=== PATIENT | female | born 1990 | race Caucasian/White ===

== ENCOUNTER 2024-10-28 19:59 | Emergency (ER) | payer MEDICARE, MEDICAID, SELFPAY ==
[2024-10-28 20:02] VITALS: BP 125/80; BP 143/82; PULSE 86; PULSE 89; RESP 18; TEMP 36.5; O2SAT 98; O2SAT 99; BMI 68.2
--- NOTE | 2024-10-28 20:02 | ED.GENADULT ---
HPI - General Adult General Chief complaint: Dizziness Stated complaint: cc of dizziness hx of dvt on both legs pe, dm Time Seen by Provider: 10/29/24 00:27 Source: patient Mode of arrival: ambulatory Limitations: no limitations History of Present Illness ED Provider: Dr. Prince Quinn HPI narrative: 34-year-old female with a history of DVT and pulmonary embolism who he was on warfarin who presents emergency department for 1 episode of dizziness. Patient states that around 19:00 hours she was lying down. When she got up she felt as if she was going to pass out. She states that her vision was blurry and she had nausea but no vomiting. The symptoms resolved but she was concerned about these symptoms so she came to the emergency department for evaluation. She states that she was had similar symptoms with her last episode being 2 months prior. She states she did go to an emergency department at that time and they evaluated her for possible blood clot in the lung and told her that the blood clots in her lungs had gotten smaller. She states that she did feel like she had a fever but did not take her temperature. She denied chills, rhinorrhea, sore throat, cough chest pain, shortness of breath, dyspnea on exertion. Related Data Allergies Allergy/AdvReac Type Severity Reaction Status Date / Time aspirin Allergy Unknown Verified 10/28/24 20:03 Review of Systems Review of Systems: Yes all other systems are reviewed and are negative [facility] Past Medical History [facility] Narrative: Social history: She denies tobacco and alcohol use. Physical Exam ED Vital Signs: Vital Signs - 24 hr 10/28/24 20:02 10/29/24 00:23 Temperature 97.7 F 97.9 F Pulse Rate 89 80 Respiratory Rate 18 16 Blood Pressure 125/80 145/86 H Pulse Oximetry 99 97 Oxygen Delivery Method Room Air Room Air BMI result Body Mass Index 68.2 Vital signs were normal. Exam: General: Awake, alert in no distress, weight was 209.5 kg, elevated BMI of 68.2 kg per m2 Head: Normocephalic, atraumatic EENT: PERRL, Lids normal, sclera normal, extraocular muscles intact, no nystagmus, conjunctiva normal, nose normal , ears normal, throat without erythema or exudates Neck: Supple, no adenopathy Lung: breath sounds symmetric, no wheezing, rales or rhonchi Chest: symmetric movement, nontender Heart: regular rate and rhythm, normal S1, S2 no murmurs or rubs Abdomen: soft, non-tender, nondistended, normal bowel sounds Back: no vertebral tenderness, no CVAT Extremities: no deformities, moves all extremities symmetrically Neuro: General: Awake, alert, oriented, normal speech Cranial nerves: cranial nerves intact Strength: moves all extremities symmetrically Cerebellar: Good isneww-pz-hare-to-finger, normal rapid finger, normal gait Psych: Pleasant, cooperative Course Course Course Narrative: RME performed by Marcela Lauren PA-C. Patient is a 34 year old assigned female at presenting to the emergency department with dizziness. Patient states that when she gets up she is dizzy. Patient has a history of DVT and is on warfarin Detailed physical exam and review of systems are deferred to the manager clinical. EKG, labs, and swabs ordered. Patient placed back in the waiting room pending room availability and results. Medical Decision Making Medical Decision Making [facility] Narrative: 34-year-old female with a history of DVT and pulmonary embolism who he was on warfarin who presents emergency department for 1 episode of dizziness which occurred at 19:00 hours when she went from my lying to standing position, the episode was brief and she had no loss of consciousness. Patient did have associated blurred vision and nausea. Patient states she had similar episode 2 months prior and had a negative workup in an emergency department. Vital signs were normal. Physical examination revealed no nystagmus, normal neurologic and cerebellar exam. Differential diagnosis: ?Includes but is not limited to stroke, myocardial infarction, myocardial ischemia, arrhythmia, positional vertigo, vasovagal syncope, electrolyte abnormalities, anemia Course: 00:50 Patient was laboratory evaluation was unremarkable. Twelve EKG was unremarkable. Patient's physical examination was normal. At this time I believe the patient had a near syncopal episode possibly related to vasovagal event or dehydration. I did discuss this with the patient. Patient was advised to increase your fluid intake with the next 24-48 hours. Symptoms got worse in any way she should return to the emergency department for re-evaluation. Patient was given printed and verbal instructions and discharged home. Admission/Observation Consideration of admission/observation: Escalation of care including admission/observation considered (Yes) Lab Data MDM Lab Attestation statement: I reviewed the patient's lab results. My independent interpretation patient's laboratory evaluation is as follows: Elevated WBC 95817. Therapeutic INR 2.5. Elevated glucose 135. High sensitive troponin I was below detectable limits. COVID-19, influenza and RSV were negative. Urinalysis and microscopic evaluation is consistent with a non clean catch specimen-the patient has no symptoms for urinary tract infection. 10/28/24 20:31 10/28/24 20:31 Labs: Lab Results 10/28/24 10/28/24 Range/Units 20: 20:31 WBC 12.8 H (4.8-10.8) X10*3/uL RBC 4.32 (4.20-5.50) X10*6/uL Hgb 12.2 (12.0-16.0) g/dl Hct 36.3 L (37.0-47.0) % MCV 84.0 (80.0-98.0) fL MCH 28.2 (27.0-33.0) pg MCHC 33.6 (31.0-35.0) g/dl RDW 13.5 (11.0-16.0) % Plt Count 323 (160-400) X10*3/uL MPV 9.5 (9.4-12.3) fL Immature Gran % (Auto) 0.6 H (0.0-0.4) % Neut % (Auto) 75.2 H (45-73) % Lymph % (Auto) 18.5 L (20-40) % [place] % (Auto) 5.1 (2-11) % Eos % (Auto) 0.3 (0-4) % Baso % (Auto) 0.3 (0-2) % Lymph # (Auto) 2.4 (1.2-4.9) X10*3/uL [place] # (Auto) 0.7 (0.1-1.2) X10*3/uL Eos # (Auto) 0.0 (0.0-0.4) X10*3/uL Baso # (Auto) 0.0 (0.0-0.2) X10*3/uL Abs Immat Gran (auto) 0.08 H (0.00-0.03) X10*3/uL Absolute Neuts (auto) 9.6 H (2.0-8.3) x10*3/uL Absolute Nucleated RBC 0.000 (0.0-0.012) X10*3/uL Nucleated RBC % (auto) 0.0 (0.0-0.2) /100WBC PT 29.3 H (10.9-12.4) SEC INR 2.5 H (0.9-1.1) APTT 37.3 H (26.0-36.8) SEC Sodium 140 (135-145) mmol/L Potassium 3.6 (3.3-5.1) mmol/L Chloride 107 (96-108) mmol/L Carbon Dioxide 26 (22-29) mmol/L Anion Gap 11 L (12-20) BUN 12 (9-16) mg/dL Creatinine 0.77 (0.5-1.4) mg/dL Estim Creat Clear Calc 204.5 Estimated GFR > 60 Random Glucose 138 H (60-115) mg/dL Calcium 9.0 (8.4-10.2) mg/dL Magnesium 1.8 (1.6-2.6) mg/dL Total Bilirubin 0.4 (0.0-1.0) mg/dL AST 19 (5-31) U/L ALT 17 (0-31) U/L Alkaline Phosphatase 47 (39-117) U/L Troponin I High Sens < 2.7 (<3.5-17.0) ng/L Total Protein 7.7 (6.5-8.0) g/dL Albumin 3.5 (3.5-5.0) g/dL Urine Color Yellow Urine Appearance Cloudy Urine pH 5.5 (5.0-9.0) Ur Specific Lena 1.025 (1.005-1.025) Urine Protein Negative (Neg-Trace) mg/dL Urine Glucose (UA) Negative (Negative) mg/dL Urine Ketones Negative (Negative) mg/dL Urine Blood Negative (Negative) Urine Nitrite Negative (Negative) Ur Leukocyte Esterase Small (1+) H (Negative) Urine RBC 0-2 (0-2) /HPF Urine WBC 0-5 (0-5) /HPF Ur Squamous Epith Cells 6-10 (0-2) /HPF Urine Bacteria 2+ (None Seen) Hyaline Casts 0-2 (0-2) /LPF Influenza Type A (PCR) NEGATIVE (Negative) Influenza Type B (PCR) NEGATIVE (Negative) RSV RNA Qual (PCR) NEGATIVE (Negative) SARS-CoV-2 RNA (RT-PCR) NEGATIVE (Negative) Independent Interpretation I performed an independent interpretation of an: EKG Interpretation: My independent interpretation patient's laboratory evaluation done at 20:16 hours is as follows: Normal sinus rhythm with a rate of 81 normal DC, QRS duration and QTC interval, no ST segment elevation, no ST segment depression, no significant T-wave abnormalities, no PACs, no PVCs Discharge Plan Discharge Clinical Impression: Near syncope Patient Disposition: Home, Self-Care Instructions: Near Syncope (ED) Additional Instructions: Your blood work was normal which is reassuring. Your marker of heart attack/heart damage was below detectable limits, I do not think that your symptoms are related to your heart. Your INR was therapeutic at 2.5, keep taking your warfarin as prescribed by your provider. Given the fact that your INR is in the therapeutic range, I do not think that you have recurrence of the blood clot in your lungs as the cause of your dizziness. Your EKG was normal. At this time I believe that your dizziness was caused by you being either slightly dehydrated or sick with a viral infection. I want you to increase your fluid intake over the next 24 hours. Symptoms get worse in any way want you to return to the emergency department so that we can re-evaluate you. Follow-up with your doctor in 2 days. Please return to the emergency department if your symptoms get worse or if you develop any symptoms that are concerning to you. Print Language: Liberian
--- NOTE | 2024-10-28 20:04 | ECG_ITS ---
Test Reason : DIZZINESS Blood Pressure : */* mmHG Vent. Rate : 81 BPM Atrial Rate : 81 BPM P-R Int : 144 ms QRS Dur : 84 ms QT Int : 386 ms P-R-T Axes : 31 12 22 degrees QTcB Int : 448 ms Normal sinus rhythm Cannot rule out Anterior infarct , age undetermined Abnormal ECG No previous ECGs available Referred By: Marcela Lauren Electronically Signed By: JAIME CADENA
--- OUTSIDE RECORDS SUMMARY | 2024-10-28 20:35 | XMS_ITS | Encounter Summary ---
Author Organization [facility] Address [address] [place] [address] Care Team Providers Care Chemical Plant Technical Director Name Role Phone Miguel A Mcclendon MD Primary Care Provider [phone] Dharmesh Armas MD Unavailable [phone] Gifty Huizar PhD Unavailable [phone] Pcp, No Primary Care Provider Unavailabl Tiki Velasco Primary Care Provider + [phone] Dharmesh Broderick MD Unavailable [phone] Jenae Thomas MD Primary Care Provider + [phone] Diego Schulz MD Unavailable [phone] Ravi Mills MD Unavailable [phone] Reason for Visit * Reason Onset Date Comments Medication Refill 11/22/2019 Encounter Details Date Type Department Care Team (Late st Contact Info) Description 11/22/2019 Refill [facility] [address] [place] [address] Denise Leal MD [address] [place] [address] Body mass index (bmi) 70 or greater, adult (HCC) Social History Tobacco Use Types Packs/Day Years Used Date Smoking Tobacco: Never Smokeless Tobacco: Never Alcohol Use Standard Drinks/Week Comments No 0 (1 standard drink = 0.6 oz pur e alcohol) AUDIT-C Answer Date Recorded Frequency of Alcohol Consumption Never 07/17/2018 Average Number of Drinks Not on file 018 Frequency of Binge Drinking Not on file 07/03 Sex and Gender Information Value Date Recorded Sex Assigned at Female 02/25/2023 1:53 AM EDT Gender Identity Female 02/25/2023 1:53 AM EDT Sexual Orientation Heterosexual (straight) 02/25 1:53 AM EDT documented as of this encounter Miscellaneous Notes * Telephone Encounter - Dee Fraga RN - 11/22/2019 9:10 AM EST pt last seen 02/12/19. Refill at next office visit 01/04/20 per provider. documented in this encounter Plan of Treatment Upcoming Encounters Date Type Department Care Team (Late st Contact Info) Description 12/11/2024 3:30 PM EDT Office Visit [facility] [address] [place] [phone] Jenae Thomas MD [address] [place] [address] documented as of this encounter Visit Diagnoses Diagnosis Body mass index (bmi) 70 or greater, adult documented in this encounter Care Teams Chemical Plant Technical Director Relationship Specialty Start Date End Date Miguel A Mcclendon MD PCP - General Internal Medicine 09/11/18 09/03/21 Dharmesh Armas MD [address] [place], [place] [phone] PCP - [place] Medicare Attributed 02/01/20 09/01/21 Pcp, No PCP - General General Medicine 09/04/21 10/06/21 Tiki Barry MBBS [address] [place] [address] PCP - General Internal Medicine 10/07/21 03/29/24 Jenae Thomas MD [address] [place] [address] PCP - General Internal Medicine 03/30/24 Diego Schulz MD [address] [place] [address] PCP - [employer] Medicare Attributed 10/03/23 Ravi Mills MD [address] [address] PCP - Resident - Supervising Attending Internal Medicine 06/05/24 Gifty Huizar, PhD [address] [facility], [address] [place], [place] [phone] Clinical Psychologist Psychology 10/13/20 Dharmesh Broderick MD [address] [place] [address] Ophthalmology 07/15/23 documented as of this encounter
--- OUTSIDE RECORDS SUMMARY | 2024-10-28 20:35 | XMS_ITS | Encounter Summary ---
Author Organization [facility] Address [address] [place] [address] Care Team Providers Care Bessemer Converter Blower Name Role Phone Miguel A Mcclendon MD Primary Care Provider [phone] Dharmesh Armas MD Unavailable [phone] Gifty Huizar PhD Unavailable [phone] Pcp, No Primary Care Provider Unavailabl Tiki Velasco Primary Care Provider + [phone] Dharmesh Broderick MD Unavailable Jenae Thomas MD Primary Care Provider + [phone] Diego Schulz MD Unavailable [phone] Ravi Mills MD Unavailable [phone] Reason for Visit * Reason Onset Date Comments Medication Refill 12/11/2019 Encounter Details Date Type Department Care Team (Late st Contact Info) Description 12/11/2019 Refill [facility] [address] [place] [phone] Stanley Stern, KAYLENE [address] [facility] [address] [place] [phone] Diabetes mellitus type 2 in obese (HCC) Social History Tobacco Use Types Packs/Day [...] Telephone Encounter - Dee Fraga RN - 12/12/2019 4:17 PM EDT Refill at next office visit per provider. Pt last seen 02/02/19 documented in this encounter Plan of Treatment Upcoming Encounters Date Type Department Care Team (Late st Contact Info) Description 12/11/2024 3:30 PM EDT Office Visit [facility] [address] [place] [phone] Jenae Thomas MD [address] [place] [address] documented as of this encounter Visit Diagnoses Diagnosis Diabetes mellitus type 2 in obese Type II or unspecified type diabetes mellitus without mention of complication, not stated as uncontrolled documented in this encounter Care Teams Bessemer Converter Blower Relationship Specialty Start Date End Date Migue lA Mcclendon MD PCP - General Internal Medicine 09/11/18 09/03/21 Dharmesh Armas MD [address] [place] [address] PCP - [place] Medicare Attributed 02/01/20 09/01/21 Pcp, No PCP - General General Medicine 09/04/21 10/06/21 Tiki Barry MBBS [address] [place] [address] PCP - General Internal Medicine 10/07/21 03/29/24 Jenae Thomas MD [address] [place] [address] PCP - General Internal Medicine 03/30/24 Diego Schulz MD [address] [place] [address] PCP - [employer] Medicare Attributed 10/03/23 Ravi Mills MD [address] [address] PCP - Resident - Supervising Attending Internal Medicine 06/05/24 Gifty Huizar, PhD [address] [facility], [address] [place] [phone] Clinical Psychologist Psychology 10/13/20 Dharmesh Broderick MD [address] [place] [address] Ophthalmology 07/15/23 documented as of this encounter
--- OUTSIDE RECORDS SUMMARY | 2024-10-28 20:35 | XMS_ITS | Encounter Summary ---
Author Organization [facility] Address [address] [place] [address] Care Team Providers Care Lode Miner Blasting Name Role Phone Miguel A Mcclendon MD Primary Care Provider [phone] Dharmesh Armas MD Unavailable [phone] Gifty Huizar PhD Unavailable [phone] Pcp, No Primary Care Provider Unavailabl Tiki Velasco Primary Care Provider + [phone] Dharmesh Broderick MD Unavailable [phone] Jenae Thomas MD Primary Care Provider + [phone] Diego Schulz MD Unavailable [phone] Ravi Mills MD Unavailable [phone] Reason for Visit * Reason Onset Date Comments Medication Refill 11/25/2019 Encounter Details Date Type Department Care Team (Late st Contact Info) Description 11/25/2019 Refill [facility] [address] [place] [address] Denise Leal MD [address] [place] [address] Body mass index (bmi) 70 or greater, [...] Telephone Encounter - Dee Fraga RN - 11/26/2019 8:26 AM EST Patient last seen 02/12/19. Refill at next office visit per provider. documented in this encounter Plan of Treatment Upcoming Encounters Date Type Department Care Team (Late st Contact Info) Description 12/11/2024 3:30 PM EDT Office Visit [facility] [address] [place], [place] [phone] Jenae Thomas MD [address] [place] [address] documented as of this encounter Visit Diagnoses Diagnosis Body mass index (bmi) 70 or greater, adult documented in this encounter Care Teams Lode Miner Blasting Relationship Specialty Start Date End Date Miguel A Mcclendon MD PCP - General Internal Medicine 09/11/18 09/03/21 Dharmesh Armas MD [address] [place], [place] [phone] PCP - [place] Medicare Attributed 02/01/20 09/01/21 Pcp, No PCP - General General Medicine 09/04/21 10/06/21 Tiki Barry MBBS [address] [place] [address] PCP - General Internal Medicine 10/07/21 03/29/24 Jenae Thomas MD [address] [place] [address] PCP - General Internal Medicine 03/30/24 Diego Schulz MD [address] [place] [address] PCP - [employer] Medicare Attributed 10/03/23 Ravi Mills MD [address] [address] PCP - Resident - Supervising Attending Internal Medicine 06/05/24 Gifty Huizar, PhD [address] [place] [address] [phone] Clinical Psychologist Psychology 10/13/20 Dharmesh Broderick MD [address] [place] [address] Ophthalmology 07/15/23 documented as of this encounter
[2024-10-28 20:36] LABS: MANUAL DIFF FLAG NO
--- OUTSIDE RECORDS SUMMARY | 2024-10-28 20:36 | XMS_ITS | Encounter Summary ---
Author Organization [facility] Address [address] [place] [address] Care Team Providers Care Canal Boat Captain Name Role Phone Miguel A Mcclendon MD Primary Care Provider [phone] Dharmesh Armas MD Unavailable [phone] Gifty Huizar PhD Unavailable [phone] Pcp, No Primary Care Provider Unavailabl Tiki Velasco Primary Care Provider + [phone] Dharmesh Broderick MD Unavailable [phone] Jenae Thomas MD Primary Care Provider + [phone] Diego Schulz MD Unavailable [phone] Ravi Mills MD Unavailable [phone] Reason for Visit * Reason Onset Date Comments Medication Refill 01/19/2020 Encounter Details Date Type Department Care Team (Late st Contact Info) Description 01/19/2020 Refill [facility] [address] [place] [phone] Stanley Stern, KAYLENE [address] [facility] [address] [place] [phone] Diabetes mellitus type 2 in obese (HCC) [...] Telephone Encounter - Dee Fraga RN - 01/21/2020 8:40 AM EDT Pt last seen 01/2019. Refill at next visit documented in this encounter Plan of Treatment Upcoming Encounters Date Type Department Care Team (Late st Contact Info) Description 12/11/2024 3:30 PM EDT Office Visit [facility] [address] [place], [place] [phone] Jenae Thomas MD [address] [place] [address] documented as of this encounter Visit Diagnoses Diagnosis Diabetes mellitus type 2 in obese Type II or unspecified type diabetes mellitus without mention of complication, not stated as uncontrolled documented in this encounter Care Teams Canal Boat Captain Relationship Specialty Start Date End Date Miguel A Mcclendon MD PCP - General Internal Medicine 09/11/18 09/03/21 Dharmesh Armas MD [address] [place] [address] PCP - [place] Medicare Attributed 02/01/20 09/01/21 Pcp, No PCP - General General Medicine 09/04/21 10/06/21 Tiki Barry MBBS [address] [place] [address] PCP - General Internal Medicine 10/07/21 03/29/24 Jenae Thomas MD 132 [place] [address] PCP - General Internal Medicine 03/30/24 Diego Schulz MD [address] [place] [address] PCP - [employer] Medicare Attributed 10/03/23 Ravi Mills MD [address] [address] PCP - Resident - Supervising Attending Internal Medicine 06/05/24 Gifty Huizar, PhD [address] [facility], [address] [place] [phone] Clinical Psychologist Psychology 10/13/20 Dharmesh Broderick MD [address] [place] [address] Ophthalmology 07/15/23 documented as of this encounter
--- OUTSIDE RECORDS SUMMARY | 2024-10-28 20:36 | XMS_ITS | Encounter Summary ---
Author Organization [facility] Address [address] [place] [address] Care Team Providers Care Duster Tender Name Role Phone Miguel A Mcclendon MD Primary Care Provider [phone] Dharmesh Armas MD Unavailable [phone] Gifty Huizar PhD Unavailable [phone] Pcp, No Primary Care Provider Unavailabl Tiki Velasco Primary Care Provider + [phone] Dharmesh Broderick MD Unavailable [phone] Jenae Thomas MD Primary Care Provider + [phone] Diego Schulz MD Unavailable [phone] Ravi Mills MD Unavailable Reason for Visit * Reason Onset Date Comments Medication Refill 08/21/2019 Encounter Details Date Type Department Care Team (Late st Contact Info) Description 08/21/2019 Refill [facility] [address] [place] [address] Denise Leal MD [address] [place] [address] Body mass index (bmi) 70 or greater, [...] Telephone Encounter - Dee Fraga RN - 08/21/2019 3:17 PM EST refill at next office visit per provider. last seen 01/2019 documented in this encounter Plan of Treatment Upcoming Encounters Date Type Department Care Team (Late st Contact Info) Description 12/11/2024 3:30 PM EDT Office Visit [facility] [address] [place] [phone] Jenae Thomas MD [address] [place] [address] documented as of this encounter Visit Diagnoses Diagnosis Body mass index (bmi) 70 or greater, adult documented in this encounter Care Teams Duster Tender Relationship Specialty Start Date End Date Miguel A Mcclendon MD PCP - General Internal Medicine 09/11/18 09/03/21 Dharmesh Armas MD [address] [place], [place] [phone] PCP - [place] Medicare Attributed 02/01/20 09/01/21 Pcp, No PCP - General General Medicine 09/04/21 10/06/21 Tiki Barry MBBS [address] [place] [address] PCP - General Internal Medicine 10/07/21 03/29/24 Jenae Thomas MD 132 [place] [address] PCP - General Internal Medicine 03/30/24 Diego Schulz MD 132 [place] [address] PCP - [employer] Medicare Attributed 10/03/23 Ravi Mills MD [address] [address] PCP - Resident - Supervising Attending Internal Medicine 06/05/24 Gifty Huizar, PhD [address] [place] [address] [phone] Clinical Psychologist Psychology 10/13/20 Dharmesh Broderick MD [address] [place] [address] Ophthalmology 07/15/23 documented as of this encounter
--- OUTSIDE RECORDS SUMMARY | 2024-10-28 20:36 | XMS_ITS | Encounter Summary ---
Author Organization [facility] Address [address] [place] [address] Care Team Providers Care Bass Guitar Teacher Name Role Phone Miguel A Mcclendon MD Primary Care Provider [phone] Dharmesh Armas MD Unavailable [phone] Gifty Huizar PhD Unavailable [phone] Pcp, No Primary Care Provider Unavailabl Tiki Velasco Primary Care Provider + [phone] Dharmesh Broderick MD Unavailable [phone] Jenae Thomas MD Primary Care Provider + [phone] Diego Schulz MD Unavailable [phone] Ravi Mills MD Unavailable Reason for Visit * Reason Onset Date Comments Medication Refill 12/11/2019 Encounter Details Date Type Department Care Team (Late st Contact Info) Description 12/11/2019 Refill [facility] [address] [place] [address] Denise Leal MD [address] [place] [address] Diabetes mellitus type 2 in obese (HCC); Body mass index (bmi) 70 or greater, [...] Encounter - Dee Fraga RN - 12/12/2019 4:16 PM EDT Refill at next office visit per provider. Pt last seen 02/02/19 documented in this encounter Plan of Treatment Upcoming Encounters Date Type Department Care Team (Late st Contact Info) Description 12/11/2024 3:30 PM EDT Office Visit [facility] [address] [place], [place] [phone] Jenae Thomas MD [address] [place] [address] documented as of this encounter Visit Diagnoses Diagnosis Diabetes mellitus type 2 in obese Type II or unspecified type diabetes mellitus without mention of complication, not stated as uncontrolled Body mass index (bmi) 70 or greater, adult documented in this encounter Care Teams Bass Guitar Teacher Relationship Specialty Start Date End Date Miguel A Mcclendon MD PCP - General Internal Medicine 09/11/18 09/03/21 Dharmesh Armas MD [address] [place], [place] [phone] PCP - [place] Medicare Attributed 02/01/20 09/01/21 Pcp, No PCP - General General Medicine 09/04/21 10/06/21 Tiki Barry MBBS [address] [place] [address] PCP - General Internal Medicine 10/07/21 03/29/24 Jenae Thomas MD 132 [place] [address] PCP - General Internal Medicine 03/30/24 Diego Schulz MD [address] [place] [address] PCP - [employer] Medicare Attributed 10/03/23 Ravi Mills MD [address] [place] [address] PCP - Resident - Supervising Attending Internal Medicine 06/05/24 Gifty Huizar, PhD [address] [address] Clinical Psychologist Psychology 10/13/20 Dhamresh Broderick MD [address] [place] [address] Ophthalmology 07/15/23 documented as of this encounter
--- OUTSIDE RECORDS SUMMARY | 2024-10-28 20:36 | XMS_ITS | Encounter Summary ---
Author Organization [facility] Address [address] [place] [address] Care Team Providers Care Fruit Grader Operator Name Role Phone Gifty Huizar PhD Unavailable [phone] Tiki Barry Primary Care Provider + [phone] Dharmesh Broderick MD Unavailable [phone] Jenae Thomas MD Primary Care Provider + [phone] Diego Schulz MD Unavailable [phone] Ravi Mills MD Unavailable [phone] Reason for Visit * Reason Onset Date Comments Medication Refill 11/29/2022 Encounter Details Date Type Department Care Team (Late st Contact Info) Description 11/29/2022 Refill [facility] [address] [place] [phone] Andrew Martínez MD 455 [facility] 203 [place] [address] Class 3 severe obesity due to excess calories with serious comorbidity and body mass index (BMI) greater than or equal to 70 in adult (HCC); Diabetes mellitus type 2 in obese (HCC) Social History Tobacco Use Types Packs/Day Years Used Date Smoking Tobacco: Former Cigarettes Q uit: 10/2021 Smokeless Tobacco: Never Alcohol Use Standard Drinks/Week Comments Not Currently 0 (1 standard drink = 0.6 oz [...] AM EDT documented as of this encounter Plan of Treatment Upcoming Encounters Date Type Department Care Team (Late st Contact Info) Description 12/11/2024 3:30 PM EDT Office Visit [facility] [address] [place], [place] [phone] Jenae Thomas MD [address] [place] [address] documented as of this encounter Visit Diagnoses Diagnosis Class 3 severe obesity due to excess calories with serious comorbidity and body mass index (BMI) greater than or equal to 70 in adult (HCC) Diabetes mellitus type 2 in obese Type II or unspecified type diabetes mellitus without mention of complication, not stated as uncontrolled documented in this encounter Care Teams Fruit Grader Operator Relationship Specialty Start Date End Date Tiki Barry MBBS [address] [place] [address] PCP - General Internal Medicine 10/07/21 03/29/24 Jenae Thomas MD [address] [place] [address] PCP - General Internal Medicine 03/30/24 Diego Schulz MD [address] [place] [address] PCP - [employer] Medicare Attributed 10/03/23 Ravi Mills MD [address] [place] [address] PCP - Resident - Supervising Attending Internal Medicine 06/05/24 Gifty Huizar, PhD 200 [place] [facility], 2nd [facility] [place], [place] [phone] Clinical Psychologist Psychology 10/13/20 Dharmesh Broderick MD [address] [place] [address] Ophthalmology 07/15/23 documented as of this encounter
--- OUTSIDE RECORDS SUMMARY | 2024-10-28 20:36 | XMS_ITS | Encounter Summary ---
Author Organization [facility] Address [address] [place] [address] Care Team Providers Care Music Researcher Name Role Phone Miguel A Mcclendon MD Primary Care Provider [phone] Dharmesh Armas MD Unavailable [phone] Gifty Huizar PhD Unavailable [phone] Pcp, No Primary Care Provider Unavailabl Tiki Velasco Primary Care Provider + [phone] Dharmesh Broderick MD Unavailable [phone] Jenae Thomas MD Primary Care Provider + [phone] Diego Schulz MD Unavailable [phone] Ravi Mills MD Unavailable [phone] Reason for Visit * Reason Onset Date Comments Medication Refill 01/01/2020 Encounter Details Date Type Department Care Team (Late st Contact Info) Description 01/01/2020 Refill [facility] [address] [place] [phone] Stanley Stern, KAYLENE 399 [facility] [address] [place] [phone] Diabetes mellitus type 2 in obese (HCC) [...] Telephone Encounter - Dee Fraga RN - 01/02/2020 9:51 AM EDT refill at next office visit per provider documented in this encounter Plan of Treatment Upcoming Encounters Date Type Department Care Team (Late st Contact Info) Description 12/11/2024 3:30 PM EDT [facility] [address] [place] [phone] Jenae Thomas MD [address] [place] [address] documented as of this encounter Visit Diagnoses Diagnosis Diabetes mellitus type 2 in obese Type II or unspecified type diabetes mellitus without mention of complication, not stated as uncontrolled documented in this encounter Care Teams Music Researcher Relationship Specialty Start Date End Date Miguel A Mcclendon MD PCP - General Internal Medicine 09/11/18 09/03/21 Dharmesh Armas MD [address] [place] [address] PCP - [place] Medicare Attributed 02/01/20 09/01/21 Pcp, No PCP - General General Medicine 09/04/21 10/06/21 Tiki Barry MBBS [address] [place] [address] PCP - General Internal Medicine 10/07/21 03/29/24 Jenae Thomas MD 132 [place] [address] PCP - General Internal Medicine 03/30/24 Diego Schulz MD 132 [place] [address] PCP - [employer] Medicare Attributed 10/03/23 Ravi Mills MD [address] [address] PCP - Resident - Supervising Attending Internal Medicine 06/05/24 Gifty Huizar, PhD [address] [place] [address] [phone] Clinical Psychologist Psychology 10/13/20 Dharmesh Broderick MD [address] [place] [address] Ophthalmology 07/15/23 documented as of this encounter
--- OUTSIDE RECORDS SUMMARY | 2024-10-28 20:36 | XMS_ITS | Encounter Summary ---
Author Organization [facility] Address [address] [place] [address] Care Team Providers Care Answerer Name Role Phone Miguel A Mcclendon MD Primary Care Provider [phone] Dharmesh Armas MD Unavailable [phone] Gifty Huizar PhD Unavailable [phone] Pcp, No Primary Care Provider Unavailabl Tiki Velasco Primary Care Provider + [phone] Dharmesh Broderick MD Unavailable [phone] Jenae Thomas MD Primary Care Provider + [phone] Diego Schulz MD Unavailable [phone] Ravi Mills MD Unavailable [phone] Reason for Visit * Reason Onset Date Comments Medication Refill 08/14/2019 Encounter Details Date Type Department Care Team (Late st Contact Info) Description 08/14/2019 Refill [facility] [address] [place] [phone] [place] Stern, KAYLENE 399 [facility] [address] [place] [phone] Diabetes mellitus type 2 in obese (HCC) [...] Telephone Encounter - Dee Fraga RN - 08/15/2019 11:24 AM EST Pt last seen 01/2019. Refill at next office visit. documented in this encounter Plan of Treatment Upcoming Encounters Date Type Department Care Team (Late st Contact Info) Description 12/11/2024 3:30 PM EDT Office Visit [facility] [address] [place], [place] [phone] Jenae Thomas MD [address] [place] [address] documented as of this encounter Visit Diagnoses Diagnosis Diabetes mellitus type 2 in obese Type II or unspecified type diabetes mellitus without mention of complication, not stated as uncontrolled documented in this encounter Care Teams Answerer Relationship Specialty Start Date End Date Miguel A Mcclendon MD PCP - General Internal Medicine 09/11/18 09/03/21 Dharmesh Armas MD [address] [place] [address] [address]CP - [place] Medicare Attributed 02/01/20 09/01/21 Pcp, No PCP - General General Medicine 09/04/21 10/06/21 Tiki Barry MBBS [address] [place] [address] PCP - General Internal Medicine 10/07/21 03/29/24 Jenae Thomas MD 132 [place] [address] PCP - General Internal Medicine 03/30/24 Diego Schulz MD 132 [place] [address] PCP - [employer] Medicare Attributed 10/03/23 Ravi Mills MD [address] [address] PCP - Resident - Supervising Attending Internal Medicine 06/05/24 Gifty Huizar, PhD 200 [place] [facility], [address] [place] [phone] Clinical Psychologist Psychology 10/13/20 Dharmesh Broderick MD [address] [place] [address] Ophthalmology 07/15/23 documented as of this encounter
--- OUTSIDE RECORDS SUMMARY | 2024-10-28 20:36 | XMS_ITS | Encounter Summary ---
Author Organization [facility] Address [address] [place] [address] Care Team Providers Care Health Inspector Name Role Phone Miguel A Mcclendon MD Primary Care Provider [phone] Dharmesh Armas MD Unavailable [phone] Gifty Huizar PhD Unavailable [phone] Pcp, No Primary Care Provider Unavailabl Tiki Velasco Primary Care Provider + [phone] Dharmesh Broderick MD Unavailable [phone] Jenae Thomas MD Primary Care Provider + [phone] Diego Schulz MD Unavailable [phone] Ravi Mills MD Unavailable [phone] Reason for Visit * Reason Onset Date Comments Medication Refill 09/06/2019 Encounter Details Date Type Department Care Team (Late st Contact Info) Description 09/06/2019 Refill [facility] [address] [place] [address] Denise Leal MD [address] [place] [address] Body mass index (bmi) 70 or greater, [...] Telephone Encounter - Dee Fraga RN - 09/07/2019 11:30 AM EST patient was last seen 02/12/19. refill at next office visit documented in this encounter Plan of Treatment Upcoming Encounters Date Type Department Care Team (Late st Contact Info) Description 12/11/2024 3:30 PM EDT Office Visit [facility] [address] [place] [phone] Jenae Thomas MD [address] [place] [address] documented as of this encounter Visit Diagnoses Diagnosis Body mass index (bmi) 70 or greater, adult documented in this encounter Care Teams Health Inspector Relationship Specialty Start Date End Date Miguel A Mcclendon MD PCP - General Internal Medicine 09/11/18 09/03/21 Dharmesh Armas MD [address] [place] [address] PCP - [place] Medicare Attributed 02/01/20 09/01/21 Pcp, No PCP - General General Medicine 09/04/21 10/06/21 Tiki Barry MBBS [address] [place] [address] PCP - General Internal Medicine 10/07/21 03/29/24 Jenae Thomas MD 132 [place] [address] PCP - General Internal Medicine 03/30/24 Diego Schulz MD [address] [place] [address] PCP - [employer] Medicare Attributed 10/03/23 Ravi Mills MD [address] [address] PCP - Resident - Supervising Attending Internal Medicine 06/05/24 Gifty Huizar, PhD [address] [place] [address] [phone] Clinical Psychologist Psychology 10/13/20 Dharmesh Broderick MD [address] [place] [address] Ophthalmology 07/15/23 documented as of this encounter
--- OUTSIDE RECORDS SUMMARY | 2024-10-28 20:36 | XMS_ITS | Encounter Summary ---
Author Organization [facility] Address [address] [place] [address] Care Team Providers Care Sales Relationship Manager Name Role Phone Miguel A Mcclendon MD Primary Care Provider [phone] Dharmesh Armas MD Unavailable [phone] Gifty Huizar PhD Unavailable [phone] Pcp, No Primary Care Provider Unavailabl Tiki Velasco Primary Care Provider + [phone] Dharmesh Broderick MD Unavailable [phone] Jenae Thomas MD Primary Care Provider + [phone] Diego Schulz MD Unavailable [phone] Ravi Mills MD Unavailable [phone] Reason for Visit * Reason Onset Date Comments Medication Refill 01/17/2020 Encounter Details Date Type Department Care Team (Late st Contact Info) Description 01/17/2020 Refill [facility] [address] [place] [address] Denise Leal MD [address] [place] [address] Body mass index (bmi) 70 or greater, [...] Telephone Encounter - Dee Fraga RN - 01/18/2020 8:11 AM EDT Last seen 02/02/2019. Refill at next visit per provider documented in this encounter Plan of Treatment Upcoming Encounters Date Type Department Care Team (Late st Contact Info) Description 12/11/2024 3:30 PM EDT Office Visit [facility] [address] [place] [phone] Jenae hTomas MD [address] [place] [address] documented as of this encounter Visit Diagnoses Diagnosis Body mass index (bmi) 70 or greater, adult documented in this encounter Care Teams Sales Relationship Manager Relationship Specialty Start Date End Date Miguel A Mcclendon MD PCP - General Internal Medicine 09/11/18 09/03/21 Dharmesh Armas MD [address] [place], [place] [phone] PCP - [place] Medicare Attributed 02/01/20 09/01/21 Pcp, No PCP - General General Medicine 09/04/21 10/06/21 Tiki Barry MBBS [address] [place] [address] PCP - General Internal Medicine 10/07/21 03/29/24 Jenae Thomas MD 132 [place] [address] PCP - General Internal Medicine 03/30/24 Diego Schulz MD 132 [place] [address] PCP - [employer] Medicare Attributed 10/03/23 Ravi Mills MD [address] [address] PCP - Resident - Supervising Attending Internal Medicine 06/05/24 Gifty Huizar, PhD 200 [place] [address] [phone] Clinical Psychologist Psychology 10/13/20 Dharmesh Broderick MD 79 [place] [address] Ophthalmology 07/15/23 documented as of this encounter
--- OUTSIDE RECORDS SUMMARY | 2024-10-28 20:36 | XMS_ITS | Encounter Summary ---
Author Organization [facility] Address [address] [place] [address] Care Team Providers Care Concrete Pile Driver Operator Name Role Phone Miguel A Mcclendon MD Primary Care Provider [phone] Dharmesh Armas MD Unavailable [phone] Gifty Huizar PhD Unavailable [phone] Pcp, No Primary Care Provider Unavailabl Tiki Velasco Primary Care Provider + [phone] Dharmesh Broderick MD Unavailable [phone] Jenae Thomas MD Primary Care Provider + [phone] Diego Schulz MD Unavailable [phone] Ravi Mills MD Unavailable [phone] Reason for Visit * Reason Onset Date Comments Medication Refill 12/23/2019 Encounter Details Date Type Department Care Team (Late st Contact Info) Description 12/23/2019 Refill [facility] [address] [place] [phone] [place] Stern, KAYLENE 399 [facility] [address] [place] [phone] Diabetes mellitus type 2 in obese (HCC) [...] Telephone Encounter - Dee Fraga RN - 12/24/2019 8:51 AM EDT Refill at next office visit per provider. Patient last seen 02/12/19 documented in this encounter Plan of Treatment Upcoming Encounters Date Type Department Care Team (Late st Contact Info) Description 12/11/2024 3:30 PM EDT Office Visit [facility] [address] [place] [phone] Jenae Thomas MD [address] [place] [address] documented as of this encounter Visit Diagnoses Diagnosis Diabetes mellitus type 2 in obese Type II or unspecified type diabetes mellitus without mention of complication, not stated as uncontrolled documented in this encounter Care Teams Concrete Pile Driver Operator Relationship Specialty Start Date End Date Miguel A Mcclendon MD PCP - General Internal Medicine 09/11/18 09/03/21 Dharmesh Armas MD [address] [place] [address] PCP - [place] Medicare Attributed 02/01/20 09/01/21 Pcp, No PCP - General General Medicine 09/04/21 10/06/21 Tiki Barry MBBS [address] [place] [address] PCP - General Internal Medicine 10/07/21 03/29/24 Jenae Thomas MD 132 [place] [address] PCP - General Internal Medicine 03/30/24 Diego Schulz MD 132 [place] [address] PCP - [employer] Medicare Attributed 10/03/23 Ravi Mills MD [address] [address] PCP - Resident - Supervising Attending Internal Medicine 06/05/24 Gifty Huizar, PhD 200 [place] [facility], [address] [place] [phone] Clinical Psychologist Psychology 10/13/20 Dharmesh Broderick MD [address] [place] [address] Ophthalmology 07/15/23 documented as of this encounter
--- OUTSIDE RECORDS SUMMARY | 2024-10-28 20:36 | XMS_ITS | Encounter Summary ---
Author Organization [facility] Address [address] [place] [address] Care Team Providers Care Chief Guard Name Role Phone Miguel A Mcclendon MD Primary Care Provider [phone] Dharmesh Armas MD Unavailable [phone] Gifty Huizar PhD Unavailable [phone] Pcp, No Primary Care Provider Unavailabl Tiki Velasco Primary Care Provider + [phone] Dharmesh Broderick MD Unavailable [phone] Jenae Thomas MD Primary Care Provider + [phone] Diego Schulz MD Unavailable [phone] Ravi Mills MD Unavailable [phone] Reason for Visit * Reason Onset Date Comments Medication Refill 08/14/2019 Encounter Details Date Type Department Care Team (Late st Contact Info) Description 08/14/2019 Refill [facility] [address] [place] [address] Denise Leal MD [address] [place] [address] Diabetes mellitus type 2 in obese (HCC); [...] Encounter - Dee Fraga RN - 08/15/2019 11:18 AM EST Refill at next office visit documented in this encounter Plan of Treatment Upcoming Encounters Date Type Department Care Team (Late st Contact Info) Description 12/11/2024 3:30 PM EDT Office Visit [facility] [address] [place] [phone] Jenae Thomas MD [address] [place] [address] documented as of this encounter Visit Diagnoses Diagnosis Diabetes mellitus type 2 in obese Type II or unspecified type diabetes mellitus without mention of complication, not stated as uncontrolled Body mass index (bmi) 70 or greater, adult documented in this encounter Care Teams Chief Guard Relationship Specialty Start Date End Date Miguel A Mcclendon MD PCP - General Internal Medicine 09/11/18 09/03/21 Dharmesh Armas MD [address] [place] [address] PCP - [place] Medicare Attributed 02/01/20 09/01/21 Pcp, No PCP - General General Medicine 09/04/21 10/06/21 Tiki Barry MBBS 132 [place] [address] PCP - General Internal Medicine 10/07/21 03/29/24 Jenae Thomas MD 132 [place] [address] PCP - General Internal Medicine 03/30/24 Diego Schulz MD [address] [place] [address] PCP - [employer] Medicare Attributed 10/03/23 Ravi Mills MD [address] [place] [address] PCP - Resident - Supervising Attending Internal Medicine 06/05/24 Gifty Huizar, PhD [address] [place] [address] Clinical Psychologist Psychology 10/13/20 Dharmesh Broderick MD 79 [place] [address] Ophthalmology 07/15/23 documented as of this encounter
--- OUTSIDE RECORDS SUMMARY | 2024-10-28 20:36 | XMS_ITS | Encounter Summary ---
Author Organization [facility] Address [address] [place] [address] Care Team Providers Care Certified Nurse Practitioner Name Role Phone Miguel A Mcclendon MD Primary Care Provider [phone] Dharmesh Armas MD Unavailable [phone] Gifty Huizar PhD Unavailable [phone] Pcp, No Primary Care Provider Unavailabl Tiki Velasco Primary Care Provider + [phone] Dharmesh Broderick MD Unavailable [phone] Jenae Thomas MD Primary Care Provider + [phone] Diego Schulz MD Unavailable [phone] Ravi Mills MD Unavailable [phone] Reason for Visit * Reason Onset Date Comments Medication Refill 01/17/2020 Encounter Details Date Type Department Care Team (Late st Contact Info) Description 01/17/2020 Refill [facility] [address] [place] [phone] [place] Stern, KAYLENE 399 [facility] [address] [place] [phone] Diabetes mellitus type 2 in obese (HCC) [...] Encounter - Dee Fraga RN - 01/18/2020 8:09 AM EDT Last seen 02/02/2019. Refill at next visit per provider documented in this encounter Plan of Treatment Upcoming Encounters Date Type Department Care Team (Late st Contact Info) Description 12/11/2024 3:30 PM EDT Office Visit [facility] [address] [place] [phone] Jenae Thomas MD [address] [place] [address] documented as of this encounter Visit Diagnoses Diagnosis Diabetes mellitus type 2 in obese Type II or unspecified type diabetes mellitus without mention of complication, not stated as uncontrolled documented in this encounter Care Teams Certified Nurse Practitioner Relationship Specialty Start Date End Date Miguel A Mcclendon MD PCP - General Internal Medicine 09/11/18 09/03/21 Dharmesh Armas MD [address] [place] [address] PCP - [place] Medicare Attributed 02/01/20 09/01/21 Pcp, No PCP - General General Medicine 09/04/21 10/06/21 Tiki Barry MBBS [address] [place] [address] PCP - General Internal Medicine 10/07/21 03/29/24 Jenae Thomas MD 132 [place] [address] PCP - General Internal Medicine 03/30/24 Diego Schulz MD 132 [place] [address] PCP - [employer] Medicare Attributed 10/03/23 Ravi Mills MD [address] [address] PCP - Resident - Supervising Attending Internal Medicine 06/05/24 Gifty Huizar, PhD 200 [place] [facility], [address] [place], [place] [phone] Clinical Psychologist Psychology 10/13/20 Dharmesh Broderick MD [address] [place] [address] Ophthalmology 07/15/23 documented as of this encounter
--- OUTSIDE RECORDS SUMMARY | 2024-10-28 20:36 | XMS_ITS | Encounter Summary ---
Author Organization [facility] Address [address] [place] [address] Care Team Providers Care Billet Driller Name Role Phone Miguel A Mcclendon MD Primary Care Provider [phone] Dharmesh Armas MD Unavailable [phone] Gifty Huizar PhD Unavailable [phone] Pcp, No Primary Care Provider Unavailabl Tiki Velasco Primary Care Provider + [phone] Dharmesh Broderick MD Unavailable [phone] Jenae Thomas MD Primary Care Provider + [phone] Diego Schulz MD Unavailable [phone] Ravi Mills MD Unavailable [phone] Reason for Visit * Reason Onset Date Comments Medication Refill 09/05/2019 Encounter Details Date Type Department Care Team (Late st Contact Info) Description 09/05/2019 Refill [facility] [address] [place] [address] Denise Leal MD [address] [place] [address] Body mass index (bmi) 70 or greater, [...] Telephone Encounter - Dee Fraga RN - 09/06/2019 8:25 AM EST patient last seen 01/2019. refill atnext office visit documented in this encounter Plan of Treatment Upcoming Encounters Date Type Department Care Team (Late st Contact Info) Description 12/11/2024 3:30 PM EDT Office Visit [facility] [address] [place] [phone] Jenae Thomas MD [address] [place] [address] documented as of this encounter Visit Diagnoses Diagnosis Body mass index (bmi) 70 or greater, adult documented in this encounter Care Teams Billet Driller Relationship Specialty Start Date End Date Miguel A Mcclendon MD PCP - General Internal Medicine 09/11/18 09/03/21 Dharmesh Armas MD [address] [place], [place] [address] PCP - [place] Medicare Attributed 02/01/20 09/01/21 Pcp, No PCP - General General Medicine 09/04/21 10/06/21 Tiki Barry MBBS [address] [place] [address] PCP - General Internal Medicine 10/07/21 03/29/24 Jenae Thomas MD [address] [place] [address] PCP - General Internal Medicine 03/30/24 Diego Schulz MD [address] [place] [address] PCP - [employer] Medicare Attributed 10/03/23 Ravi Mills MD [address] [address] PCP - Resident - Supervising Attending Internal Medicine 06/05/24 Gifty Huizar, PhD [address] [place] [address] [phone] Clinical Psychologist Psychology 10/13/20 Dharmesh Broderick MD [address] [place] [address] Ophthalmology 07/15/23 documented as of this encounter
--- OUTSIDE RECORDS SUMMARY | 2024-10-28 20:36 | XMS_ITS | Encounter Summary ---
Author Organization [facility] Address [address] [place] [address] Care Team Providers Care Flour Broker Name Role Phone Miguel A Mcclendon MD Primary Care Provider [phone] Dharmesh Armas MD Unavailable [phone] Gifty Huizar PhD Unavailable [phone] Pcp, No Primary Care Provider Unavailabl Tiki Velasco Primary Care Provider + [phone] Dharmesh Broderick MD Unavailable [phone] Jenae Thomas MD Primary Care Provider + [phone] Diego Schulz MD Unavailable [phone] Ravi Mills MD Unavailable [phone] Reason for Visit * Reason Onset Date Comments Medication Refill 01/01/2021 Encounter Details Date Type Department Care Team (Late st Contact Info) Description 01/01/2021 Refill [facility] [place] [address] [place] [address] Stanley Stern APRN 399 [facility] [address] [place] [address] Morbid obesity with BMI of 70 and over, adult (HCC); Diabetes mellitus type 2 in [...] Orientation Heterosexual (straight) 02/25 1:53 AM EDT COVID-19 Exposure Response Date Recorded In the last month, have you been in contact with someone who was confirmed or suspected to have Coronavirus / COVID-19? Unable to assess 12/22/2020 11:12 AM EDT documented as of this encounter Miscellaneous Notes * Telephone Encounter - Desiree Pak RN - 01/06/2021 12:10 PM EDT LV 05/2020 Needs to be seen prior to refill documented in this encounter Plan of Treatment Upcoming Encounters Date Type Department Care Team (Late st Contact Info) Description 12/11/2024 3:30 PM EDT Office Visit [facility] [address] [place] [phone] Jenae Thomas MD [address] [place] [address] documented as of this encounter Visit Diagnoses Diagnosis Morbid obesity with BMI of 70 and over, adult (HCC) Diabetes mellitus type 2 in obese Type II or unspecified type diabetes mellitus without mention of complication, not stated as uncontrolled documented in this encounter Care Teams Flour Broker Relationship Specialty Start Date End Date Miguel A Mcclendon MD PCP - General Internal Medicine 09/11/18 09/03/21 Dharmesh Armas MD [address] [place] [address] PCP - [place] Medicare Attributed 02/01/20 09/01/21 Pcp, No PCP - General General Medicine 09/04/21 10/06/21 iTki Barry MBBS 132 [place] [address] PCP - General Internal Medicine 10/07/21 03/29/24 Jenae Thomas MD [address] [place] [address] PCP - General Internal Medicine 03/30/24 Diego Schulz MD [address] [place] [address] PCP - [employer] Medicare Attributed 10/03/23 Ravi Mills MD [address] [place] [address] PCP - Resident - Supervising Attending Internal Medicine 06/05/24 Gifty Huizar, PhD [address] [address] Clinical Psychologist Psychology 10/13/20 Dharmesh Broderick MD [address] [place] [address] Ophthalmology 07/15/23 documented as of this encounter
--- OUTSIDE RECORDS SUMMARY | 2024-10-28 20:36 | XMS_ITS | Encounter Summary ---
Author Organization [facility] Address [address] [place] [address] Care Team Providers Care It Intern Name Role Phone Miguel A Mcclendon MD Primary Care Provider [phone] Denise Leal MD Unavailable [phone] Dharmesh Armas MD Unavailable [phone] Gifty Huizar PhD Unavailable [phone] Pcp, No Primary Care Provider UnavailTiki Bonds Primary Care Provider + [phone] Dharmesh Broderick MD Unavailable [phone] Jenae Thomas MD Primary Care Provider + [phone] Diego Schulz MD Unavailable [phone] Ravi Mills MD Unavailable [phone] Reason for Visit * Reason Onset Date Comments Medication Refill 01/29/2019 Encounter Details Date Type Department Care Team (Late st Contact Info) Description 01/29/2019 Refill [facility] [address] [place] [address] Stanley Stern, KAYLENE 399 [facility] 200 [place] [address] Diabetes mellitus type 2 in obese (HCC) [...] 3:30 PM EDT Office Visit [facility] [address] [place] [phone] Jenae Thomas MD [address] [place] [address] documented as of this encounter Visit Diagnoses Diagnosis Diabetes mellitus type 2 in obese Type II or unspecified type diabetes mellitus without mention of complication, not stated as uncontrolled documented in this encounter Care Teams It Intern Relationship Specialty Start Date End Date Miguel A Mcclendon MD PCP - General Internal Medicine 09/11/18 09/03/21 Denise Leal MD [address] [place] [address] PCP - [place] Attributed 04/02/19 07/02/19 Dharmesh Armas MD [address] [place] [address] PCP - [place] Medicare Attributed 02/01/20 09/01/21 Pcp, No PCP - General General Medicine 09/04/21 10/06/21 Tiki Barry MBBS [address] [place] [address] PCP - General Internal Medicine 10/07/21 03/29/24 Jenae Thomas MD 132 [place] [address] PCP - General Internal Medicine 03/30/24 Diego Schulz MD 132 [place] [address] PCP - [employer] Medicare Attributed 10/03/23 Ravi Mills MD [address] [address] PCP - Resident - Supervising Attending Internal Medicine 06/05/24 Gifty Huizar, PhD 200 [facility], [address] [place] [phone] Clinical Psychologist Psychology 10/13/20 Dharmesh Broderick MD [address] [place] [address] Ophthalmology 07/15/23 documented as of this encounter
--- OUTSIDE RECORDS SUMMARY | 2024-10-28 20:36 | XMS_ITS | Encounter Summary ---
Author Organization [facility] Address [address] [place] [address] Care Team Providers Care Detail Manager Name Role Phone Gifty Huizar PhD Unavailable [phone] Tiki Barry Primary Care Provider + [phone] Dharmesh Broderick MD Unavailable [phone] Jenae Thomas MD Primary Care Provider + [phone] Diego Schulz MD Unavailable [phone] Ravi Mills MD Unavailable Reason for Visit * Reason Onset Date Comments Medication Refill 06/16/2022 Encounter Details Date Type Department Care Team (Late st Contact Info) Description 06/16/2022 Refill [facility] [address] [phone] Paulette Webb ProviderMD [address] [place] [address] Uncontrolled type 2 diabetes mellitus with hyperglycemia (HCC) Social History Tobacco Use Types Packs/Day [...] Exposure Response Date Recorded In the last 10 days, have yo u been in contact with someone who was confirmed or suspected to have Coronavirus/COVID-19? No / Unsure 05/20/2022 2:06 PM EDT documented as of this encounter Plan of Treatment Upcoming Encounters Date Type Department Care Team (Late st Contact Info) Description 12/11/2024 3:30 PM EDT Office Visit [facility] [address] [place] [phone] Jenae Thomas MD [address] [place] [address] documented as of this encounter Visit Diagnoses Diagnosis Uncontrolled type 2 diabetes mellitus with hyperglycemia (HCC) documented in this encounter Care Teams Detail Manager Relationship Specialty Start Date End Date Tiki Barry MBBS [address] [place] [address] PCP - General Internal Medicine 10/07/21 03/29/24 Jenae Thomas MD [address] [place] [address] PCP - General Internal Medicine 03/30/24 Diego Schulz MD [address] [place] [address] PCP - [employer] Medicare Attributed 10/03/23 Ravi Mills MD [address] [place] [address] PCP - Resident - Supervising Attending Internal Medicine 06/05/24 Gifty Huizar, PhD [address] [place] [address] Clinical Psychologist Psychology 10/13/20 Dharmesh Broderick MD 79 [facility] [place] [address] Ophthalmology 07/15/23 documented as of this encounter
--- OUTSIDE RECORDS SUMMARY | 2024-10-28 20:36 | XMS_ITS | Encounter Summary ---
Author Organization [facility] Address [address] [place] [address] Care Team Providers Care Climatology Teacher Name Role Phone Miguel A Mcclendon MD Primary Care Provider [phone] Dharmesh Armas MD Unavailable [phone] Gifty Huizar PhD Unavailable [phone] Pcp, No Primary Care Provider Unavailabl Tiki Velasco Primary Care Provider + [phone] Dharmesh Broderick MD Unavailable [phone] Jenae Thomas MD Primary Care Provider + [phone] Diego Schulz MD Unavailable [phone] Ravi Mills MD Unavailable [phone] Reason for Visit * Reason Onset Date Comments Medication Refill 08/21/2019 Encounter Details Date Type Department Care Team (Late st Contact Info) Description 08/21/2019 Refill [facility] [address] [place] [address] Denise Leal MD [address] [place] [address] Body mass index (bmi) 70 or greater, [...] Encounter - Dee Fraga RN - 08/21/2019 9:11 AM EST refill at next office visit. last seen 02/12/19 documented in this encounter Plan of Treatment Upcoming Encounters Date Type Department Care Team (Late st Contact Info) Description 12/11/2024 3:30 PM EDT Office Visit [facility] [address] [place] [phone] Jenae Thomas MD [address] [place] [address] documented as of this encounter Visit Diagnoses Diagnosis Body mass index (bmi) 70 or greater, adult documented in this encounter Care Teams Climatology Teacher Relationship Specialty Start Date End Date Miguel A Mcclendon MD PCP - General Internal Medicine 09/11/18 09/03/21 Dharmesh Armas MD [address] [place], [place] [address] PCP - [place] Medicare Attributed 02/01/20 09/01/21 Pcp, No PCP - General General Medicine 09/04/21 10/06/21 Tiki Barry MBBS [address] [place] [address] PCP - General Internal Medicine 10/07/21 03/29/24 Jenae Thomas MD 132 [place] [address] PCP - General Internal Medicine 03/30/24 Diego Schulz MD 132 [place] [address] PCP - [employer] Medicare Attributed 10/03/23 Ravi Mills MD [address] [address] PCP - Resident - Supervising Attending Internal Medicine 06/05/24 Gifty Huizar, PhD [address] [place] [address] [phone] Clinical Psychologist Psychology 10/13/20 Dharmesh Broderick MD [address] [place] [address] Ophthalmology 07/15/23 documented as of this encounter
--- OUTSIDE RECORDS SUMMARY | 2024-10-28 20:36 | XMS_ITS | Encounter Summary ---
Author Organization [facility] Address [address] [place] [address] Care Team Providers Care Documentation Clerk Name Role Phone Miguel A Mcclendon MD Primary Care Provider [phone] Dharmesh Armas MD Unavailable [phone] Gifty Huizar PhD Unavailable [phone] Pcp, No Primary Care Provider Unavailabl Tiki Velasco Primary Care Provider + [phone] Dharmesh Broderick MD Unavailable [phone] Jenae Thomas MD Primary Care Provider + [phone] Diego Schulz MD Unavailable [phone] Ravi Mills MD Unavailable [phone] Reason for Visit * Reason Onset Date Comments Medication Refill 10/02/2019 Encounter Details Date Type Department Care Team (Late st Contact Info) Description 10/02/2019 Refill [facility] [address] [place] [address] Denise Leal MD [address] [place] [address] Body mass index (bmi) 70 or greater, [...] Telephone Encounter - Dee Fraga RN - 10/04/2019 8:48 AM EST patient last seen 02/12/19 w/dr Leal. refill at next office visit documented in this encounter Plan of Treatment Upcoming Encounters Date Type Department Care Team (Late st Contact Info) Description 12/11/2024 3:30 PM EDT Office Visit [facility] [address] [place] [phone] Jenae Thomas MD [address] [place] [address] documented as of this encounter Visit Diagnoses Diagnosis Body mass index (bmi) 70 or greater, adult documented in this encounter Care Teams Documentation Clerk Relationship Specialty Start Date End Date Miguel A Mcclendon MD PCP - General Internal Medicine 09/11/18 09/03/21 Dharmesh Armas MD [address] [place], [place] [phone] PCP - [place] Medicare Attributed 02/01/20 09/01/21 Pcp, No PCP - General General Medicine 09/04/21 10/06/21 Tiki Barry MBBS [address] [place] [address] PCP - General Internal Medicine 10/07/21 03/29/24 Jenae Thomas MD 132 [place] [address] PCP - General Internal Medicine 03/30/24 Diego Schulz MD 132 [place] [address] PCP - [employer] Medicare Attributed 10/03/23 Ravi Mills MD [address] [address] PCP - Resident - Supervising Attending Internal Medicine 06/05/24 Gifty Huizar, PhD 200 [facility], [address] [place], [place] [phone] Clinical Psychologist Psychology 10/13/20 Dharmesh Broderick MD [address] [place] [address] Ophthalmology 07/15/23 documented as of this encounter
--- OUTSIDE RECORDS SUMMARY | 2024-10-28 20:36 | XMS_ITS | Encounter Summary ---
Author Organization [facility] Address [address] [place] [address] Care Team Providers Care Business Developer Name Role Phone Miguel A Mcclendon MD Primary Care Provider [phone] Denise Leal MD Unavailable [phone] Dharmesh Armas MD Unavailable [phone] Gifty Huizar PhD Unavailable [phone] Pcp, No Primary Care Provider Unavailabl Tiki Velasco Primary Care Provider + [phone] Dharmesh Broderick MD Unavailable [phone] Jenae Thomas MD Primary Care Provider + [phone] Diego Schulz MD Unavailable [phone] Ravi Mills MD Unavailable [phone] Reason for Visit * Reason Onset Date Comments Medication Refill 06/20/2019 Encounter Details Date Type Department Care Team (Late st Contact Info) Description 06/20/2019 Refill [facility] [address] [place] [address] Denise Leal MD [address] [place] [address] Diabetes mellitus type 2 in obese (HCC) [...] Telephone Encounter - Dee Fraga RN - 06/20/2019 11:09 AM EDT Patient needs appointment documented in this encounter Plan of Treatment Upcoming Encounters Date Type Department Care Team (Late st Contact Info) Description 12/11/2024 3:30 PM EDT Office Visit [facility] [address] [place] [phone] Jenae Thomas MD [address] [place] [address] documented as of this encounter Visit Diagnoses Diagnosis Diabetes mellitus type 2 in obese Type II or unspecified type diabetes mellitus without mention of complication, not stated as uncontrolled documented in this encounter Care Teams Business Developer Relationship Specialty Start Date End Date Miguel A Mcclendon MD PCP - General Internal Medicine 09/11/18 09/03/21 Denise Leal MD [address] [place] [address] PCP - MSSP Attributed 04/02/19 07/02/19 Dharmesh Armas MD [address] [place] [address] PCP - [place] Medicare Attributed 02/01/20 09/01/21 Pcp, No PCP - General General Medicine 09/04/21 10/06/21 Tiki Barry MBBS 132 [place] [address] PCP - General Internal Medicine 10/07/21 03/29/24 Jenae Thomas MD [address] [place] [address] PCP - General Internal Medicine 03/30/24 Diego Schulz MD [address] [place] [address] PCP - [employer] Medicare Attributed 10/03/23 Ravi Mills MD [address] [place] [address] PCP - Resident - Supervising Attending Internal Medicine 06/05/24 Gifty Huizar, PhD [address] [place] [address] [address] Clinical Psychologist Psychology 10/13/20 Dharmesh Broderick MD 79 [place] [address] Ophthalmology 07/15/23 documented as of this encounter
--- OUTSIDE RECORDS SUMMARY | 2024-10-28 20:36 | XMS_ITS | Encounter Summary ---
Author Organization [facility] Address [address] [place] [address] Care Team Providers Care Flyer Builder Name Role Phone Miguel A Mcclendon MD Primary Care Provider [phone] Dharmesh Armas MD Unavailable [phone] Gifty Huizar PhD Unavailable [phone] Pcp, No Primary Care Provider Unavailabl Tiki Velasco Primary Care Provider + [phone] Dharmesh Broderick MD Unavailable [phone] Jenae Thomas MD Primary Care Provider + [phone] Diego Schulz MD Unavailable [phone] Ravi Mills MD Unavailable [phone] Reason for Visit * Reason Onset Date Comments Medication Refill 08/24/2019 Encounter Details Date Type Department Care Team (Late st Contact Info) Description 08/24/2019 Refill [facility] [address] [place] [address] Denise Leal MD [address] [place] [address] Body mass index (bmi) 70 or greater, [...] Telephone Encounter - Dee Fraga RN - 08/24/2019 1:57 PM EST refill at next office visit. patient last seen 02/12/19 documented in this encounter Plan of Treatment Upcoming Encounters Date Type Department Care Team (Late st Contact Info) Description 12/11/2024 3:30 PM EDT Office Visit [facility] [address] [place] [phone] Jenae Thomas MD [address] [place] [address] documented as of this encounter Visit Diagnoses Diagnosis Body mass index (bmi) 70 or greater, adult documented in this encounter Care Teams Flyer Builder Relationship Specialty Start Date End Date Miguel A Mcclendon MD PCP - General Internal Medicine 09/11/18 09/03/21 Dharmesh Armas MD [address] [place] [address] PCP - [place] Medicare Attributed 02/01/20 09/01/21 Pcp, No PCP - General General Medicine 09/04/21 10/06/21 Tiki Barry MBBS [address] [place] [address] PCP - General Internal Medicine 10/07/21 03/29/24 Jenae Thomas MD 132 [place] [address] PCP - General Internal Medicine 03/30/24 Diego Schulz MD 132 [place] [address] PCP - [employer] Medicare Attributed 10/03/23 Ravi Mills MD [address] [address] PCP - Resident - Supervising Attending Internal Medicine 06/05/24 Gifty Huizar, PhD [address] [place] [address] [phone] Clinical Psychologist Psychology 10/13/20 Dharmesh Broderick MD [address] [place] [address] Ophthalmology 07/15/23 documented as of this encounter
--- OUTSIDE RECORDS SUMMARY | 2024-10-28 20:36 | XMS_ITS | Encounter Summary ---
Author Organization [facility] Address [address] [place] [address] Care Team Providers Care Mechanical Manager Name Role Phone Miguel A Mcclendon MD Primary Care Provider [phone] Dharmesh Armas MD Unavailable [phone] Gifty Huizar PhD Unavailable [phone] Pcp, No Primary Care Provider Unavailabl Tiki Velasco Primary Care Provider + [phone] Dharmesh Broderick MD Unavailable [phone] Jenae Thomas MD Primary Care Provider + [phone] Diego Schulz MD Unavailable [phone] Ravi Mills MD Unavailable [phone] Reason for Visit * Reason Onset Date Comments Medication Refill 08/18/2019 Encounter Details Date Type Department Care Team (Late st Contact Info) Description 08/18/2019 Refill [facility] [address] [place] [address] Denise Leal MD [address] [place] [address] Body mass index (bmi) 70 or greater, [...] Telephone Encounter - Dee Fraga RN - 08/20/2019 10:34 AM EST PATIENT NEEDS APPT documented in this encounter Plan of Treatment Upcoming Encounters Date Type Department Care Team (Late st Contact Info) Description 12/11/2024 3:30 PM EDT Office Visit [facility] [address] [place] [phone] Jenae Thomas MD [address] [place] [address] documented as of this encounter Visit Diagnoses Diagnosis Body mass index (bmi) 70 or greater, adult documented in this encounter Care Teams Mechanical Manager Relationship Specialty Start Date End Date Miguel A Mcclendon MD PCP - General Internal Medicine 09/11/18 09/03/21 Dharmesh Armas MD [address] [place] [address] PCP - [place] Medicare Attributed 02/01/20 09/01/21 Pcp, No PCP - General General Medicine 09/04/21 10/06/21 Tiki Barry MBBS [address] [place] [address] PCP - General Internal Medicine 10/07/21 03/29/24 Jenae Thomas MD 132 [place] [address] PCP - General Internal Medicine 03/30/24 Diego Schulz MD 132 [place] [address] PCP - [employer] Medicare Attributed 10/03/23 Ravi Mills MD [address] [address] PCP - Resident - Supervising Attending Internal Medicine 06/05/24 Gifty Huizar, PhD 200 [place] [address] [address] Clinical Psychologist Psychology 10/13/20 Dharmesh Broderick MD [address] [place] [address] Ophthalmology 07/15/23 documented as of this encounter
--- OUTSIDE RECORDS SUMMARY | 2024-10-28 20:36 | XMS_ITS | Encounter Summary ---
Author Organization [facility] Address [address] [place] [address] Care Team Providers Care Plastic Installer Name Role Phone Miguel A Mcclendon MD Primary Care Provider [phone] Dharmesh Armas MD Unavailable [phone] Gifty Huizar PhD Unavailable [phone] Pcp, No Primary Care Provider Unavailabl Tiki Velasco Primary Care Provider + [phone] Dharmesh Broderick MD Unavailable [phone] Jenae Thomas MD Primary Care Provider + [phone] Diego Schulz MD Unavailable [phone] Ravi Mills MD Unavailable [phone] Reason for Visit * Reason Onset Date Comments Medication Refill 10/05/2019 Encounter Details Date Type Department Care Team (Late st Contact Info) Description 10/05/2019 Refill [facility] [address] [place] [phone] Stanley Stern, KAYLENE 399 [facility] [address] [place] [phone] Diabetes mellitus type 2 in obese (HCC) [...] Telephone Encounter - Dee Fraga RN - 10/05/2019 8:27 AM EST pt last seen 02/12/19, refill at next office visit. documented in this encounter Plan of Treatment Upcoming Encounters Date Type Department Care Team (Late st Contact Info) Description 12/11/2024 3:30 PM EDT Office Visit [facility] [address] [place], [place] [phone] Jenae Thomas MD [address] [place] [address] documented as of this encounter Visit Diagnoses Diagnosis Diabetes mellitus type 2 in obese Type II or unspecified type diabetes mellitus without mention of complication, not stated as uncontrolled documented in this encounter Care Teams Plastic Installer Relationship Specialty Start Date End Date Miguel A Mcclendon MD PCP - General Internal Medicine 09/11/18 09/03/21 Dharmesh Armas MD [address] [place] [address] PCP - [employer] Medicare Attributed 02/01/20 09/01/21 Pcp, No PCP - General General Medicine 09/04/21 10/06/21 Tiki Barry MBBS [address] [place] [address] PCP - General Internal Medicine 10/07/21 03/29/24 Jenae Thomas MD 132 [place] [address] PCP - General Internal Medicine 03/30/24 Diego Schulz MD 132 [place] [address] PCP - [employer] Medicare Attributed 10/03/23 Ravi Mills MD [address] [address] PCP - Resident - Supervising Attending Internal Medicine 06/05/24 Gifty Huizar, PhD 200 [facility], 2nd [place], [place] [phone] Clinical Psychologist Psychology 10/13/20 Dharmesh Broderick MD 79 [place] [address] Ophthalmology 07/15/23 documented as of this encounter
--- OUTSIDE RECORDS SUMMARY | 2024-10-28 20:36 | XMS_ITS | Encounter Summary ---
Author Organization [facility] Address [address] [place] [address] Care Team Providers Care Wagon Winder Name Role Phone Miguel A Mcclendon MD Primary Care Provider [phone] Denise Leal MD Unavailable [phone] Dharmesh Armas MD Unavailable [phone] Gifty Huizar PhD Unavailable [phone] Pcp, No Primary Care Provider UnavailTiki Bonds Primary Care Provider + [phone] Dharmesh Broderick MD Unavailable [phone] Jenae Thomas MD Primary Care Provider + [phone] Diego Schulz MD Unavailable [phone] Ravi Mills MD Unavailable [phone] Reason for Visit * Reason Onset Date Comments Medication Refill 01/27/2019 Encounter Details Date Type Department Care Team (Late st Contact Info) Description 01/27/2019 Refill [facility] [address] [place] [address] Stanley Stern, KAYLENE 399 [facility] 200 [place] [address] Diabetes mellitus type 2 in obese (HCC) [...] Description 12/11/2024 3:30 PM EDT Office Visit [facility] [address] [place] [phone] Jenae Thomas MD [address] [place] [address] documented as of this encounter Visit Diagnoses Diagnosis Diabetes mellitus type 2 in obese Type II or unspecified type diabetes mellitus without mention of complication, not stated as uncontrolled documented in this encounter Care Teams Wagon Winder Relationship Specialty Start Date End Date Miguel A Mcclendon MD PCP - General Internal Medicine 09/11/18 09/03/21 Denise Leal MD [address] [place] [address] PCP - [employer]P Attributed 04/02/19 07/02/19 Dharmesh Armas MD [address] [place] [address] PCP - [place] Medicare Attributed 02/01/20 09/01/21 Pcp, No PCP - General General Medicine 09/04/21 10/06/21 Tiki Barry MBBS [address] [place] [address] PCP - General Internal Medicine 10/07/21 03/29/24 Jneae Thomas MD 132 [place] [address] PCP - General Internal Medicine 03/30/24 Diego Schulz MD [address] [place] [address] PCP - [employer] Medicare Attributed 10/03/23 Ravi Mills MD [address] [address] PCP - Resident - Supervising Attending Internal Medicine 06/05/24 Gifty Huizar, PhD 200 [employer] [facility], [address] [place] [phone] Clinical Psychologist Psychology 10/13/20 Dharmesh Broderick MD 79 [place] [address] Ophthalmology 07/15/23 documented as of this encounter
--- OUTSIDE RECORDS SUMMARY | 2024-10-28 20:36 | XMS_ITS | Encounter Summary ---
Author Organization [facility] Address [address] [place] [address] Care Team Providers Care Immigration Attorney Name Role Phone Miguel A Mcclendon MD Primary Care Provider [phone] Dharmesh Armas MD Unavailable [phone] Gifty Huizar PhD Unavailable [phone] Pcp, No Primary Care Provider Unavailabl Tiki Velasco Primary Care Provider + [phone] Dharmesh Broderick MD Unavailable [phone] Jenae Thomas MD Primary Care Provider + [phone] Diego Schulz MD Unavailable [phone] Ravi Mills MD Unavailable [phone] Reason for Visit * Reason Onset Date Comments Medication Refill 09/23/2019 Encounter Details Date Type Department Care Team (Late st Contact Info) Description 09/23/2019 Refill [facility] [address] [place] [phone] Stanley Stern, KAYLENE [address] [facility] [address] [place] [phone] Diabetes mellitus type 2 in obese (HCC) [...] Telephone Encounter - Dee Fraga RN - 09/24/2019 8:36 AM EST refill at next office visit, patient last seen 02/12/19 documented in this encounter Plan of Treatment Upcoming Encounters Date Type Department Care Team (Late st Contact Info) Description 12/11/2024 3:30 PM EDT Office Visit [facility] [address] [place], [place] [phone] Jenae Thomas MD [address] [place] [address] documented as of this encounter Visit Diagnoses Diagnosis Diabetes mellitus type 2 in obese Type II or unspecified type diabetes mellitus without mention of complication, not stated as uncontrolled documented in this encounter Care Teams Immigration Attorney Relationship Specialty Start Date End Date Miguel A Mcclendon MD PCP - General Internal Medicine 09/11/18 09/03/21 Dharmesh Armas MD [address] [place] [address] PCP - [place] Medicare Attributed 02/01/20 09/01/21 Pcp, No PCP - General General Medicine 09/04/21 10/06/21 Tiki Barry MBBS [address] [place] [address] PCP - General Internal Medicine 10/07/21 03/29/24 Jenae Thomas MD 132 [place] [address] PCP - General Internal Medicine 03/30/24 Diego Schulz MD [address] [place] [address] PCP - [employer] Medicare Attributed 10/03/23 Ravi Mills MD [address] [address] PCP - Resident - Supervising Attending Internal Medicine 06/05/24 Gifty Huizar, PhD 200 [place] [facility], 2nd [place], [place] [phone] Clinical Psychologist Psychology 10/13/20 Dharmesh Broderick MD [address] [place] [address] Ophthalmology 07/15/23 documented as of this encounter
--- OUTSIDE RECORDS SUMMARY | 2024-10-28 20:36 | XMS_ITS | Encounter Summary ---
Author Organization [facility] Address [address] [place] [address] Care Team Providers Care Yacht Builder Name Role Phone Miguel A Mcclendon MD Primary Care Provider [phone] Denise Leal MD Unavailable [phone] Dharmesh Armas MD Unavailable [phone] Gifty Huizar PhD Unavailable [phone] Pcp, No Primary Care Provider Unavailabl Tiki Velasco Primary Care Provider + [phone] Dharmesh Broderick MD Unavailable [phone] Jenae Thomas MD Primary Care Provider + [phone] Diego Schulz MD Unavailable [phone] Ravi Mills MD Unavailable [phone] Encounter Details Date Type Department Care Team (Late st Contact Info) Description 09/14/2018 Scanned Document [facility] Bariatric Surgery [address] [place] [address] Pcp, No [address] [place] [address] Social History Tobacco Use Types Packs/Day Years [...] [facility] [address] [place] [phone] Jenae Thomas MD [address] [place] [address] documented as of this encounter Visit Diagnoses Not on filedocumented in this encounter Care Teams Yacht Builder Relationship Specialty Start Date End Date Miguel A Mcclendon MD PCP - General Internal Medicine 09/11/18 09/03/21 Denise Leal MD [address] [place] [address] PCP - MSSP Attributed 04/02/19 07/02/19 Dharmesh Armas MD [address] [place] [address] PCP - [place] Medicare Attributed 02/01/20 09/01/21 Pcp, No PCP - General General Medicine 09/04/21 10/06/21 Tiki Barry MBBS [address] [place] [address] PCP - General Internal Medicine 10/07/21 03/29/24 Jenae Thomas MD [address] [place] [address] PCP - General Internal Medicine 03/30/24 Diego Schulz MD 132 [place] [address] PCP - [employer] Medicare Attributed 10/03/23 Ravi Mills MD [address] [address] PCP - Resident - Supervising Attending Internal Medicine 06/05/24 Gifty Huizar, PhD 200 [place] [facility], [address] [place] [address] Clinical Psychologist Psychology 10/13/20 Dharmesh Broderick MD [address] [place] [address] Ophthalmology 07/15/23 documented as of this encounter
--- OUTSIDE RECORDS SUMMARY | 2024-10-28 20:36 | XMS_ITS | Encounter Summary ---
Author Organization [facility] Address [address] [place] [address] Care Team Providers Care Android Framework Developer Name Role Phone Miguel A Mcclendon MD Primary Care Provider [phone] Dharmesh Armas MD Unavailable [phone] Gifty Huizar PhD Unavailable [phone] Pcp, No Primary Care Provider Unavailabl Tiki Velasco Primary Care Provider + [phone] Dharmesh Broderick MD Unavailable [phone] Jenae Thomas MD Primary Care Provider + [phone] Diego Schulz MD Unavailable [phone] Ravi Mills MD Unavailable [phone] Reason for Visit * Reason Onset Date Comments Medication Refill 10/08/2019 Encounter Details Date Type Department Care Team (Late st Contact Info) Description 10/08/2019 Refill [facility] [address] [place] [address] Denise Leal MD [address] [place] [address] Body mass index (bmi) 70 or greater, [...] Telephone Encounter - Dee Fraga RN - 10/08/2019 3:35 PM EST last seen 02/12/19, refill at next office visit. documented in this encounter Plan of Treatment Upcoming Encounters Date Type Department Care Team (Late st Contact Info) Description 12/11/2024 3:30 PM EDT Office Visit [facility] [address] [place] [phone] Jenae Thomas MD [address] [place] [address] documented as of this encounter Visit Diagnoses Diagnosis Body mass index (bmi) 70 or greater, adult documented in this encounter Care Teams Android Framework Developer Relationship Specialty Start Date End Date Miguel A Mcclendon MD PCP - General Internal Medicine 09/11/18 09/03/21 Dharmesh Armas MD [address] [place] [address] PCP - [place] Medicare Attributed 02/01/20 09/01/21 Pcp, No PCP - General General Medicine 09/04/21 10/06/21 Tiki Barry MBBS [address] [place] [address] PCP - General Internal Medicine 10/07/21 03/29/24 Jenae Thomas MD 132 [place] [address] PCP - General Internal Medicine 03/30/24 Diego Schulz MD 132 [place] [address] PCP - [employer] Medicare Attributed 10/03/23 Ravi Mills MD [address] [address] PCP - Resident - Supervising Attending Internal Medicine 06/05/24 Gifty Huizar, PhD [address] [phone] Clinical Psychologist Psychology 10/13/20 Dharmesh Broderick MD [address] [place] [address] Ophthalmology 07/15/23 documented as of this encounter
--- OUTSIDE RECORDS SUMMARY | 2024-10-28 20:36 | XMS_ITS | Encounter Summary ---
Author Organization [facility] Address [address] [place] [address] Care Team Providers Care Oven Stripper Name Role Phone Miguel A Mcclendon MD Primary Care Provider [phone] Dharmesh Armas MD Unavailable [phone] Gifty Huizar PhD Unavailable [phone] Pcp, No Primary Care Provider Unavailabl Tiki Velasco Primary Care Provider + [phone] Dharmesh Broderick MD Unavailable [phone] Jenae Thomas MD Primary Care Provider + [phone] Diego Schulz MD Unavailable [phone] Ravi Mills MD Unavailable [phone] Reason for Visit * Reason Onset Date Comments Medication Refill 10/08/2019 Encounter Details Date Type Department Care Team (Late st Contact Info) Description 10/08/2019 Refill [facility] & NUTRITION [address] [place] [phone] Stanley Stern, KAYLENE 399 [facility] [address] [place] [phone] Diabetes mellitus type 2 in obese (HCC) [...] Description 12/11/2024 3:30 PM EDT Office Visit [facility] [address] [place], [place] [phone] Jenae Thomas MD [address] [place] [address] documented as of this encounter Visit Diagnoses Diagnosis Diabetes mellitus type 2 in obese Type II or unspecified type diabetes mellitus without mention of complication, not stated as uncontrolled documented in this encounter Care Teams Oven Stripper Relationship Specialty Start Date End Date Miguel A Mcclendon MD PCP - General Internal Medicine 09/11/18 09/03/21 Dharmesh Armas MD [address] [place] [address] PCP - [place] Medicare Attributed 02/01/20 09/01/21 Pcp, No PCP - General General Medicine 09/04/21 10/06/21 Tiki Barry MBBS [address] [place] [address] PCP - General Internal Medicine 10/07/21 03/29/24 Jenae Thomas MD 132 [place] [address] PCP - General Internal Medicine 03/30/24 Diego Schulz MD 132 [place] [address] PCP - [employer] Medicare Attributed 10/03/23 Ravi Mills MD [address] [address] PCP - Resident - Supervising Attending Internal Medicine 06/05/24 Gifty Huizar, PhD 200 [place] [facility], 2nd [place], [place] [phone] Clinical Psychologist Psychology 10/13/20 Dharmesh Broderick MD [address] [place] [address] Ophthalmology 07/15/23 documented as of this encounter
--- OUTSIDE RECORDS SUMMARY | 2024-10-28 20:36 | XMS_ITS | Encounter Summary ---
Author Organization [facility] Address [address] [place] [address] Care Team Providers Care Hospital Chief Financial Officer Name Role Phone Miguel A Mcclendon MD Primary Care Provider [phone] Dharmesh Armas MD Unavailable [phone] Gifty Huizar PhD Unavailable [phone] Pcp, No Primary Care Provider Unavailabl Tiki Velasco Primary Care Provider + [phone] Dharmesh Broderick MD Unavailable [phone] Jenae Thomas MD Primary Care Provider + [phone] Diego Schulz MD Unavailable [phone] Ravi Mills MD Unavailable [phone] Reason for Visit * Reason Onset Date Comments Medication Refill 12/22/2019 Encounter Details Date Type Department Care Team (Late st Contact Info) Description 12/22/2019 Refill [facility] [address] [place] [phone] Stanley Stern, KAYLENE 399 [facility] [address] [place] [phone] Diabetes mellitus type 2 in obese (HCC) [...] Encounter - Dee Fraga RN - 12/24/2019 9:01 AM EDT Refill at next office visit per provider. Patient last seen 02/13/20 documented in this encounter Plan of Treatment Upcoming Encounters Date Type Department Care Team (Late st Contact Info) Description 12/11/2024 3:30 PM EDT Office Visit [facility] [address] [place] [phone] Jenae Thomas MD [address] [place] [address] documented as of this encounter Visit Diagnoses Diagnosis Diabetes mellitus type 2 in obese Type II or unspecified type diabetes mellitus without mention of complication, not stated as uncontrolled documented in this encounter Care Teams Hospital Chief Financial Officer Relationship Specialty Start Date End Date Miguel A Mcclendon MD PCP - General Internal Medicine 09/11/18 09/03/21 Dharmesh Armas MD [address] [place] [address] PCP - [place] Medicare Attributed 02/01/20 09/01/21 Pcp, No PCP - General General Medicine 09/04/21 10/06/21 Tiki Barry MBBS [address] [place] [address] PCP - General Internal Medicine 10/07/21 03/29/24 Jenae Thomas MD 132 [place] [address] PCP - General Internal Medicine 03/30/24 Diego Schulz MD 132 [place] [address] PCP - [employer] Medicare Attributed 10/03/23 Ravi Mills MD [address] [address] PCP - Resident - Supervising Attending Internal Medicine 06/05/24 Gifty Huizar, PhD 200 [place] [facility], [address] [place] [phone] Clinical Psychologist Psychology 10/13/20 Dharmesh Broderick MD [address] [place] [address] Ophthalmology 07/15/23 documented as of this encounter
--- OUTSIDE RECORDS SUMMARY | 2024-10-28 20:36 | XMS_ITS | Encounter Summary ---
Author Organization [facility] Address [address] [place] [address] Care Team Providers Care Ivf Embryologist Name Role Phone Miguel A Mcclendon MD Primary Care Provider [phone] Denise Leal MD Unavailable [phone] Dharmesh Armas MD Unavailable [phone] Gifty Huizar PhD Unavailable [phone] Pcp, No Primary Care Provider UnavailTiki Bonds Primary Care Provider + [phone] Dharmesh Broderick MD Unavailable [phone] Jenae Thomas MD Primary Care Provider + [phone] Diego Schulz MD Unavailable [phone] Ravi Mills MD Unavailable [phone] Reason for Visit * Reason Onset Date Comments Medication Refill 06/20/2019 Encounter Details Date Type Department Care Team (Late st Contact Info) Description 06/20/2019 Refill [facility] DIAB[facility] & NUTRITION [address] [place] [phone] Stanley Stern, KAYLENE 399 [facility] 200 [place] [address] Diabetes mellitus type 2 in obese (HCC) [...] Encounter - Dee Fraga RN - 06/20/2019 11:03 AM EDT Refill at next office visit. Patient last seen 02/12/19 documented in this encounter Plan of Treatment Upcoming Encounters Date Type Department Care Team (Late st Contact Info) Description 12/11/2024 3:30 PM EDT Office Visit [facility] [address] [place] [phone] Jenae Thomas MD [address] [place] [address] documented as of this encounter Visit Diagnoses Diagnosis Diabetes mellitus type 2 in obese Type II or unspecified type diabetes mellitus without mention of complication, not stated as uncontrolled documented in this encounter Care Teams Ivf Embryologist Relationship Specialty Start Date End Date Miguel A Mcclendon MD PCP - General Internal Medicine 09/11/18 09/03/21 Denise Leal MD [address] [place] [address] PCP - MSSP Attributed 04/02/19 07/02/19 Dharmesh Armas MD [address] [place] [address] PCP - [place] Medicare Attributed 02/01/20 09/01/21 Pcp, No PCP - General General Medicine 09/04/21 10/06/21 Tiki Barry MBBS 132 [place] [address] PCP - General Internal Medicine 10/07/21 03/29/24 Jenae Thomas MD [address] [place] [address] PCP - General Internal Medicine 03/30/24 Diego Schulz MD [address] [place] [address] PCP - [employer] Medicare Attributed 10/03/23 Ravi Mills MD [address] [place] [address] PCP - Resident - Supervising Attending Internal Medicine 06/05/24 Gifty Huizar, PhD [address] [address] Clinical Psychologist Psychology 10/13/20 Dharmesh Broderick MD 79 [place] [address] Ophthalmology 07/15/23 documented as of this encounter
--- OUTSIDE RECORDS SUMMARY | 2024-10-28 20:36 | XMS_ITS | Encounter Summary ---
Author Organization [facility] Address [address] [place] [address] Care Team Providers Care Seafood Processor Name Role Phone Miguel A Mcclendon MD Primary Care Provider [phone] Denise Leal MD Unavailable [phone] Dharmesh Armas MD Unavailable [phone] Gifty Huizar PhD Unavailable [phone] Pcp, No Primary Care Provider Unavailabl Tiki Velasco Primary Care Provider + [phone] Dharmesh Broderick MD Unavailable [phone] Jenae Thomas MD Primary Care Provider + [phone] Diego Schulz MD Unavailable + [phone] Ravi Mills MD Unavailable [phone] Reason for Visit * Reason Onset Date Comments Medication Refill 06/17/2019 Encounter Details Date Type Department Care Team (Late st Contact Info) Description 06/17/2019 Refill [facility] [address] [place] [address] Denise Leal MD [address] [place] [address] Diabetes mellitus type 2 in obese (HCC) [...] encounter Miscellaneous Notes * Telephone Encounter - eDe Fraga RN - 06/20/2019 11:10 AM EDT Patient needs appointment * Telephone Encounter - Dee Fraga RN - 06/18/2019 2:51 PM EDT topamax refill request. Pt last seen w/Dr Leal 02/12/19. F/u 06/19/19 documented in this encounter Plan of Treatment Upcoming Encounters Date Type Department Care Team (Late st Contact Info) Description 12/11/2024 3:30 PM EDT Office Visit [facility] [address] [place] [address] Jenae Thomas MD [address] [place] [address] documented as of this encounter Visit Diagnoses Diagnosis Diabetes mellitus type 2 in obese Type II or unspecified type diabetes mellitus without mention of complication, not stated as uncontrolled documented in this encounter Care Teams Seafood Processor Relationship Specialty Start Date End Date Miguel A Mcclendon MD PCP - General Internal Medicine 09/11/18 09/03/21 Denise Leal MD [address] [place] [address] PCP - MSSP Attributed 04/02/19 07/02/19 Dharmesh Armas MD [address] [place] [address] PCP - [place] Medicare Attributed 02/01/20 09/01/21 Pcp, No PCP - General General Medicine 09/04/21 10/06/21 Tiki Barry MBBS 132 [place] [address] PCP - General Internal Medicine 10/07/21 03/29/24 Jenae Thomas MD 132 [place] [address] PCP - General Internal Medicine 03/30/24 Diego Schulz MD 132 [place] [address] PCP - [employer] Medicare Attributed 10/03/23 Ravi Mills MD [address] [address] PCP - Resident - Supervising Attending Internal Medicine 06/05/24 Gifty Huizar, PhD 200 [place] [facility], [address] [place] [address] Clinical Psychologist Psychology 10/13/20 Dharmesh Broderick MD [address] [place] [address] Ophthalmology 07/15/23 documented as of this encounter
--- OUTSIDE RECORDS SUMMARY | 2024-10-28 20:36 | XMS_ITS | Encounter Summary ---
Author Organization [facility] Address [address] [place] [address] Care Team Providers Care Title Search Manager Name Role Phone Miguel A Mcclendon MD Primary Care Provider [phone] Dharmesh Armas MD Unavailable [phone] Gifty Huizar PhD Unavailable [phone] Pcp, No Primary Care Provider Unavailabl Tiki Velasco Primary Care Provider + [phone] Dharmesh Broderick MD Unavailable [phone] Jenae Thomas MD Primary Care Provider + [phone] Diego Schulz MD Unavailable [phone] Ravi Mills MD Unavailable [phone] Reason for Visit * Reason Onset Date Comments Medication Refill 12/22/2019 Encounter Details Date Type Department Care Team (Late st Contact Info) Description 12/22/2019 Refill [facility] [address] [place] [phone] Stanley Stern, KAYLENE 399 [facility] [address] [place] [phone] Diabetes mellitus type 2 in obese (HCC) [...] Encounter - Dee Fraga RN - 12/24/2019 9:02 AM EDT Refill at next office visit per provider. Patient last seen 02/13/20 documented in this encounter Plan of Treatment Upcoming Encounters Date Type Department Care Team (Late st Contact Info) Description 12/11/2024 3:30 PM EDT Office Visit [facility] [address] [place] [phone] Jenae Thomas MD [address] [place] [address] documented as of this encounter Visit Diagnoses Diagnosis Diabetes mellitus type 2 in obese Type II or unspecified type diabetes mellitus without mention of complication, not stated as uncontrolled documented in this encounter Care Teams Title Search Manager Relationship Specialty Start Date End Date Miguel A Mcclendon MD PCP - General Internal Medicine 09/11/18 09/03/21 Dharmesh Armas MD [address] [place] [address] PCP - [place] Medicare Attributed 02/01/20 09/01/21 Pcp, No PCP - General General Medicine 09/04/21 10/06/21 Tiki Barry MBBS [address] [place] [address] PCP - General Internal Medicine 10/07/21 03/29/24 Jenae Thomas MD 132 [place] [address] PCP - General Internal Medicine 03/30/24 Diego Schulz MD 132 [place] [address] PCP - [employer] Medicare Attributed 10/03/23 Ravi Mills MD [address] [address] PCP - Resident - Supervising Attending Internal Medicine 06/05/24 Gifty Huizar, PhD 200 [facility], [address] [place] [phone] Clinical Psychologist Psychology 10/13/20 Dharmesh Broderick MD [address] [place] [address] Ophthalmology 07/15/23 documented as of this encounter
--- OUTSIDE RECORDS SUMMARY | 2024-10-28 20:36 | XMS_ITS | Encounter Summary ---
Author Organization [facility] Address [address] [place] [address] Care Team Providers Care Storekeeper Engineering Name Role Phone Miguel A Mcclendon MD Primary Care Provider [phone] Denise Leal MD Unavailable [phone] Dharmesh Armas MD Unavailable [phone] Gifty Huizar PhD Unavailable [phone] Pcp, No Primary Care Provider UnavailTiki Bonds Primary Care Provider + [phone] Dharmesh Broderick MD Unavailable [phone] Jenae Thomas MD Primary Care Provider + [phone] Diego Schulz MD Unavailable [phone] Ravi Mills MD Unavailable [phone] Reason for Visit * Reason Onset Date Comments Medication Refill 11/23/2018 Encounter Details Date Type Department Care Team (Late st Contact Info) Description 11/23/2018 Refill [facility] [address] [place] [address] Stanley Stern, KAYLENE 399 [facility] 200 [place] [address] Diabetes mellitus type 2 in obese (HCC) [...] Telephone Encounter - Dee Fraga RN - 11/24/2018 4:10 PM EST phentermine already ordered 11/23/18 documented in this encounter Plan of Treatment Upcoming Encounters Date Type Department Care Team (Late st Contact Info) Description 12/11/2024 3:30 PM EDT Office Visit [facility] [address] [place] [phone] Jenae Thomas MD [address] [place] [address] documented as of this encounter Visit Diagnoses Diagnosis Diabetes mellitus type 2 in obese Type II or unspecified type diabetes mellitus without mention of complication, not stated as uncontrolled documented in this encounter Care Teams Storekeeper Engineering Relationship Specialty Start Date End Date Miguel A Mcclendon MD PCP - General Internal Medicine 09/11/18 09/03/21 Denise Leal MD [address] [place] [address] PCP - [place] Attributed 04/02/19 07/02/19 Dharmesh Armas MD [address] [place] [address] PCP - [place] Medicare Attributed 02/01/20 09/01/21 Pcp, No PCP - General General Medicine 09/04/21 10/06/21 Tiki Barry MBBS 132 [place] [address] PCP - General Internal Medicine 10/07/21 03/29/24 Jenae Thomas MD 132 [place] [address] PCP - General Internal Medicine 03/30/24 Diego Schulz MD [address] [place] [address] PCP - [employer] Medicare Attributed 10/03/23 Ravi Mills MD [address] [address] PCP - Resident - Supervising Attending Internal Medicine 06/05/24 Gifty Huizar, PhD [address] [phone] Clinical Psychologist Psychology 10/13/20 Dharmesh Broderick MD 79 [place] [address] Ophthalmology 07/15/23 documented as of this encounter
--- OUTSIDE RECORDS SUMMARY | 2024-10-28 20:36 | XMS_ITS | Encounter Summary ---
Author Organization [facility] Address [address] [place] [address] Care Team Providers Care Beauty Consultant Name Role Phone Miguel A Mcclendon MD Primary Care Provider [phone] Dharmesh Armas MD Unavailable [phone] Gifty Huizar PhD Unavailable [phone] Pcp, No Primary Care Provider Unavailabl Tiki Velasco Primary Care Provider + [phone] Dharmesh Broderick MD Unavailable [phone] Jenae Thomas MD Primary Care Provider + [phone] Diego Schulz MD Unavailable [phone] Ravi Mills MD Unavailable [phone] Reason for Visit * Reason Onset Date Comments Medication Refill 10/02/2019 Encounter Details Date Type Department Care Team (Late st Contact Info) Description 10/02/2019 Refill [facility] [address] [place] [phone] Stanley Stern, KAYLENE 399 [facility] [address] [place] [phone] Diabetes mellitus type 2 in obese (HCC) [...] Encounter - Dee Fraga RN - 10/04/2019 8:49 AM EST patient last seen 02/12/19 w/dr Leal. refill at next office visit documented in this encounter Plan of Treatment Upcoming Encounters Date Type Department Care Team (Late st Contact Info) Description 12/11/2024 3:30 PM EDT Office Visit [facility] [address] [place], [place] [phone] Jenae Thomas MD [address] [place] [address] documented as of this encounter Visit Diagnoses Diagnosis Diabetes mellitus type 2 in obese Type II or unspecified type diabetes mellitus without mention of complication, not stated as uncontrolled documented in this encounter Care Teams Beauty Consultant Relationship Specialty Start Date End Date Miguel A Mcclendon MD PCP - General Internal Medicine 09/11/18 09/03/21 Dharmesh Armas MD [address] [place] [address] PCP - [place] Medicare Attributed 02/01/20 09/01/21 Pcp, No PCP - General General Medicine 09/04/21 10/06/21 Tiki Barry MBBS [address] [place] [address] PCP - General Internal Medicine 10/07/21 03/29/24 Jenae Thomas MD 132 [place] [address] PCP - General Internal Medicine 03/30/24 Diego Schulz MD 132 [place] [address] PCP - [employer] Medicare Attributed 10/03/23 Ravi Mills MD [address] [address] PCP - Resident - Supervising Attending Internal Medicine 06/05/24 Gifty Huizar, PhD 200 [place] [address] [phone] Clinical Psychologist Psychology 10/13/20 Dharmesh Broderick MD [address] [place] [address] Ophthalmology 07/15/23 documented as of this encounter
--- OUTSIDE RECORDS SUMMARY | 2024-10-28 20:36 | XMS_ITS | Encounter Summary ---
Author Organization [facility] Address [address] [place] [address] Care Team Providers Care Insurance Adviser Name Role Phone Miguel A Mcclendon MD Primary Care Provider [phone] Dharmesh Armas MD Unavailable [phone] Gifty Huizar PhD Unavailable [phone] Pcp, No Primary Care Provider Unavailabl Tiki Velasco Primary Care Provider + [phone] Dharmesh Broderick MD Unavailable [phone] Jenae Thomas MD Primary Care Provider + [phone] Diego Schulz MD Unavailable [phone] Ravi Mills MD Unavailable [phone] Reason for Visit * Reason Onset Date Comments Medication Refill 09/05/2019 Encounter Details Date Type Department Care Team (Late st Contact Info) Description 09/05/2019 Refill [facility] [address] [place] [phone] Stanley Stern, KAYLENE 399 [facility] [address] [place] [phone] Diabetes mellitus type 2 in obese (HCC) [...] Description 12/11/2024 3:30 PM EDT Office Visit [facility] [address] [place], [place] [phone] Jenae Thomas MD [address] [place] [address] documented as of this encounter Visit Diagnoses Diagnosis Diabetes mellitus type 2 in obese Type II or unspecified type diabetes mellitus without mention of complication, not stated as uncontrolled documented in this encounter Care Teams Insurance Adviser Relationship Specialty Start Date End Date Miguel A Mcclendon MD PCP - General Internal Medicine 09/11/18 09/03/21 Dharmesh Armas MD [address] [place] [address] PCP - [place] Medicare Attributed 02/01/20 09/01/21 Pcp, No PCP - General General Medicine 09/04/21 10/06/21 Tiki Barry MBBS [address] [place] [address] PCP - General Internal Medicine 10/07/21 03/29/24 Jenae Thomas MD 132 [place] [address] PCP - General Internal Medicine 03/30/24 Diego Schulz MD 132 [place] [address] PCP - [employer] Medicare Attributed 10/03/23 Ravi Mills MD [address] [address] PCP - Resident - Supervising Attending Internal Medicine 06/05/24 Gifty Huizar, PhD 200 [facility], [address] [place] [phone] Clinical Psychologist Psychology 10/13/20 Dharmesh Broderick MD 79 [place] [address] Ophthalmology 07/15/23 documented as of this encounter
--- OUTSIDE RECORDS SUMMARY | 2024-10-28 20:36 | XMS_ITS | Encounter Summary ---
Author Organization [facility] Address [address] [place] [address] Care Team Providers Care Mammography Technician Name Role Phone Miguel A Mcclendon MD Primary Care Provider [phone] Dharmesh Armas MD Unavailable [phone] Gifty Huizar PhD Unavailable [phone] Pcp, No Primary Care Provider Unavailabl Tiki Velasco Primary Care Provider + [phone] Dharmesh Broderick MD Unavailable [phone] Jenae Thomas MD Primary Care Provider + [phone] Diego Schulz MD Unavailable [phone] Ravi Mills MD Unavailable [phone] Reason for Visit * Reason Onset Date Comments Medication Refill 10/05/2019 Encounter Details Date Type Department Care Team (Late st Contact Info) Description 10/05/2019 Refill [facility] [address] [place] [address] Denise Leal MD [address] [place] [address] Body mass index (bmi) 70 or greater, [...] Encounter - Dee Fraga RN - 10/05/2019 8:28 AM EST pt last seen 02/12/19, refill at next office visit. documented in this encounter Plan of Treatment Upcoming Encounters Date Type Department Care Team (Late st Contact Info) Description 12/11/2024 3:30 PM EDT Office Visit [facility] [address] [place] [phone] Jenae Thomas MD [address] [place] [address] documented as of this encounter Visit Diagnoses Diagnosis Body mass index (bmi) 70 or greater, adult documented in this encounter Care Teams Mammography Technician Relationship Specialty Start Date End Date Miguel A Mcclendon MD PCP - General Internal Medicine 09/11/18 09/03/21 Dharmesh Armas MD [address] [place] [address] PCP - [place] Medicare Attributed 02/01/20 09/01/21 Pcp, No PCP - General General Medicine 09/04/21 10/06/21 Tiki Barry MBBS [address] [place] [address] PCP - General Internal Medicine 10/07/21 03/29/24 Jenae Thomas MD 132 [place] [address] PCP - General Internal Medicine 03/30/24 Diego Schulz MD 132 [place] [address] PCP - [employer] Medicare Attributed 10/03/23 Ravi Mills MD [address] [address] PCP - Resident - Supervising Attending Internal Medicine 06/05/24 Gifty Huizar, PhD 200 [place] [address] [phone] Clinical Psychologist Psychology 10/13/20 Dharmesh Broderick MD [address] [place] [address] Ophthalmology 07/15/23 documented as of this encounter
--- OUTSIDE RECORDS SUMMARY | 2024-10-28 20:36 | XMS_ITS | Encounter Summary ---
Author Organization [facility] Address [address] [place] [address] Care Team Providers Care Block Hacker Name Role Phone Miguel A Mcclendon MD Primary Care Provider [phone] Dharmesh Armas MD Unavailable [phone] Gifty Huizar PhD Unavailable [phone] Pcp, No Primary Care Provider Unavailabl Tiki Velasco Primary Care Provider + [phone] Dharmesh Broderick MD Unavailable Jenae Thomas MD Primary Care Provider + [phone] Diego Schulz MD Unavailable [phone] Ravi Mills MD Unavailable [phone] Reason for Visit * Reason Onset Date Comments Medication Refill 12/28/2019 Encounter Details Date Type Department Care Team (Late st Contact Info) Description 12/28/2019 Refill [facility]UTRITION [address] [place] [phone] Stanley Stern, KAYLENE 399 [facility] [address] [place] [phone] Diabetes mellitus type 2 in obese (HCC) [...] Telephone Encounter - Dee Fraga RN - 12/28/2019 8:56 AM EDT Last seen 02/12/19, refill at next visit per provider. documented in this encounter Plan of Treatment Upcoming Encounters Date Type Department Care Team (Late st Contact Info) Description 12/11/2024 3:30 PM EDT Office Visit [facility] [address] [place] [phone] Jenae Thomas MD [address] [place] [address] documented as of this encounter Visit Diagnoses Diagnosis Diabetes mellitus type 2 in obese Type II or unspecified type diabetes mellitus without mention of complication, not stated as uncontrolled documented in this encounter Care Teams Block Hacker Relationship Specialty Start Date End Date Miguel A Mcclendon MD PCP - General Internal Medicine 09/11/18 09/03/21 Dharmesh Armas MD [address] [place] [address] PCP - [place] Medicare Attributed 02/01/20 09/01/21 Pcp, No PCP - General General Medicine 09/04/21 10/06/21 Tiki Barry MBBS [address] [place] [address] PCP - General Internal Medicine 10/07/21 03/29/24 Jenae Thomas MD 132 [place] [address] PCP - General Internal Medicine 03/30/24 Diego Schulz MD 132 [place] [address] PCP - [employer] Medicare Attributed 10/03/23 Ravi Mills MD [address] [address] PCP - Resident - Supervising Attending Internal Medicine 06/05/24 Gifty Huizar, PhD 200 [facility], [address] [place], [place] [phone] Clinical Psychologist Psychology 10/13/20 Dharmesh Broderick MD [address] [place] [address] Ophthalmology 07/15/23 documented as of this encounter
--- OUTSIDE RECORDS SUMMARY | 2024-10-28 20:36 | XMS_ITS | Encounter Summary ---
Author Organization [facility] Address [address] [place] [address] Care Team Providers Care Economics Consultant Name Role Phone Miguel A Mcclendon MD Primary Care Provider [phone] Dharmesh Armas MD Unavailable [phone] Gifty Huizar PhD Unavailable [phone] Pcp, No Primary Care Provider Unavailabl Tiki Velasco Primary Care Provider + [phone] Dharmesh Broderick MD Unavailable [phone] Jenae Thomas MD Primary Care Provider + [phone] Diego Schulz MD Unavailable [phone] Ravi Mills MD Unavailable [phone] Reason for Visit * Reason Onset Date Comments Medication Refill 12/28/2019 Encounter Details Date Type Department Care Team (Late st Contact Info) Description 12/28/2019 Refill [facility] [address] [place] [address] Denise Leal MD [address] [place] [address] Diabetes mellitus type 2 in obese (HCC); [...] 3:30 PM EDT Office Visit [facility] [address] [place], [place] [phone] Jenae Thomas MD [address] [place] [address] documented as of this encounter Visit Diagnoses Diagnosis Diabetes mellitus type 2 in obese Type II or unspecified type diabetes mellitus without mention of complication, not stated as uncontrolled Body mass index (bmi) 70 or greater, adult documented in this encounter Care Teams Economics Consultant Relationship Specialty Start Date End Date Miguel A Mcclendon MD PCP - General Internal Medicine 09/11/18 09/03/21 Dharmesh Armas MD [address] [place], [place] [phone] PCP - [place] Medicare Attributed 02/01/20 09/01/21 Pcp, No PCP - General General Medicine 09/04/21 10/06/21 Tiki Barry MBBS 132 [place] [address] PCP - General Internal Medicine 10/07/21 03/29/24 Jenae Thomas MD 132 [place] [address] PCP - General Internal Medicine 03/30/24 Diego Schulz MD [address] [place] [address] PCP - [employer] Medicare Attributed 10/03/23 Ravi Mills MD [address] [place] [address] PCP - Resident - Supervising Attending Internal Medicine 06/05/24 Gifty Huizar, PhD [address] [address] Clinical Psychologist Psychology 10/13/20 Dharmesh Broderick MD 79 [place] [address] Ophthalmology 07/15/23 documented as of this encounter
--- OUTSIDE RECORDS SUMMARY | 2024-10-28 20:36 | XMS_ITS | Encounter Summary ---
Author Organization [facility] Address [address] [place] [address] Care Team Providers Care Machine Shop Repair Technician Name Role Phone Miguel A Mcclendon MD Primary Care Provider [phone] Dharmesh Armas MD Unavailable [phone] Gifty Huizar PhD Unavailable [phone] Pcp, No Primary Care Provider Unavailabl Tiki Velasco Primary Care Provider + [phone] Dharmesh Broderick MD Unavailable Jenae Thomas MD Primary Care Provider + [phone] Diego Schulz MD Unavailable [phone] Ravi Mills MD Unavailable [phone] Reason for Visit * Reason Onset Date Comments Medication Refill 01/17/2020 Encounter Details Date Type Department Care Team (Late st Contact Info) Description 01/17/2020 Refill [facility] [address] [place] [address] Denise Leal MD [address] [place] [address] Diabetes mellitus type 2 in obese (HCC); [...] [facility] [address] [place], [place] [phone] Jenae Thomas MD [address] [place] [address] documented as of this encounter Visit Diagnoses Diagnosis Diabetes mellitus type 2 in obese Type II or unspecified type diabetes mellitus without mention of complication, not stated as uncontrolled Body mass index (bmi) 70 or greater, adult documented in this encounter Care Teams Machine Shop Repair Technician Relationship Specialty Start Date End Date Miguel A Mcclendon MD PCP - General Internal Medicine 09/11/18 09/03/21 Dharmesh Armas MD [address] [place], [place] [phone] PCP - [place] Medicare Attributed 02/01/20 09/01/21 Pcp, No PCP - General General Medicine 09/04/21 10/06/21 Tiki Barry MBBS 132 [place] [address] PCP - General Internal Medicine 10/07/21 03/29/24 Jenae Thomas MD 132 [place] [address] PCP - General Internal Medicine 03/30/24 Diego Schulz MD [address] [place] [address] PCP - [employer] Medicare Attributed 10/03/23 Ravi Mills MD [address] [place] [address] PCP - Resident - Supervising Attending Internal Medicine 06/05/24 Gifty Huizar, PhD [address] [address] Clinical Psychologist Psychology 10/13/20 Dharmesh Broderick MD 79 [place] [address] Ophthalmology 07/15/23 documented as of this encounter
--- OUTSIDE RECORDS SUMMARY | 2024-10-28 20:36 | XMS_ITS | Encounter Summary ---
Author Organization [facility] Address [address] [place] [address] Care Team Providers Care Restorative Aide Name Role Phone Miguel A Mcclendon MD Primary Care Provider [phone] Dharmesh Armas MD Unavailable [phone] Gifty Huizar PhD Unavailable [phone] Pcp, No Primary Care Provider Unavailabl Tiki Velasco Primary Care Provider + [phone] Dharmesh Broderick MD Unavailable [phone] Jenae Thomas MD Primary Care Provider + [phone] Diego Schulz MD Unavailable [phone] Ravi Mills MD Unavailable [phone] Reason for Visit * Reason Comments Medication Refill Encounter Details Date Type Department Care Team (Late st Contact Info) Description 08/14/2019 Refill [facility] [address] [place] [address] Denise Leal MD [address] [place] [address] Body mass index (bmi) 70 or greater, [...] Encounter - Dee Fraga RN - 08/15/2019 11:19 AM EST last seen 02/12/19. Refill at next visit. documented in this encounter Plan of Treatment Upcoming Encounters Date Type Department Care Team (Late st Contact Info) Description 12/11/2024 3:30 PM EDT Office Visit [facility] [address] [place] [phone] Jenae Thomas MD [address] [place] [address] documented as of this encounter Visit Diagnoses Diagnosis Body mass index (bmi) 70 or greater, adult documented in this encounter Care Teams Restorative Aide Relationship Specialty Start Date End Date Miguel A Mcclendon MD PCP - General Internal Medicine 09/11/18 09/03/21 Dharmesh Armas MD [address] [place] [address] PCP - [place] Medicare Attributed 02/01/20 09/01/21 Pcp, No PCP - General General Medicine 09/04/21 10/06/21 Tiki Barry MBBS [address] [place] [address] PCP - General Internal Medicine 10/07/21 03/29/24 Jenae Thomas MD 132 [place] [address] PCP - General Internal Medicine 03/30/24 Diego Schulz MD 132 [place] [address] PCP - [employer] Medicare Attributed 10/03/23 Ravi Mills MD [address] [address] PCP - Resident - Supervising Attending Internal Medicine 06/05/24 Gifty Huizar, PhD [address] [place] [address] [phone] Clinical Psychologist Psychology 10/13/20 Dharmesh Broderick MD [address] [place] [address] Ophthalmology 07/15/23 documented as of this encounter
--- OUTSIDE RECORDS SUMMARY | 2024-10-28 20:36 | XMS_ITS | Encounter Summary ---
Author Organization [facility] Address [address] [place] [address] Care Team Providers Care Captain'S Assistant Name Role Phone Miguel A Mcclendon MD Primary Care Provider [phone] Dharmesh Armas MD Unavailable [phone] Gifty Huizar PhD Unavailable [phone] Pcp, No Primary Care Provider Unavailabl Tiki Velasco Primary Care Provider + [phone] Dharmesh Broderick MD Unavailable [phone] Jenae Thomas MD Primary Care Provider + [phone] Diego Schulz MD Unavailable [phone] Ravi Mills MD Unavailable [phone] Reason for Visit * Reason Onset Date Comments Medication Refill 09/23/2019 Encounter Details Date Type Department Care Team (Late st Contact Info) Description 09/23/2019 Refill [facility] [address] [place] [address] Denise Leal MD [address] [place] [address] Body mass index (bmi) 70 or greater, [...] 3:30 PM EDT Office Visit [facility] [address] [place] [phone] Jenae Thomas MD [address] [place] [address] documented as of this encounter Visit Diagnoses Diagnosis Body mass index (bmi) 70 or greater, adult documented in this encounter Care Teams Captain'S Assistant Relationship Specialty Start Date End Date Miguel A Mcclendon MD PCP - General Internal Medicine 09/11/18 09/03/21 Dharmesh Armas MD [address] [place] [address] PCP - [place] Medicare Attributed 02/01/20 09/01/21 Pcp, No PCP - General General Medicine 09/04/21 10/06/21 Tiki Barry MBBS [address] [place] [address] PCP - General Internal Medicine 10/07/21 03/29/24 Jenae Thomas MD [address] [place] [address] PCP - General Internal Medicine 03/30/24 Diego Schulz MD [address] [place] [address] PCP - [employer] Medicare Attributed 10/03/23 Ravi Mills MD [address] [address] PCP - Resident - Supervising Attending Internal Medicine 06/05/24 Gifty Huizar, PhD [address] [phone] Clinical Psychologist Psychology 10/13/20 Dharmesh Broderick MD [address] [place] [address] Ophthalmology 07/15/23 documented as of this encounter
--- OUTSIDE RECORDS SUMMARY | 2024-10-28 20:36 | XMS_ITS | Encounter Summary ---
Author Organization [facility] Address [address] [place] [address] Care Team Providers Care Field Nurse Name Role Phone Miguel A Mcclendon MD Primary Care Provider [phone] Dharmesh Armas MD Unavailable [phone] Gifty Huizar PhD Unavailable [phone] Pcp, No Primary Care Provider Unavailabl Tiki Velasco Primary Care Provider + [phone] Dharmesh Broderick MD Unavailable Jenae Thomas MD Primary Care Provider + [phone] Diego Schulz MD Unavailable [phone] Ravi Mills MD Unavailable [phone] Reason for Visit * Reason Onset Date Comments Medication Refill 01/01/2020 Encounter Details Date Type Department Care Team (Late st Contact Info) Description 01/01/2020 Refill [facility] [address] [place] [address] Denise Leal MD [address] [place] [address] Diabetes mellitus type 2 in obese (HCC); [...] Encounter - Dee Fraga RN - 01/02/2020 9:52 AM EDT refill at next office visit per provider documented in this encounter Plan of Treatment Upcoming Encounters Date Type Department Care Team (Late st Contact Info) Description 12/11/2024 3:30 PM EDT Office Visit [facility] [address] [place], [place] [phone] Jenae Thomas MD [address] [place] [address] documented as of this encounter Visit Diagnoses Diagnosis Diabetes mellitus type 2 in obese Type II or unspecified type diabetes mellitus without mention of complication, not stated as uncontrolled Body mass index (bmi) 70 or greater, adult documented in this encounter Care Teams Field Nurse Relationship Specialty Start Date End Date Miguel A Mcclendon MD PCP - General Internal Medicine 09/11/18 09/03/21 Dharmesh Armas MD [address] [place] [address] PCP - [place] Medicare Attributed 02/01/20 09/01/21 Pcp, No PCP - General General Medicine 09/04/21 10/06/21 Tiki Barry MBBS [address] [place] [address] PCP - General Internal Medicine 10/07/21 03/29/24 Jenae Thomas MD [address] [place] [address] PCP - General Internal Medicine 03/30/24 Diego Schulz MD [address] [place] [address] PCP - [employer] Medicare Attributed 10/03/23 Ravi Mills MD [address] [place] [address] PCP - Resident - Supervising Attending Internal Medicine 06/05/24 Gifty Huizar, PhD [address] [address] Clinical Psychologist Psychology 10/13/20 Dharmesh Broderick MD [address] [place] [address] Ophthalmology 07/15/23 documented as of this encounter
--- OUTSIDE RECORDS SUMMARY | 2024-10-28 20:36 | XMS_ITS | Encounter Summary ---
Author Organization [facility] Address [address] [place] [address] Care Team Providers Care Acid Patroller Name Role Phone Miguel A Mcclendon MD Primary Care Provider [phone] Denise Leal MD Unavailable [phone] Dharmesh Armas MD Unavailable [phone] Gifty Huizar PhD Unavailable [phone] Pcp, No Primary Care Provider Unavailabl Tiki Velasco Primary Care Provider + [phone] Dharmesh Broderick MD Unavailable [phone] Jenae Thomas MD Primary Care Provider + [phone] Diego Schulz MD Unavailable [phone] Raiv Mills MD Unavailable [phone] Encounter Details Date Type Department Care Team (Late st Contact Info) Description 10/05/2018 Scanned Document [facility] Bariatric Surgery [address] [place] [address] Michele Carr MD [address] [place] [address] Social History Tobacco Use Types Packs/Day Years [...] 3:30 PM EDT Office Visit [facility] [address] [place] [phone] Jenae Thomas MD [address] [place] [address] documented as of this encounter Visit Diagnoses Not on filedocumented in this encounter Care Teams Acid Patroller Relationship Specialty Start Date End Date Miguel A Mcclendon MD PCP - General Internal Medicine 09/11/18 09/03/21 Denise Leal MD [address] [place] [address] PCP - [place] Attributed 04/02/19 07/02/19 Dharmesh Armas MD [address] [place] [address] PCP - [place] Medicare Attributed 02/01/20 09/01/21 Pcp, No PCP - General General Medicine 09/04/21 10/06/21 Tiki Barry MBBS [address] [place] [address] PCP - General Internal Medicine 10/07/21 03/29/24 Jenae Thomas MD 132 [place] [address] PCP - General Internal Medicine 03/30/24 Diego Schulz MD [address] [place] [address] PCP - [employer] Medicare Attributed 10/03/23 Ravi Mills MD [address] [address] PCP - Resident - Supervising Attending Internal Medicine 06/05/24 Gifty Huizar, PhD [address] [place] [address] [address] Clinical Psychologist Psychology 10/13/20 Dharmesh Broderick MD [address] [place] [address] Ophthalmology 07/15/23 documented as of this encounter
--- OUTSIDE RECORDS SUMMARY | 2024-10-28 20:36 | XMS_ITS | Encounter Summary ---
Author Organization [facility] Address [address] [place] [address] Care Team Providers Care Proposal Director Name Role Phone Miguel A Mcclendon MD Primary Care Provider [phone] Dharmesh Armas MD Unavailable [phone] Gifty Huizar PhD Unavailable [phone] Pcp, No Primary Care Provider Unavailabl Tiki Velasco Primary Care Provider + [phone] Dharmesh Broderick MD Unavailable [phone] Jenae Thomas MD Primary Care Provider + [phone] Diego Schulz MD Unavailable [phone] Ravi Mills MD Unavailable Reason for Visit * Reason Onset Date Comments Medication Refill 01/19/2020 Encounter Details Date Type Department Care Team (Late st Contact Info) Description 01/19/2020 Refill [facility] [address] [place] [address] Denise Leal MD [address] [place] [address] Diabetes mellitus type 2 in obese (HCC); [...] Encounter - Dee Fraga RN - 01/21/2020 8:37 AM EDT Refill at next office visit. Pt last seen 02/12/19 documented in this encounter Plan of Treatment Upcoming Encounters Date Type Department Care Team (Late st Contact Info) Description 12/11/2024 3:30 PM EDT Office Visit [facility] [address] [place], [place] [phone] Jenae Thomas MD [address] [place] [address] documented as of this encounter Visit Diagnoses Diagnosis Diabetes mellitus type 2 in obese Type II or unspecified type diabetes mellitus without mention of complication, not stated as uncontrolled Body mass index (bmi) 70 or greater, adult documented in this encounter Care Teams Proposal Director Relationship Specialty Start Date End Date Miguel A Mcclendon MD PCP - General Internal Medicine 09/11/18 09/03/21 Dharmesh Armas MD [address] [place] [address] PCP - [place] Medicare Attributed 02/01/20 09/01/21 Pcp, No PCP - General General Medicine 09/04/21 10/06/21 Tiki Barry MBBS [address] [place] [address] PCP - General Internal Medicine 10/07/21 03/29/24 Jenae Thomas MD 132 [place] [address] PCP - General Internal Medicine 03/30/24 Diego Schulz MD [address] [place] [address] PCP - [employer] Medicare Attributed 10/03/23 Ravi Mills MD [address] [place] [address] PCP - Resident - Supervising Attending Internal Medicine 06/05/24 Gifty Huizar, PhD [address] [place] [address] Clinical Psychologist Psychology 10/13/20 Dharmesh Broderick MD [address] [place] [address] Ophthalmology 07/15/23 documented as of this encounter
--- OUTSIDE RECORDS SUMMARY | 2024-10-28 20:36 | XMS_ITS | Encounter Summary ---
Author Organization [facility] Address [address] [place] [address] Care Team Providers Care Health And Safety Instructor Name Role Phone Miguel A Mcclendon MD Primary Care Provider [phone] Dharmesh Armas MD Unavailable [phone] Gifty Huizar PhD Unavailable [phone] Pcp, No Primary Care Provider Unavailabl Tiki Velasco Primary Care Provider + [phone] Dharmesh Broderick MD Unavailable Jenae Thomas MD Primary Care Provider + [phone] Diego Schulz MD Unavailable [phone] Ravi Mills MD Unavailable [phone] Reason for Visit * Reason Onset Date Comments Medication Refill 12/22/2019 Encounter Details Date Type Department Care Team (Late st Contact Info) Description 12/22/2019 Refill [facility] [address] [place] [address] Denise Leal MD [address] [place] [address] Diabetes mellitus type 2 in obese (HCC); [...] Encounter - Dee Fraga RN - 12/24/2019 8:52 AM EDT Refill at next office visit per provider. Patient last seen 02/12/19 documented in this encounter Plan of Treatment Upcoming Encounters Date Type Department Care Team (Late st Contact Info) Description 12/11/2024 3:30 PM EDT Office Visit [facility] [address] [place], [place] [phone] Jenae Thomas MD [address] [place] [address] documented as of this encounter Visit Diagnoses Diagnosis Diabetes mellitus type 2 in obese Type II or unspecified type diabetes mellitus without mention of complication, not stated as uncontrolled Body mass index (bmi) 70 or greater, adult documented in this encounter Care Teams Health And Safety Instructor Relationship Specialty Start Date End Date Miguel A Mcclendon MD PCP - General Internal Medicine 09/11/18 09/03/21 Dharmesh Armas MD [address] [place], [place] [phone] PCP - [place] Medicare Attributed 02/01/20 09/01/21 Pcp, No PCP - General General Medicine 09/04/21 10/06/21 Tiki Barry MBBS [address] [place] [address] PCP - General Internal Medicine 10/07/21 03/29/24 Jenae Thomas MD 132 [place] [address] PCP - General Internal Medicine 03/30/24 Diego Schulz MD [address] [place] [address] PCP - [employer] Medicare Attributed 10/03/23 Ravi Mills MD [address] [place] [address] PCP - Resident - Supervising Attending Internal Medicine 06/05/24 Gifty Huizar, PhD [address] [address] Clinical Psychologist Psychology 10/13/20 Dharmesh Broderick MD 79 [place] [address] Ophthalmology 07/15/23 documented as of this encounter
--- OUTSIDE RECORDS SUMMARY | 2024-10-28 20:36 | XMS_ITS | Encounter Summary ---
Author Organization [facility] Address [address] [place] [address] Care Team Providers Care Porcelain Enamel Installer Name Role Phone Miguel A Mcclendon MD Primary Care Provider [phone] Dharmesh Armas MD Unavailable [phone] Gifty Huizar PhD Unavailable [phone] Pcp, No Primary Care Provider Unavailabl Tiki Velasco Primary Care Provider + [phone] Dharmesh Broderick MD Unavailable [phone] Jenae Thomas MD Primary Care Provider + [phone] Diego Schulz MD Unavailable [phone] Ravi Mills MD Unavailable [phone] Reason for Visit * Reason Onset Date Comments Medication Refill 12/23/2019 Encounter Details Date Type Department Care Team (Late st Contact Info) Description 12/23/2019 Refill [facility] [address] [place] [address] Denise Leal MD [address] [place] [address] Diabetes mellitus type 2 in obese (HCC); [...] Encounter - Dee Fraga RN - 12/24/2019 8:54 AM EDT Refill at next office visit per provider. Patient last seen 02/12/19 documented in this encounter Plan of Treatment Upcoming Encounters Date Type Department Care Team (Late st Contact Info) Description 12/11/2024 3:30 PM EDT Office Visit [facility] [address] [place], [place] [phone] Jenae Thomas MD [address] [place] [address] documented as of this encounter Visit Diagnoses Diagnosis Diabetes mellitus type 2 in obese Type II or unspecified type diabetes mellitus without mention of complication, not stated as uncontrolled Body mass index (bmi) 70 or greater, adult documented in this encounter Care Teams Porcelain Enamel Installer Relationship Specialty Start Date End Date Miguel A Mcclendon MD PCP - General Internal Medicine 09/11/18 09/03/21 Dharmesh Armas MD [address] [place], [place] [phone] PCP - [place] Medicare Attributed 02/01/20 09/01/21 Pcp, No PCP - General General Medicine 09/04/21 10/06/21 Tiki Barry MBBS [address] [place] [address] PCP - General Internal Medicine 10/07/21 03/29/24 Jenae Thomas MD 132 [place] [address] PCP - General Internal Medicine 03/30/24 Diego Schulz MD [address] [place] [address] PCP - [employer] Medicare Attributed 10/03/23 Ravi Mills MD [address] [place] [address] PCP - Resident - Supervising Attending Internal Medicine 06/05/24 Gifty Huizar, PhD [address] [address] Clinical Psychologist Psychology 10/13/20 Dharmesh Broderick MD [address] [place] [address] Ophthalmology 07/15/23 documented as of this encounter
--- OUTSIDE RECORDS SUMMARY | 2024-10-28 20:36 | XMS_ITS | Encounter Summary ---
Author Organization [facility] Address [address] [place] [address] Care Team Providers Care Home Health Care Coordinator Name Role Phone Gifty Huizar PhD Unavailable [phone] Tiki Barry Primary Care Provider + [phone] Dharmesh Broderick MD Unavailable [phone] Jenae Thomas MD Primary Care Provider + [phone] Diego Schulz MD Unavailable [phone] Ravi Mills MD Unavailable [phone] Reason for Visit * Reason Onset Date Comments Medication Refill 04/23/2022 Encounter Details Date Type Department Care Team (Late st Contact Info) Description 04/23/2022 Refill [facility] 132 [facility] [address] [place] [address] Paulette Webb ProviderMD [address] [place] [address] Uncontrolled type 2 diabetes mellitus [...] suspected to have Coronavirus/COVID-19? No / Unsure 04/23/2022 10:59 AM EDT documented as of this encounter Plan of Treatment Upcoming Encounters Date Type Department Care Team (Late st Contact Info) Description 12/11/2024 3:30 PM EDT Office Visit [facility] [address] [place], [place] [phone] Jenae Thomas MD [address] [place] [address] documented as of this encounter Visit Diagnoses Diagnosis Uncontrolled type 2 diabetes mellitus with hyperglycemia (HCC) documented in this encounter Care Teams Home Health Care Coordinator Relationship Specialty Start Date End Date Tiki Barry MBBS [address] [place] [address] PCP - General Internal Medicine 10/07/21 03/29/24 Jenae Thomas MD [address] [place] [address] PCP - General Internal Medicine 03/30/24 Diego Schulz MD [address] [place] [address] PCP - [employer] Medicare Attributed 10/03/23 Ravi Mills MD [address] [place] [address] PCP - Resident - Supervising Attending Internal Medicine 06/05/24 Gifty Huizar, PhD [address] [place] [address] Clinical Psychologist Psychology 10/13/20 Dharmesh Broderick MD [address] [place] [address] Ophthalmology 07/15/23 documented as of this encounter
--- OUTSIDE RECORDS SUMMARY | 2024-10-28 20:36 | XMS_ITS | Encounter Summary ---
Author Organization [facility] Address [address] [place] [address] Care Team Providers Care Assembly Lead Person Name Role Phone Miguel A Mcclendon MD Primary Care Provider [phone] Dharmesh Armas MD Unavailable [phone] Gifty Huizar PhD Unavailable [phone] Pcp, No Primary Care Provider Unavailabl Tiki Velasco Primary Care Provider + [phone] Dharmesh Broderick MD Unavailable [phone] Jenae Thomas MD Primary Care Provider + [phone] Diego Schulz MD Unavailable [phone] Ravi Mills MD Unavailable [phone] Reason for Visit * Reason Onset Date Comments Medication Refill 12/22/2019 Encounter Details Date Type Department Care Team (Late st Contact Info) Description 12/22/2019 Refill [facility] [address] [place] [address] Denise Leal MD [address] [place] [address] Diabetes mellitus type 2 in obese (HCC); [...] Encounter - Dee Fraga RN - 12/24/2019 8:53 AM EDT Refill at next office visit per provider. Patient last seen 02/12/19 documented in this encounter Plan of Treatment Upcoming Encounters Date Type Department Care Team (Late st Contact Info) Description 12/11/2024 3:30 PM EDT Office Visit [facility] [address] [place], [place] [phone] Jenae Thomas MD [address] [place] [address] documented as of this encounter Visit Diagnoses Diagnosis Diabetes mellitus type 2 in obese Type II or unspecified type diabetes mellitus without mention of complication, not stated as uncontrolled Body mass index (bmi) 70 or greater, adult documented in this encounter Care Teams Assembly Lead Person Relationship Specialty Start Date End Date Miguel A Mcclendon MD PCP - General Internal Medicine 09/11/18 09/03/21 Dharmesh Armas MD [address] [place], [place] [phone] PCP - [place] Medicare Attributed 02/01/20 09/01/21 Pcp, No PCP - General General Medicine 09/04/21 10/06/21 Tiki Barry MBBS [address] [place] [address] PCP - General Internal Medicine 10/07/21 03/29/24 Jenae Thomas MD 132 [place] [address] PCP - General Internal Medicine 03/30/24 Diego Schulz MD [address] [place] [address] PCP - [employer] Medicare Attributed 10/03/23 Ravi Mills MD [address] [place] [address] PCP - Resident - Supervising Attending Internal Medicine 06/05/24 Gifty Huizar, PhD [address] [address] Clinical Psychologist Psychology 10/13/20 Dharmesh Broderick MD [address] [place] [address] Ophthalmology 07/15/23 documented as of this encounter
--- OUTSIDE RECORDS SUMMARY | 2024-10-28 20:36 | XMS_ITS | Encounter Summary ---
Author Organization [facility] Address [address] [place] [address] Care Team Providers Care Hospice Superintendent Name Role Phone Miguel A Mcclendon MD Primary Care Provider [phone] Dharmesh Armas MD Unavailable [phone] Gifty Huizar PhD Unavailable [phone] Pcp, No Primary Care Provider Unavailabl Tiki Velasco Primary Care Provider + [phone] Dharmesh Broderick MD Unavailable [phone] Jenae Thomas MD Primary Care Provider + [phone] Diego Schulz MD Unavailable [phone] Ravi Mills MD Unavailable [phone] Reason for Visit * Reason Onset Date Comments Medication Refill 01/17/2020 Encounter Details Date Type Department Care Team (Late st Contact Info) Description 01/17/2020 Refill [facility] [address] [place] [address] Denise Leal MD [address] [place] [address] Body mass index (bmi) 70 or greater, [...] Encounter - Dee Fraga RN - 01/18/2020 8:10 AM EDT Last seen 02/02/2019. Refill at next visit per provider documented in this encounter Plan of Treatment Upcoming Encounters Date Type Department Care Team (Late st Contact Info) Description 12/11/2024 3:30 PM EDT Office Visit [facility] [address] [place] [phone] Jenae Thomas MD [address] [place] [address] documented as of this encounter Visit Diagnoses Diagnosis Body mass index (bmi) 70 or greater, adult documented in this encounter Care Teams Hospice Superintendent Relationship Specialty Start Date End Date Miguel A Mcclendon MD PCP - General Internal Medicine 09/11/18 09/03/21 Dharmesh Armas MD [address] [place], [place] [phone] PCP - [place] Medicare Attributed 02/01/20 09/01/21 Pcp, No PCP - General General Medicine 09/04/21 10/06/21 Tiki Barry MBBS [address] [place] [address] PCP - General Internal Medicine 10/07/21 03/29/24 Jenae Thomas MD 132 [place] [address] PCP - General Internal Medicine 03/30/24 Diego Schulz MD [address] [place] [address] PCP - [employer] Medicare Attributed 10/03/23 Ravi Mills MD [address] [address] PCP - Resident - Supervising Attending Internal Medicine 06/05/24 Gifty Huizar, PhD [address] [place] [address] [phone] Clinical Psychologist Psychology 10/13/20 Dharmesh Broderick MD [address] [place] [address] Ophthalmology 07/15/23 documented as of this encounter
--- OUTSIDE RECORDS SUMMARY | 2024-10-28 20:36 | XMS_ITS | Encounter Summary ---
Author Organization [facility] Address [address] [place] [address] Care Team Providers Care Auto Collision Repair Instructor Name Role Phone Miguel A Mcclendon MD Primary Care Provider [phone] Dharmesh Armas MD Unavailable [phone] Gifty Huizar PhD Unavailable [phone] Pcp, No Primary Care Provider Unavailabl Tiki Velasco Primary Care Provider + [phone] Dharmesh Broderick MD Unavailable [phone] Jenae Thomas MD Primary Care Provider + [phone] Diego Schulz MD Unavailable [phone] Ravi Mills MD Unavailable [phone] Reason for Visit * Reason Onset Date Comments Medication Refill 10/25/2019 Encounter Details Date Type Department Care Team (Late st Contact Info) Description 10/25/2019 Refill [facility] [address] [place] [address] Denise Leal MD [address] [place] [address] Body mass index (bmi) 70 or greater, [...] Telephone Encounter - Dee Fraga RN - 10/26/2019 12:53 PM EST patient needs f/u appointment. Refill at visit. documented in this encounter Plan of Treatment Upcoming Encounters Date Type Department Care Team (Late st Contact Info) Description 12/11/2024 3:30 PM EDT Office Visit [facility] [address] [place] [phone] Jenae Thomas MD [address] [place] [address] documented as of this encounter Visit Diagnoses Diagnosis Body mass index (bmi) 70 or greater, adult documented in this encounter Care Teams Auto Collision Repair Instructor Relationship Specialty Start Date End Date Miguel A Mcclendon MD PCP - General Internal Medicine 09/11/18 09/03/21 Dharmesh Armas MD [address] [place], [place] [address] PCP - [place] Medicare Attributed 02/01/20 09/01/21 Pcp, No PCP - General General Medicine 09/04/21 10/06/21 Tiki Barry MBBS [address] [place] [address] PCP - General Internal Medicine 10/07/21 03/29/24 Jenae Thomas MD [address] [place] [address] PCP - General Internal Medicine 03/30/24 Diego Schulz MD [address] [place] [address] PCP - [employer] Medicare Attributed 10/03/23 Ravi Mills MD [address] [address] PCP - Resident - Supervising Attending Internal Medicine 06/05/24 Gifty Huizar, PhD [address] [phone] Clinical Psychologist Psychology 10/13/20 Dharmesh Broderick MD [address] [place] [address] Ophthalmology 07/15/23 documented as of this encounter
--- OUTSIDE RECORDS SUMMARY | 2024-10-28 20:36 | XMS_ITS | Encounter Summary ---
Author Organization [facility] Address [address] [place] [address] Care Team Providers Care Mold Maker Plaster Name Role Phone Miguel A Mcclendon MD Primary Care Provider [phone] Denise Leal MD Unavailable [phone] Dharmesh Armas MD Unavailable [phone] Gifty Huizar PhD Unavailable [phone] Pcp, No Primary Care Provider Unavailabl Tiki Velasco Primary Care Provider + [phone] Dharmesh Broderick MD Unavailable [phone] Jenae Thomas MD Primary Care Provider + [phone] Diego Schulz MD Unavailable [phone] Ravi Mills MD Unavailable [phone] Encounter Details Date Type Department Care Team (Late st Contact Info) Description 09/14/2018 Scanned Document [facility] [address] [place] [address] Pcp, No [address] [place] [address] Social History Tobacco Use Types Packs/Day Years [...] [facility] [address] [place] [phone] Jenae Thomas MD [address] [place] [address] documented as of this encounter Visit Diagnoses Not on filedocumented in this encounter Care Teams Mold Maker Plaster Relationship Specialty Start Date End Date Miguel A Mcclendon MD PCP - General Internal Medicine 09/11/18 09/03/21 Denise Leal MD [address] [place] [address] PCP - MSSP Attributed 04/02/19 07/02/19 Dharmesh Armas MD [address] [place] [address] PCP - [place] Medicare Attributed 02/01/20 09/01/21 Pcp, No PCP - General General Medicine 09/04/21 10/06/21 Tiki Barry MBBS [address] [place] [address] PCP - General Internal Medicine 10/07/21 03/29/24 Jenae Thomas MD [address] [place] [address] PCP - General Internal Medicine 03/30/24 Diego Schulz MD 132 [place] [address] PCP - [employer] Medicare Attributed 10/03/23 Ravi Mills MD [address] [address] PCP - Resident - Supervising Attending Internal Medicine 06/05/24 Gifty Huizar, PhD 200 [facility], [address] [place] [address] Clinical Psychologist Psychology 10/13/20 Dharmesh Broderick MD [address] [place] [address] Ophthalmology 07/15/23 documented as of this encounter
--- OUTSIDE RECORDS SUMMARY | 2024-10-28 20:37 | XMS_ITS | Encounter Summary ---
Author Organization [facility] Address [address] [place] [address] Care Team Providers Care Paginator Name Role Phone Gifty Huizar PhD Unavailable [phone] Tiki Barry Primary Care Provider + [phone] Dharmesh Broderick MD Unavailable [phone] Jenae Thomas MD Primary Care Provider + [phone] Diego Schulz MD Unavailable [phone] Ravi Mills MD Unavailable [phone] Reason for Visit * Reason Onset Date Comments Medication Refill 02/02/2023 Encounter Details Date Type Department Care Team (Late st Contact Info) Description 02/02/2023 Refill [facility] [address] [place] [address] Andrew Martínez MD [address] [place] [address] [address] [place] [address] Class 3 severe obesity due to excess [...] Office Visit [facility] [address] [place], [place] [phone] Jenae Thomas MD [address] [place] [address] documented as of this encounter Visit Diagnoses Diagnosis Class 3 severe obesity due to excess calories with serious comorbidity and body mass index (BMI) greater than or equal to 70 in adult (HCC) Diabetes mellitus type 2 in obese Type II or unspecified type diabetes mellitus without mention of complication, not stated as uncontrolled documented in this encounter Care Teams Paginator Relationship Specialty Start Date End Date Tiki Barry MBBS [address] [place] [address] PCP - General Internal Medicine 10/07/21 03/29/24 Jenae Thomas MD [address] [place] [address] PCP - General Internal Medicine 03/30/24 Diego Schulz MD [address] [place] [address] PCP - [employer] Medicare Attributed 10/03/23 Ravi Mills MD [address] [place] [address] PCP - Resident - Supervising Attending Internal Medicine 06/05/24 Gifty Huizar, PhD 200 [facility], [address] [place] [address] Clinical Psychologist Psychology 10/13/20 Dharmesh Broderick MD [address] [place] [address] Ophthalmology 07/15/23 documented as of this encounter
--- OUTSIDE RECORDS SUMMARY | 2024-10-28 20:37 | XMS_ITS | Encounter Summary ---
Author Organization [facility] Address [address] [place] [address] Care Team Providers Care Delicatessen Slicer Name Role Phone Gifty Huizar PhD Unavailable [phone] Tiki Barry Primary Care Provider [phone] Dharmesh Broderick MD Unavailable [phone] Jenae Thomas MD Primary Care Provider + [phone] Diego Schulz MD Unavailable [phone] Ravi Mills MD Unavailable [phone] Encounter Details Date Type Department Care Team (Late st Contact Info) Description 02/22/2024 Telephone [facility] 132 [facility] [address]nd [place] [address] Provider, MD G[address] [place] [address] Social History Tobacco Use Types Packs/Day Years Used Date Smoking Tobacco: Former Cigarettes Q uit: 10/2021 Smokeless Tobacco: Never Alcohol Use Standard Drinks/Week Comments Not Currently 0 (1 standard drink = 0.6 oz pur e alcohol) [facility] Utilities Answer Date Recorded In the past 12 months has e electric, gas, oil, or water company threatened to shut off services in your home? No 07/13/2024 AUDIT-C Answer Date Recorded Frequency of Alcohol Consumption Never 07/17/2018 Average Number of Drinks Not on file 018 Frequency of Binge Drinking Not on file 07/03 Overall Financial Resource Strain (CARDIA) Answe r Date Recorded How hard is it for you to pa y for the very basics like food, housing, medical care, and heating? Patient declined 07/13/2024 Hunger Vital Sign Answer Date Recorded Within the past 12 months, y ou worried that your food would run out before you got the money to buy more. Never true 07/13/20 24 Within the past 12 months, t he food you bought just didn't last and you didn't have money to get more. Never true 07/13/2024 PRAPARE - Transportation Answer Date Re corded In the past 12 months, has l ack of transportation kept you from medical appointments or from getting medications? No 07/03 In the past 12 months, has l ack of transportation kept you from meetings, work, or from getting things needed for daily living? No 07/13/2024 Housing Stability Vital Sign Answer Butch e Recorded In the last 12 months, was t here a time when you were not able to pay the mortgage or rent on time? No 07/13/2024 Number of Places Lived in the Last Year Not on f ile 07/13/2024 In the last 12 months, was t here a time when you did not have a steady place to sleep or slept in a intermediate (including now)? No 07/13/2024 Sex and Gender Information Value Date Recorded Sex Assigned at Female 02/25/2023 1:53 AM EDT Gender Identity Female 02/25/2023 1:53 AM EDT Sexual Orientation Heterosexual (straight) 02/25 1:53 AM EDT documented as of this encounter Miscellaneous Notes * Telephone Encounter - Lupis Jacome - 02/22/2024 2:16 PM EDT I am requesting refills for the following medication for Norma, Albuterol HFA 90mcg Inhale 2 puffs every 6 hours prn for wheezing or shortness of breath Quantity: 8.5 Thank you! documented in this encounter Plan of Treatment Upcoming Encounters Date Type Department Care Team (Late st Contact Info) Description 12/11/2024 3:30 PM EDT Office Visit [facility] [address] [place] [phone] Jenae Thomas MD [address] [place] [address] documented as of this encounter Visit Diagnoses Not on filedocumented in this encounter Care Teams Delicatessen Slicer Relationship Specialty Start Date End Date Tiki Barry MBBS [address] [place] [address] PCP - General Internal Medicine 10/07/21 03/29/24 Jenae Thomas MD [address] [place] [address] PCP - General Internal Medicine 03/30/24 Diego Schulz MD [address] [place] [address] PCP - [employer] Medicare Attributed 10/03/23 Ravi Mills MD [address] [place] [address] PCP - Resident - Supervising Attending Internal Medicine 06/05/24 Gifty Huizar, PhD [address] [address] Clinical Psychologist Psychology 10/13/20 Dharmesh Broderick MD 79 [place] [address] Ophthalmology 07/15/23 documented as of this encounter
--- OUTSIDE RECORDS SUMMARY | 2024-10-28 20:37 | XMS_ITS | Encounter Summary ---
Author Organization [facility] Address [address] [place] [address] Care Team Providers Care Dye Room Helper Name Role Phone Gifty Huizar PhD Unavailable [phone] Tiki Barry Primary Care Provider [phone] Dharmesh Broderick MD Unavailable [phone] Jenae Thomas MD Primary Care Provider [phone] Diego Schulz MD Unavailable [phone] Ravi Mills MD Unavailable [phone] Encounter Details Date Type Department Care Team (Late st Contact Info) Description 03/23/2024 Telephone [facility] 132 [facility] [address] [place] [address] Provider, MD Gumaro [address] [place] [address] Social History Tobacco Use Types Packs/Day Years [...] like food, housing, medical care, and heating? Not hard at all 02/28/2023 Hunger Vital Sign Answer Date Recorded Within the past 12 months, y ou worried that your food would run out before you got the money to buy more. Never true 02/29/20 23 Within the past 12 months, t he food you bought just didn't last and you didn't have money to get more. Never true 02/28/2023 PRAPARE - Transportation Answer Date Re corded In the past 12 months, has l ack of transportation kept you from medical appointments or from getting medications? No 02/01 In the past 12 months, has l ack of transportation kept you from meetings, work, or from getting things needed for daily living? No 02/28/2023 Housing Stability Vital Sign Answer Butch e Recorded In the last 12 months, was t here a time when you were not able to pay the mortgage or rent on time? No 02/28/2023 In the last 12 months, how many places have you lived? 1 02/28/2023 In the last 12 months, was t here a time when you did not have a steady place to sleep or slept in a retirement (including now)? No 02/28/2023 Sex and Gender Information Value Date Recorded Sex Assigned at Female 02/25/2023 1:53 AM EDT Gender Identity Female 02/25/2023 1:53 AM EDT Sexual Orientation Heterosexual (straight) 02/25 1:53 AM EDT documented as of this encounter Miscellaneous Notes * Telephone Encounter - Magda Angel - 03/23/2024 3:11 PM EDT Good Afternoon, Refills needed for Warfarin 2 & 5 mg Magda Gross documented in this encounter Plan of Treatment Upcoming Encounters Date Type Department Care Team (Late st Contact Info) Description 12/11/2024 3:30 PM EDT Office Visit [facility] [address] [place] [phone] Jenae Thomas MD [address] [place] [address] documented as of this encounter Visit Diagnoses Not on filedocumented in this encounter Care Teams Dye Room Helper Relationship Specialty Start Date End Date Tiki Barry MBBS [address] [place] [address] PCP - General Internal Medicine 10/07/21 03/29/24 Jenae Thomas MD [address] [place] [address] PCP - General Internal Medicine 03/30/24 Diego Schulz MD [address] [place] [address] PCP - [employer] Medicare Attributed 10/03/23 Ravi Mills MD [address] [place] [address] PCP - Resident - Supervising Attending Internal Medicine 06/05/24 Gifty Huizar, PhD [address] [address] Clinical Psychologist Psychology 10/13/20 Dharmesh Broderick MD 79 [place] [address] Ophthalmology 07/15/23 documented as of this encounter
--- OUTSIDE RECORDS SUMMARY | 2024-10-28 20:37 | XMS_ITS | Encounter Summary ---
Author Organization [facility] Address [address] [place] [address] Care Team Providers Care Senior Informatica Developer Name Role Phone Gifty Huizar PhD Unavailable [phone] Dharmesh Broderick MD Unavailable [phone] Jenae Thomas MD Primary Care Provider [phone] Diego Schulz MD Unavailable [phone] Ravi Mills MD Unavailable [phone] Reason for Visit * Reason Comments MTM TRANSPORATION FORM Encounter Details Date Type Department Care Team ([facility] st Contact Info) Description 09/28/2024 Telephone [facility] [address] [place] [phone] Jenae Thomas MD [address] [place] [address] MTM TRANSPORATION FORM Social History Tobacco Use Types Packs/Day Years Used Date Smoking Tobacco: Former Cigarettes Q uit: 10/2021 Passive Smoke Exposure: Past Smokeless Tobacco: Never Alcohol Use Standard Drinks/Week Comments Not Currently 0 (1 standard drink = 0.6 oz pur e alcohol) [facility] Utilities Answer Date Recorded In the past 12 months has e electric, gas, oil, or water company threatened to shut off services in your home? No 07/13/2024 AUDIT-C Answer Date Recorded Frequency of Alcohol Consumption Never 07/17/2018 Average Number of Drinks Not on file 10/15/2 018 Frequency of Binge Drinking Not on [...] place to sleep or slept in a assisted (including now)? No 07/13/2024 Sex and Gender Information Value Date Recorded Sex Assigned at Female 02/25/2023 1:53 AM EDT Gender Identity Female 02/25/2023 1:53 AM EDT Sexual Orientation Heterosexual (straight) 02/25 1:53 AM EDT documented as of this encounter Miscellaneous Notes * Telephone Encounter - Basilia Frank MA - 09/28/2024 10:06 AM EST [place] Transporation form completed and signed by Dr. Mills and faxed and scanned. documented in this encounter Plan of Treatment Upcoming Encounters Date Type Department Care Team (Late st Contact Info) Description 12/11/2024 3:30 PM EDT Office Visit [facility] [address] [place] [phone] Jenae Thomas MD 132 [place], [place] [phone] documented as of this encounter Visit Diagnoses Not on filedocumented in this encounter Care Teams Senior Informatica Developer Relationship Specialty Start Date End Date Jenae Thomas MD [address] [place] [address] PCP - General Internal Medicine 03/30/24 Diego Schulz MD [address] [place] [address] PCP - [employer] Medicare Attributed 10/03/23 Ravi Mills MD [address] [place] [address] PCP - Resident - Supervising Attending Internal Medicine 06/05/24 Gifty Huizar, PhD [address] [place] [address] [phone] Clinical Psychologist Psychology 10/13/20 Dharmesh Broderick MD [address] [place] [address] Ophthalmology 07/15/23 documented as of this encounter
--- OUTSIDE RECORDS SUMMARY | 2024-10-28 20:37 | XMS_ITS | Encounter Summary ---
Author Organization [facility] Address [address] [place] [address] Care Team Providers Care Circle Edger Name Role Phone Gifty Huizar PhD Unavailable [phone] Tiki Barry Primary Care Provider [phone] Dharmesh Broderick MD Unavailable [phone] Jenae Thomas MD Primary Care Provider [phone] Diego Schulz MD Unavailable [phone] Ravi Mills MD Unavailable [phone] Reason for Visit * Reason Onset Date Comments Medication Refill 12/13/2021 Encounter Details Date Type Department Care Team (Late st Contact Info) Description 12/13/2021 Refill [facility] [address] [place] [phone] Ravi Mills MD [address] [place] [address] Acute saddle pulmonary embolism without acute cor pulmonale (HCC) Social History Tobacco Use Types Packs/Day [...] or suspected to have Coronavirus / COVID-19? No / Unsure 12/08/2021 2:26 PM EST documented as of this encounter Plan of Treatment Upcoming Encounters Date Type Department Care Team (Late st Contact Info) Description 12/11/2024 3:30 PM EDT Office Visit [facility] [address] [place] [phone] Jenae Thomas MD [address] [place] [address] documented as of this encounter Visit Diagnoses Diagnosis Acute saddle pulmonary embolism without acute cor pulmonale (HCC) documented in this encounter Care Teams Circle Edger Relationship Specialty Start Date End Date Tiki Barry MBBS [address] [place] [address] PCP - General Internal Medicine 10/07/21 03/29/24 Jenae Thomas MD [address] [place] [address] PCP - General Internal Medicine 03/30/24 Diego Schulz MD [address] [place] [address] PCP - [employer] Medicare Attributed 10/03/23 Ravi Mills MD [address] [place] [address] PCP - Resident - Supervising Attending Internal Medicine 06/05/24 Gifty Huizar, PhD [address] [place] [address] [place] [address] Clinical Psychologist Psychology 10/13/20 Dharmesh Broderick MD [address] [place] [address] Ophthalmology 07/15/23 documented as of this encounter
--- OUTSIDE RECORDS SUMMARY | 2024-10-28 20:37 | XMS_ITS | Encounter Summary ---
Author Organization [facility] Address [address] [place] [address] Care Team Providers Care Second Chef Name Role Phone Gifty Huizar PhD Unavailable [phone] Tiki Barry Primary Care Provider + [phone] Dharmesh Broderick MD Unavailable [phone] Jenae Thomas MD Primary Care Provider + [phone] Diego Schulz MD Unavailable [phone] Ravi Mills MD Unavailable [phone] Reason for Visit * Reason Comments Medication Refill Encounter Details Date Type Department Care Team (Late st Contact Info) Description 03/11/2023 Refill [facility] [address] [place] [address] [place] [phone] Mathew Parekh MD [address] [place] [address] [place] [address] Upper abdominal pain; Bilious vomiting with nausea; Dysphagia, unspecified type Social History Tobacco Use Types Packs/Day Years [...] place to sleep or slept in a jail (including now)? No 02/28/2023 Sex and Gender Information Value Date Recorded Sex Assigned at Female 02/25/2023 1:53 AM EDT Gender Identity Female 02/25/2023 1:53 AM EDT Sexual Orientation Heterosexual (straight) 02/25 1:53 AM EDT COVID-19 Exposure Response Date Recorded In the last 10 days, have yo u been in contact with someone who was confirmed or suspected to have Coronavirus/COVID-19? Unable to assess 03/01/2023 9:59 AM EDT documented as of this encounter Plan of Treatment Upcoming Encounters Date Type Department Care Team (Late st Contact Info) Description 12/11/2024 3:30 PM EDT Office Visit [facility] [address] [place] [phone] Jenae Thomas MD [address] [place] [address] documented as of this encounter Visit Diagnoses Diagnosis Upper abdominal pain Bilious vomiting with nausea Dysphagia, unspecified type documented in this encounter Care Teams Second Chef Relationship Specialty Start Date End Date Tiki Barry MBBS [address] [place] [address] PCP - General Internal Medicine 10/07/21 03/29/24 Jenae Thomas MD [address] [place] [address] PCP - General Internal Medicine 03/30/24 Diego Schulz MD [address] [place] [address] PCP - [employer] Medicare Attributed 10/03/23 Ravi Mills MD [address] [place] [address] PCP - Resident - Supervising Attending Internal Medicine 06/05/24 Gifty Huizar, PhD [address] [address] Clinical Psychologist Psychology 10/13/20 Dharmesh Broderick MD 79 [place] [address] Ophthalmology 07/15/23 documented as of this encounter
--- OUTSIDE RECORDS SUMMARY | 2024-10-28 20:37 | XMS_ITS | Encounter Summary ---
Author Organization [facility] Address [address] [place] [address] Care Team Providers Care Coating Machine Helper Name Role Phone Gifty Huizar PhD Unavailable [phone] Tiki Barry Primary Care Provider + [phone] Dharmesh Broderick MD Unavailable [phone] Jenae Thomas MD Primary Care Provider + [phone] Diego Schulz MD Unavailable [phone] Ravi Mills MD Unavailable [phone] Reason for Visit * Reason Onset Date Comments Medication Refill 01/19/2023 Encounter Details Date Type Department Care Team (Late st Contact Info) Description 01/19/2023 Refill [facility] Medical Weight Loss [address] [place] [address] Andrew Martínez MD [address] [place] [address] [address] [place] [address] Class 3 severe obesity due to excess [...] [facility] [address] [place], [place] [phone] Jenae Thomas MD [address] [place] [address] documented as of this encounter Visit Diagnoses Diagnosis Class 3 severe obesity due to excess calories with serious comorbidity and body mass index (BMI) greater than or equal to 70 in adult (HCC) Diabetes mellitus type 2 in obese Type II or unspecified type diabetes mellitus without mention of complication, not stated as uncontrolled documented in this encounter Care Teams Coating Machine Helper Relationship Specialty Start Date End Date Tiki Barry MBBS [address] [place] [address] PCP - General Internal Medicine 10/07/21 03/29/24 Jenae Thomas MD [address] [place] [address] PCP - General Internal Medicine 03/30/24 Diego Schulz MD [address] [place] [address] PCP - [employer] Medicare Attributed 10/03/23 Ravi Mills MD [address] [place] [address] PCP - Resident - Supervising Attending Internal Medicine 06/05/24 Gifty Huizar, PhD [address] [facility], 2nd [place] [address] Clinical Psychologist Psychology 10/13/20 Dharmesh Broderick MD [address] [place] [address] Ophthalmology 07/15/23 documented as of this encounter
--- OUTSIDE RECORDS SUMMARY | 2024-10-28 20:37 | XMS_ITS | Encounter Summary ---
Author Organization [facility] Address [address] [place] [address] Care Team Providers Care Unix Analyst Name Role Phone Miguel A Mcclendon MD Primary Care Provider [phone] Dharmesh Armas MD Unavailable [phone] Gifty Huizar PhD Unavailable [phone] Pcp, No Primary Care Provider Unavailabl Tiki Velasco Primary Care Provider + [phone] Dharmesh Broderick MD Unavailable [phone] Jenae Thomas MD Primary Care Provider + [phone] Diego Schulz MD Unavailable [phone] Ravi Mills MD Unavailable [phone] Reason for Visit * Reason Onset Date Comments Medication Refill 01/19/2020 Encounter Details Date Type Department Care Team (Late st Contact Info) Description 01/19/2020 Refill [facility] [address] [place] [address] Denise Leal MD [address] [place] [address] Body mass index (bmi) 70 or greater, [...] Encounter - Dee Fraga RN - 01/21/2020 8:38 AM EDT Refill at next office visit per provider documented in this encounter Plan of Treatment Upcoming Encounters Date Type Department Care Team (Late st Contact Info) Description 12/11/2024 3:30 PM EDT Office Visit [facility] [address] [place] [phone] Jenae Thomas MD [address] [place] [address] documented as of this encounter Visit Diagnoses Diagnosis Body mass index (bmi) 70 or greater, adult documented in this encounter Care Teams Unix Analyst Relationship Specialty Start Date End Date Miguel A Mcclendon MD PCP - General Internal Medicine 09/11/18 09/03/21 Dharmesh Armas MD [address] [place] [address] PCP - [place] Medicare Attributed 02/01/20 09/01/21 Pcp, No PCP - General General Medicine 09/04/21 10/06/21 Tiki Barry MBBS [address] [place] [address] PCP - General Internal Medicine 10/07/21 03/29/24 Jenae Thomas MD [address] [place] [address] PCP - General Internal Medicine 03/30/24 Diego Schulz MD [address] [place] [address] PCP - [employer] Medicare Attributed 10/03/23 Ravi Mills MD [address] [address] PCP - Resident - Supervising Attending Internal Medicine 06/05/24 Gifty Huizar, PhD [address] [place] [address] [phone] Clinical Psychologist Psychology 10/13/20 Dharmesh Broderick MD [address] [place] [address] Ophthalmology 07/15/23 documented as of this encounter
--- OUTSIDE RECORDS SUMMARY | 2024-10-28 20:37 | XMS_ITS | Encounter Summary ---
Author Organization [facility] Address [address] [place] [address] Care Team Providers Care Ip Architect Name Role Phone Gifty Huizar PhD Unavailable [phone] Dharmesh Broderick MD Unavailable [phone] Jenae Thomas MD Primary Care Provider [phone] Diego Schulz MD Unavailable [phone] Ravi Mills MD Unavailable [phone] Encounter Details Date Type Department Care Team (Late st Contact Info) Description 10/25/2024 [facility] [address] [place] [phone] Jenae Thomas MD [address] [place] [address] Acute saddle pulmonary embolism without acute cor pulmonale (HCC) Social History Tobacco Use Types Packs/Day Years Used Date Smoking Tobacco: Former Cigarettes Q uit: 10/2021 Passive Smoke Exposure: Past Smokeless Tobacco: Never Alcohol Use Standard Drinks/Week Comments Not Currently 0 (1 standard drink = 0.6 oz pur e alcohol) [facility] Utilities Answer Date Recorded In the [...] place to sleep or slept in a usp (including now)? No 07/13/2024 Sex and Gender Information Value Date Recorded Sex Assigned at Female 02/25/2023 1:53 AM EDT Gender Identity Female 02/25/2023 1:53 AM EDT Sexual Orientation Heterosexual (straight) 02/25 1:53 AM EDT documented as of this encounter Miscellaneous Notes * Telephone Encounter - An Bazan - 10/25/2024 5:27 PM EST Can provider please resend Warfarin 2mg for 30ds instead of 15ds? Thanks. documented in this encounter Plan of Treatment Upcoming Encounters Date Type Department Care Team (Late st Contact Info) Description 12/11/2024 3:30 PM EDT Office Visit [facility] [address] [place] [phone] Jenae Thomas MD [address] [place] [address] documented as of this encounter Visit Diagnoses Diagnosis Acute saddle pulmonary embolism without acute cor pulmonale (HCC) documented in this encounter Care Teams Ip Architect Relationship Specialty Start Date End Date Jenae Thomas MD [address] [place] [address] PCP - General Internal Medicine 03/30/24 Diego Schulz MD [address] [place] [address] PCP - [employer] Medicare Attributed 10/03/23 Ravi Mills MD [address] [place] [address] PCP - Resident - Supervising Attending Internal Medicine 06/05/24 Gifty Huizar, PhD [address] [place] [address] [phone] Clinical Psychologist Psychology 10/13/20 Dharmesh Broderick MD [address] [place] [address] Ophthalmology 07/15/23 documented as of this encounter
--- OUTSIDE RECORDS SUMMARY | 2024-10-28 20:37 | XMS_ITS | Encounter Summary ---
Author Organization [facility] Address [address] [place] [address] Care Team Providers Care Auto Repair Technician Name Role Phone Miguel A Mcclendon MD Primary Care Provider [phone] Dharmesh Armas MD Unavailable [phone] Gifty Huizar PhD Unavailable [phone] Pcp, No Primary Care Provider Unavailabl Tiki Velasco Primary Care Provider + [phone] Dharmesh Broderick MD Unavailable [phone] Jenae Thomas MD Primary Care Provider + [phone] Diego Schulz MD Unavailable [phone] Ravi Mills MD Unavailable [phone] Reason for Visit * Reason Comments Medication Refill Encounter Details Date Type Department Care Team (Late st Contact Info) Description 02/08/2020 Refill [facility] [address] [place] [phone] Stanley Stern, KAYLENE [address] [facility] [address] [place] [phone] Diabetes mellitus type 2 in obese (HCC) [...] Telephone Encounter - Dee Fraga RN - 02/11/2020 10:07 AM EDT reordered 02/11/20 documented in this encounter Plan of Treatment Upcoming Encounters Date Type Department Care Team (Late st Contact Info) Description 12/11/2024 3:30 PM EDT Office Visit [facility] [address] [place] [phone] Jenae Thomas MD [address] [place] [address] documented as of this encounter Visit Diagnoses Diagnosis Diabetes mellitus type 2 in obese Type II or unspecified type diabetes mellitus without mention of complication, not stated as uncontrolled documented in this encounter Care Teams Auto Repair Technician Relationship Specialty Start Date End Date Miguel A Mcclendon MD PCP - General Internal Medicine 09/11/18 09/03/21 Dharmesh Armas MD [address] [place] [address] PCP - [place] Medicare Attributed 02/01/20 09/01/21 Pcp, No PCP - General General Medicine 09/04/21 10/06/21 Tiki Barry MBBS [address] [place] [address] PCP - General Internal Medicine 10/07/21 03/29/24 Jenae Thomas MD 132 [place] [address] PCP - General Internal Medicine 03/30/24 Deigo Schulz MD 132 [place] [address] PCP - [employer] Medicare Attributed 10/03/23 Ravi Mills MD [address] [address] PCP - Resident - Supervising Attending Internal Medicine 06/05/24 Gifty Huizar, PhD [address] [place] [address] [phone] Clinical Psychologist Psychology 10/13/20 Dharmesh Broderick MD [address] [place] [address] Ophthalmology 07/15/23 documented as of this encounter
--- OUTSIDE RECORDS SUMMARY | 2024-10-28 20:37 | XMS_ITS | Encounter Summary ---
Author Organization [facility] Address [address] [place] [address] Care Team Providers Care Usps Letter Carrier Name Role Phone Gifty Huizar PhD Unavailable [phone] Tiki Barry Primary Care Provider [phone] Dharmesh Broderick MD Unavailable [phone] Jenae Thomas MD Primary Care Provider [phone] Diego Schulz MD Unavailable [phone] Ravi Mills MD Unavailable [phone] Reason for Visit * Reason Onset Date Comments Medication Refill 02/06/2022 Encounter Details Date Type Department Care Team (Late st Contact Info) Description 02/06/2022 Refill [facility] [address] [phone] Deshawn Kinsey, DO 132 [place] [address] Acute saddle pulmonary embolism without acute cor [...] suspected to have Coronavirus/COVID-19? No / Unsure 01/19/2022 9:20 AM EDT documented as of this encounter Plan of Treatment Upcoming Encounters Date Type Department Care Team (Late st Contact Info) Description 12/11/2024 3:30 PM EDT Office Visit [facility] [address] [place] [phone] Jenae Thomas MD [address] [place] [address] documented as of this encounter Visit Diagnoses Diagnosis Acute saddle pulmonary embolism without acute cor pulmonale (HCC) documented in this encounter Care Teams Usps Letter Carrier Relationship Specialty Start Date End Date Tiki Barry MBBS [address] [place] [address] PCP - General Internal Medicine 10/07/21 03/29/24 Jenae Thomas MD [address] [place] [address] PCP - General Internal Medicine 03/30/24 Diego Schulz MD [address] [place] [address] PCP - [employer] Medicare Attributed 10/03/23 Ravi Mills MD [address] [place] [address] PCP - Resident - Supervising Attending Internal Medicine 06/05/24 Gifty Huizar, PhD [address] [place] [address] 2nd [place] [address] Clinical Psychologist Psychology 10/13/20 Dharmesh Broderick MD [address] [place] [address] Ophthalmology 07/15/23 documented as of this encounter
--- OUTSIDE RECORDS SUMMARY | 2024-10-28 20:37 | XMS_ITS | Encounter Summary ---
Author Organization [facility] Address [address] [place] [address] Care Team Providers Care Navigation Teacher Name Role Phone Gifty Huizar PhD Unavailable [phone] Tiki Barry Primary Care Provider + [phone] Dharmesh Broderick MD Unavailable [phone] Jenae Thomas MD Primary Care Provider + [phone] Diego Schulz MD Unavailable [phone] Ravi Mills MD Unavailable [phone] Reason for Visit * Reason Onset Date Comments Medication Refill 05/06/2023 Encounter Details Date Type Department Care Team (Late st Contact Info) Description 05/06/2023 Refill [facility] [address] [place] [address] Andrew Martínez MD [address] [facility] [address] [place] [address] Diabetes mellitus type 2 in obese (HCC) [...] place to sleep or slept in a [place] (including now)? No 02/28/2023 Sex and Gender Information Value Date Recorded Sex Assigned at Female 02/25/2023 1:53 AM EDT Gender Identity Female 02/25/2023 1:53 AM EDT Sexual Orientation Heterosexual (straight) 02/25 1:53 AM EDT COVID-19 Exposure Response Date Recorded In the last 10 days, have yo u been in contact with someone who was confirmed or suspected to have Coronavirus/COVID-19? No / Unsure 04/07/2023 9:01 AM EDT documented as of this encounter Plan of Treatment Upcoming Encounters Date Type Department Care Team (Late st Contact Info) Description 12/11/2024 3:30 PM EDT Office Visit [facility] [address] [place] [phone] Jenae Thomas MD 132 [place] [address] documented as of this encounter Visit Diagnoses Diagnosis Diabetes mellitus type 2 in obese Type II or unspecified type diabetes mellitus without mention of complication, not stated as uncontrolled documented in this encounter Care Teams Navigation Teacher Relationship Specialty Start Date End Date Tiki Barry MBBS [address] [place] [address] PCP - General Internal Medicine 10/07/21 03/29/24 Jenae Thomas MD [address] [place] [address] PCP - General Internal Medicine 03/30/24 Diego Schulz MD [address] [place] [address] PCP - [employer] Medicare Attributed 10/03/23 Ravi Mills MD [address] [place] [address] PCP - Resident - Supervising Attending Internal Medicine 06/05/24 Gifty Huizar, PhD [address] [place] [address] Clinical Psychologist Psychology 10/13/20 Dharmesh Broderick MD 79 [place] [address] Ophthalmology 07/15/23 documented as of this encounter
--- OUTSIDE RECORDS SUMMARY | 2024-10-28 20:37 | XMS_ITS | Encounter Summary ---
Author Organization [facility] Address [address] [place] [address] Care Team Providers Care Wet Cotton Feeder Name Role Phone Gifty Huizar PhD Unavailable [phone] Dharmesh Broderick MD Unavailable [phone] Jenae Thomas MD Primary Care Provider [phone] Diego Schulz MD Unavailable [phone] Ravi Mills MD Unavailable [phone] Encounter Details Date Type Department Care Team ([facility] st Contact Info) Description 10/26/2024 Orders Only [facility] [address] [phone] Pat Benites MD [address] [place] [address] 2 [place] [address] Acute saddle pulmonary embolism without acute cor pulmonale (HCC) Social History Tobacco Use Types Packs/Day Years Used Date Smoking Tobacco: Former Cigarettes Q uit: 10/2021 Passive Smoke Exposure: Past Smokeless Tobacco: Never Alcohol Use Standard Drinks/Week Comments Not Currently 0 (1 standard drink = 0.6 oz pur e alcohol) [facility] Utilities Answer Date Recorded In the past 12 months has [employer] electric, gas, oil, or water company threatened [...] [place] [facility] [place] (including now)? No 07/13/2024 Sex and Gender Information Value Date Recorded Sex Assigned at Female 02/25/2023 1:53 AM EDT Gender Identity Female 02/25/2023 1:53 AM EDT Sexual Orientation Heterosexual (straight) 02/25 1:53 AM EDT documented as of this encounter Plan of Treatment Upcoming Encounters Date Type Department Care Team (Late st Contact Info) Description 12/11/2024 3:30 PM EDT Office Visit [facility] [address] [place] [phone] Jenae Thomas MD 132 [place] [address] documented as of this encounter Visit Diagnoses Diagnosis Acute saddle pulmonary embolism without acute cor pulmonale (HCC) documented in this encounter Care Teams Wet Cotton Feeder Relationship Specialty Start Date End Date Jenae Thomas MD 132 [place] [address] PCP - General Internal Medicine 03/30/24 Diego Schulz MD [address] [place] [address] PCP - [employer] Medicare Attributed 10/03/23 Ravi Mills MD [address] [address] PCP - Resident - Supervising Attending Internal Medicine 06/05/24 Gifty Huizar, PhD 200 [facility], 2nd [place], [place] [phone] Clinical Psychologist Psychology 10/13/20 Dharmesh Broderick MD [address] [place] [address] Ophthalmology 07/15/23 documented as of this encounter
--- OUTSIDE RECORDS SUMMARY | 2024-10-28 20:37 | XMS_ITS | Encounter Summary ---
Author Organization [facility] Address [address] [place] [address] Care Team Providers Care Inspector Shells Name Role Phone Gifty Huizar PhD Unavailable [phone] Tiki Barry Primary Care Provider + [phone] Dharmesh Broderick MD Unavailable [phone] Jenae Thomas MD Primary Care Provider + [phone] Diego Schulz MD Unavailable [phone] Ravi Mills MD Unavailable [phone] Encounter Details Date Type Department Care Team (Late st Contact Info) Description 02/09/2022 Telephone [facility] Medical Oncology in [place] [address] [place] [phone] Warner Chowdhury, [address] [facility] [address] [place] [address] Social History Tobacco Use Types Packs/Day Years [...] suspected to have Coronavirus/COVID-19? No / Unsure 02/11/2022 10:14 AM EDT documented as of this encounter Miscellaneous Notes * Telephone Encounter - Roopa [place] - 02/09/2022 1:22 PM EDT Patient inquiring if she is able to be set up for ride service for her consult appt this month withdr. chowdhury documented in this encounter Plan of Treatment Upcoming Encounters Date Type Department Care Team (Late st Contact Info) Description 12/11/2024 3:30 PM EDT Office Visit [facility] [address] [place], [place] [phone] Jenae Thomas MD [address] [place] [address] documented as of this encounter Visit Diagnoses Not on filedocumented in this encounter Care Teams Inspector Shells Relationship Specialty Start Date End Date Tiki Barry MBBS [address] [place] [address] PCP - General Internal Medicine 10/07/21 03/29/24 Jenae Thomas MD [address] [place] [address] PCP - General Internal Medicine 03/30/24 Diego Schulz MD [address] [place] [address] PCP - [employer] Medicare Attributed 10/03/23 Ravi Mills MD [address] [place] [address] PCP - Resident - Supervising Attending Internal Medicine 06/05/24 Gifty Huizar, PhD 200 [facility], 2nd [place] [address] Clinical Psychologist Psychology 10/13/20 Dharmesh Broderick MD [address] [place] [address] Ophthalmology 07/15/23 documented as of this encounter
--- OUTSIDE RECORDS SUMMARY | 2024-10-28 20:37 | XMS_ITS | Encounter Summary ---
Author Organization [facility] Address [address] [place] [address] Care Team Providers Care Multi Disciplined Language Analyst Name Role Phone Gifty Huizar PhD Unavailable [phone] Tiki Barry Primary Care Provider + [phone] Dharmesh Broderick MD Unavailable [phone] Jenae Thomas MD Primary Care Provider + [phone] Diego Schulz MD Unavailable [phone] Ravi Mills MD Unavailable [phone] Reason for Visit * Reason Comments Appointment Left msg to call at the Clinic to make appt with Ophtomology Encounter Details Date Type Department Care Team (Late st Contact Info) Description 03/24/2022 Telephone [facility] [address] [facility] 5th [place] [address] Alfreda Martinez MA 80 [place] [address] Appointment (Left msg to call at the Clinic to make appt with Ophtomology ) Social History Tobacco Use Types Packs/Day Years [...] [facility] [address] [place], [place] [phone] Jenae Thomas MD [address] [place] [address] documented as of this encounter Visit Diagnoses Not on filedocumented in this encounter Care Teams Multi Disciplined Language Analyst Relationship Specialty Start Date End Date Tiki Barry MBBS [address] [place] [address] PCP - General Internal Medicine 10/07/21 03/29/24 Jenae Thomas MD [address] [place] [address] PCP - General Internal Medicine 03/30/24 Diego Schulz MD [address] [place] [address] PCP - [employer] Medicare Attributed 10/03/23 Ravi Mills MD [address] [place] [address] PCP - Resident - Supervising Attending Internal Medicine 06/05/24 Gifty Huizar, PhD [address] [place] [address] [address] Clinical Psychologist Psychology 10/13/20 Dharmesh Broderick MD [address] [place] [address] Ophthalmology 07/15/23 documented as of this encounter
--- OUTSIDE RECORDS SUMMARY | 2024-10-28 20:37 | XMS_ITS | Clinical Summary ---
Author Organization [facility] Address [address] [place] [address] Care Team Providers Care Medical Affairs Manager Name Role Phone Gifty Huizar PhD Unavailable [phone] Dharmesh Broderick MD Unavailable [phone] Jenae Thomas MD Primary Care Provider [phone] Diego Schulz MD Unavailable [phone] Ravi Mills MD Unavailable [phone] Allergies Active Allergy Reactions Criticality Noted Date Comments Aspirin Swelling Medium 11/19/2016 Medications Medication Sig Dispensed Refills Start Date End Date Status Lancets Misc. (Accu-Chek FastClix Lancet) KitIndications:Type 2 diabetes mellitus with hyperosmolarity without coma, without long-term current use of insulin ([facility]) USE WITH FASTCLIX LANCETS TO TEST BLOOD SUGAR 3 TIMES A DAY 1 kit 05/16/20 23 Active insulin glargine (LANtus/SEMGLEE SOLOSTAR) 100 units/mL prefilled pen injectionIndication s:Type 2 diabetes mellitus with hyperosmolarity without coma, without long-term current use of insulin ([facility]) Inject 5 Units under the skin daily. 15 mL 1 01/03/20 24 Active metFORMIN (GLUCOPHAGE) 500 MG tabletIndications:T ype 2 diabetes mellitus with hyperosmolarity without coma, without long-term current use of insulin ([facility]) Take 1 tablet (500 mg total) by mouth 2 (two) times a day with breakfast and dinner. 180 tablet 3 03/27/20 24 025 Active glucose blood test stripIndications:Ty pe 2 diabetes mellitus with hyperosmolarity without coma, without long-term current use of insulin ([facility]) OneTouch-Check blood sugars twice daily (once before breakfast and once for symptoms of hypo/hyperglycem ia). Lifetime use. E11.9. 100 test strip 11 04/25/20 24 Active Lancets (Contextorstouch ultrasoft) lancetsIndications: Type 2 diabetes mellitus with hyperosmolarity without coma, without long-term current use of insulin ([facility]) OneTouch-Check blood sugars twice daily (once before breakfast and once for symptoms of hypo/hyperglycem ia). Lifetime use. E11.9 100 lancet(s) 11 04/25/20 24 Active Blood Glucose Monitoring Suppl (WakeMateTouch Verio) w/Device KitIndications:Type 2 diabetes mellitus with hyperosmolarity without coma, without long-term current use of insulin ([facility]) Check blood sugars twice daily. Lifetime use. E11.9 1 kit 04/21/20 24 Active Continuous Glucose Separator Tender (Dexcom G7 Separator Tender) DeviceIndications:D iabetes mellitus due to underlying condition with hyperosmolarity without coma, without long-term current use of insulin ([facility]) Utilize to measure and track blood sugars, continuous use. Lifetime need. E11.65, Z79.4 1 each 09/13/20 24 Active Continuous Glucose Sensor (Dexcom G7 Sensor) MiscIndications:Arminda betes mellitus due to underlying condition with hyperosmolarity without coma, without long-term current use of insulin ([facility]) Utilize to measure and track blood sugars, continuous use. Lifetime need. E11.65, Z79.4 3 each 1 09/18/20 24 Active semaglutide (OZEMPIC) (2 mg/dose) 8 mg/3 mL prefilled pen injectionIndication s:Morbid obesity with BMI of 70 and over, adult (HCC),Uncontrolled type 2 diabetes mellitus with hyperglycemia ([facility]) Inject 2 mg under the skin once a week. 3 mL 3 09/27/20 24 Active Insulin Pen Needle 32G X 4 MM MiscIndications:Typ e 2 diabetes mellitus with obesity ([facility]) For Ozempic 2mg once a week, Lantus 16 units subcutaneous daily Lifetime use E 11.9, E 66.01 100 pen needle 11 09/27/20 24 Active albuterol (PROVENTIL HFA; VENTOLIN HFA) 108 (90 Base) MCG/ACT inhalerIndications: COVID-19 Inhale 2 puffs 4 times daily (every 6 hours) as needed for wheezing or shortness of breath. 1 each 3 09/27/20 24 Active warfarin (COUMADIN) 5 MG tabletIndications:A cute saddle pulmonary embolism, unspecified whether acute cor pulmonale present (HCC) Take 1 tablet (5 mg total) by mouth daily at the same time. (total 9 mg) 30 tablet 3 10/25/19 25 Active Alcohol Swabs 70 % PadsIndications:Acu te deep vein thrombosis (DVT) of left lower extremity, unspecified vein (HCC) Use with Lantus 16 units at night, Ozempic one a week, check blood sugars 6 times a day Lifetime use E 11.9 200 Pad(s) 11 10/25/19 25 Active warfarin (COUMADIN) 2 MG tabletIndications:A cute saddle pulmonary embolism without acute cor pulmonale (HCC) TAKE 2 TABLET BY MOUTH DAILY AT THE SAME TIME. TAKE WITH 5MG FOR A TOTAL OF 9 MG TOTAL. 180 tablet 3 10/26/19 25 Active Alcohol Swabs 70 % PadsIndications:Acu te deep vein thrombosis (DVT) of left lower extremity, unspecified vein (HCC) Use with Lantus 16 units at night, Ozempic one a week, check blood sugars 6 times a day Lifetime use E 11.9 200 Pad(s) 11 05/24/20 24 025 Discontinued(Re order) warfarin (COUMADIN) 2 MG tabletIndications:A cute saddle pulmonary embolism without acute cor pulmonale (HCC) TAKE 2 TABLET BY MOUTH DAILY AT THE SAME TIME. TAKE WITH 5MG FOR A TOTAL OF 9 MG TOTAL. 30 tablet 3 09/10/20 24 025 Discontinued(Du plicate Prescription - No E-Cancel/No AVS) warfarin (COUMADIN) 5 MG tabletIndications:A cute saddle pulmonary embolism, unspecified whether acute cor pulmonale present (HCC) Take 1 tablet (5 mg total) by mouth daily at the same time. (total 9 mg) 30 tablet 3 09/10/20 24 025 Discontinued(Du plicate Prescription - No E-Cancel/No AVS) warfarin (COUMADIN) 2 MG tabletIndications:A cute saddle pulmonary embolism without acute cor pulmonale (HCC) TAKE 2 TABLET BY MOUTH DAILY AT THE SAME TIME. TAKE WITH 5MG FOR A TOTAL OF 9 MG TOTAL. 30 tablet 3 10/25/19 25 025 Discontinued(Re order) Active Problems Patient Care Coordination No te Formatting of this note migh t be different from the original. [facility]@Home, / [place] for transportation (01/2022--01/2023) Problem Noted Date Diagnosed Date Vitamin D deficiency 09/14/2023 09/14/2023 Body mass index (BMI) of 70 or greater in adult 09/14/2023 09/14/2023 Counseling for HPV (human papillomavirus) vaccin ation 08/18/2023 Overview (08/18/2023): 08/18/23 - Desires dose 1 at next visit. Will need 3 dose series. [facility] Assessment & Plan (08/18/2023 4:58 PM EST): - Patient desires HPV vaccination at next visit. - Plan for 3 dose series. Recurrent UTI 08/18/2023 Overview (08/18/2023): 08/18/23 - Reports 3 UTIs this year, most recent 2 weeks ago. No current sx. declines Macrobid suppression, as Macrobid has affected her INR in the past. Lifestyle modifications discussed, such as adequate hydration, urinating after sex, wearing cotton undergarments, sleeping without undergarments, removal of sweaty or wet exercise clothing/bathing suits in a prompt manner, and avoiding harsh/scented soaps in/around the genital area. [facility] Assessment & Plan (08/18/2023 5:02 PM EST): - Reports 3 UTIs this year, most recent 2 weeks ago. No current symptoms. - Declines Macrobid suppression, as Macrobid has affected her INR in the past. - Lifestyle modifications discussed, such as adequate hydration, urinating after sex, wearing cotton undergarments, sleeping without undergarments, removal of sweaty or wet exercise clothing/bathing suits in a prompt manner, and avoiding harsh/scented soaps in/around the genital area. Women's annual routine gynecological examination 07/21/2023 Overview (08/18/2023): 08/18/23 - Plan for Pap with HPV screening at next visit. Most recent STI screening negative in June 2023. Patient is not currently sexually active. No current contraception. [facility] Assessment & Plan (08/18/2023 4:58 PM EST): - Plan for Pap with HPV screening at next visit. - Most recent STI screening negative in June 2023. Patient is not currently sexually active. - No current contraception. Acute deep vein thrombosis (DVT) of left lower e xtremity 06/09/2023 Hypothyroidism 05/10/2023 05/10/2023 Hypertension 05/10/2023 05/10/2023 Asthma 05/10/2023 05/10/2023 Uncontrolled type 2 diabetes mellitus with hyper glycemia 05/10/2023 Acute respiratory failure with hypoxia SIRS (systemic inflammatory response syndrome) 0 03/03/2023 Acute saddle pulmonary embolism without acute co r pulmonale 02/25/2023 Bereavement 09/28/2022 Assessment & Plan (09/28/2022 3:26 PM EST): I have prescribed 0.5 mg of Ativan to take every 4-6 hours as needed with instructions to take 2 tablets every 4-6 hours if no effect. High risk heterosexual behavior 09/28/2022 Assessment & Plan (09/28/2022 3:26 PM EST): She had unprotected sex with new partner 2 weeks ago and she wants to be tested for STIs. She has no vaginal or urinary symptoms or other systemic symptoms. I will screen for HIV, hep C, syphilis, and urine GC chlamydia Need for second dose of COVID-19 vaccine 022 Failure to thrive in adult 09/05/2021 Chronic pain of both knees 02/20/2019 Morbid obesity with BMI of 70 and over, adult Assessment & Plan (09/28/2022 3:24 PM EST): She is undergoing both medical and surgical bariatric evaluation. She is being seen by Dr. Lucia Antunez and given semaglutide, metformin, and topiramate Diabetes mellitus Assessment & Plan (09/28/2022 3:19 PM EST): Last hemoglobin A1c was 9.9 in October of this year. We will check hemoglobin A1c today. I have refilled her glucose test strips and lancets. She has all her other medications Resolved Problems Problem Noted Date Diagnosed Date Resolved Date Pulmonary embolism 09/15/2021 Assessment & Plan (09/28/2022 3:23 PM EST): Patient with pulmonary embolism in April of this year which was presumptively due to to COVID infection. She had a saddle embolus for which she was started on warfarin and not a DOAC due to her morbid obesity. She took only 1 month of warfarin without coming back for any INR check. Because of the risk of bleeding due to noncompliance she was stopped on warfarin. She has a family history of blood clots with her father. Since its almost 6 months since she has not had a blood clot since the initial event I will not start warfarin at this point. I will however get serologic blood work to check for secondary hypercoagulable causes. I will defer to PCP in October pending results of the hypercoagulable work-up Obstructive sleep apnea 07/17/201807/03 Anxiety 07/16/2016 09/28/2022 Encounters Date Type Department Care Team Description 10/26/2024 Orders Only [facility] [address] [place] [phone] Pat Benites MD Acute saddle pulmonary embolism without acute cor pulmonale (HCC) 10/25/2024 Refill [facility] [address] [place] [phone] Jenae Thomas MD Acute saddle pulmonary embolism without acute cor pulmonale (HCC) 10/25/2024 Orders Only [facility] [address] [place] [address] Chef Randy Abel MD Acute saddle pulmonary embolism without acute cor pulmonale (HCC); Acute saddle pulmonary embolism, unspecified whether acute cor pulmonale present (HCC); Acute deep vein thrombosis (DVT) of left lower extremity, unspecified vein (HCC) 10/24/2024 [facility] [address] [phone] Jenae Thomas MD Acute saddle pulmonary embolism without acute cor pulmonale (HCC); Acute saddle pulmonary embolism, unspecified whether acute cor pulmonale present (HCC); Acute deep vein thrombosis (DVT) of left lower extremity, unspecified vein (HCC) 10/11/2024 Telephone [facility] [address] [phone] Jenae Thomas MD 09/28/2024 Telephone [facility] [address] [phone] Jenae Thomas MD [facility] TRANSPORATION FORM 09/27/2024 9:00 AM EST Procedure visit [address] [phone] Ravi Mills MD Willson, Jane, ANNIE Uncontrolled type 2 diabetes mellitus with hyperglycemia (HCC) (Primary Dx); Acute saddle pulmonary embolism without acute cor pulmonale (HCC); Acute deep vein thrombosis (DVT) of proximal vein of left lower extremity (HCC) 09/27/2024 [facility] [address] [phone] Jenae Thomas MD Morbid obesity with BMI of 70 and over, adult (HCC); Uncontrolled type 2 diabetes mellitus with hyperglycemia (HCC); Type 2 diabetes mellitus with obesity (HCC); COVID-19 09/27/2024 Travel 09/25/2024 Telephone [facility] [address] [phone] Gifty Kramer MA Appointment 09/18/2024 10:00 AM EST Anticoag visit [facility] [address] [phone] Ivanna Juan MD Willson, Jane, RN Acute saddle pulmonary embolism, unspecified whether acute cor pulmonale present (HCC) (Primary Dx); Acute deep vein thrombosis (DVT) of proximal vein of left lower extremity (HCC); History of pulmonary embolism 09/18/2024 Refill [facility] [address] [phone] Jenae Thomas MD Diabetes mellitus due to underlying condition with hyperosmolarity without coma, without long-term current use of insulin (HCC) 09/18/2024 Travel 09/17/2024 Telephone [facility] [address] [phone] Greta Alarcon RN DME compression stockings 09/13/2024 Orders Only [address] [phone] Jenae Thomas MD Diabetes mellitus due to underlying condition with hyperosmolarity without coma, without long-term current use of insulin (HCC) (Primary Dx) 09/12/2024 Telephone [facility] [address] [phone] Jenae Thomas MD 09/10/2024 8:30 AM EST Office Visit [address] [phone] Desi Hernandez MD Jacob, Jason C, MD Maran, Atherai, MD Acute deep vein thrombosis (DVT) of proximal vein of left lower extremity (HCC) (Primary Dx); Acute saddle pulmonary embolism without acute cor pulmonale (HCC); Acute saddle pulmonary embolism, unspecified whether acute cor pulmonale present (HCC); Diabetes mellitus due to underlying condition with hyperosmolarity without coma, without long-term current use of insulin (HCC) 09/10/2024 Travel 09/05/2024 Telephone [facility] [address] [place] [phone] Corin Mendez LCSW 09/04/2024 9:00 AM EST Anticoag visit [facility] [address] [place] [phone] Deshawn Kinsey, Olga Lidia Motta, cardroom supervisor deep vein thrombosis (DVT) of proximal vein of left lower extremity (HCC) (Primary Dx); Acute saddle pulmonary embolism without acute cor pulmonale (HCC) 09/04/2024 Travel 08/28/2024 7:58 AM EST - 08/28/2024 11:59 PM EST Hospital Encounter [facility] [place] [facility] - Echocardiography Laboratory [address] [place] [phone] Ravi Mills MD Discharge Disposition: Home or Self Care 08/28/2024 Travel 08/24/2024 Telephone [facility] [address] [place] [phone] Jenae Thomas MD CGM REQUEST 08/23/2024 9:00 AM EST Anticoag visit [address] [phone] Ravi Mills MD Willson, Jane, RN Need for influenza vaccination (Primary Dx); History of pulmonary embolism; Acute deep vein thrombosis (DVT) of left lower extremity, unspecified vein (HCC); Chronic saddle pulmonary embolism, unspecified whether acute cor pulmonale present (HCC); exterminator helper termite (current) use of anticoagulants 08/23/2024 Travel 08/14/2024 1:59 PM EST - 08/14/2024 11:09 PM EST Emergency [facility] Emergency Department [address] [place] [address] Corrie Barry MD Chartoff, Stanley E, MD Dizzy spells (Primary Dx); Type 2 diabetes mellitus without complication, unspecified whether continuous churn buttermaker insulin use (HCC); Personal history of DVT (deep vein thrombosis); Former smoker Discharge Disposition: Home or Self Care 08/14/2024 12:46 PM EST - 08/14/2024 1:58 PM EST Hospital Encounter [facility] - Vascular Laboratory [address] [facility] 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) 08/14/2024 Travel 08/08/2024 Health system Primary Care [address] [phone] Corin Mendez, SHEARER SCREEN MEASURER AND TRIMMER 08/06/2024 [facility] Care [address] [phone] Jenae Thomas MD CNG GAS STUDENT SUPPORT ADVISOR 08/01/2024 [facility] Care [address] [phone] Jenae Thomas MD CNG/GAS RENEWAL 07/31/2024 10:30 AM EDT Anticoag visit [facility] [address] [phone] Deshawn Kinsey, Olga Lidia Motta RN History of pulmonary embolism (Primary Dx); Uncontrolled type 2 diabetes mellitus with hyperglycemia (HCC); Acute deep vein thrombosis (DVT) of left lower extremity, unspecified vein (HCC); group home (current) use of anticoagulants 07/31/2024 Travel from Last 3 Months Immunizations Name Administration Dates Next Due Covid-19 MRNA Vaccine - Pfizer 12+ (Purple Cap) 11/17/2021,10/28/2021 Influenza Inactivated/Split Preservative Free IM 12/08/2021,09/05/2021() Influenza Virus Trivalent Split Vaccine (MDV) IM 12/08/2021 Influenza, Quadrivalent (FLU ARIX, AFLURIA, FLULAVAL, FLUZONE) Preservative Free IM 09/13/2023 Influenza, Trivalent (FLUARI X, AFLURIA, FLULAVAL, FLUZONE) Preservative Free IM 08/23/2024 Influenza, Unspecified 11/12/2019 Pneumococcal Conjugate 20-Valent 09/13/2023 Tdap 12/08/2021 Family History Medical History Relation Name Comments Clotting disorder Brother Heart attack Brother Obesity Brother Clotting disorder Father Diabetes Maternal Grandmother Hyperlipidemia Mother Hypertension Mother Obesity Mother Diabetes Paternal Grandfather Obesity Paternal Grandfather Stroke Paternal Grandfather Relation Name Status Comments Brother Father Maternal Grandmother Mother Paternal Grandfather Social History Tobacco Use Types Packs/Day Years Used Date Smoking Tobacco: Former Cigarettes Q uit: 10/2021 Passive Smoke Exposure: Past Smokeless Tobacco: Never Tobacco Cessation:Counseling Given: Not Answered Alcohol Use Standard Drinks/Week Comments Not Currently 0 (1 standard drink = 0.6 oz pur e alcohol) [facility] Utilities Answer Date Recorded In the past 12 months has e electric, gas, oil, or water [employer] threatened to shut off services in your [...] place to sleep or slept in a fdc (including now)? No 07/13/2024 Sex and Gender Information Value Date Recorded Sex Assigned at Female 02/25/2023 1:53 AM EDT Gender Identity Female 02/25/2023 1:53 AM EDT Sexual Orientation Heterosexual (straight) 02/25 1:53 AM EDT Last Filed Vital Signs Vital Sign Reading Time Taken Comments Blood Pressure 114/78 09/27/2024 10:10 AM EST Pulse 77 09/27/2024 10:10 AM EST Temperature 36.5 ??C (97.7 ??F) 09/27/2024 10:[address] Respiratory Rate 20 09/10/2024 8:15 AM EST Oxygen Saturation 99% 09/27/2024 10:10 AM EST Inhaled Oxygen Concentration - - Weight 207 kg (455 lb 4 oz) 09/10/2024 8:[address] Height 175.3 cm (5' 9 ) 09/10/2024 8:15 AM EST Body Mass Index 67.23 09/10/2024 8:15 AM EST Plan of Treatment Upcoming Encounters Date Type Department Care Team (Late st Contact Info) Description 12/11/2024 3:30 PM EDT Office Visit [facility] [address] [phone] Jenae Thomas MD [address] [place] [address] Health Maintenance Due Date Last Done Comments Ophthalmology Exam 2002 Annual Wellness Visit 2010 Physical 2010 Hepatitis B Vaccines (1 of 3 - 19+ 3-dose series) 2011 COVID-19 Vaccine ( - season) 2024 11/17/2021, 10/28/2021 Microalbumin/Creatinine Ratio Urine 01/02/2025 01/03/2024, 04/14/2023 Hemoglobin A1C 01/29/2025 07/31/2024, 04/0 11/2023, 09/13/2023, Additional history exists Foot Exam 07/13/2025 07/13/2024 Lipid Panel 07/13/2025 07/13/2024, 04/02, 09/28/2022, Additional history exists Creatinine with GFR 08/14/2025 08/14/2024, 08/14/2024, 05/27/2024, Additional history exists Pap Smear (Ages 21-65) 08/31/2026 08/31/2023 DTaP/Tdap/Td Vaccines (2 - Td or Tdap) 12/09/2031 12/08/2021 Hepatitis C Virus Screening Completed 04/2023, 09/28/2022, 09/28/2022, Additional history exists Pneumococcal Vaccine: Pediatric (0-5 Years) and At-Risk Patients (6 to 49 Years) Completed 09/13/2023 HIV Screening Completed 11/19/2023, 0 04/2023, 09/28/2022, Additional history exists Influenza Vaccine Completed 08/23/2024, , 12/08/2021, Additional history exists HPV Vaccines Aged Out No longer eligi ble based on patient's age to complete this topic Procedures Procedure Name Priority Date/Time Associated Diagnosis Comments ISTAT INR Routine 09/27/2024 9:37 AM EST Acute saddle pulmonary embolism without acute cor pulmonale (HCC) Acute deep vein thrombosis (DVT) of proximal vein of left lower extremity (HCC) ISTAT INR Routine 09/18/2024 9:42 AM EST ISTAT INR Routine 09/10/2024 8:45 AM EST Acute deep vein thrombosis (DVT) of proximal vein of left lower extremity (HCC) ISTAT INR Routine 09/04/2024 8:45 AM EST ECHOCARDIOGRAM (TTE) COMPREHENSIVE (CONTRAST PRN) Routine 08/28/2024 9:10 AM EST Chronic saddle pulmonary embolism, unspecified whether acute cor pulmonale present (HCC) ISTAT INR Routine 08/23/2024 9:05 AM EST CTA CHEST FOR P.E. STAT 08/14/2024 9: 07 PM EST HIGH SENSITIVITY TROPONIN T Routine 08/14/2024 5:00 PM EST PROBNP, N-TERMINAL STAT 08/14/2024 4: 00 PM EST PROTIME-INR STAT 08/14/2024 4:00 PM EST HIGH SENSITIVITY TROPONIN T CARD 08/14/2024 4:00 PM EST COMPREHENSIVE METABOLIC PANEL STAT 08/14/2024 4:00 PM EST COMPLETE BLOOD COUNT, WITH DIFFERENTIAL STAT 08/14/2024 4:00 PM EST ECG 12-LEAD ED Critical 08/14/2024 2:07 PM EST VAS VENOUS DUPLEX LEG (DVT)-BILATERAL Routine 08/14/2024 1:19 PM EST Lightheaded COMPLETE BLOOD COUNT, WITH DIFFERENTIAL STAT 08/14/2024 12:20 PM EST Lightheaded COMPREHENSIVE METABOLIC PANEL STAT 08/14/2024 12:20 PM EST Lightheaded PROBNP, N-TERMINAL STAT 08/14/2024 12:20 PM EST Lightheaded ECG 12-LEAD Routine 08/14/2024 11:50 AM EST Lightheaded ISTAT INR Routine 08/14/2024 10:16 AM EST Lightheaded HEMOGLOBIN A1C WITH ESTIMATED AVERAGE GLUCOSE Routine 07/31/2024 10:10 AM EDT Uncontrolled type 2 diabetes mellitus with hyperglycemia (HCC) ISTAT INR Routine 07/31/2024 10:00 AM EDT LIPID PANEL WITH NONHDL Routine 07/13/2024 12:54 PM EDT Type 2 diabetes mellitus without complication, with long-term current use of insulin (HCC) MICROALBUMIN, CREATININE, URINE, RANDOM Routine 01/03/2024 2:25 PM EDT Type 2 diabetes mellitus with hyperosmolarity without coma, without long-term current use of insulin (HCC) HIV 1/2 AG/AB CMIA REFLEX TO CONFIRMATION STAT 11/19/2023 12:43 AM EST PAP/POT RUNNER CYTOLOGY Routine 08/31/2023 10:51 AM EST Cervical cancer screening HEPATITIS PANEL, ACUTE Routine 06/09/2023 10:55 AM EDT Need for hepatitis C screening test from Last 3 Months or Most Recently Relevant to Health Maintenance Results * ISTAT INR (09/27/2024 9:37 AM EST) Only the most recent of7 resultswithin the time period is included. INR 2.4 09/27/2024 10:44 AM EST Comment:INR reference interv als: No anticoagulant: 0.8 to 1.2, Standard dose anticoagulant: 2.0 to 3.0, High dose anticoagulant: 2.5 to 3.5. Blood specimen / Unknown 09/27/2024 9:37 AM EST 09/27/2024 10:44 AM EST Generic Provider POINT OF CARE [facility] See Below * ECHOCARDIOGRAM COMPREHENSIVE WITH CONTRAST (08/28/2024 9:10 AM EST) Heart Rate 81 bpm BP Systolic 132 mmHg BP Diastolic 69 mmHg Height 69.00 inches Weight 435.00 lbs BSA 2.87 m2 IVS Mean (F:0.6-0.9, M:0.6-1.0) 0.8 cm IVS (F:0.6-0.9, M:0.6-1.0) 0.8 cm LVIDD Mean (F:3.8-5.2, M:4.2-5.8) 5.1 cm LVIDD (F:3.8-5.2, M:4.2-5.8) 4.9 cm LVIDS (F:2.2-3.5, M:2.5-4.0) 3.3 cm LVIDS (F:2.2-3.5, M:2.5-4.0) 3.4 cm LVOT diameter mean 2.0 cm LVOT diameter 2.0 cm PW Mean (F:0.6-0.9, M:0.6-1.0) 0.9 cm PW (F:0.6-0.9, M:0.6-1.0) 0.9 cm LV Diastolic Volume Mean 112.5 mL LV Diastolic Volume 112 mL LV Systolic Volume Mean 51.0 mL LV Systolic Volume 51 mL LVOT mn grad mean 2.7 mmHg LVOT mn grad 2.7 mmHg LVOT peak marcel mean 1.1 m/s LVOT peak marcel 1.1 m/s LVOT VTI MEAN 21.9 cm LVOT VTI 21.9 cm RVID d Mean 3.6 cm RVID d 3.6 cm RV Mid Diameter Mean 3.0 cm RV Mid Diameter 3.0 cm RV Free wall pk S' Mean 17.4 cm/s RV Free wall pk S' 17.4 cm/s LA volume Mean 39.2 mL LA volume 39.2 mL RA area Mean 12.3 cm2 RA area 12.3 cm2 RA 2D Volume 27.7 mL MV Peak A-Wave Mean 57.1 cm/s MV Peak A-Wave 57.1 cm/s E wave decelartion time mean 242 ms E wave decelartion time 242 ms MV Peak E-Wave Mean 65.9 cm/s MV Peak E-Wave 65.9 cm/s MV E' Lateral Velocity Mean 12.98 cm/s MV E' Lateral Velocity 12.98 cm/s MV E' Septal Velocity Mean 15.03 cm/s MV E' Septal Velocity 15.03 cm/s Tapse Mean 2.8 cm Tapse 2.8 cm TR Peak Marcel Mean 2.2 m/s TR Peak Marcel 2.4 m/s Ascending aorta mean 3.1 cm Ascending aorta 3.1 cm Sinuses of Valsalva Mean 2.7 cm Sinuses of Valsalva 2.7 cm IVC Expiration Diameter Mean 1.5 cm IVC Expiration Diameter 1.5 cm IVC Inspiration Diameter Mean 0.6 cm IVC Inspiration Diameter 0.6 cm Nair BP EF (55-75) 54 % LVOT stroke volume 69 mL SVI 22 mL/m2 Left Ventricular Cardiac Index 1.9 L/min/m2 Left Ventricular Cardiac Output 5.6 L/min LV Diastolic Volume Index (F:29-61, M:35-75) 39.0 mL/m2 LV Systolic Volume Index (F:8-24, M:11-31) 17.7 mL/m2 LA Volume Index (16-34) 13.6 mL/m2 E/A ratio 1.15 E/E' Lateral 5.1 E/E' Septal 4.4 E/E' Average 4.7 AV LVOT peak gradient 4.8 mmHg LVOT area 3.1 cm2 Sinuses of Valsalva Index 0.9 cm/m2 Ascending aorta Index 1.1 cm/m2 IVCPERCENTCOLLAPSE 0.60 % E/E' ratio 5.08 LVOT SI 23.93 mL/m2 LV mass 141.9 g LV Mass Index (F:43-95, M:49-115) 49.4 g/m2 LV RWT 0.37 TR Peak Gradient 23 mmHg LA Volume Index 9.6 mL/m2 Est. RA pres 3 mmHg RVSP 26 mmHg PASP 26.0 mmHg Anatomical Region Laterality Modality Ultrasound Narrative 08/28/2024 9:42 AM EST ?Left ventricular systolic function is low normal. The quantitative EF by 2D Nair biplane is 54%. ?Right ventricular systolic function is normal. ?Valve structure and function are normal. ?Compared to previous study on 02/27/2023, RV size and function have normalized. Technical Details Definity contrast was used during the study. Overall the study quality was adequate. The study was technically difficult due to patient's body habitus. Left Ventricle The left ventricle is normal in size. Wall thickness is normal. Left ventricular systolic function is low normal. The quantitative EF by 2D Nair biplane is 54%. No wall motion abnormalities are present. Diastolic function is normal. Stroke volume is decreased. Right Ventricle The right ventricle is normal in size. Right ventricular systolic function is normal. Left Atrium Left atrial size is normal. Right Atrium Right atrial size is normal. Based on IVC diameter and collapse, right atrial pressure is estimated to be normal (3 mmHg). Mitral Valve The mitral valve is structurally normal. There is no mitral regurgitation. Tricuspid Valve The tricuspid valve is structurally normal. There is trace tricuspid regurgitation. The estimated right ventricular systolic pressure is normal at 26 mmHg. Aortic Valve The aortic valve is tricuspid. There is no aortic regurgitation or stenosis. Pulmonic Valve The pulmonic valve was not well visualized. There is no pulmonic regurgitation. Ascending Aorta The aortic root dimension is normal. Pericardium There is no pericardial effusion. Prior Study Compared to previous study on 02/27/2023, RV size and function have normalized. Ravi Mills MD CV ECHO ORDERABLES * CTA Chest for P.E. (08/14/2024 9:07 PM EST) Anatomical Region Laterality Modality Chest Computed Tomogra phy 08/14/2024 8:59 PM EST Impressions 08/14/2024 10:35 PM EST No evidence for pulmonary embolism. Previously noted pulmonary emboli have cleared. Minimal posterior pleural thickening in the left upper lobe region not seen previously but unlikely be of any clinical significance. Suspect postinflammatory pleural reaction. VTE: negative Narrative 08/14/2024 10:35 PM EST EXAMINATION: CT ANGIOGRAM OF THE CHEST WITH AND WITHOUT CONTRAST (CT PULMONARY ANGIOGRAM FOR PE) CLINICAL INFORMATION: Patient with lightheadedness and evaluate for PE COMPARISON: Chest x-ray 11/18/2023. CTA chest 02/25/2023 TECHNIQUE: Prior to contrast administration, noncontrast localization images were obtained. Subsequently, multidetector volumetric imaging was performed from the thoracic inlet to below the diaphragms following the administration of 80 mL Omnipaque 350 intravenous contrast during the pulmonary arterial phase of enhancement. No contrast reaction reported Sagittal, coronal, and MIP oblique sagittal reformatted images were obtained on the CT workstation, uploaded to PACS, and reviewed. This CT examination was performed using dose optimization techniques as appropriate, variously including the following: *Automated exposure control *Adjustment of mA and/or kV according to patient size (this includes techniques or standardized protocols for targeted exams where dose is matched to indication/reason for exam; i.e. extremities or head) *Use of iterative reconstruction technique Total exam dose-length product 654 mGy-cm FINDINGS: Exam is partially limited because of image degrading motion artifact although similar findings are present on the prior CTA chest QUALITY OF STUDY/CONTRAST BOLUS: Satisfactory. PULMONARY ARTERIES: No pulmonary emboli. ??Previously noted filling defects have cleared THORACIC AORTA: No aneurysm. LUNG: No focal consolidation, nodules or masses. PLEURA: Minimal posterior pleural thickening in the region of the left upper lobe not seen previously. MEDIASTINUM: Normal heart size. No pericardial effusion. No hilar or mediastinal lymphadenopathy. ??No evidence of septal bowing or right heart strain. CORONARY ARTERY CALCIFICATION: None visualized on this study. CHEST WALL/AXILLA: No axillary or internal mammary lymphadenopathy. OSSEOUS STRUCTURES: No acute or suspicious osseous abnormality. ?? UPPER ABDOMEN: Unremarkable. ??No reflux of contrast into the hepatic veins to suggest elevated right heart pressures. Procedure Note Dharmesh Mehta MD - 08/14/2024 EXAMINATION: CT ANGIOGRAM OF THE CHEST WITH AND WITHOUT CONTRAST (CT PULMONARY ANGIOGRAM FOR PE) CLINICAL INFORMATION: Patient with lightheadedness and evaluate for PE COMPARISON: Chest x-ray 11/18/2023. CTA chest 02/25/2023 TECHNIQUE: Prior to contrast administration, noncontrast localization images were obtained. Subsequently, multidetector volumetric imaging was performed from the thoracic inlet to below the diaphragms following the administration of 80 mL Omnipaque 350 intravenous contrast during the pulmonary arterial phase of enhancement. No contrast reaction reported Sagittal, coronal, and MIP oblique sagittal reformatted images were obtained on the CT workstation, uploaded to PACS, and reviewed. This CT examination was performed using dose optimization techniques as appropriate, variously including the following: *Automated exposure control *Adjustment of mA and/or kV according to patient size (this includes techniques or standardized protocols for targeted exams where dose is matched to indication/reason for exam; i.e. extremities or head) *Use of iterative reconstruction technique Total exam dose-length product 654 mGy-cm FINDINGS: Exam is partially limited because of image degrading motion artifact although similar findings are present on the prior CTA chest QUALITY OF STUDY/CONTRAST BOLUS: Satisfactory. PULMONARY ARTERIES: No pulmonary emboli. Previously noted filling defects have cleared THORACIC AORTA: No aneurysm. LUNG: No focal consolidation, nodules or masses. PLEURA: Minimal posterior pleural thickening in the region of the left upper lobe not seen previously. MEDIASTINUM: Normal heart size. No pericardial effusion. No hilar or mediastinal lymphadenopathy. No evidence of septal bowing or right heart strain. CORONARY ARTERY CALCIFICATION: None visualized on this study. CHEST WALL/AXILLA: No axillary or internal mammary lymphadenopathy. OSSEOUS STRUCTURES: No acute or suspicious osseous abnormality. UPPER ABDOMEN: Unremarkable. No reflux of contrast into the hepatic veins to suggest elevated right heart pressures. IMPRESSION: No evidence for pulmonary embolism. Previously noted pulmonary emboli have cleared. Minimal posterior pleural thickening in the left upper lobe region not seen previously but unlikely be of any clinical significance. Suspect postinflammatory pleural reaction. VTE: negative Jp Heath PA-C [facility] CT ORDERAB LES * High Sensitivity Troponin T (08/14/2024 5:00 PM EST) Only the most recent of2 resultswithin the time period is included. High Sensitivity Troponin T <6 <15 ng/L 08/14/2024 6:48 PM EST [facility] Delta (Change) Unable to calculate result <3 08/14/2024 6:48 PM EST [facility] Plasma/Serum 08/14/2024 5:00 PM EST 08/14/2024 6:14 PM EST Jp Heath PA-C LAB BLOOD [facility] [address] [address], [facility] [address] [place] [address] * proBNP, N-terminal (BNP) (08/14/2024 4:00 PM EST) Only the most recent of2 resultswithin the time period is included. Pathologist [facility] proBNP, N-terminal 47 <125 pg/mL 08/14/2024 5:14 PM [facility] Blood Plasma specimen / Unknown 08/14/2024 4:00 PM EST 08/14/2024 4:45 PM EST Jp Heath PA-C [place] [address], [place] [address] * (ABNORMAL) Complete Blood Count, with Differential (08/14/2024 4:00 PM EST) Only the most recent of2 resultswithin the time period is included. [facility] White Blood Cell Count 17.4(H) 4.0 - 11.0 Thou/uL 08/14/2024 4:55 PM [facility] Platelet Count 328 150 - 450 Thou/uL 08/14/2024 4:55 PM [facility] Hemoglobin 13.2 11.7 - 15.7 g/dL 08/14/2024 4:55 PM [facility] Hematocrit 39.4 35.0 - 47.0 % 08/14/2024 4:55 PM [facility] Red Blood Cell Count 4.70 4.00 - 5.40 Mil/uL 08/14/2024 4:55 PM [facility] MCV 84 80 - 100 fL 08/14/2024 4:55 PM [facility] MCH 28.1 26.0 - 34.0 pg 08/14/2024 4:55 PM [facility] MCHC 33.5 30.0 - 36.0 g/dL 08/14/2024 4:55 PM [facility] RDW 13.7 11.5 - 14.5 % 08/14/2024 4:55 PM [facility] MPV 10.6 7.5 - 12.5 fL 08/14/2024 4:55 PM [facility] Neutrophils Auto 65.1 % 08/14/20 24 4:55 PM [facility] Immature Granulocytes 0.4 % 08/14/2024 4:55 PM [facility] Lymphocytes Auto 27.7 % 08/14/20 24 4:55 PM [facility] Monocytes Auto 6.5 % 08/14/2024 4:55 PM [facility] Eosinophils Auto 0.1 % 08/14/20 24 4:55 PM [facility] Basophils Auto 0.2 % 08/14/2024 4:55 PM [facility] Abs Neutrophils Auto 11.32(H) 2.00 - 7.50 Thou/uL 08/14/2024 4:55 PM [facility] Abs Immature Granulocytes 0.07 0.00 - 0.10 Thou/uL 08/14/2024 4:55 PM [facility] Abs Lymphocytes Auto 4.81(H) 1.50 - 4.50 Thou/uL 08/14/2024 4:55 PM [facility] Abs Monocytes Auto 1.13 0.20 - 1.50 Thou/uL 08/14/2024 4:55 PM [facility] Abs Eosinophils Auto 0.02 0.00 - 0.70 Thou/uL 08/14/2024 4:55 PM [facility] Abs Basophils Auto 0.04 0.00 - 0.20 Thou/uL 08/14/2024 4:55 PM [facility] Blood Blood specimen / Unknown 08/14/2024 4:00 PM EST 08/14/2024 4:45 PM EST Jp Heath PA-C LAB [place] [address], [place] [address] * (ABNORMAL) INR (08/14/2024 4:00 PM EST) Anticoagulant WARFARIN (COUMADIN), BEING HELD 08/14/2024 2:00 PM EST Prothrombin Time (PT) 20.8(H) 10.0 - 13.5 seconds 08/14/2024 5:06 PM [facility] INR 1.8 08/14/2024 5:06 PM [facility] Comment:INR Therapeutic Rang es: Standard dose anticoagulant 2.0 to 3.0, High dose anticoagulant 2.5-3.5. Blood Plasma specimen / Unknown 08/14/2024 4:00 PM EST 08/14/2024 4:45 PM EST Jp Heath PA-C LAB [place] [address], [place] [address] * (ABNORMAL) Comprehensive Metabolic Panel (08/14/2024 4:00 PM EST) Only the most recent of2 resultswithin the time period is included. Glucose 99 65 - 99 mg/dL 08/14/2024 5:14 PM [facility] Comment:Fasting: <100 mg/dL, Non-Fasting: <200 mg/dL (ADA 2005) Blood Urea Nitrogen (BUN) 13 8 - 21 mg/dL 08/14/2024 5:14 PM [facility] Creatinine 0.8 0.4 - 1.1 mg/dL 08/14/2024 5:14 PM [facility] eGFR >90 >59 08/14/2024 5:14 PM [facility] Comment:CKD-EPI (2020) in mL /min/1.73 sq meters. Sodium 138 136 - 145 mmol/L 08/14/2024 5:14 PM [facility] Potassium 3.6 3.4 - 5.3 mmol/L 08/14/2024 5:14 PM [facility] Chloride 103 98 - 107 mmol/L 08/14/2024 5:14 PM [facility] CO2 22 22 - 33 mmol/L 08/14/2024 5:14 PM [facility] Calcium 9.6 8.7 - 10.5 mg/dL 08/14/2024 5:14 PM [facility] Alkaline Phosphatase 57 32 - 122 U/L 08/14/2024 5:14 PM [facility] Aspartate Aminotrans (AST) 18 10 - 50 U/L 08/14/2024 5:14 PM [facility] Alanine Aminotrans (ALT) 18 10 - 50 U/L 08/14/2024 5:14 PM [facility] Bilirubin, Total 0.6 0.2 - 1.0 mg/dL 08/14/2024 5:14 PM [facility] Protein, Total 7.8 6.3 - 8.3 g/dL 08/14/2024 5:14 PM [facility] Albumin 3.7 3.5 - 5.0 g/dL 08/14/2024 5:14 PM [facility] BUN/Creatinine Ratio 16 10.0 - 25.0 Ratio 08/14/2024 5:14 PM [facility] Globulin 4.1(H) 1.5 - 3.9 g/dL 08/14/2024 5:14 PM [facility] Albumin/Globulin Ratio 0.9(L) 1.0 - 3.0 Ratio 08/14/2024 5:14 PM [facility] Anion Gap 13 7 - 17 08/14/2024 5:14 PM [facility] Blood (Plasma/Serum) 08/14/2024 4:00 PM EST 08/14/2024 4:45 PM EST Jp Heath PA-C LAB BLOOD [facility] Organization Address City/State/[facility] [place] [address], [place] [address] * 10 Min ECG 12 lead (08/14/2024 2:07 PM EST) Only the most recent of2 resultswithin the time period is included. Ventricular rate 86 BPM EKG [facility] Atrial rate 86 BPM EKG [facility] P-R interval 144 ms EKG [facility] QRS duration 84 ms EKG [facility] Q-T interval 376 ms EKG [facility] QTC calculation (Bazett) 450 ms EKG [facility] P axis 24 degrees EKG [facility] R axis -7 degrees EKG [facility] T axis 26 degrees EKG [facility] 08/14/2024 2:07 PM EST Narrative EKG [facility] - 08/14/2024 3:51 PM EST Normal sinus rhythm When compared with ECG of 14-Aug-2024 11:50, No significant change was found Confirmed by MD Lopez Eric ([id number]) on 08/14/2024 3:51:36 PM Procedure Note Lebron Lopez MD - 08/14/2024 Normal sinus rhythm When compared with ECG of 14-Aug-2024 11:50, No significant change was found Confirmed by MD Lopez Eric ([id number]) on 08/14/2024 3:51:36 PM Corrie Barry MD [facility] * VAS VENOUS DUPLEX LEG (DVT)-BILATERAL (08/14/2024 1:19 PM EST) Anatomical Region Laterality Modality Ultrasound 08/14/2024 2:30 PM EST Narrative 08/14/2024 2:33 PM EST Table formatting from the original result was not included. ?? Department: [facility] Patient: [id number] (NORMA LINDSEY) ?? Patient Location: VASC LAB CPT Code: 27822 ICD-9: ?? Referring Physician: RAVI MILLS Impression Technically difficult and limited exam due to body habitus. Venous duplex ultrasound of the right lower extremity was performed. The peroneal veins could not be imaged due to body habitus. The remainder of the duplex exam was negative for deep vein thrombosis. Left lower extremity venous exam performed. ??Patient did not tolerate compression of the common femoral vein due to groin tenderness (open areas of skin). ??Phasic Doppler flow and color is noted in the common femoral vein suggesting vein patency. ??The proximal femoral vein and popliteal vein are patent and compress. ??The mid to distal femoral vein and calf veins could not be visualized due to body habitus. Indications ? 34 year old female seen at the clinic today. ??Hx of DVT, PE. ??Sub theraputic INR. ??Reports episodes of dizziness and light headedness Findings: ?? Right ??Impression ??Phasic ??Compressible Common Femoral Vein ??Normal ??Yes ??Complete Proximal femoral vein ??Normal ?Complete Mid femoral vein ??Normal ?Complete Distal femoral vein ??Normal ?Complete Popliteal ??Normal ?Complete Posterior Tibial Vein ??Normal ?Complete Peroneal ??Non-visualized ? GSV Saphenofemoral junction ??Normal ?Complete Left ??Impression ??Phasic ??Compressible Common Femoral Vein ??Patent ??Yes ?? Proximal femoral vein ??Normal ?Complete Mid femoral vein ??Non-visualized ? Distal femoral vein ??Non-visualized ? Popliteal ??Normal ?Complete Posterior Tibial Vein ??Non-visualized ? Peroneal ??Non-visualized ? GSV Saphenofemoral junction ??Non-visualized ? Electronically Signed by: Rosana Knowles MD, VI on 2024-08-14 02:33:08 PM End of Report Procedure Note Rosana Knowles MD - 08/14/2024 Department: [facility] Patient: [id number] (NORMA LINDSEY) Patient Location: [facility] CPT Code: 45633 ICD-9: Referring Physician: RAVI MILLS Impression Technically difficult and limited exam due to body habitus. Venous duplex ultrasound of the right lower extremity was performed. Theperoneal veins could not be imaged due to body habitus. The remainder ofthe duplex exam was negative for deep vein thrombosis. Left lower extremity venous exam performed. Patient did not toleratecompression of the common femoral vein due to groin tenderness (open areasof skin). Phasic Doppler flow and color is noted in the common femoralvein suggesting vein patency. The proximal femoral vein and poplitealvein are patent and compress. The mid to distal femoral vein and calfveins could not be visualized due to body habitus. Indications 34 year old female seen at the clinic today. Hx of DVT, PE. Subtheraputic INR. Reports episodes of dizziness and light headedness Findings: Right Impression Phasic Compressible Common Femoral Vein Normal Yes Complete Proximal femoral vein Normal Complete Mid femoral vein Normal Complete Distal femoral vein Normal Complete Popliteal Normal Complete Posterior Tibial Vein Normal Complete Peroneal Non-visualized GSV Saphenofemoral junction Normal Complete Left Impression Phasic Compressible Common Femoral Vein Patent Yes Proximal femoral vein Normal Complete Mid femoral vein Non-visualized Distal femoral vein Non-visualized Popliteal Normal Complete Posterior Tibial Vein Non-visualized Peroneal Non-visualized GSV Saphenofemoral junction Non-visualized Electronically Signed by: Rosana Knowles MD, [facility] on 2024-08-14 02:33:08PM End of Report Ravi Mills MD VASCULAR LAB ORDERAB LES * (ABNORMAL) Hemoglobin A1c with Estimated Average Glucose (07/31/2024 10:10 AM EDT) Hemoglobin A1C 6.0(H) <5.7 % 07/31/2024 2:40 PM EDT [facility] Comment: A1c% ? Interpretation 5.7 - 6.0 ?Increase risk of diabetes 6.1 - 6.4 ?Higher risk of diabetes > or = 6.5 ?? Consistent with diabetes Diabetes Care, 33(Supp 1):S1-S61, 2010 Estimated Average Glucose 126 mg/dL 07/31/2024 2:40 PM EDT [facility] Blood Blood specimen / Unknown 07/31/2024 10:10 AM EDT 07/31/2024 12:38 PM EDT Ravi Mills MD [place] [address], [place] [address] * Lipid panel (07/13/2024 12:54 PM EDT) Cholesterol, Total 171 <200 mg/dL 2023 8:05 PM [facility] Cholesterol, HDL 53 >39 mg/dL 07/13/20 24 8:05 PM [facility] Cholesterol/HDL Ratio 3.2 0.0 - 5.0 Ratio 07/13/2024 8:05 PM [facility] Comment: Relative Risk ? Ratio - Male ? Ratio - Female ?0.5 ?3.4 ?3.3 ?1.0 ?5.0 ?4.4 ?2.0 ?9.6 ?7.1 ?3.0 ? 23.4 ? 11.0 Non HDL Cholesterol 118 <160 mg/dL 07/13/2024 8:05 PM [facility] Triglycerides 118 <150 mg/dL 07/13/2024 8:05 PM [facility] Estimated LDL 94 <130 mg/dL 07/13/2024 8:05 PM [facility] Comment: NCEP Guidelines: ?< 100 mg/dL ??Optimal 100 - 129 mg/dL ??Near Optimal/Above Optimal 130 - 159 mg/dL ??Borderline High 160 - 189 mg/dL ??High ??>/= 190 mg/dL ??Very High Blood (Plasma/Serum) 07/13/2024 12:54 PM EDT 07/13/2024 7:33 PM EDT Desi Rios MD LAB BLOOD ORD ERABLES Performing Organization Address [facility]/State/[place] [address], [address] [address] * (ABNORMAL) Microalbumin, Creatinine, Urine, Random (01/03/2024 2:25 PM EDT) Microalbumin, Urine, Random 48(H) <30 mg/L 01/03/2024 8:45 PM EDT [facility] Creatinine, Urine, Random 410 mg/dL 01/03/2024 8:45 PM EDT [facility] Microalbumin/Cr eatinine Ratio 11.7 mg/g Creat 01/03/2024 8:45 PM EDT [facility] Urine Urine specimen / Unknown 01/03/2024 2:25 PM EDT 01/03/2024 7:59 PM EDT Ravi Mills MD URINE ORDERABLES Performing Organization Address City/[facility]/[place] [address], [place] [address] * HIV 1/2 Ag/Ab CMIA Reflex to Confirmation (11/19/2023 12:43 AM EST) HIV 1/2 Ag/Ab CMIA Nonreactive Nonreactive 11/21/2023 1:08 PM EST [facility] Comment: Results show no evidence of infection by HIV 1/2. If clinically indicated, repeat CMIA or test by nucleic acid amplification. HIV 1/2 Antigen/Antibody CMIA reflex to confirmation AND HIV-1 RNA viral load recommended in patients who are taking or have recently taken PrEP. Blood specimen (specimen) Serum specimen / Unknown 11/19/2023 12:43 AM EST 11/19/2023 12:47 AM EST Kelli BENTLEY LAB BLOOD ORDERABLES [facility] [address] [place] [address], * Hepatitis Panel, Acute (06/09/2023 10:55 AM EDT) Hepatitis A Antibody IgM Nonreactive Nonreactive S/CO 06/10/2023 9:48 AM EDT [facility] Hepatitis B Core Antibody IgM Nonreactive Nonreactive 06/10/2023 9:48 AM EDT [facility] Hepatitis B Surface Ag Screen Nonreactive Nonreactive 06/10/2023 9:48 AM EDT [facility] Hepatitis C Antibody 0.11 0.00 - 0.79 S/CO ratio 06/10/2023 9:48 AM EDT [facility] Hepatitis C Antibody Interpretation Nonreactive Nonreactive 06/10/2023 9:48 AM EDT [facility] Hepatitis Interpretation: Results inconsistent with acute Hepatitis A, B or C Virus infection. 06/10/2023 9:48 AM EDT [facility] Blood specimen (specimen) Serum specimen / Unknown 06/09/2023 10:55 AM EDT 06/09/2023 12:12 PM EDT Ravi Mills MD LAB BLOOD ORDERABLES HOSPITAL LAB See Below [facility] [address] [place] [address] from Last 3 Months or Most Recently Relevant to Health Maintenance Advance Directives * Full Code (Latest Code Status on File) Date Activated Date Inactivated Comments 02/25/2023 12:48 PM 11/18/2023 9:47 PM * Full Code Date Activated Date Inactivated Comments 12/21/2021 4:57 PM 02/19/2022 1:55 PM Decision tho roughly discussed with: Patient * Full Code Date Activated Date Inactivated Comments 09/05/2021 2:28 PM 10/01/2021 2:38 PM Healthcare Agents on File Name Relationship Healthcare Agent Rodrickhi p Communication Dhara Delgado Parent 4. Next of Kin ( Spouse, Adult Child, Parent, Adult Sibling, Grandparent) Vince Bradley Parent 4. Next of Kin ( Spouse, Adult Child, Parent, Adult Sibling, Grandparent) Care Teams Medical Affairs Manager Relationship Specialty Start Date End Date Jenae Thomas MD [address] [place] [address] PCP - General Internal Medicine 03/30/24 Diego Schulz MD [address] [place] [address] PCP - [employer] Medicare Attributed 10/03/23 Ravi Mills MD [address] [address] PCP - Resident - Supervising Attending Internal Medicine 06/05/24 Gifty Huizar, PhD [address] [address] Clinical Psychologist Psychology 10/13/20 Dharmesh Broderick MD [address] [place] [address] Ophthalmology 07/15/23
--- OUTSIDE RECORDS SUMMARY | 2024-10-28 20:37 | XMS_ITS | Encounter Summary ---
Author Organization [facility] Address [address] [place] [address] Care Team Providers Care Conduit Bender Name Role Phone Miguel A Mcclendon MD Primary Care Provider [phone] Dharmesh Armas MD Unavailable [phone] Gifty Huizar PhD Unavailable [phone] Pcp, No Primary Care Provider Unavailabl Tiki Velasco Primary Care Provider + [phone] Dharmesh Broderick MD Unavailable [phone] Jenae Thomas MD Primary Care Provider + [phone] Diego Schulz MD Unavailable [phone] Ravi Mills MD Unavailable [phone] Reason for Visit * Reason Onset Date Comments Medication Refill 02/18/2021 Encounter Details Date Type Department Care Team (Late st Contact Info) Description 02/18/2021 Refill [facility] [address] [place] [address] Stanley Stern APRN 399 [facility] [address] [place] [address] Morbid obesity with BMI of 70 and [...] Telephone Encounter - Desiree Pak RN - 02/18/2021 12:16 PM EDT Note LV 05/2020 Needs to be seen prior to refill documented in this encounter Plan of Treatment Upcoming Encounters Date Type Department Care Team (Late st Contact Info) Description 12/11/2024 3:30 PM EDT Office Visit [facility] [address] [place] [phone] Jenae Thomas MD [address] [place] [address] documented as of this encounter Visit Diagnoses Diagnosis Morbid obesity with BMI of 70 and over, adult (HCC) Diabetes mellitus type 2 in obese Type II or unspecified type diabetes mellitus without mention of complication, not stated as uncontrolled documented in this encounter Care Teams Conduit Bender Relationship Specialty Start Date End Date Miguel A Mcclendon MD PCP - General Internal Medicine 09/11/18 09/03/21 Dharmesh Armas MD [address] [place] [address] PCP - Okay Medicare Attributed 02/01/20 09/01/21 Pcp, No PCP - General General Medicine 09/04/21 10/06/21 Tiki Barry MBBS [address] [place] [address] PCP - General Internal Medicine 10/07/21 03/29/24 Jenae Thomas MD [address] [place] [address] PCP - General Internal Medicine 03/30/24 Diego Schulz MD [address] [place] [address] PCP - [employer] Medicare Attributed 10/03/23 Ravi Mills MD [address] [place] [address] PCP - Resident - Supervising Attending Internal Medicine 06/05/24 Gifty Huizar, PhD [address] [place] [address] Clinical Psychologist Psychology 10/13/20 Dharmesh Broderick MD [address] [place] [address] Ophthalmology 07/15/23 documented as of this encounter
--- OUTSIDE RECORDS SUMMARY | 2024-10-28 20:37 | XMS_ITS | Encounter Summary ---
Author Organization [facility] Address [address] [place] [address] Care Team Providers Care Functional Tester Typewriters Name Role Phone Gifty Huizar PhD Unavailable [phone] Dharmesh Broderick MD Unavailable [phone] Jenae Thomas MD Primary Care Provider [phone] Diego Schulz MD Unavailable [phone] Ravi Mills MD Unavailable [phone] Reason for Visit * Reason Comments Appointment Encounter Details Date Type Department Care Team ([facility] st Contact Info) Description 05/02/2024 Telephone [facility] [address] [place] [phone] Gifty Cabezas MD [address] [place] [phone] Appointment Social History Tobacco Use Types Packs/Day Years [...] place to sleep or slept in a custodial (including now)? No 02/28/2023 Sex and Gender Information Value Date Recorded Sex Assigned at Female 02/25/2023 1:53 AM EDT Gender Identity Female 02/25/2023 1:53 AM EDT Sexual Orientation Heterosexual (straight) 02/25 1:53 AM EDT documented as of this encounter Miscellaneous Notes * Telephone Encounter - [place] Tom - 05/02/2024 9:21 AM EDT error documented in this encounter Plan of Treatment Upcoming Encounters Date Type Department Care Team (Late st Contact Info) Description 12/11/2024 3:30 PM EDT Office Visit [facility] [address] [place] [phone] Jenae Thomas MD [address] [place] [address] documented as of this encounter Visit Diagnoses Not on filedocumented in this encounter Care Teams Functional Tester Typewriters Relationship Specialty Start Date End Date Jenae Thomas MD [address] [place] [address] PCP - General Internal Medicine 03/30/24 Diego Schulz MD [address] [place] [address] PCP - A[employer] Medicare Attributed 10/03/23 Ravi Mills MD [address] [address] PCP - Resident - Supervising Attending Internal Medicine 06/05/24 Gifty Huizar, PhD [address] [place] [address] [phone] Clinical Psychologist Psychology 10/13/20 Dharmesh Broderick MD [address] [place] [address] Ophthalmology 07/15/23 documented as of this encounter
--- OUTSIDE RECORDS SUMMARY | 2024-10-28 20:37 | XMS_ITS | Encounter Summary ---
Author Organization [facility] Address [address] [place] [address] Care Team Providers Care Heavy Rail Train Operator Name Role Phone Gifty Huizar PhD Unavailable [phone] Dharmesh Broderick MD Unavailable [phone] Jenae Thomas MD Primary Care Provider [phone] Diego Schulz MD Unavailable [phone] Ravi Mills MD Unavailable Encounter Details Date Type Department Care Team (Late st Contact Info) Description 10/24/2024 [facility] [address] [place] [phone] Jenae Thomas MD [address] [place] [address] Acute saddle pulmonary embolism without acute cor pulmonale (HCC); Acute saddle pulmonary embolism, unspecified whether acute cor pulmonale present (HCC); Acute deep vein thrombosis (DVT) of left lower extremity, unspecified vein (HCC) Social History Tobacco Use Types Packs/Day Years Used Date Smoking Tobacco: Former Cigarettes Q uit: 10/2021 Passive Smoke Exposure: Past Smokeless Tobacco: Never Alcohol Use Standard Drinks/Week Comments Not Currently 0 (1 standard drink = 0.6 oz pur e alcohol) [facility] Utilities Answer Date Recorded In the past 12 months has [place], gas, oil, or water [employer] threatened to shut off services in your [...] place to sleep or slept in a senior care (including now)? No 07/13/2024 Sex and Gender Information Value Date Recorded Sex Assigned at Female 02/25/2023 1:53 AM EDT Gender Identity Female 02/25/2023 1:53 AM EDT Sexual Orientation Heterosexual (straight) 02/25 1:53 AM EDT documented as of this encounter Miscellaneous Notes * Telephone Encounter - An Bazan - 10/24/2024 4:54 PM EST NPI for Jenae Thomas has been deactived so unable to fill previous scripts. Can someone else please refill Warfarin 5mg, 2mg, and Alcohol pads? documented in this encounter Plan of Treatment Upcoming Encounters Date Type Department Care Team (Late st Contact Info) Description 12/11/2024 3:30 PM EDT Office Visit [facility] [address] [place] [phone] Jenae Thomas MD [address] [place] [address] documented as of this encounter Visit Diagnoses Diagnosis Acute saddle pulmonary embolism, unspecified whether acute cor pulmonale present (HCC) Acute deep vein thrombosis (DVT) of left lower extremity, unspecified vein (HCC) documented in this encounter Care Teams Heavy Rail Train Operator Relationship Specialty Start Date End Date Jenae Thomas MD [address] [place] [address] PCP - General Internal Medicine 03/30/24 Diego Schulz MD [address] [place] [address] PCP - [employer] Medicare Attributed 10/03/23 Ravi Mills MD [address] [place] [address] PCP - Resident - Supervising Attending Internal Medicine 06/05/24 Gifty Huizar, PhD [address] [address] Clinical Psychologist Psychology 10/13/20 Dharmesh Broderick MD [address] [place] [address] Ophthalmology 07/15/23 documented as of this encounter
--- OUTSIDE RECORDS SUMMARY | 2024-10-28 20:37 | XMS_ITS | Encounter Summary ---
Author Organization [facility] Address [address] [place] [address] Care Team Providers Care Electro Mechanical Designer Name Role Phone Gifty Huizar PhD Unavailable [phone] Tiki Barry Primary Care Provider + [phone] Dharmesh Broderick MD Unavailable [phone] Jenae Thomas MD Primary Care Provider [phone] Diego Schulz MD Unavailable [phone] Ravi Mills MD Unavailable [phone] Encounter Details Date Type Department Care Team (Late st Contact Info) Description 02/11/2022 Scanned Document [facility] [address] [place] [address] [place] [phone] Mathew Parekh MD [address] [place] [address] [place] [address] Social History Tobacco Use Types Packs/Day Years [...] [facility] [address] [place], [place] [phone] Jenae Thomas MD [address] [place] [address] documented as of this encounter Visit Diagnoses Not on filedocumented in this encounter Care Teams Electro Mechanical Designer Relationship Specialty Start Date End Date Tiki Barry MBBS [address] [place] [address] PCP - General Internal Medicine 10/07/21 03/29/24 Jenae Thomas MD [address] [place] [address] PCP - General Internal Medicine 03/30/24 Diego Schulz MD [address] [place] [address] PCP - Aetna Medicare Attributed 10/03/23 Ravi Mills MD [address] [place] [address] PCP - Resident - Supervising Attending Internal Medicine 06/05/24 Gifty Huizar, PhD [address] [place] [address] [address] Clinical Psychologist Psychology 10/13/20 Dharmesh Broderick MD [address] [place] [address] Ophthalmology 07/15/23 documented as of this encounter
--- OUTSIDE RECORDS SUMMARY | 2024-10-28 20:37 | XMS_ITS | Encounter Summary ---
Author Organization [facility] Address [address] [place] [address] Care Team Providers Care Group Manager Name Role Phone Gifty Huizar PhD Unavailable [phone] Dharmesh Broderick MD Unavailable [phone] Jenae Thomas MD Primary Care Provider [phone] Diego Schulz MD Unavailable [phone] Ravi Mills MD Unavailable [phone] Reason for Visit * Reason Comments DEXCOM REQUEST Encounter Details Date Type Department Care Team ([facility] st Contact Info) Description 07/26/2024 Telephone [facility] [address] [place] [phone] Jenae Thomas MD [address] [place] [address] DEXCOM REQUEST Social History Tobacco Use Types Packs/Day Years Used Date Smoking Tobacco: Former Cigarettes Q uit: 10/2021 Smokeless Tobacco: Never Alcohol Use Standard Drinks/Week Comments Not Currently 0 (1 standard drink = 0.6 oz pur e alcohol) [facility] Utilities Answer Date Recorded In the past [...] place to sleep or slept in a fpc (including now)? No 07/13/2024 Sex and Gender Information Value Date Recorded Sex Assigned at Female 02/25/2023 1:53 AM EDT Gender Identity Female 02/25/2023 1:53 AM EDT Sexual Orientation Heterosexual (straight) 02/25 1:53 AM EDT documented as of this encounter Miscellaneous Notes * Telephone Encounter - Olga Lidia Nelson RN - 08/01/2024 10:17 AM EDT Discussed possibility of Dexcom with Dr. Delacruz, who stated we can order and see if insurance willcover cost. Informed patient of this. Will request Dr. Delacruz to review on 08/14/24 at INR appt. * Telephone Encounter - Olga Lidia Nelson RN - 07/27/2024 2:02 PM EDT Patient has an upcoming INR appt, on 07/31/24. Will repeat A1C at that time, to see if eligible forDexcom. * Telephone Encounter - Basilia Frank MA - 07/26/2024 1:41 PM EDT [facility] Medical is requesting for Dexcom. Please see form. documented in this encounter Plan of Treatment Upcoming Encounters Date Type Department Care Team (Late st Contact Info) Description 12/11/2024 3:30 PM EDT Office Visit [facility] [address] [place], [place] [phone] Jenae Thomas MD [address] [place] [address] documented as of this encounter Visit Diagnoses Not on filedocumented in this encounter Care Teams Group Manager Relationship Specialty Start Date End Date Jenae Thomas MD [address] [place] [address] PCP - General Internal Medicine 03/30/24 Diego Schulz MD [address] [place] [address] PCP - [employer] Medicare Attributed 10/03/23 Ravi Mills MD [address] [place] [address] PCP - Resident - Supervising Attending Internal Medicine 06/05/24 Gifty Huizar, PhD [address] [place] [address] [address] Clinical Psychologist Psychology 10/13/20 Dharmesh Broderick MD [address] [place] [address] Ophthalmology 07/15/23 documented as of this encounter
--- OUTSIDE RECORDS SUMMARY | 2024-10-28 20:37 | XMS_ITS | Encounter Summary ---
Author Organization [facility] Address [address] [place] [address] Care Team Providers Care Protection Engineer Name Role Phone Gifty Huizar PhD Unavailable [phone] Dharmesh Broderick MD Unavailable [phone] Jenae Thomas MD Primary Care Provider + [phone] Diego Schulz MD Unavailable [phone] Ravi Mills MD Unavailable [phone] Encounter Details Date Type Department Care Team (Late st Contact Info) Description 10/25/2024 Orders Only [facility] [address] [place] [phone] Chef Randy Abel MD [address] [place] [address] Acute saddle pulmonary embolism without acute cor [...] drink = 0.6 oz pur e alcohol) [facility] Utilities Answer Date Recorded In the past 12 months has th e electric, gas, oil, or water company [...] place to sleep or slept in a prison (including now)? No 07/13/2024 Sex and Gender Information Value Date Recorded Sex Assigned at Female 02/25/2023 1:53 AM EDT Gender Identity Female 02/25/2023 1:53 AM EDT Sexual Orientation Heterosexual (straight) 02/25 1:53 AM EDT documented as of this encounter Plan of Treatment Upcoming Encounters Date Type Department Care Team (Late st Contact Info) Description 12/11/2024 3:30 PM EDT Office Visit [facility] [address] [place] [phone] Jenae Thomas MD [address] [place] [address] documented as of this encounter Visit Diagnoses Diagnosis Acute saddle pulmonary embolism, unspecified whether acute cor pulmonale present (HCC) Acute deep vein thrombosis (DVT) of left lower extremity, unspecified vein (HCC) documented in this encounter Care Teams Protection Engineer Relationship Specialty Start Date End Date Jenae Thomas MD [address] [place] [address] PCP - General Internal Medicine 03/30/24 Diego Schulz MD [address] [place] [address] PCP - A[employer] Medicare Attributed 10/03/23 Ravi Mills MD [address] [address] PCP - Resident - Supervising Attending Internal Medicine 06/05/24 Gifty Huizar, PhD [address] [place] [address] [address] Clinical Psychologist Psychology 10/13/20 Dharmehs Broderick MD [address] [place] [address] Ophthalmology 07/15/23 documented as of this encounter
--- OUTSIDE RECORDS SUMMARY | 2024-10-28 20:37 | XMS_ITS | Encounter Summary ---
Author Organization [facility] Address [address] [place] [address] Care Team Providers Care Rug Drying Machine Operator Name Role Phone Gifty Huizar PhD Unavailable [phone] Tiki Barry Primary Care Provider + [phone] Dharmesh Broderick MD Unavailable [phone] Jenae Thomas MD Primary Care Provider + [phone] Diego Schulz MD Unavailable [phone] Ravi Mills MD Unavailable [phone] Reason for Visit * Reason Onset Date Comments Medication Refill 04/13/2023 Encounter Details Date Type Department Care Team (Late st Contact Info) Description 04/13/2023 Refill [facility] [address] [place] [address] Andrew Martínez MD [facility] [address] [place] [address] Diabetes mellitus type 2 in obese (HCC) [...] place to sleep or slept in a care home (including now)? No 02/28/2023 Sex and Gender [...] [facility] [address] [place] [phone] Jenae Thomas MD [address] [place] [address] documented as of this encounter Visit Diagnoses Diagnosis Diabetes mellitus type 2 in obese Type II or unspecified type diabetes mellitus without mention of complication, not stated as uncontrolled documented in this encounter Care Teams Rug Drying Machine Operator Relationship Specialty Start Date End Date Tiki Barry MBBS [address] [place] [address] PCP - General Internal Medicine 10/07/21 03/29/24 Jenae Thomsa MD [address] [place] [address] PCP - General Internal Medicine 03/30/24 Diego Schulz MD [address] [place] [address] PCP - A[employer] Medicare Attributed 10/03/23 Ravi Mills MD [address] [place] [address] PCP - Resident - Supervising Attending Internal Medicine 06/05/24 Gifty Huizar, PhD [address] [place] [address] Clinical Psychologist Psychology 10/13/20 Dharmesh Broderick MD 79 [place] [address] Ophthalmology 07/15/23 documented as of this encounter
--- OUTSIDE RECORDS SUMMARY | 2024-10-28 20:37 | XMS_ITS | Encounter Summary ---
Author Organization [facility] Address [address] [place] [address] Care Team Providers Care Roll Scale Worker Name Role Phone Gifty Huizar PhD Unavailable [phone] Tiki Barry Primary Care Provider [phone] Dharmesh Broderick MD Unavailable [phone] Jenae Thomas MD Primary Care Provider [phone] Diego Schulz MD Unavailable [phone] Ravi Mills MD Unavailable [phone] Reason for Visit * Reason Onset Date Comments Medication Refill 01/14/2023 Encounter Details Date Type Department Care Team (Late st Contact Info) Description 01/14/[address] [facility] [address] [place] [phone] Ivanna Juan MD [address] [place] [address] Uncontrolled type 2 diabetes mellitus with hyperglycemia [...] Description 12/11/2024 3:30 PM EDT Office Visit [facility] [address] [place], [place] [phone] Jenae Thomas MD [address] [place] [address] documented as of this encounter Visit Diagnoses Diagnosis Uncontrolled type 2 diabetes mellitus with hyperglycemia (HCC) documented in this encounter Care Teams Roll Scale Worker Relationship Specialty Start Date End Date Tiki Barry MBBS [address] [place] [address] PCP - General Internal Medicine 10/07/21 03/29/24 Jenae Thomas MD [address] [place] [address] PCP - General Internal Medicine 03/30/24 Diego Schulz MD [address] [place] [address] PCP - A[employer] Medicare Attributed 10/03/23 Ravi Mills MD [address] [place] [address] PCP - Resident - Supervising Attending Internal Medicine 06/05/24 Gifty Huizar, PhD [address] [place] [address] Clinical Psychologist Psychology 10/13/20 Dharmesh Broderick MD [address] [place] [address] Ophthalmology 07/15/23 documented as of this encounter
--- OUTSIDE RECORDS SUMMARY | 2024-10-28 20:37 | XMS_ITS | Encounter Summary ---
Author Organization [facility] Address [address] [place] [address] Care Team Providers Care Beef Skinner Name Role Phone Gifyt Huizar PhD Unavailable [phone] Dharmesh Broderick MD Unavailable [phone] Jenae Thomas MD Primary Care Provider [phone] Diego Schulz MD Unavailable [phone] Ravi Mills MD Unavailable [phone] Encounter Details Date Type Department Care Team (Late st Contact Info) Description 10/11/2024 Telephone [facility] [address] [place] [phone] Jenae Thomas MD [address] [place] [address] Social History Tobacco Use Types Packs/Day Years Used Date Smoking Tobacco: Former Cigarettes Q uit: 10/2021 Passive Smoke Exposure: Past Smokeless Tobacco: Never Alcohol Use Standard Drinks/Week Comments Not Currently 0 (1 standard drink = 0.6 oz pur e alcohol) [facility] Utilities Answer Date Recorded In the past [...] place to sleep or slept in a snf (including now)? No 07/13/2024 Sex and Gender Information Value Date Recorded Sex Assigned at Female 02/25/2023 1:53 AM EDT Gender Identity Female 02/25/2023 1:53 AM EDT Sexual Orientation Heterosexual (straight) 02/25 1:53 AM EDT documented as of this encounter Miscellaneous Notes * Telephone Encounter - Olga Lidia Nelson RN - 10/26/2024 11:49 AM EST Left VM requesting patient call [facility] to reschedule missed CGM appt and INR. Phone numbers provided. * Telephone Encounter - Olga Lidia Nelson RN - 10/25/2024 2:27 PM EST Left VM reminding patient of tomorrow's appt and requesting a return call. Phone number provided. * Telephone Encounter - Olga Lidia Nelson RN - 10/19/2024 1:36 PM EST Left VM requesting patient call [facility] and reschedule missed INR. * Telephone Encounter - Olga Lidia Nelson RN - 10/18/2024 11:00 AM EST Left VM, requesting patient return my call regarding rescheduling missed INR. Await call back. * Telephone Encounter - Olga Lidia Nelson RN - 10/17/2024 11:27 AM EST Left another VM requesting patient return my call and reschedule missed INR. Await callback. * Telephone Encounter - Olga Lidia Nelson RN - 10/16/2024 12:14 PM EST Left VM, requesting patient call this RN and reschedule missed INR appt, for sometime this week. Phone number provided. * Telephone Encounter - Olga Lidia Nelson RN - 10/12/2024 3:06 PM EST Left another VM requesting patient call [facility] Central Scheduling and schedule INR for 10/16/24. * Telephone Encounter - Olga Lidia Nelson RN - 10/12/2024 9:41 AM EST Left VM, requesting patient call [facility] and reschedule INR for 10/16/24. * Telephone Encounter - Olga Lidia Nelson RN - 10/11/2024 11:01 AM EST Left VM requesting patient return my call to reschedule her missed INR from earlier this week. Await call back. documented in this encounter Plan of Treatment Upcoming Encounters Date Type Department Care Team (Late st Contact Info) Description 12/11/2024 3:30 PM EDT Office Visit [facility] [address] [place] [phone] Jenae Thomas MD [address] [place] [address] documented as of this encounter Visit Diagnoses Not on filedocumented in this encounter Care Teams Beef Skinner Relationship Specialty Start Date End Date Jenae Thomas MD [address] [place] [address] PCP - General Internal Medicine 03/30/24 Diego Schulz MD [address] [place] [address] PCP - [employer] Medicare Attributed 10/03/23 Ravi Mills MD [address] [place] [address] PCP - Resident - Supervising Attending Internal Medicine 06/05/24 Gifty Huizar, PhD [address] [address] Clinical Psychologist Psychology 10/13/20 Dharmesh Broderick MD [address] [place] [address] Ophthalmology 07/15/23 documented as of this encounter
--- OUTSIDE RECORDS SUMMARY | 2024-10-28 20:37 | XMS_ITS | Encounter Summary ---
Author Organization [facility] Address [address] [place] [address] Care Team Providers Care Special Inspector Name Role Phone Gifty Huizar PhD Unavailable [phone] Tiki Barry Primary Care Provider [phone] Dharmesh Broderick MD Unavailable [phone] Jenae Thomas MD Primary Care Provider [phone] Diego Schulz MD Unavailable [phone] Ravi Mills MD Unavailable [phone] Reason for Visit * Reason Onset Date Comments Medication Refill 02/02/2023 Encounter Details Date Type Department Care Team (Late st Contact Info) Description 02/02/2023 Refill [facility] [address] [place] [phone] Ivanna Juan MD [address] [place] [address] Uncontrolled type 2 diabetes mellitus with hyperglycemia [...] 12/11/2024 3:30 PM EDT Office Visit [facility] [address] [place], [place] [phone] Jenae Thomas MD [address] [place] [address] documented as of this encounter Visit Diagnoses Diagnosis Uncontrolled type 2 diabetes mellitus with hyperglycemia (HCC) documented in this encounter Care Teams Special Inspector Relationship Specialty Start Date End Date Tiki Barry MBBS [address] [place] [address] PCP - General Internal Medicine 10/07/21 03/29/24 Jenae Thomas MD [address] [place] [address] PCP - General Internal Medicine 03/30/24 Diego Schulz MD [address] [place] [address] PCP - [employer] Medicare Attributed 10/03/23 Ravi Mills MD [address] [place] [address] PCP - Resident - Supervising Attending Internal Medicine 06/05/24 Gifty Huizar, PhD [address] [place] [address] Clinical Psychologist Psychology 10/13/20 Dharmesh Broderick MD [address] [place] [address] Ophthalmology 07/15/23 documented as of this encounter
--- OUTSIDE RECORDS SUMMARY | 2024-10-28 20:37 | XMS_ITS | Encounter Summary ---
Author Organization [facility] Address [address] [place] [address] Care Team Providers Care Epic Analyst Name Role Phone Gifty Huizar PhD Unavailable [phone] Tiki Barry Primary Care Provider + [phone] Dharmesh Broderick MD Unavailable [phone] Jenae Thomas MD Primary Care Provider + [phone] Diego Schulz MD Unavailable [phone] Ravi Mills MD Unavailable [phone] Reason for Visit * Reason Onset Date Comments Medication Refill 02/06/2022 Encounter Details Date Type Department Care Team (Late st Contact Info) Description 02/06/2022 Refill [facility] [address] [phone] Paulette Webb ProviderMD [address] [place] [address] Candidiasis; Morbid obesity with BMI of 70 and over, adult (HCC); Uncontrolled type 2 diabetes mellitus with hyperglycemia (HCC); Acute saddle pulmonary embolism (HCC) Social History Tobacco Use Types Packs/Day [...] Description 12/11/2024 3:30 PM EDT Office Visit [facility] [address] [place] [phone] Jenae Thomas MD [address] [place] [address] documented as of this encounter Visit Diagnoses Diagnosis Candidiasis Morbid obesity with BMI of 70 and over, adult (HCC) Uncontrolled type 2 diabetes mellitus with hyperglycemia (HCC) Acute saddle pulmonary embolism (HCC) documented in this encounter Care Teams Epic Analyst Relationship Specialty Start Date End Date Tiki Barry MBBS [address] [place] [address] PCP - General Internal Medicine 10/07/21 03/29/24 Jenae Thomas MD [address] [place] [address] PCP - General Internal Medicine 03/30/24 Diego Schulz MD [address] [place] [address] PCP - [employer] Medicare Attributed 10/03/23 Ravi Mills MD [address] [place] [address] PCP - Resident - Supervising Attending Internal Medicine 06/05/24 Gifty Huizar, PhD [address] [facility], 2nd [place] [address] Clinical Psychologist Psychology 10/13/20 Dharmesh Broderick MD [address] [place] [address] Ophthalmology 07/15/23 documented as of this encounter
[2024-10-28 20:40] LABS: Basophils Percent Auto 0.3 % (0-2); Eosinophils Percent Auto 0.3 % (0-4); Hematocrit 36.3 % (37.0-47.0); Hemoglobin 12.2 g/dl (12.0-16.0); Imm Gran Abs Auto 0.08 X10*3/uL (0.00-0.03); Imm Gran Pct Auto 0.6 % (0.0-0.4); Lymphocytes Absolute Auto 2.4 X10*3/uL (1.2-4.9); Lymphocytes Percent Auto 18.5 % (20-40); Mean Corpuscular HGB Conc 33.6 g/dl (31.0-35.0); Mean Corpuscular Hemoglobin 28.2 pg (27.0-33.0); Mean Platelet Volume 9.5 fL (9.4-12.3); Monocytes Absolute Auto 0.7 X10*3/uL (0.1-1.2); Monocytes Percent Auto 5.1 % (2-11); Neutrophils Absolute Auto 9.6 x10*3/uL (2.0-8.3); Neutrophils Percent Auto 75.2 % (45-73); Platelet Count 323 X10*3/uL (160-400); Red Blood Count 4.32 X10*6/uL (4.20-5.50); Red Cell Distribution Width 13.5 % (11.0-16.0); White Blood Count 12.8 X10*3/uL (4.8-10.8)
[2024-10-28 20:41] LABS: Appearance Urine Cloudy; Color Urine Yellow; Glucose Urine UA Negative (Negative); Leukocyte Esterase Urine Small (1+) (Negative); Nitrite Urine Negative (Negative); PH 5.5 (5.0-9.0); Specific Gravity - Urine 1.025 (1.005-1.025); UMIC TRIGGER UACC YES; Urine Blood Negative (Negative); Urine Ketones Negative (Negative); Urine Protein Negative (Neg-Trace)
[2024-10-28 20:45] LABS: INTERNATIONAL NORM RATIO 2.5 (0.9-1.1); Prothrombin Time 29.3 SEC (10.9-12.4)
[2024-10-28 20:48] LABS: Partial Thromboplastin Time 37.3 SEC (26.0-36.8)
[2024-10-28 20:48] LABS: Bacteria Urine 2+ (None Seen); Hyaline Casts Urine 0-2 /LPF (0-2); RBC Urine 0-2 /HPF (0-2); UACC Culture Trigger YES; WBC Urine 0-5 /HPF (0-5)
[2024-10-28 20:54] LABS: Alanine Aminotransferase 17 U/L (0-31); Albumin Level 3.5 g/dL (3.5-5.0); Alkaline Phosphatase 47 U/L (39-117); Anion Gap 11 (12-20); Aspartate Amino Transferase 19 U/L (5-31); Bilirubin Total 0.4 mg/dL (0.0-1.0); Blood Urea Nitrogen 12 mg/dL (9-16); Carbon Dioxide 26 mmol/L (22-29); Chloride 107 mmol/L (96-108); Creatinine Clr Calc Pharmacy 204.5; Estimated Glomerular Filt Rate > 60; Glucose Random 138 mg/dL (60-115); Magnesium 1.8 mg/dL (1.6-2.6); Potassium 3.6 mmol/L (3.3-5.1); Sodium 140 mmol/L (135-145); Total Protein 7.7 g/dL (6.5-8.0)
[2024-10-28 21:01] LABS: Troponin-I High Sensitivity < 2.7 ng/L (<3.5-17.0)
[2024-10-28 21:15] LABS: Influenza A PCR NEGATIVE (Negative); Influenza B PCR NEGATIVE (Negative); Resp Syncy Virus RNA Qual PCR NEGATIVE (Negative); SARS COV2 PCR INHOUSE NEGATIVE (Negative)
[2024-10-29 00:23] VITALS: BP 145/86; PULSE 80; RESP 16; TEMP 36.6; O2SAT 97
[2024-10-29 00:57] VITALS: BP 145/84; PULSE 80; RESP 16; TEMP 36.6; O2SAT 97
== END 2024-10-29 00:58 | disposition home or self-care (01) ==
PROVIDERS: Physician Assistant Medical; Emergency Provider Emergency Medicine Emergency Medical Services
DX: R55 Syncope and collapse (principal); R42 Dizziness and giddiness; Z86.718 Personal history of other venous thrombosis and embolism; Z79.01 Long term (current) use of anticoagulants; Z79.899 Other long term (current) drug therapy; Z03.818 Encounter for observation for suspected exposure to other biological agents ruled out
CPT/HCPCS: 0241U; 80053; 81001; 83735; 84484; 85025; 85610; 85730; 87086; 93005; 99284; 99285

== ENCOUNTER → 2024-10-28 20:04 | Outpatient (BNV) | payer MEDICARE, MEDICAID, SELFPAY | PROVIDERS: Emergency Provider Emergency Medicine Emergency Medical Services; Visit Provider Internal Medicine | DX: R94.31 Abnormal electrocardiogram [ECG] [EKG] (principal) | CPT/HCPCS: 93010 ==

== ENCOUNTER 2025-01-03 23:48 | Emergency (ER) | payer MEDICARE, MEDICAID, SELFPAY ==
--- NOTE | 2025-01-03 | ECG_ITS ---
Test Reason : CHEST PAIN Blood Pressure : */* mmHG Vent. Rate : 88 BPM Atrial Rate : 88 BPM P-R Int : 148 ms QRS Dur : 86 ms QT Int : 386 ms P-R-T Axes : 19 9 28 degrees QTcB Int : 467 ms Normal sinus rhythm Cannot rule out Anterior infarct (cited on or before 28-Oct-2024) Abnormal ECG When compared with ECG of 28-Oct-2024 20:16, No significant change was found Referred By: Generic ED Physician Electronically Signed By: JAIME CADENA
--- NOTE | ~2025-01-03 | XR_ITS ---
CLINICAL HISTORY: Chest pain, cough, R O pneumonia 1 view chest x-ray Comparison: None available Findings: Low lung volumes with mild bibasilar atelectasis. No pneumothorax or pleural effusion in this portable image with obscuration of the left lung base. Mild cardiomegaly accentuated by AP magnification. Osseous structures are unremarkable for technique. IMPRESSION: Mild bibasilar atelectasis. This document has been electronically signed by: Lebron Strickland MD on 01/04/2025 01:53:00
[2025-01-04 00:02] VITALS: BP 122/80; BP 132/91; PULSE 80; PULSE 92; RESP 18; TEMP 36.8; O2SAT 100; BMI 70.8
[2025-01-04 00:15] LABS: MANUAL DIFF FLAG NO
[2025-01-04 00:16] LABS: Basophils Absolute Auto 0.1 X10*3/uL (0.0-0.2); Basophils Percent Auto 0.4 % (0-2); Eosinophils Absolute Auto 0.1 X10*3/uL (0.0-0.4); Eosinophils Percent Auto 0.5 % (0-4); Hematocrit 37.9 % (37.0-47.0); Hemoglobin 12.7 g/dl (12.0-16.0); Imm Gran Abs Auto 0.07 X10*3/uL (0.00-0.03); Imm Gran Pct Auto 0.5 % (0.0-0.4); Lymphocytes Absolute Auto 2.9 X10*3/uL (1.2-4.9); Lymphocytes Percent Auto 22.2 % (20-40); Mean Corpuscular HGB Conc 33.5 g/dl (31.0-35.0); Mean Corpuscular Volume 83.5 fL (80.0-98.0); Mean Platelet Volume 9.6 fL (9.4-12.3); Monocytes Absolute Auto 0.7 X10*3/uL (0.1-1.2); Monocytes Percent Auto 5.7 % (2-11); Neutrophils Absolute Auto 9.1 x10*3/uL (2.0-8.3); Neutrophils Percent Auto 70.7 % (45-73); Platelet Count 363 X10*3/uL (160-400); Red Blood Count 4.54 X10*6/uL (4.20-5.50); Red Cell Distribution Width 13.4 % (11.0-16.0); White Blood Count 12.9 X10*3/uL (4.8-10.8)
[2025-01-04 00:33] LABS: Alanine Aminotransferase 12 U/L (0-31); Albumin Level 3.6 g/dL (3.5-5.0); Anion Gap 13 (12-20); Aspartate Amino Transferase 26 U/L (5-31); Bilirubin Total 0.2 mg/dL (0.0-1.0); Blood Urea Nitrogen 11 mg/dL (9-16); Calcium 9.3 mg/dL (8.4-10.2); Carbon Dioxide 26 mmol/L (22-29); Chloride 106 mmol/L (96-108); Creatinine Clr Calc Pharmacy 161.7; Estimated Glomerular Filt Rate > 60; Glucose Random 106 mg/dL (60-115); Lipase 33 U/L (8-78); Magnesium 2.1 mg/dL (1.6-2.6); Potassium 4.3 mmol/L (3.3-5.1); Sodium 141 mmol/L (135-145); Total Protein 7.8 g/dL (6.5-8.0)
[2025-01-04 00:36] LABS: Alkaline Phosphatase 54 U/L (39-117)
--- NOTE | 2025-01-04 00:37 | ED_ITS ---
HPI - Chest Pain General Chief Complaint: Chest Pain Stated Complaint: CP Time Seen by Provider: 01/04/25 00:36 Source: patient Mode of arrival: EMS Limitations: no limitations History of Present Illness ED Provider: Dr. Prince Quinn HPI narrative: 34-year-old female with a history of pulmonary embolism on warfarin who presents emergency department for evaluation of nonproductive cough x1 week, right sided chest pain, vomiting x2 and weakness. The patient points to her right chest when asked to localize the pain. She describes the pain as a burning sensation which will last 1-2 minutes resolve and then started up again. She states the pain is 5/10 at its worst. Patient states she does feel short of breath and has dyspnea on exertion but she states that this is her baseline. Patient states that the pain is different from her pulmonary embolism pain that she had in the past. She states she was compliant with her warfarin. Related Data Previous Rx's ?Medication ?Instructions ?Recorded metformin 500 mg tablet 500 mg PO BID 90 days #180 tabs 01/04/25 ondansetron 4 mg disintegrating 4 mg PO Q6-8H PRN nausea and 01/04/25 tablet vomiting #14 tabs warfarin 2 mg tablet 4 mg (2 x 2 mg) PO DAILY 90 days 01/04/25 #180 tabs warfarin 5 mg tablet 5 mg PO DAILY 90 days #90 tabs 01/04/25 Allergies Allergy/AdvReac Type Severity Reaction Status Date / Time aspirin Allergy Unknown Verified 01/04/25 00:04 Review of Systems 2 Review of Systems: Yes all other systems are reviewed and are negative [facility] Past Medical History [facility] Narrative: Social history: Patient denied tobacco, alcohol and drug use Physical Exam 2 Vital Signs: Vital Signs: Last Vital Signs Temp 98.2 F 01/04/25 00:02 Pulse 92 01/04/25 00:02 Resp 18 01/04/25 00:02 BP 132/91 H 01/04/25 00:02 Pulse Ox 100 01/04/25 00:02 O2 Del Method Room Air 01/04/25 00:02 BMI result Body Mass Index 70.8 Vital signs revealed an elevated blood pressure of 132/91 otherwise unremarkable Exam: General: Awake, alert in no distress, weight 181 point 4 3 kg, elevated BMI 70.9 kg per m2 Head: Normocephalic, atraumatic EENT: PERRL, Lids normal, sclera normal, conjunctiva normal, nose normal , ears normal, throat without erythema or exudates Neck: Supple, no adenopathy Lung: breath sounds symmetric, no wheezing, rales or rhonchi Chest: symmetric movement, tenderness with palpation of the sternum and right costochondral joints Heart: regular rate and rhythm, normal S1, S2 no murmurs or rubs Abdomen: soft, non-tender, nondistended, normal bowel sounds Back: no vertebral tenderness, no CVAT Extremities: no deformities, moves all extremities symmetrically Neuro: Awake, alert, oriented, normal speech, cranial nerves intact, moves all extremities symmetrically Psych: Pleasant, cooperative Medical Decision Making Medical Decision Making MDM Narrative: 34-year-old female with a history of pulmonary embolism on warfarin who presents to the emergency department for evaluation of nonproductive cough x1 week, right sided chest pain, vomiting x2 and weakness. The patient points to her left chest when asked to localize the pain. She describes the pain as a burning sensation which will last 1-2 minutes resolve and then started up again. She states the pain is 5/10 at its worst. Patient states she does feel short of breath and has dyspnea on exertion but she states that this is her baseline. Patient states that the pain is different from her pulmonary embolism pain that she had in the past. She states she was compliant with her warfarin. Differential diagnosis: ?Includes but is not limited to myocardial infarction, myocardial ischemia, pulmonary embolism, costochondritis, musculoskeletal pain, viral syndrome, COVID-19, influenza, RSV, anemia, electrolyte abnormalities Course: My independent interpretation patient's laboratory evaluation is as follows: WBC elevated 12,900. H&H was normal. CMP was normal. Troponin was below detectable limits. INR was subtherapeutic at 1.8. D-dimer was below detectable limits which is reassuring suggesting that she does not have a pulmonary embolism at this time. COVID-19, influenza and RSV tests were negative. The patient's one-view chest x-ray you did not reveal any acute infiltrates. This time I suspect that the patient has a viral illness as the cause her symptoms and I did discuss this with the patient. The patient was treated with morphine 4 mg IV, Zofran 4 mg IV and normal saline x1 L. patient did develop anxiety after this treatment and was given Ativan 1 mg IV. 02:00 The patient states she was get some improvement with the above treatment. She was still complaining of a burning sensation therefore she was given Tums EX 1500 mg orally. The patient just moved from the [place] area and does not have a PCP states she was not able to get into our warfarin clinic. The patient was given prescriptions for her warfarin and for her metformin. She was also given a prescription for Zofran 4 mg ODT every 6 hours as needed for nausea and vomiting. She was given a [facility] PCP line and the number for the on-call medical doctor, Dr. Sparks. Admission/Observation Consideration of admission/observation: Escalation of care including admission/observation considered (Yes) Lab Data MDM Lab Attestation statement: I reviewed the patient's lab results. 01/04/25 00:08 01/04/25 00:08 Labs: Lab Results 01/04/25 Range/Units 00:08 WBC 12.9 H (4.8-10.8) X10*3/uL RBC 4.54 (4.20-5.50) X10*6/uL Hgb 12.7 (12.0-16.0) g/dl Hct 37.9 (37.0-47.0) % MCV 83.5 (80.0-98.0) fL MCH 28.0 (27.0-33.0) pg MCHC 33.5 (31.0-35.0) g/dl RDW 13.4 (11.0-16.0) % Plt Count 363 (160-400) X10*3/uL MPV 9.6 (9.4-12.3) fL Immature Gran % (Auto) 0.5 H (0.0-0.4) % Neut % (Auto) 70.7 (45-73) % Lymph % (Auto) 22.2 (20-40) % Meigs % (Auto) 5.7 (2-11) % Eos % (Auto) 0.5 (0-4) % Baso % (Auto) 0.4 (0-2) % Lymph # (Auto) 2.9 (1.2-4.9) X10*3/uL Meigs # (Auto) 0.7 (0.1-1.2) X10*3/uL Eos # (Auto) 0.1 (0.0-0.4) X10*3/uL Baso # (Auto) 0.1 (0.0-0.2) X10*3/uL Abs Immat Gran (auto) 0.07 H (0.00-0.03) X10*3/uL Absolute Neuts (auto) 9.1 H (2.0-8.3) x10*3/uL Absolute Nucleated RBC 0.000 (0.0-0.012) X10*3/uL Nucleated RBC % (auto) 0.0 (0.0-0.2) /100WBC Sodium 141 (135-145) mmol/L Potassium 4.3 (3.3-5.1) mmol/L Chloride 106 (96-108) mmol/L Carbon Dioxide 26 (22-29) mmol/L Anion Gap 13 (12-20) BUN 11 (9-16) mg/dL Creatinine 0.82 (0.5-1.4) mg/dL Estim Creat Clear Calc 161.7 Estimated GFR > 60 Random Glucose 106 (60-115) mg/dL Calcium 9.3 (8.4-10.2) mg/dL Magnesium 2.1 (1.6-2.6) mg/dL Total Bilirubin 0.2 (0.0-1.0) mg/dL AST 26 (5-31) U/L ALT 12 (0-31) U/L Alkaline Phosphatase 54 (39-117) U/L Total Protein 7.8 (6.5-8.0) g/dL Albumin 3.6 (3.5-5.0) g/dL Lipase 33 (8-78) U/L Independent Interpretation I performed an independent interpretation of an: EKG and Plain X-Ray Interpretation: My independent interpretation of the patient's 12 EKG done on 01/03/2025 at 23:53 hours is as follows: Normal sinus rhythm with a rate of 88, normal OH interval, QRS duration QTC interval, no ST segment elevation, no ST segment depression, no PACs, no PVCs. Compared to EKG dated 10/28/2024 at 20:16 hours, there is no significant change. My interpretation of the patient's one-view chest x-ray is as follows: No acute disease Radiology Impression Discussion of test interpretation with radiology: I have reviewed the radiologist's reading. Radiologist Impression: 1 view chest x-ray Comparison: None available Findings: Low lung volumes with mild bibasilar atelectasis. No pneumothorax or pleural effusion in this portable image with obscuration of the left lung base. Mild cardiomegaly accentuated by AP magnification. Osseous structures are unremarkable for technique. IMPRESSION: Mild bibasilar atelectasis. This document has been electronically signed by: Lebron Strickland MD on 01/04/2025 01:53:00 Discharge Plan Discharge Clinical Impression: Viral illness, Acute costochondritis, Nausea & vomiting Patient Disposition: Home, Self-Care Instructions: Viral Syndrome (ED) Additional Instructions: Your EKG was normal. Your chest x-ray was normal with no evidence for pneumonia. Your blood work was unremarkable. Your INR was slightly subtherapeutic at 1.8. Normally we try to keep your INR between 2 and 3. At this time, I think that your symptoms are caused by a virus and this should get better over the next 1-2 weeks. Take Zofran ODT 4 mg pills, 1 pill dissolved in your mouth every 8 hours as needed for nausea and vomiting. I am giving you a refill on your warfarin and your metformin with a 90 day supply. Try calling the following numbers to see if you can get a primary care provider to help you with your medical problems [facility] PCP referral line ?for adult primary care and family practice medicine.Dr. Sparks is a doctor at [facility] and he was on-call for the emergency department. You can ask the PCP referral line if he is taking new patients [facility] . This is a clinic in [place] and they may have a primary care provider that can help use well. Please return to the emergency department if your symptoms get worse or if you develop any symptoms that are concerning to you. Prescriptions: New ondansetron 4 mg tablet,disintegrating 4 mg PO Q6-8H PRN (Reason: nausea and vomiting) Qty: 14 0RF metformin 500 mg tablet 500 mg PO BID 90 Days Qty: 180 0RF warfarin 2 mg tablet 4 mg PO DAILY 90 Days Qty: 180 0RF warfarin 5 mg tablet 5 mg PO DAILY 90 Days Qty: 90 0RF Print Language: Malagasy
--- OUTSIDE RECORDS SUMMARY | 2025-01-04 00:40 | XMS_ITS | Encounter Summary ---
Author Organization [facility] Address [address] [place] [address] Care Team Providers Care Food And Nutrition Services Assistant Name Role Phone Miguel A Mcclendon MD Primary Care Provider [phone] Dharmesh Armas MD Unavailable [phone] Gifty Huizar PhD Unavailable [phone] Pcp, No Primary Care Provider Unavailabl Tiki Velasco Primary Care Provider + [phone] Dharmesh Broderick MD Unavailable [phone] Jenae Thomas MD Primary Care Provider + [phone] Diego Schulz MD Unavailable [phone] Ravi Mills MD Unavailable [phone] Reason for Visit * Reason Onset Date Comments Medication Refill 12/11/2019 Encounter Details Date Type Department Care Team (Late st Contact Info) Description 12/11/2019 Refill [facility] [address] [place] [phone] Stanley Stern, KAYLENE [address] [facility] [address] [place] [phone] Diabetes mellitus type 2 in obese (HCC) [...] documented in this encounter Plan of Treatment Not on file documented as of this encounter Visit Diagnoses Diagnosis Diabetes mellitus type 2 in obese Type II or unspecified type diabetes mellitus without mention of complication, not stated as uncontrolled documented in this encounter Care Teams Food And Nutrition Services Assistant Relationship Specialty Start Date End Date Miguel A Mcclendon MD PCP - General Internal Medicine 09/11/18 09/03/21 Dharmesh Armas MD [address] [place], [place] [phone] PCP - [place] Medicare Attributed 02/01/20 09/01/21 Pcp, No PCP - General General Medicine 09/04/21 10/06/21 Tiki Barry MBBS [address] [place] [address] PCP - General Internal Medicine 10/07/21 03/29/24 Jenae Thomas MD [address] [place] [address] PCP - General Internal Medicine 03/30/24 Diego Schulz MD [address] [place] [address] PCP - [employer] Medicare Attributed 10/03/23 Ravi Mills MD [address] [address] PCP - Resident - Supervising Attending Internal Medicine 06/05/24 Gifty Huizar, PhD [address] [address] [address] Clinical Psychologist Psychology 10/13/20 Dharmesh Broderick MD [address] [place] [address] Ophthalmology 07/15/23 documented as of this encounter
--- OUTSIDE RECORDS SUMMARY | 2025-01-04 00:40 | XMS_ITS | Encounter Summary ---
Author Organization [facility] Address [address] [place] [address] Care Team Providers Care Pai Gow Dealer Name Role Phone Miguel A Mcclendon MD Primary Care Provider [phone] Dharmesh Armas MD Unavailable [phone] Gifty Huizar PhD Unavailable [phone] Pcp, No Primary Care Provider Unavailabl Tiki Velasco Primary Care Provider + [phone] Dharmesh Broderick MD Unavailable [phone] Jenae Thomas MD Primary Care Provider + [phone] Diego Schulz MD Unavailable [phone] Ravi Mills MD Unavailable [phone] Reason for Visit * Reason Onset Date Comments Medication Refill 11/22/2019 Encounter Details Date Type Department Care Team (Late st Contact Info) Description 11/22/2019 Refill [facility] [address] [place] [address] Denise Leal MD [address] [place] [address] Body mass index (bmi) 70 or greater, [...] adult documented in this encounter Care Teams Pai Gow Dealer Relationship Specialty Start Date End Date Miguel A Mcclendon MD PCP - General Internal Medicine 09/11/18 09/03/21 Dharmesh Armas MD [address] [place] [address] PCP - [place] Medicare Attributed 02/01/20 09/01/21 Pcp, No PCP - General General Medicine 09/04/21 10/06/21 Tiki Barry MBBS [address] [place] [address] PCP - General Internal Medicine 10/07/21 03/29/24 Jenae Thomas MD [address] [place] [address] PCP - General Internal Medicine 03/30/24 Diego Schulz MD 132 [place] [address] PCP - [employer] Medicare Attributed 10/03/23 Ravi Mills MD [address] [address] PCP - Resident - Supervising Attending Internal Medicine 06/05/24 Gifty Huizar, PhD [address] [address] Clinical Psychologist Psychology 10/13/20 Dharmesh Broderick MD [address] [place] [address] Ophthalmology 07/15/23 documented as of this encounter
--- OUTSIDE RECORDS SUMMARY | 2025-01-04 00:40 | XMS_ITS | Encounter Summary ---
Author Organization [facility] Address [address] [place] [address] Care Team Providers Care Rubber Goods Cutter Finisher Name Role Phone Miguel A Mcclendon MD Primary Care Provider [phone] Dharmesh Armas MD Unavailable [phone] Gifty Huizar PhD Unavailable [phone] Pcp, No Primary Care Provider Unavailabl Tiki Velasco Primary Care Provider + [phone] Dharmesh Broderick MD Unavailable [phone] Jenae Thomas MD Primary Care Provider + [phone] Digeo Schulz MD Unavailable [phone] Ravi Mills MD Unavailable [phone] Reason for Visit * Reason Onset Date Comments Medication Refill 12/22/2019 Encounter Details Date Type Department Care Team (Late st Contact Info) Description 12/22/2019 Refill [facility] [address] [place] [phone] Stanley Stern, KAYLENE 399 [facility] [address] [phone] Diabetes mellitus type 2 in obese (HCC) [...] uncontrolled documented in this encounter Care Teams Rubber Goods Cutter Finisher Relationship Specialty Start Date End Date Miguel A Mcclendon MD PCP - General Internal Medicine 09/11/18 09/03/21 Dharmesh Armas MD [address] [place] [address] PCP - [place] Medicare Attributed 02/01/20 09/01/21 Pcp, No PCP - General General Medicine 09/04/21 10/06/21 Tiki Barry MBBS [address] [place] [address] PCP - General Internal Medicine 10/07/21 03/29/24 Jenae Thomas MD [address] [place] [address] PCP - General Internal Medicine 03/30/24 Diego Schulz MD [address] [place] [address] PCP - [employer] Medicare Attributed 10/03/23 Ravi Mills MD [address] [address] PCP - Resident - Supervising Attending Internal Medicine 06/05/24 Gifty Huizar, PhD [address] [address] Clinical Psychologist Psychology 10/13/20 Dharmesh Broderick MD [address] [place] [address] Ophthalmology 07/15/23 documented as of this encounter
--- OUTSIDE RECORDS SUMMARY | 2025-01-04 00:40 | XMS_ITS | Encounter Summary ---
Author Organization [facility] Address [address] [place] [address] Care Team Providers Care Metal Fence Erector Name Role Phone Miguel A Mcclendon MD Primary Care Provider [phone] Dharmesh Armas MD Unavailable [phone] Gifty Huizar PhD Unavailable [phone] Pcp, No Primary Care Provider Unavailabl Tiki Velasco Primary Care Provider + [phone] Dharmesh Broderick MD Unavailable [phone] Jenae Thomas MD Primary Care Provider + [phone] Diego Schulz MD Unavailable [phone] Ravi Mills MD Unavailable [phone] Reason for Visit * Reason Onset Date Comments Medication Refill 11/01/2019 Encounter Details Date Type Department Care Team (Late st Contact Info) Description 11/01/2019 Refill [facility] [address] [place] [address] Denise Leal MD [address] [place] [address] Body mass index (bmi) 70 or greater, [...] Telephone Encounter - Dee Fraga RN - 11/01/2019 9:08 AM EST refill at next office visit documented in this encounter Plan of Treatment Not on file documented as of this encounter Visit Diagnoses Diagnosis Body mass index (bmi) 70 or greater, adult documented in this encounter Care Teams Metal Fence Erector Relationship Specialty Start Date End Date Miguel A Mcclendon MD PCP - General Internal Medicine 09/11/18 09/03/21 Dharmesh Armas MD [address] [place] [address] PCP - [place] Medicare Attributed 02/01/20 09/01/21 Pcp, No PCP - General General Medicine 09/04/21 10/06/21 Tiki Barry MBBS [address] [place] [address] PCP - General Internal Medicine 10/07/21 03/29/24 Jenae Thomas MD [address] [place] [address] PCP - General Internal Medicine 03/30/24 Diego Schulz MD [address] [place] [address] PCP - [employer] Medicare Attributed 10/03/23 Ravi Mills MD [address] [address] PCP - Resident - Supervising Attending Internal Medicine 06/05/24 Gifty Huizar, PhD [address] [address] Clinical Psychologist Psychology 10/13/20 Dharmesh Broderick MD [address] [place] [address] Ophthalmology 07/15/23 documented as of this encounter
--- OUTSIDE RECORDS SUMMARY | 2025-01-04 00:40 | XMS_ITS | Encounter Summary ---
Author Organization Formerly [facility] [place] Address [address] [place] [address] Care Team Providers Care Marbleizer Name Role Phone Miguel A Mcclendon MD Primary Care Provider [phone] Dharmesh Armas MD Unavailable +[phone] Gifty Huizar PhD Unavailable [phone] Pcp, No Primary Care Provider Unavailabl Tiki Velasco Primary Care Provider + [phone] Dharmesh Broderick MD Unavailable [phone] Jenae Thomas MD Primary Care Provider + [phone] Diego Schulz MD Unavailable +[phone] Ravi Mills MD Unavailable [phone] Reason for Visit * Reason Onset Date Comments Medication Refill 11/25/2019 Encounter Details Date Type Department Care Team (Late st Contact Info) Description 11/25/2019 Refill [facility] [address] [place] [address] Denise Leal MD [address] [place] [address] Body mass index (bmi) 70 or greater, [...] adult documented in this encounter Care Teams Marbleizer Relationship Specialty Start Date End Date Miguel A Mcclendon MD PCP - General Internal Medicine 09/11/18 09/03/21 Dharmesh Armas MD [address] [place] [address] PCP - [place] Medicare Attributed 02/01/20 09/01/21 Pcp, No PCP - General General Medicine 09/04/21 10/06/21 Tiki Barry MBBS [address] [place] [address] PCP - General Internal Medicine 10/07/21 03/29/24 Jenae Thomas MD 132 [place] [address] PCP - General Internal Medicine 03/30/24 Diego Schulz MD [address] [place] [address] PCP - [employer] Medicare Attributed 10/03/23 Ravi Mills MD [address] [address] PCP - Resident - Supervising Attending Internal Medicine 06/05/24 Gifty Huizar, PhD [address] [address] Clinical Psychologist Psychology 10/13/20 Dharmesh Broderick MD [address] [place] [address] Ophthalmology 07/15/23 documented as of this encounter
--- OUTSIDE RECORDS SUMMARY | 2025-01-04 00:40 | XMS_ITS | Encounter Summary ---
Author Organization [facility] Address [address] [place] [address] Care Team Providers Care Residential Sales Representative Name Role Phone Miguel A Mcclendon MD Primary Care Provider [phone] Dharmesh Armas MD Unavailable [phone] Gifty Huizar PhD Unavailable [phone] Pcp, No Primary Care Provider Unavailabl Tiki Velasco Primary Care Provider + [phone] Dharmesh Broderick MD Unavailable [phone] Jenae Thomas MD Primary Care Provider + [phone] Diego Schulz MD Unavailable +[phone] Ravi Mills MD Unavailable [phone] Reason for Visit * Reason Onset Date Comments Medication Refill 12/22/2019 Encounter Details Date Type Department Care Team (Late st Contact Info) Description 12/22/2019 Refill [facility] [address] [place] [address] Denise Leal MD [address] [place] [address] Diabetes mellitus type 2 in obese (HCC); [...] adult documented in this encounter Care Teams Residential Sales Representative Relationship Specialty Start Date End Date Miguel A Mcclendon MD PCP - General Internal Medicine 09/11/18 09/03/21 Dharmesh Armas MD [address] [place] [address] PCP - [place] Medicare Attributed 02/01/20 09/01/21 Pcp, No PCP - General General Medicine 09/04/21 10/06/21 Tiki Barry MBBS [address] [place] [address] PCP - General Internal Medicine 10/07/21 03/29/24 Jenae Thomas MD [address] [place] [address] PCP - General Internal Medicine 03/30/24 Diego Schulz MD 132 [place] [address] PCP - [employer] Medicare Attributed 10/03/23 Ravi Mills MD [address] [address] PCP - Resident - Supervising Attending Internal Medicine 06/05/24 Gifty Huizar, PhD [address] [place] [address] [phone] Clinical Psychologist Psychology 10/13/20 Dharmesh Broderick MD [address] [place] [address] Ophthalmology 07/15/23 documented as of this encounter
--- OUTSIDE RECORDS SUMMARY | 2025-01-04 00:40 | XMS_ITS | Encounter Summary ---
Author Organization Formerly [facility] Address [address] [place] [address] Care Team Providers Care Stock Manager Name Role Phone Miguel A Mcclendon MD Primary Care Provider [phone] Dharmesh Armas MD Unavailable +[phone] Gifty Huizar PhD Unavailable [phone] Pcp, No Primary Care Provider Unavailabl Tiki Velasco Primary Care Provider + [phone] Dharmesh Broderick MD Unavailable [phone] Jenae Thomas MD Primary Care Provider + [phone] Diego Schulz MD Unavailable +[phone] Ravi Mills MD Unavailable [phone] Reason for Visit * Reason Onset Date Comments Medication Refill 12/11/2019 Encounter Details Date Type Department Care Team (Late st Contact Info) Description 12/11/2019 Refill [facility] [address] [place] [address] Denise Leal MD [address] [place] [address] Diabetes mellitus type 2 in obese (HCC); [...] adult documented in this encounter Care Teams Stock Manager Relationship Specialty Start Date End Date Miguel A Mcclendon MD PCP - General Internal Medicine 09/11/18 09/03/21 Dharmesh Armas MD [address] [place] [address] PCP - [place] Medicare Attributed 02/01/20 09/01/21 Pcp, No PCP - General General Medicine 09/04/21 10/06/21 Tiki Barry MBBS [address] [place] [address] PCP - General Internal Medicine 10/07/21 03/29/24 Jenae Thomas MD [address] [place] [address] PCP - General Internal Medicine 03/30/24 Diego Schulz MD 132 [place] [address] PCP - [employer] Medicare Attributed 10/03/23 Ravi Mills MD [address] [address] PCP - Resident - Supervising Attending Internal Medicine 06/05/24 Gifty Huizar, PhD [address] [place] [address] [phone] Clinical Psychologist Psychology 10/13/20 Dharmesh Broderick MD [address] [place] [address] Ophthalmology 07/15/23 documented as of this encounter
--- OUTSIDE RECORDS SUMMARY | 2025-01-04 00:41 | XMS_ITS | Encounter Summary ---
Author Organization Formerly [facility] Address [address] [place] [address] Care Team Providers Care Resin Coater Name Role Phone Miguel A Mcclendon MD Primary Care Provider [phone] Dharmesh Armas MD Unavailable [phone] Gifty Huizar PhD Unavailable [phone] Pcp, No Primary Care Provider Unavailabl Tiki Velasco Primary Care Provider + [phone] Dharmesh Broderick MD Unavailable [phone] Jenae Thomas MD Primary Care Provider + [phone] Diego Schulz MD Unavailable +[phone] Ravi Mills MD Unavailable [phone] Reason for Visit * Reason Onset Date Comments Medication Refill 12/23/2019 Encounter Details Date Type Department Care Team (Late st Contact Info) Description 12/23/2019 [facility]ill [facility] [address] [place] [phone] Stanley Stern, KAYLENE 399 [facility] [address] [place] [phone] Diabetes mellitus type 2 in obese (HCC) [...] uncontrolled documented in this encounter Care Teams Resin Coater Relationship Specialty Start Date End Date Miguel A Mcclendon MD PCP - General Internal Medicine 09/11/18 09/03/21 Dharmesh Armas MD [address] [place] [address] PCP - [place] Medicare Attributed 02/01/20 09/01/21 Pcp, No PCP - General General Medicine 09/04/21 10/06/21 Tiki Barry MBBS [address] [place] [address] PCP - General Internal Medicine 10/07/21 03/29/24 Jenae Thomas MD 132 [place] [address] PCP - General Internal Medicine 03/30/24 Diego Schulz MD 132 [place] [address] PCP - [employer] Medicare Attributed 10/03/23 Ravi Mills MD [address] [address] PCP - Resident - Supervising Attending Internal Medicine 06/05/24 Gifty Huizar, PhD [address] [place] [address] [address] Clinical Psychologist Psychology 10/13/20 Dharmesh Broderick MD [address] [place] [address] Ophthalmology 07/15/23 documented as of this encounter
--- OUTSIDE RECORDS SUMMARY | 2025-01-04 00:41 | XMS_ITS | Encounter Summary ---
Author Organization [facility] Address [address] [place] [address] Care Team Providers Care Talk Show Host Name Role Phone Gifty Huizar PhD Unavailable [phone] Tiik Barry Primary Care Provider + [phone] Dharmesh Broderick MD Unavailable [phone] Jenae Thomas MD Primary Care Provider + [phone] Diego Schulz MD Unavailable [phone] Ravi Mills MD Unavailable [phone] Reason for Visit * Reason Onset Date Comments Medication Refill 06/16/2022 Encounter Details Date Type Department Care Team (Late st Contact Info) Description 06/16/2022 Refill [facility] 132 [facility] [address] [place] [address] Paulette Webb ProviderMD [address] [place] [address] Uncontrolled type 2 diabetes mellitus [...] as of this encounter Plan of Treatment Not on file documented as of this encounter Visit Diagnoses Diagnosis Uncontrolled type 2 diabetes mellitus with hyperglycemia (HCC) documented in this encounter Care Teams Talk Show Host Relationship Specialty Start Date End Date Tiki Barry MBBS [address] [place] [address] PCP - General Internal Medicine 10/07/21 03/29/24 Jenae Thomas MD 132 [place] [address] PCP - General Internal Medicine 03/30/24 Diego Schulz MD 132 [place] [address] PCP - [employer] Medicare Attributed 10/03/23 Ravi Mills MD [address] [address] PCP - Resident - Supervising Attending Internal Medicine 06/05/24 Gifty Huizar, PhD 200 [facility], [address] [place] [address] Clinical Psychologist Psychology 10/13/20 Dharmesh Broderick MD 79 [place] [address] Ophthalmology 07/15/23 documented as of this encounter
--- OUTSIDE RECORDS SUMMARY | 2025-01-04 00:41 | XMS_ITS | Encounter Summary ---
Author Organization [facility] Address [address] [place] [address] Care Team Providers Care Crew Caller Name Role Phone Miguel A Mcclendon MD Primary Care Provider [phone] Dharmesh Armas MD Unavailable [phone] Gifty Huizar PhD Unavailable [phone] Pcp, No Primary Care Provider Unavailabl Tiki Velasco Primary Care Provider + [phone] Dharmesh Broderick MD Unavailable Jenae Thomas MD Primary Care Provider + [phone] Diego Schulz MD Unavailable [phone] Ravi Mills MD Unavailable [phone] Reason for Visit * Reason Onset Date Comments Medication Refill 12/22/2019 Encounter Details Date Type Department Care Team (Late st Contact Info) Description 12/22/2019 [facility]ill [facility] [address] [place] [phone] Stanley Stern, KAYLENE 399 [facility] [address] [place] [phone] Diabetes mellitus type 2 in obese (HCC) [...] uncontrolled documented in this encounter Care Teams Crew Caller Relationship Specialty Start Date End Date Miguel A Mcclendon MD PCP - General Internal Medicine 09/11/18 09/03/21 Dharmesh Armas MD [address] [place] [address] PCP - [place] Medicare Attributed 02/01/20 09/01/21 Pcp, No PCP - General General Medicine 09/04/21 10/06/21 Tiki Barry MBBS 132 [place] [address] PCP - General Internal Medicine 10/07/21 03/29/24 Jenae Thomas MD 132 [place] [address] PCP - General Internal Medicine 03/30/24 Diego Schulz MD 132 [place] [address] PCP - [employer] Medicare Attributed 10/03/23 Ravi Mills MD [address] [address] PCP - Resident - Supervising Attending Internal Medicine 06/05/24 Gifty Huizar, PhD [address] [place] [address] [address] Clinical Psychologist Psychology 10/13/20 Dharmesh Broderick MD [address] [place] [address] Ophthalmology 07/15/23 documented as of this encounter
--- OUTSIDE RECORDS SUMMARY | 2025-01-04 00:41 | XMS_ITS | Encounter Summary ---
Author Organization [facility] Address [address] [place] [address] Care Team Providers Care Student Success Coach Name Role Phone Miguel A Mcclendon MD Primary Care Provider [phone] Dharmesh Armas MD Unavailable [phone] Gifty Huizar PhD Unavailable [phone] Pcp, No Primary Care Provider Unavailabl Tiki Velasco Primary Care Provider + [phone] Dharmesh Broderick MD Unavailable [phone] Jenae Thomas MD Primary Care Provider + [phone] Diego Schulz MD Unavailable [phone] Ravi Mills MD Unavailable [phone] Reason for Visit * Reason Onset Date Comments Medication Refill 01/17/2020 Encounter Details Date Type Department Care Team (Late st Contact Info) Description 01/17/2020 Refill [facility] [address] [place] [address] Denise Leal MD [address] [place] [address] Body mass index (bmi) 70 or greater, [...] adult documented in this encounter Care Teams Student Success Coach Relationship Specialty Start Date End Date Miguel A Mcclendon MD PCP - General Internal Medicine 09/11/18 09/03/21 Dharmesh Armas MD [address] [place] [address] PCP - [place] Medicare Attributed 02/01/20 09/01/21 Pcp, No PCP - General General Medicine 09/04/21 10/06/21 Tiki Barry MBBS 132 [place] [address] PCP - General Internal Medicine 10/07/21 03/29/24 Jenae Thomas MD 132 [place] [address] PCP - General Internal Medicine 03/30/24 Diego Schulz MD 132 [place] [address] PCP - [employer] Medicare Attributed 10/03/23 Ravi Mills MD [address] [address] PCP - Resident - Supervising Attending Internal Medicine 06/05/24 Gifty Huizar, PhD [address] [place] [address] [address] Clinical Psychologist Psychology 10/13/20 Dharmesh Broderick MD 79 [place] [address] Ophthalmology 07/15/23 documented as of this encounter
--- OUTSIDE RECORDS SUMMARY | 2025-01-04 00:41 | XMS_ITS | Encounter Summary ---
Author Organization [facility] Address [address] [place] [address] Care Team Providers Care Sole Stainer Name Role Phone Miguel A Mcclendon MD Primary Care Provider [phone] Denise Leal MD Unavailable [phone] Dharmesh Armas MD Unavailable [phone] Gifty Huizar PhD Unavailable [phone] Pcp, No Primary Care Provider Unavailabl Tiki Velasco Primary Care Provider + [phone] Dharmesh Broderick MD Unavailable Jenae Thomas MD Primary Care Provider + [phone] Diego Schulz MD Unavailable [phone] Ravi Mills MD Unavailable [phone] Encounter Details Date Type Department Care Team (Late st Contact Info) Description 09/14/2018 Scanned Document [facility] [address] [place] [address] Pcp, No [address] [place] [address] Social History Tobacco Use Types Packs/Day Years [...] on filedocumented in this encounter Care Teams Sole Stainer Relationship Specialty Start Date End Date Miguel A Mcclendon MD PCP - General Internal Medicine 09/11/18 09/03/21 Denise Leal MD [address] [place], [place] [phone] PCP - [place] Attributed 04/02/19 07/02/19 Dharmesh Armas MD [address] [place] [address] PCP - [place] Medicare Attributed 02/01/20 09/01/21 Pcp, No PCP - General General Medicine 09/04/21 10/06/21 Tiki Barry MBBS [address] [place] [address] PCP - General Internal Medicine 10/07/21 03/29/24 Jenae Thomas MD [address] [place] [address] PCP - General Internal Medicine 03/30/24 Diego Schulz MD [address] [place] [address] PCP - [employer] Medicare Attributed 10/03/23 Ravi Mills MD [address] [place] [address] PCP - Resident - Supervising Attending Internal Medicine 06/05/24 Gifty Huizar, PhD 200 [facility], [address] [place] [address] Clinical Psychologist Psychology 10/13/20 Dharmesh Broderick MD [address] [place] [address] Ophthalmology 07/15/23 documented as of this encounter
--- OUTSIDE RECORDS SUMMARY | 2025-01-04 00:41 | XMS_ITS | Encounter Summary ---
Author Organization [facility] Address [address] [place] [address] Care Team Providers Care Records Management Technician Name Role Phone Miguel A Mcclendon MD Primary Care Provider [phone] Dharmesh Armas MD Unavailable [phone] Gifty Huizar PhD Unavailable [phone] Pcp, No Primary Care Provider Unavailabl Tiki Velasco Primary Care Provider + [phone] Dharmesh Broderick MD Unavailable [phone] Jenae Thomas MD Primary Care Provider + [phone] Diego Schulz MD Unavailable [phone] Ravi Mills MD Unavailable [phone] Reason for Visit * Reason Onset Date Comments Medication Refill 10/05/2019 Encounter Details Date Type Department Care Team (Late st Contact Info) Description 10/05/2019 Refill [facility] [address] [place] [address] Denise Leal MD [address] [place] [address] Body mass index (bmi) 70 or greater, [...] adult documented in this encounter Care Teams Records Management Technician Relationship Specialty Start Date End Date Miguel A Mcclendon MD PCP - General Internal Medicine 09/11/18 09/03/21 Dharmesh Armas MD [address] [place] [address] PCP - [place] Medicare Attributed 02/01/20 09/01/21 Pcp, No PCP - General General Medicine 09/04/21 10/06/21 Tiki Barry MBBS 132 [place] [address] PCP - General Internal Medicine 10/07/21 03/29/24 Jenae Thomas MD 132 [place] [address] PCP - General Internal Medicine 03/30/24 Diego Schulz MD [address] [place] [address] PCP - [employer] Medicare Attributed 10/03/23 Ravi Mills MD [address] [address] PCP - Resident - Supervising Attending Internal Medicine 06/05/24 Gifty Huizar, PhD [address] [place] [address] Clinical Psychologist Psychology 10/13/20 Dharmesh Broderick MD 79 [place] [address] Ophthalmology 07/15/23 documented as of this encounter
--- OUTSIDE RECORDS SUMMARY | 2025-01-04 00:41 | XMS_ITS | Encounter Summary ---
Author Organization [facility] Address [address] [place] [address] Care Team Providers Care Banking Services Advisor Name Role Phone Gifty Huizar PhD Unavailable [phone] Tiki Barry Primary Care Provider + [phone] Dharmesh Broderick MD Unavailable [phone] Jenae Thomas MD Primary Care Provider + [phone] Diego Schulz MD Unavailable [phone] Ravi Mills MD Unavailable [phone] Reason for Visit * Reason Onset Date Comments Medication Refill 04/23/2022 Encounter Details Date Type Department Care Team (Late st Contact Info) Description 04/23/2022 Refill [facility] 132 [facility] 2nd [place] [address] Paulette Webb ProviderMD 123 [place] [address] Uncontrolled type 2 diabetes mellitus [...] (HCC) documented in this encounter Care Teams Banking Services Advisor Relationship Specialty Start Date End Date Tiki Barry MBBS 132 [place] [address] PCP - General Internal Medicine 10/07/21 03/29/24 Jenae Thomas MD 132 [place] [address] PCP - General Internal Medicine 03/30/24 Diego Schulz MD 132 [place] [address] PCP - [employer] Medicare Attributed 10/03/23 Ravi Mills MD [address] [address] PCP - Resident - Supervising Attending Internal Medicine 06/05/24 Gifty Huizar, PhD 200 [facility], [address] [place] [address] Clinical Psychologist Psychology 10/13/20 Dharmesh Broderick MD 79 [place] [address] Ophthalmology 07/15/23 documented as of this encounter
--- OUTSIDE RECORDS SUMMARY | 2025-01-04 00:41 | XMS_ITS | Encounter Summary ---
Author Organization [facility] Address [address] [place] [address] Care Team Providers Care Office Machinery Or Equipment Installer Name Role Phone Miguel A Mcclendon MD Primary Care Provider [phone] Dharmesh Armas MD Unavailable [phone] Gifty Huizar PhD Unavailable [phone] Pcp, No Primary Care Provider Unavailabl Tiki Velasco Primary Care Provider + [phone] Dharmesh Broderick MD Unavailable [phone] Jenae Thomas MD Primary Care Provider + [phone] Diego Schulz MD Unavailable [phone] Ravi Mills MD Unavailable [phone] Reason for Visit * Reason Onset Date Comments Medication Refill 09/23/2019 Encounter Details Date Type Department Care Team (Late st Contact Info) Description 09/23/2019 Refill [facility] & NUTRITION [address] [place] [phone] Stanley Stern, KAYLENE 399 [facility] [address] [place] [phone] Diabetes mellitus type 2 in obese (HCC) [...] uncontrolled documented in this encounter Care Teams Office Machinery Or Equipment Installer Relationship Specialty Start Date End Date Miguel A Mcclendon MD PCP - General Internal Medicine 09/11/18 09/03/21 Dharmesh Armas MD [address] [place] [address] PCP - [place] Medicare Attributed 02/01/20 09/01/21 Pcp, No PCP - General General Medicine 09/04/21 10/06/21 Tiki Barry MBBS 132 [place] [address] PCP - General Internal Medicine 10/07/21 03/29/24 Jenae Thomas MD [address] [place] [address] PCP - General Internal Medicine 03/30/24 Diego Schulz MD 132 [place] [address] PCP - [employer] Medicare Attributed 10/03/23 Ravi Mills MD [address] [address] PCP - Resident - Supervising Attending Internal Medicine 06/05/24 Gifty Huizar, PhD [address] [place] [address] [address] Clinical Psychologist Psychology 10/13/20 Dharmesh Broderick MD [address] [place] [address] Ophthalmology 07/15/23 documented as of this encounter
--- OUTSIDE RECORDS SUMMARY | 2025-01-04 00:41 | XMS_ITS | Encounter Summary ---
Author Organization [facility] Address [address] [place] [address] Care Team Providers Care Tattoo Artist Name Role Phone Miguel A Mcclendon MD Primary Care Provider [phone] Dharmesh Armas MD Unavailable [phone] Gifty Huizar PhD Unavailable [phone] Pcp, No Primary Care Provider Unavailabl Tiki Velasco Primary Care Provider + [phone] Dharmesh Broderick MD Unavailable [phone] Jenae Thomas MD Primary Care Provider + [phone] Diego Schulz MD Unavailable [phone] Ravi Mills MD Unavailable [phone] Reason for Visit * Reason Onset Date Comments Medication Refill 10/02/2019 Encounter Details Date Type Department Care Team (Late st Contact Info) Description 10/02/2019 Refill [facility] DI[facility] & [facility]UTRITION [address] [place] [phone] Stanley Stern, KAYLENE 399 [facility] [address] [place] [phone] Diabetes mellitus type 2 in obese (HCC) [...] uncontrolled documented in this encounter Care Teams Tattoo Artist Relationship Specialty Start Date End Date Miguel A Mcclendon MD PCP - General Internal Medicine 09/11/18 09/03/21 Dharmesh Armas MD [address] [place] [address] PCP - [place] Medicare Attributed 02/01/20 09/01/21 Pcp, No PCP - General General Medicine 09/04/21 10/06/21 Tiki Barry MBBS 132 [place] [address] PCP - General Internal Medicine 10/07/21 03/29/24 Jenae Thomas MD 132 [place] [address] PCP - General Internal Medicine 03/30/24 Diego Schulz MD 132 [place] [address] PCP - [employer] Medicare Attributed 10/03/23 Ravi Mills MD [address] [address] PCP - Resident - Supervising Attending Internal Medicine 06/05/24 Gifty Huizar, PhD [address] [place] [address] [address] Clinical Psychologist Psychology 10/13/20 Dharmesh Broderick MD [address] [place] [address] Ophthalmology 07/15/23 documented as of this encounter
--- OUTSIDE RECORDS SUMMARY | 2025-01-04 00:41 | XMS_ITS | Encounter Summary ---
Author Organization [facility] Address [address] [place] [address] Care Team Providers Care Special Education Math Teacher Name Role Phone Miguel A Mcclendon MD Primary Care Provider [phone] Dharmesh Armas MD Unavailable +[phone] Gifty Huizar PhD Unavailable [phone] Pcp, No Primary Care Provider Unavailabl Tiki Velasco Primary Care Provider + [phone] Dharmesh Broderick MD Unavailable [phone] Jenae Thomas MD Primary Care Provider + [phone] Diego Schulz MD Unavailable +[phone] Ravi Mills MD Unavailable [phone] Reason for Visit * Reason Onset Date Comments Medication Refill 01/17/2020 Encounter Details Date Type Department Care Team (Late st Contact Info) Description 01/17/2020 Refill [facility] [address] [place] [address] Denise Leal MD [address] [place] [address] Diabetes mellitus type 2 in obese (HCC); [...] adult documented in this encounter Care Teams Special Education Math Teacher Relationship Specialty Start Date End Date Miguel A Mcclendon MD PCP - General Internal Medicine 09/11/18 09/03/21 Dharmesh Armas MD [address] [place] [address] PCP - [place] Medicare Attributed 02/01/20 09/01/21 Pcp, No PCP - General General Medicine 09/04/21 10/06/21 Tiki Barry MBBS [address] [place] [address] PCP - General Internal Medicine 10/07/21 03/29/24 Jenae Thomas MD [address] [place] [address] PCP - General Internal Medicine 03/30/24 Diego Schulz MD [address] [place] [address] PCP - [employer] Medicare Attributed 10/03/23 Ravi Mills MD [address] [address] PCP - Resident - Supervising Attending Internal Medicine 06/05/24 Gifty Huizar, PhD [address] [place] [address] [phone] Clinical Psychologist Psychology 10/13/20 Dharmesh Broderick MD [address] [place] [address] Ophthalmology 07/15/23 documented as of this encounter
--- OUTSIDE RECORDS SUMMARY | 2025-01-04 00:41 | XMS_ITS | Encounter Summary ---
Author Organization [facility] Address [address] [place] [address] Care Team Providers Care Welt Slasher Name Role Phone Miguel A Mcclendon MD Primary Care Provider [phone] Dharmesh Armas MD Unavailable +[phone] Gifty Huizar PhD Unavailable [phone] Pcp, No Primary Care Provider Unavailabl Tiki Velasco Primary Care Provider + [phone] Dharmesh Broderick MD Unavailable [phone] Jenae Thomas MD Primary Care Provider + [phone] Diego Schulz MD Unavailable +[phone] Ravi Mills MD Unavailable [phone] Reason for Visit * Reason Onset Date Comments Medication Refill 10/02/2019 Encounter Details Date Type Department Care Team (Late st Contact Info) Description 10/02/2019 Refill [facility] [address] [place] [address] Denise Leal MD [address] [place] [address] Body mass index (bmi) 70 or greater, [...] adult documented in this encounter Care Teams Welt Slasher Relationship Specialty Start Date End Date Miguel A Mcclendon MD PCP - General Internal Medicine 09/11/18 09/03/21 Dharmesh Armas MD [address] [place] [address] PCP - [place] Medicare Attributed 02/01/20 09/01/21 Pcp, No PCP - General General Medicine 09/04/21 10/06/21 Tiki Barry MBBS [address] [place] [address] PCP - General Internal Medicine 10/07/21 03/29/24 Jenae Thomas MD [address] [place] [address] PCP - General Internal Medicine 03/30/24 Diego Schulz MD 132 [place] [address] PCP - [employer] Medicare Attributed 10/03/23 Ravi Mills MD [address] [address] PCP - Resident - Supervising Attending Internal Medicine 06/05/24 iGfty Huizar, PhD [address] [place] [address] [address] Clinical Psychologist Psychology 10/13/20 Dharmesh Broderick MD [address] [place] [address] Ophthalmology 07/15/23 documented as of this encounter
--- OUTSIDE RECORDS SUMMARY | 2025-01-04 00:41 | XMS_ITS | Encounter Summary ---
Author Organization [facility] Address [address] [place] [address] Care Team Providers Care Consumer Lending Manager Name Role Phone Miguel A Mcclendon MD Primary Care Provider [phone] Denise Leal MD Unavailable +[phone] Dharmesh Armas MD Unavailable +[phone] Gifty Huizar PhD Unavailable [phone] Pcp, No Primary Care Provider Unavailabl Tiki Velasco Primary Care Provider + [phone] Dharmesh Broderick MD Unavailable [phone] Jenae Thomas MD Primary Care Provider + [phone] Diego Schulz MD Unavailable +[phone] Ravi Mills MD Unavailable [phone] Encounter Details Date Type Department Care Team (Late st Contact Info) Description 09/14/2018 Scanned Document [facility] [address] [place] [address] Pcp, No [address] [place] [address] Social History Tobacco Use Types Packs/Day Years [...] on filedocumented in this encounter Care Teams Consumer Lending Manager Relationship Specialty Start Date End Date Miguel A Mcclendon MD PCP - General Internal Medicine 09/11/18 09/03/21 Denise Leal MD [address] [place], [place] [phone] PCP - MSSP Attributed 04/02/19 07/02/19 Dharmesh Armas MD [address] [place] [address] PCP - [place] Medicare Attributed 02/01/20 09/01/21 Pcp, No PCP - General General Medicine 09/04/21 10/06/21 Tiki Barry MBBS [address] [place] [address] PCP - General Internal Medicine 10/07/21 03/29/24 Jenae Thomas MD [address] [place] [address] PCP - General Internal Medicine 03/30/24 Diego Schulz MD [address] [place] [address] PCP - [employer] Medicare Attributed 10/03/23 Ravi Mills MD [address] [place] [address] PCP - Resident - Supervising Attending Internal Medicine 06/05/24 Gifty Huizar, PhD 200 [facility], [address] [place] [address] Clinical Psychologist Psychology 10/13/20 Dharmesh Broderick MD [address] [place] [address] Ophthalmology 07/15/23 documented as of this encounter
--- OUTSIDE RECORDS SUMMARY | 2025-01-04 00:41 | XMS_ITS | Encounter Summary ---
Author Organization [facility] Address [address] [place] [address] Care Team Providers Care Clinical Quality Manager Name Role Phone Miguel A Mcclendon MD Primary Care Provider [phone] Dharmesh Armas MD Unavailable +[phone] Gifty Huizar PhD Unavailable [phone] Pcp, No Primary Care Provider Unavailabl Tiki Velasco Primary Care Provider + [phone] Dharmesh Broderick MD Unavailable [phone] Jenae Thomas MD Primary Care Provider + [phone] Diego Schulz MD Unavailable +[phone] Ravi iMlls MD Unavailable [phone] Reason for Visit * Reason Onset Date Comments Medication Refill 10/08/2019 Encounter Details Date Type Department Care Team (Late st Contact Info) Description 10/08/2019 Refill [facility] [address] [place] [address] Denise Leal MD [address] [place] [address] Body mass index (bmi) 70 or greater, [...] adult documented in this encounter Care Teams Clinical Quality Manager Relationship Specialty Start Date End Date Miguel A Mcclendon MD PCP - General Internal Medicine 09/11/18 09/03/21 Dharmesh Armas MD [address] [place] [address] PCP - [place] Medicare Attributed 02/01/20 09/01/21 Pcp, No PCP - General General Medicine 09/04/21 10/06/21 Tiki Barry MBBS 132 [place] [address] PCP - General Internal Medicine 10/07/21 03/29/24 Jenae Thomas MD [address] [place] [address] PCP - General Internal Medicine 03/30/24 Diego Schulz MD [address] [place] [address] PCP - [employer] Medicare Attributed 10/03/23 Ravi Mills MD [address] [address] PCP - Resident - Supervising Attending Internal Medicine 06/05/24 Gifty Huizar, PhD [address] [address] Clinical Psychologist Psychology 10/13/20 Dharmesh Broderick MD 79 [place] [address] Ophthalmology 07/15/23 documented as of this encounter
--- OUTSIDE RECORDS SUMMARY | 2025-01-04 00:41 | XMS_ITS | Encounter Summary ---
Author Organization [facility] Address [address] [place] [address] Care Team Providers Care Craft Artist Name Role Phone Miguel A Mcclendon MD Primary Care Provider [phone] Dharmesh Armas MD Unavailable +[phone] Gifty Huizar PhD Unavailable [phone] Pcp, No Primary Care Provider Unavailabl Tiki Velasco Primary Care Provider + [phone] Dharmesh Broderick MD Unavailable [phone] Jenae Thomas MD Primary Care Provider + [phone] Diego Schulz MD Unavailable +[phone] Ravi Mills MD Unavailable [phone] Reason for Visit * Reason Onset Date Comments Medication Refill 10/08/2019 Encounter Details Date Type Department Care Team (Late st Contact Info) Description 10/08/[address] [facility] [address] [place] [phone] Stanley Stern, KAYLENE 399 [facility] [address] [place] [phone] Diabetes mellitus type 2 in obese (HCC) [...] uncontrolled documented in this encounter Care Teams Craft Artist Relationship Specialty Start Date End Date Miguel A Mcclendon MD PCP - General Internal Medicine 09/11/18 09/03/21 Dharmesh Armas MD [address] [place] [address] PCP - [place] Medicare Attributed 02/01/20 09/01/21 Pcp, No PCP - General General Medicine 09/04/21 10/06/21 Tiki Barry MBBS 132 [place] [address] PCP - General Internal Medicine 10/07/21 03/29/24 Jenae Thomas MD [address] [place] [address] PCP - General Internal Medicine 03/30/24 Diego Schulz MD 132 [place] [address] PCP - [employer] Medicare Attributed 10/03/23 Ravi Mills MD [address] [address] PCP - Resident - Supervising Attending Internal Medicine 06/05/24 Gifty Huizar, PhD [address] [address] Clinical Psychologist Psychology 10/13/20 Dharmesh Broderick MD [address] [place] [address] Ophthalmology 07/15/23 documented as of this encounter
--- OUTSIDE RECORDS SUMMARY | 2025-01-04 00:41 | XMS_ITS | Encounter Summary ---
Author Organization [facility] Address [address] [place] [address] Care Team Providers Care Quality Assurance Tester Name Role Phone Miguel A Mcclendon MD Primary Care Provider [phone] Denise Leal MD Unavailable [phone] Dharmesh Armas MD Unavailable [phone] Gifty Huizar PhD Unavailable [phone] Pcp, No Primary Care Provider Unavailabl Tiki Velasco Primary Care Provider + [phone] Dharmesh Broderick MD Unavailable [phone] Jenae Thomas MD Primary Care Provider + [phone] Diego Schulz MD Unavailable +[phone] Ravi Mills MD Unavailable [phone] Reason for Visit * Reason Onset Date Comments Medication Refill 06/20/2019 Encounter Details Date Type Department Care Team (Late st Contact Info) Description 06/20/2019 Refill [facility] [address] [place] [address] Denise Leal MD [address] [place] [address] Diabetes mellitus type 2 in obese (HCC) [...] uncontrolled documented in this encounter Care Teams Quality Assurance Tester Relationship Specialty Start Date End Date Miguel A Mcclendon MD PCP - General Internal Medicine 09/11/18 09/03/21 Denise Leal MD [address] [place] [address] PCP - MSSP Attributed 04/02/19 07/02/19 Dharmesh Armas MD [address] [place] [address] PCP - [place] Medicare Attributed 02/01/20 09/01/21 Pcp, No PCP - General General Medicine 09/04/21 10/06/21 Tiki Barry MBBS [address] [place] [address] PCP - General Internal Medicine 10/07/21 03/29/24 Jenae Thomas MD 132 [place] [address] PCP - General Internal Medicine 03/30/24 Diego Schulz MD 132 [place] [address] PCP - [employer] Medicare Attributed 10/03/23 Ravi Mills MD [address] [address] PCP - Resident - Supervising Attending Internal Medicine 06/05/24 Gifty Huizar, PhD [address] [place] [address] [phone] Clinical Psychologist Psychology 10/13/20 Dharmesh Broderick MD [address] [place] [address] Ophthalmology 07/15/23 documented as of this encounter
--- OUTSIDE RECORDS SUMMARY | 2025-01-04 00:41 | XMS_ITS | Encounter Summary ---
Author Organization [facility] Address [address] [place] [address] Care Team Providers Care Ice Seller Name Role Phone Miguel A Mcclendon MD Primary Care Provider [phone] Dharmesh Armas MD Unavailable [phone] Gifty Huizar PhD Unavailable [phone] Pcp, No Primary Care Provider Unavailabl Tiki Velasco Primary Care Provider + [phone] Dharemsh Broderick MD Unavailable [phone] Jenae Thomas MD Primary Care Provider + [phone] Diego Schulz MD Unavailable [phone] Ravi Mills MD Unavailable Reason for Visit * Reason Onset Date Comments Medication Refill 09/05/2019 Encounter Details Date Type Department Care Team (Late st Contact Info) Description 09/05/2019 Refill [facility] [address] [place] [phone] Stanley Stern, KAYLENE 399 [facility] [address] [place] [phone] Diabetes mellitus type 2 in obese (HCC) [...] uncontrolled documented in this encounter Care Teams Ice Seller Relationship Specialty Start Date End Date Miguel A Mcclendon MD PCP - General Internal Medicine 09/11/18 09/03/21 Dharmesh Armas MD [address] [place] [address] PCP - [place] Medicare Attributed 02/01/20 09/01/21 Pcp, No PCP - General General Medicine 09/04/21 10/06/21 Tiki Barry MBBS 132 [place] [address] PCP - General Internal Medicine 10/07/21 03/29/24 Jenae Thomas MD 132 [place] [address] PCP - General Internal Medicine 03/30/24 Diego Schulz MD 132 [place] [address] PCP - [employer] Medicare Attributed 10/03/23 Ravi Mills MD [address] [address] PCP - Resident - Supervising Attending Internal Medicine 06/05/24 Gifty Huizar, PhD [address] [place] [address] [address] Clinical Psychologist Psychology 10/13/20 Dharmesh Broderick MD 79 [place] [address] Ophthalmology 07/15/23 documented as of this encounter
--- OUTSIDE RECORDS SUMMARY | 2025-01-04 00:41 | XMS_ITS | Encounter Summary ---
Author Organization [facility] Address [address] [place] [address] Care Team Providers Care Digester Name Role Phone Miguel A Mcclendon MD Primary Care Provider [phone] Dharmesh Armas MD Unavailable [phone] Gifty Huizar PhD Unavailable [phone] Pcp, No Primary Care Provider Unavailabl Tiki Velasco Primary Care Provider + [phone] Dharmesh Broderick MD Unavailable [phone] Jenae Thomas MD Primary Care Provider + [phone] Diego Schulz MD Unavailable [phone] Ravi Mills MD Unavailable [phone] Reason for Visit * Reason Onset Date Comments Medication Refill 12/22/2019 Encounter Details Date Type Department Care Team (Late st Contact Info) Description 12/22/2019 Refill [facility] [address] [place] [address] Denise Leal MD [address] [place] [address] Diabetes mellitus type 2 in obese (HCC); [...] adult documented in this encounter Care Teams Digester Relationship Specialty Start Date End Date Miguel A Mcclendon MD PCP - General Internal Medicine 09/11/18 09/03/21 Dharmesh Armas MD [address] [place] [address] PCP - [place] Medicare Attributed 02/01/20 09/01/21 Pcp, No PCP - General General Medicine 09/04/21 10/06/21 Tiki Barry MBBS [address] [place] [address] PCP - General Internal Medicine 10/07/21 03/29/24 Jenae Thomas MD [address] [place] [address] PCP - General Internal Medicine 03/30/24 Diego Schulz MD 132 [place] [address] PCP - [employer] Medicare Attributed 10/03/23 Ravi Mills MD [address] [address] PCP - Resident - Supervising Attending Internal Medicine 06/05/24 Gifty Huizar, PhD [address] [place] [address] [phone] Clinical Psychologist Psychology 10/13/20 Dharmesh Broderick MD 79 [place] [address] Ophthalmology 07/15/23 documented as of this encounter
--- OUTSIDE RECORDS SUMMARY | 2025-01-04 00:41 | XMS_ITS | Encounter Summary ---
Author Organization [facility] Address [address] [place] [address] Care Team Providers Care Secretary To Board Of Commissioners Name Role Phone Miguel A Mcclendon MD Primary Care Provider [phone] Denise Leal MD Unavailable [phone] Dharmesh Armas MD Unavailable [phone] Gifty Huizar PhD Unavailable [phone] Pcp, No Primary Care Provider Unavailabl Tiki Velasco Primary Care Provider + [phone] Dharmesh Broderick MD Unavailable [phone] Jenae Thomas MD Primary Care Provider + [phone] Diego Schulz MD Unavailable +[phone] Ravi Mills MD Unavailable [phone] Reason for Visit * Reason Onset Date Comments Medication Refill 06/20/2019 Encounter Details Date Type Department Care Team (Late st Contact Info) Description 06/20/2019 Refill [facility] DI[facility] & NUTRITION [address] [place] [phone] Stanley Stern, KAYLENE 399 [facility] 200 [place] [address] Diabetes mellitus type 2 in obese (HCC) [...] uncontrolled documented in this encounter Care Teams Secretary To Board Of Commissioners Relationship Specialty Start Date End Date Miguel A Mcclendon MD PCP - General Internal Medicine 09/11/18 09/03/21 Denise Leal MD [address] [place] [address] PCP - MSSP Attributed 04/02/19 07/02/19 Dharmesh Armas MD [address] [place] [address] PCP - [place] Medicare Attributed 02/01/20 09/01/21 Pcp, No PCP - General General Medicine 09/04/21 10/06/21 Tiki Barry MBBS [address] [place] [address] PCP - General Internal Medicine 10/07/21 03/29/24 Jenae Thomas MD 132 [place] [address] PCP - General Internal Medicine 03/30/24 Diego Schulz MD 132 [place] [address] PCP - [employer] Medicare Attributed 10/03/23 Ravi Mills MD [address] [address] PCP - Resident - Supervising Attending Internal Medicine 06/05/24 Gifty Huizar, PhD 200 [place] [facility], [address] [place] [phone] Clinical Psychologist Psychology 10/13/20 Dharmesh Broderick MD [address] [place] [address] Ophthalmology 07/15/23 documented as of this encounter
--- OUTSIDE RECORDS SUMMARY | 2025-01-04 00:41 | XMS_ITS | Encounter Summary ---
Author Organization [facility] Address [address] [place] [address] Care Team Providers Care Manager Produce Name Role Phone Miugel A Mcclendon MD Primary Care Provider [phone] Dharmesh Armas MD Unavailable [phone] Gifty Hiuzar PhD Unavailable [phone] Pcp, No Primary Care Provider Unavailabl iTki Velasco Primary Care Provider + [phone] Dharmesh Broderick MD Unavailable [phone] Jenae Thomas MD Primary Care Provider + [phone] Diego Schulz MD Unavailable +[phone] Ravi Mills MD Unavailable [phone] Reason for Visit * Reason Onset Date Comments Medication Refill 01/01/2020 Encounter Details Date Type Department Care Team (Late st Contact Info) Description 01/01/2020 Refill [facility] [address] [place] [address] Denise Leal MD [address] [place] [address] Diabetes mellitus type 2 in obese (HCC); [...] adult documented in this encounter Care Teams Manager Produce Relationship Specialty Start Date End Date Miguel A Mcclendon MD PCP - General Internal Medicine 09/11/18 09/03/21 Dharmesh Armas MD [address] [place] [address] PCP - [place] Medicare Attributed 02/01/20 09/01/21 Pcp, No PCP - General General Medicine 09/04/21 10/06/21 Tiki Barry MBBS [address] [place] [address] PCP - General Internal Medicine 10/07/21 03/29/24 Jenae Thomas MD [address] [place] [address] PCP - General Internal Medicine 03/30/24 Diego Schulz MD 132 [place] [address] PCP - [employer] Medicare Attributed 10/03/23 Ravi Mills MD [address] [address] PCP - Resident - Supervising Attending Internal Medicine 06/05/24 Gifty Huizar, PhD 200 [facility], [address] [place] [address] Clinical Psychologist Psychology 10/13/20 Dharmesh Broderick MD [address] [place] [address] Ophthalmology 07/15/23 documented as of this encounter
--- OUTSIDE RECORDS SUMMARY | 2025-01-04 00:41 | XMS_ITS | Encounter Summary ---
Author Organization [facility] Address [address] [place] [address] Care Team Providers Care Bucket Turner Name Role Phone Miguel A Mcclendon MD Primary Care Provider [phone] Dharmesh Armas MD Unavailable [phone] Gifty Huizar PhD Unavailable [phone] Pcp, No Primary Care Provider Unavailabl Tiki Velasco Primary Care Provider + [phone] Dharmesh Broderick MD Unavailable [phone] Jenae Thomas MD Primary Care Provider + [phone] Diego Schulz MD Unavailable [phone] Ravi Mills MD Unavailable [phone] Reason for Visit * Reason Onset Date Comments Medication Refill 12/28/2019 Encounter Details Date Type Department Care Team (Late st Contact Info) Description 12/28/2019 Refill [facility] [address] [place] [phone] Stanley Stern, KAYLENE 399 [facility] [address] [place] [phone] Diabetes mellitus type 2 in obese (HCC) [...] uncontrolled documented in this encounter Care Teams Bucket Turner Relationship Specialty Start Date End Date Miguel A Mcclendon MD PCP - General Internal Medicine 09/11/18 09/03/21 Dharmesh Armas MD [address] [place] [address] PCP - [place] Medicare Attributed 02/01/20 09/01/21 Pcp, No PCP - General General Medicine 09/04/21 10/06/21 Tiki Barry MBBS 132 [place] [address] PCP - General Internal Medicine 10/07/21 03/29/24 Jenae Thomas MD 132 [place] [address] PCP - General Internal Medicine 03/30/24 Diego Schulz MD 132 [place] [address] PCP - [employer] Medicare Attributed 10/03/23 Ravi Mills MD [address] [address] PCP - Resident - Supervising Attending Internal Medicine 06/05/24 Gifty Huizar, PhD [address] [place] [address] [address] Clinical Psychologist Psychology 10/13/20 Dharmesh Broderick MD [address] [place] [address] Ophthalmology 07/15/23 documented as of this encounter
--- OUTSIDE RECORDS SUMMARY | 2025-01-04 00:41 | XMS_ITS | Encounter Summary ---
Author Organization Formerly [facility] Address [address] [place] [address] Care Team Providers Care Furniture Sander Name Role Phone Miguel A Mcclendon MD Primary Care Provider [phone] Dharmesh Armas MD Unavailable +[phone] Gifty Huizar PhD Unavailable [phone] Pcp, No Primary Care Provider Unavailabl Tiki Velasco Primary Care Provider + [phone] Dharmesh Broderick MD Unavailable [phone] Jenae Thomas MD Primary Care Provider + [phone] Diego Schulz MD Unavailable +[phone] Ravi Mills MD Unavailable [phone] Reason for Visit * Reason Onset Date Comments Medication Refill 10/25/2019 Encounter Details Date Type Department Care Team (Late st Contact Info) Description 10/25/2019 Refill [facility] [address] [place] [address] Denise Leal MD [address] [place] [address] Body mass index (bmi) 70 or greater, [...] adult documented in this encounter Care Teams Furniture Sander Relationship Specialty Start Date End Date Miguel A Mcclendon MD PCP - General Internal Medicine 09/11/18 09/03/21 Dharmesh Armas MD [address] [place] [address] PCP - [place] Medicare Attributed 02/01/20 09/01/21 Pcp, No PCP - General General Medicine 09/04/21 10/06/21 Tiki Barry MBBS [address] [place] [address] PCP - General Internal Medicine 10/07/21 03/29/24 Jenae Thomas MD [address] [place] [address] PCP - General Internal Medicine 03/30/24 Diego Schulz MD [address] [place] [address] PCP - [employer] Medicare Attributed 10/03/23 Ravi Mills MD [address] [address] PCP - Resident - Supervising Attending Internal Medicine 06/05/24 Gifty Huizar, PhD [address] [facility], [address] [place] [address] Clinical Psychologist Psychology 10/13/20 Dharmesh Broderick MD [address] [place] [address] Ophthalmology 07/15/23 documented as of this encounter
--- OUTSIDE RECORDS SUMMARY | 2025-01-04 00:41 | XMS_ITS | Encounter Summary ---
Author Organization [facility] Address [address] [place] [address] Care Team Providers Care Animal Therapist Name Role Phone Miguel A Mcclendon MD Primary Care Provider [phone] Dharmesh Armas MD Unavailable +[phone] Gifty Huizar PhD Unavailable [phone] Pcp, No Primary Care Provider Unavailabl Tiki Velasco Primary Care Provider + [phone] Dharmesh Broderick MD Unavailable [phone] Jenae Thomas MD Primary Care Provider + [phone] Diego Schulz MD Unavailable +[phone] Ravi Mills MD Unavailable [phone] Reason for Visit * Reason Onset Date Comments Medication Refill 09/06/2019 Encounter Details Date Type Department Care Team (Late st Contact Info) Description 09/06/2019 Refill [facility] [address] [place] [address] Denise Leal MD [address] [place] [address] Body mass index (bmi) 70 or greater, [...] adult documented in this encounter Care Teams Animal Therapist Relationship Specialty Start Date End Date Miguel A Mcclendon MD PCP - General Internal Medicine 09/11/18 09/03/21 Dharmesh Armas MD [address] [place] [address] PCP - [place] Medicare Attributed 02/01/20 09/01/21 Pcp, No PCP - General General Medicine 09/04/21 10/06/21 Tiki Barry MBBS [address] [place] [address] PCP - General Internal Medicine 10/07/21 03/29/24 Jenae Thomas MD 132 [place] [address] PCP - General Internal Medicine 03/30/24 Diego Schulz MD [address] [place] [address] PCP - [employer] Medicare Attributed 10/03/23 Ravi Mills MD [address] [address] PCP - Resident - Supervising Attending Internal Medicine 06/05/24 Gifty Huizar, PhD [address] [place] [address] Clinical Psychologist Psychology 10/13/20 Dharmesh Broderick MD 79 [place] [address] Ophthalmology 07/15/23 documented as of this encounter
--- OUTSIDE RECORDS SUMMARY | 2025-01-04 00:41 | XMS_ITS | Encounter Summary ---
Author Organization Formerly [facility] Address [address] [place] [address] Care Team Providers Care Warp Hand Name Role Phone Miguel A Mcclendon MD Primary Care Provider [phone] Dharmesh Armas MD Unavailable +[phone] Gifty Huizar PhD Unavailable [phone] Pcp, No Primary Care Provider Unavailabl Tiki Velasco Primary Care Provider + [phone] Dharmesh Broderick MD Unavailable [phone] Jenae Thomas MD Primary Care Provider + [phone] Diego Schulz MD Unavailable +[phone] Ravi Mills MD Unavailable [phone] Reason for Visit * Reason Onset Date Comments Medication Refill 10/05/2019 Encounter Details Date Type Department Care Team (Late st Contact Info) Description 10/05/2019 Refill [facility] [address] [place] [phone] Stanley Stern, KAYLENE 399 [facility] [address] [place] [phone] Diabetes mellitus type 2 in obese (HCC) [...] uncontrolled documented in this encounter Care Teams Warp Hand Relationship Specialty Start Date End Date Miguel A Mcclendon MD PCP - General Internal Medicine 09/11/18 09/03/21 Dharmesh Armas MD [address] [place] [address] PCP - [place] Medicare Attributed 02/01/20 09/01/21 Pcp, No PCP - General General Medicine 09/04/21 10/06/21 Tiki Barry MBBS [address] [place] [address] PCP - General Internal Medicine 10/07/21 03/29/24 Jenae Thomas MD [address] [place] [address] PCP - General Internal Medicine 03/30/24 Diego Schulz MD 132 [place] [address] PCP - [employer] Medicare Attributed 10/03/23 Ravi Mills MD [address] [address] PCP - Resident - Supervising Attending Internal Medicine 06/05/24 Gifty Huizar, PhD [address] [place] [address] [address] Clinical Psychologist Psychology 10/13/20 Dharmesh Broderick MD [address] [place] [address] Ophthalmology 07/15/23 documented as of this encounter
--- OUTSIDE RECORDS SUMMARY | 2025-01-04 00:41 | XMS_ITS | Encounter Summary ---
Author Organization [facility] Address [address] [place] [address] Care Team Providers Care Valve Repairer Name Role Phone Miguel A Mcclendon MD Primary Care Provider [phone] Dharmesh Armas MD Unavailable [phone] Gifty Huizar PhD Unavailable [phone] Pcp, No Primary Care Provider Unavailabl Tiki Velasco Primary Care Provider + [phone] Dharmesh Broderick MD Unavailable [phone] Jenae Thomas MD Primary Care Provider + [phone] Diego Schulz MD Unavailable +[phone] Ravi Mills MD Unavailable [phone] Reason for Visit * Reason Onset Date Comments Medication Refill 09/23/2019 Encounter Details Date Type Department Care Team (Late st Contact Info) Description 09/23/2019 Refill [facility] [address] [place] [address] Denise Leal MD [address] [place] [address] Body mass index (bmi) 70 or greater, [...] adult documented in this encounter Care Teams Valve Repairer Relationship Specialty Start Date End Date Miguel A Mcclendon MD PCP - General Internal Medicine 09/11/18 09/03/21 Dharmesh Armas MD [address] [place] [address] PCP - [place] Medicare Attributed 02/01/20 09/01/21 Pcp, No PCP - General General Medicine 09/04/21 10/06/21 Tiki Barry MBBS [address] [place] [address] PCP - General Internal Medicine 10/07/21 03/29/24 Jenae Thomas MD [address] [place] [address] PCP - General Internal Medicine 03/30/24 Diego Schulz MD [address] [place] [address] PCP - [employer] Medicare Attributed 10/03/23 Ravi Mills MD [address] [address] PCP - Resident - Supervising Attending Internal Medicine 06/05/24 Gifty Huizar, PhD [address] [address] Clinical Psychologist Psychology 10/13/20 Dharmesh Broderick MD 79 [place] [address] Ophthalmology 07/15/23 documented as of this encounter
--- OUTSIDE RECORDS SUMMARY | 2025-01-04 00:41 | XMS_ITS | Encounter Summary ---
Author Organization [facility] Address [address] [place] [address] Care Team Providers Care Pickers Material Handlers Name Role Phone Miguel A Mcclendon MD Primary Care Provider [phone] Dharmesh Armas MD Unavailable [phone] Gifty Huizar PhD Unavailable [phone] Pcp, No Primary Care Provider Unavailabl Tiki Velasco Primary Care Provider + [phone] Dharmesh Broderick MD Unavailable [phone] Jenae Thomas MD Primary Care Provider + [phone] Diego Schulz MD Unavailable +[phone] Ravi Mills MD Unavailable [phone] Reason for Visit * Reason Onset Date Comments Medication Refill 01/01/2020 Encounter Details Date Type Department Care Team (Late st Contact Info) Description 01/01/2020 [facility]ill [facility] [address] [place] [phone] Stanley Stern, KAYLENE 399 [facility] [address] [place] [phone] Diabetes mellitus type 2 in obese (HCC) [...] uncontrolled documented in this encounter Care Teams Pickers Material Handlers Relationship Specialty Start Date End Date Miguel A Mcclendon MD PCP - General Internal Medicine 09/11/18 09/03/21 Dharmesh Armas MD [address] [place] [address] PCP - [place] Medicare Attributed 02/01/20 09/01/21 Pcp, No PCP - General General Medicine 09/04/21 10/06/21 Tiki Barry MBBS 132 [place] [address] PCP - General Internal Medicine 10/07/21 03/29/24 Jenae Thomas MD 132 [place] [address] PCP - General Internal Medicine 03/30/24 Diego Schulz MD 132 [place] [address] PCP - [employer] Medicare Attributed 10/03/23 Ravi Mills MD [address] [address] PCP - Resident - Supervising Attending Internal Medicine 06/05/24 Gifty Huizar, PhD 200 [place] [address] [address] Clinical Psychologist Psychology 10/13/20 Dharmesh Broderick MD 79 [place] [address] Ophthalmology 07/15/23 documented as of this encounter
--- OUTSIDE RECORDS SUMMARY | 2025-01-04 00:41 | XMS_ITS | Encounter Summary ---
Author Organization [facility] Address [address] [place] [address] Care Team Providers Care Money Room Supervisor Name Role Phone Miguel A Mcclendon MD Primary Care Provider [phone] Dharmesh Armas MD Unavailable [phone] Gifty Huizar PhD Unavailable [phone] Pcp, No Primary Care Provider Unavailabl Tiki Velasco Primary Care Provider + [phone] Dharmesh Broderick MD Unavailable [phone] Jenae Thomas MD Primary Care Provider + [phone] Diego Schulz MD Unavailable [phone] Ravi Mills MD Unavailable [phone] Reason for Visit * Reason Onset Date Comments Medication Refill 12/28/2019 Encounter Details Date Type Department Care Team (Late st Contact Info) Description 12/28/2019 Refill [facility] [address] [place] [address] Denise Leal MD [address] [place] [address] Diabetes mellitus type 2 in obese (HCC); [...] adult documented in this encounter Care Teams Money Room Supervisor Relationship Specialty Start Date End Date Miguel A Mcclendon MD PCP - General Internal Medicine 09/11/18 09/03/21 Dharmesh Armas MD [address] [place] [address] PCP - [place] Medicare Attributed 02/01/20 09/01/21 Pcp, No PCP - General General Medicine 09/04/21 10/06/21 Tiki Barry MBBS [address] [place] [address] PCP - General Internal Medicine 10/07/21 03/29/24 Jenae Thomas MD [address] [place] [address] PCP - General Internal Medicine 03/30/24 Diego Schulz MD 132 [place] [address] PCP - [employer] Medicare Attributed 10/03/23 Ravi Mills MD [address] [address] PCP - Resident - Supervising Attending Internal Medicine 06/05/24 Gifty Huizar, PhD [address] [place] [address] [phone] Clinical Psychologist Psychology 10/13/20 Dharmesh Broderick MD [address] [place] [address] Ophthalmology 07/15/23 documented as of this encounter
--- OUTSIDE RECORDS SUMMARY | 2025-01-04 00:41 | XMS_ITS | Encounter Summary ---
Author Organization [facility] Address [address] [place] [address] Care Team Providers Care Pulpit Operator Name Role Phone Miguel A Mcclendon MD Primary Care Provider [phone] Dharmesh Armas MD Unavailable [phone] Gifty Huizar PhD Unavailable [phone] Pcp, No Primary Care Provider Unavailabl Tiki Velasco Primary Care Provider + [phone] Dharmesh Broderick MD Unavailable [phone] Jenae Thomas MD Primary Care Provider + [phone] Diego Schulz MD Unavailable [phone] Ravi Mills MD Unavailable [phone] Reason for Visit * Reason Onset Date Comments Medication Refill 01/17/2020 Encounter Details Date Type Department Care Team (Late st Contact Info) Description 01/17/2020 Refill [facility] [address] [place] [phone] Stanley Stern, KAYLENE 399 [facility] [address] [place] [phone] Diabetes mellitus type 2 in obese (HCC) [...] Miscellaneous Notes * Telephone Encounter - Dee Frgaa RN - 01/18/2020 8:09 AM EDT Last seen 02/02/2019. Refill at next visit per provider documented in this encounter Plan of Treatment Not on file documented as of this encounter Visit Diagnoses Diagnosis Diabetes mellitus type 2 in obese Type II or unspecified type diabetes mellitus without mention of complication, not stated as uncontrolled documented in this encounter Care Teams Pulpit Operator Relationship Specialty Start Date End Date Miguel A Mcclendon MD PCP - General Internal Medicine 09/11/18 09/03/21 Dharmesh Armas MD [address] [place] [address] PCP - [place] Medicare Attributed 02/01/20 09/01/21 Pcp, No PCP - General General Medicine 09/04/21 10/06/21 Tiki Barry MBBS 132 [place] [address] PCP - General Internal Medicine 10/07/21 03/29/24 Jenae Thomas MD 132 [place] [address] PCP - General Internal Medicine 03/30/24 Diego Schulz MD 132 [place] [address] PCP - [employer] Medicare Attributed 10/03/23 Ravi Mills MD [address] [address] PCP - Resident - Supervising Attending Internal Medicine 06/05/24 Gifty Huizar, PhD [address] [place] [address] [address] Clinical Psychologist Psychology 10/13/20 Dharmesh Broderick MD 79 [place] [address] Ophthalmology 07/15/23 documented as of this encounter
--- OUTSIDE RECORDS SUMMARY | 2025-01-04 00:41 | XMS_ITS | Encounter Summary ---
Author Organization [facility] Address [address] [place] [address] Care Team Providers Care Sports Broadcasting Internship Name Role Phone Miguel A Mcclendon MD Primary Care Provider [phone] Dharmesh Armas MD Unavailable [phone] Gifty Huizar PhD Unavailable [phone] Pcp, No Primary Care Provider Unavailabl Tiki Velasco Primary Care Provider + [phone] Dharmesh Broderick MD Unavailable [phone] Jenae Thomas MD Primary Care Provider + [phone] Diego Schulz MD Unavailable [phone] Ravi Mills MD Unavailable [phone] Reason for Visit * Reason Onset Date Comments Medication Refill 01/19/2020 Encounter Details Date Type Department Care Team (Late st Contact Info) Description 01/19/2020 Refill [facility] [address] [place] [phone] Stanley Stern, KAYLENE 399 [facility] [address] [place] [phone] Diabetes mellitus type 2 in obese (HCC) [...] uncontrolled documented in this encounter Care Teams Sports Broadcasting Internship Relationship Specialty Start Date End Date Miguel A Mcclendon MD PCP - General Internal Medicine 09/11/18 09/03/21 Dharmesh Armas MD [address] [place] [address] PCP - [place] Medicare Attributed 02/01/20 09/01/21 Pcp, No PCP - General General Medicine 09/04/21 10/06/21 Tiki Barry MBBS 132 [place] [address] PCP - General Internal Medicine 10/07/21 03/29/24 Jenae Thomas MD 132 [place] [address] PCP - General Internal Medicine 03/30/24 Diego Schulz MD 132 [place] [address] PCP - [employer] Medicare Attributed 10/03/23 Ravi Mills MD [address] [address] PCP - Resident - Supervising Attending Internal Medicine 06/05/24 Gifty Huizar, PhD 200 [place] [address] [address] Clinical Psychologist Psychology 10/13/20 Dharmesh Broderick MD 79 [place] [address] Ophthalmology 07/15/23 documented as of this encounter
--- OUTSIDE RECORDS SUMMARY | 2025-01-04 00:41 | XMS_ITS | Encounter Summary ---
Author Organization [facility] Address [address] [place] [address] Care Team Providers Care Senior Manager Mmcoe Name Role Phone Miguel A Mcclendon MD Primary Care Provider [phone] Denise Leal MD Unavailable [phone] Dharmesh Armas MD Unavailable [phone] Gifty Huizar PhD Unavailable [phone] Pcp, No Primary Care Provider Unavailabl Tiki Velasco Primary Care Provider + [phone] Dharmesh Broderick MD Unavailable [phone] Jenae Thomas MD Primary Care Provider + [phone] Diego Schulz MD Unavailable [phone] Ravi Mills MD Unavailable Encounter Details Date Type Department Care Team (Late st Contact Info) Description 10/05/2018 Scanned Document [facility] Bariatric Surgery [address] [place] [address] Michele Carr MD [address] [place] [address] Social History Tobacco Use Types Packs/Day Years [...] filedocumented in this encounter Care Teams Senior Manager Mmcoe Relationship Specialty Start Date End Date Miguel A Mcclendon MD PCP - General Internal Medicine 09/11/18 09/03/21 Denise Leal MD [address] [place], [place] [phone] PCP - [place] Attributed 04/02/19 07/02/19 Dharmesh Armas MD [address] [place] [address] PCP - [place] Medicare Attributed 02/01/20 09/01/21 Pcp, No PCP - General General Medicine 09/04/21 10/06/21 Tiki Barry MBBS [address] [place] [address] PCP - General Internal Medicine 10/07/21 03/29/24 Jenae Thomas MD [address] [place] [address] PCP - General Internal Medicine 03/30/24 Diego Schulz MD [address] [place] [address] PCP - [employer] Medicare Attributed 10/03/23 Ravi Mills MD [address] [address] PCP - Resident - Supervising Attending Internal Medicine 06/05/24 Gifty Huizar, PhD [address] [place] [address] Clinical Psychologist Psychology 10/13/20 Dharmesh Broderick MD [address] [place] [address] Ophthalmology 07/15/23 documented as of this encounter
--- OUTSIDE RECORDS SUMMARY | 2025-01-04 00:41 | XMS_ITS | Encounter Summary ---
Author Organization [facility] Address [address] [place] [address] Care Team Providers Care Envelope Fold Operator Name Role Phone Miguel A Mcclendon MD Primary Care Provider [phone] Dharmesh Armas MD Unavailable [phone] Gifty Huizar PhD Unavailable [phone] Pcp, No Primary Care Provider Unavailabl Tiki Velasco Primary Care Provider + [phone] Dharmesh Broderick MD Unavailable Jenae Thomas MD Primary Care Provider + [phone] Diego Schulz MD Unavailable [phone] Ravi Mills MD Unavailable [phone] Reason for Visit * Reason Onset Date Comments Medication Refill 01/17/2020 Encounter Details Date Type Department Care Team (Late st Contact Info) Description 01/17/2020 Refill [facility] [address] [place] [address] Denise Leal MD [address] [place] [address] Body mass index (bmi) 70 or greater, [...] adult documented in this encounter Care Teams Envelope Fold Operator Relationship Specialty Start Date End Date Miguel A Mcclendon MD PCP - General Internal Medicine 09/11/18 09/03/21 Dharmesh Armas MD [address] [place] [address] PCP - [place] Medicare Attributed 02/01/20 09/01/21 Pcp, No PCP - General General Medicine 09/04/21 10/06/21 Tiki Barry MBBS 132 [place] [address] PCP - General Internal Medicine 10/07/21 03/29/24 Jenae Thomas MD 132 [place] [address] PCP - General Internal Medicine 03/30/24 Diego Schulz MD 132 [place] [address] PCP - [employer] Medicare Attributed 10/03/23 Ravi Mills MD [address] [address] PCP - Resident - Supervising Attending Internal Medicine 06/05/24 Gifty Huizar, PhD 200 [place] [address] [address] Clinical Psychologist Psychology 10/13/20 Dharmesh Broderick MD 79 [place] [address] Ophthalmology 07/15/23 documented as of this encounter
--- OUTSIDE RECORDS SUMMARY | 2025-01-04 00:41 | XMS_ITS | Encounter Summary ---
Author Organization [facility] Address [address] [place] [address] Care Team Providers Care Per Diem Nurse Name Role Phone Miguel A Mcclendon MD Primary Care Provider [phone] Dharmesh Armas MD Unavailable [phone] Gifty Huizar PhD Unavailable [phone] Pcp, No Primary Care Provider Unavailabl Tiki Velasco Primary Care Provider + [phone] Dharmesh Broderick MD Unavailable [phone] Jenae Thomas MD Primary Care Provider + [phone] Diego Schulz MD Unavailable [phone] Ravi Mills MD Unavailable [phone] Reason for Visit * Reason Onset Date Comments Medication Refill 01/19/2020 Encounter Details Date Type Department Care Team (Late st Contact Info) Description 01/19/2020 Refill [facility] [address] [place] [address] Denise Leal MD [address] [place] [address] Diabetes mellitus type 2 in obese (HCC); [...] adult documented in this encounter Care Teams Per Diem Nurse Relationship Specialty Start Date End Date Miguel A Mcclendon MD PCP - General Internal Medicine 09/11/18 09/03/21 Dharmesh Armas MD [address] [place] [address] PCP - [place] Medicare Attributed 02/01/20 09/01/21 Pcp, No PCP - General General Medicine 09/04/21 10/06/21 Tiki Barry MBBS [address] [place] [address] PCP - General Internal Medicine 10/07/21 03/29/24 Jenae Thomas MD [address] [place] [address] PCP - General Internal Medicine 03/30/24 Diego Schulz MD 132 [place] [address] PCP - [employer] Medicare Attributed 10/03/23 Ravi Mills MD [address] [address] PCP - Resident - Supervising Attending Internal Medicine 06/05/24 Gifty Huizar, PhD [address] [place] [address] [phone] Clinical Psychologist Psychology 10/13/20 Dharmesh Broderick MD [address] [place] [address] Ophthalmology 07/15/23 documented as of this encounter
--- OUTSIDE RECORDS SUMMARY | 2025-01-04 00:41 | XMS_ITS | Encounter Summary ---
Author Organization [facility] Address [address] [place] [address] Care Team Providers Care Web Operations Lead Name Role Phone Miguel A Mcclendon MD Primary Care Provider [phone] Dharmesh Armas MD Unavailable [phone] Gifty Huizar PhD Unavailable [phone] Pcp, No Primary Care Provider Unavailabl Tiki Velasco Primary Care Provider + [phone] Dharmesh Broderick MD Unavailable [phone] Jenae Thomas MD Primary Care Provider + [phone] Diego Schulz MD Unavailable [phone] Ravi Mills MD Unavailable [phone] Reason for Visit * Reason Onset Date Comments Medication Refill 12/23/2019 Encounter Details Date Type Department Care Team (Late st Contact Info) Description 12/23/2019 Refill [facility] [address] [place] [address] Denise Leal MD [address] [place] [address] Diabetes mellitus type 2 in obese (HCC); [...] adult documented in this encounter Care Teams Web Operations Lead Relationship Specialty Start Date End Date Miguel A Mcclendon MD PCP - General Internal Medicine 09/11/18 09/03/21 Dharmesh Armas MD [address] [place] [address] PCP - [place] Medicare Attributed 02/01/20 09/01/21 Pcp, No PCP - General General Medicine 09/04/21 10/06/21 Tiki Barry MBBS [address] [place] [address] PCP - General Internal Medicine 10/07/21 03/29/24 Jenae Thomas MD [address] [place] [address] PCP - General Internal Medicine 03/30/24 Diego Schulz MD 132 [place] [address] PCP - [employer] Medicare Attributed 10/03/23 Ravi Mills MD [address] [address] PCP - Resident - Supervising Attending Internal Medicine 06/05/24 Gifty Huizar, PhD [address] [place] [address] [phone] Clinical Psychologist Psychology 10/13/20 Dharmesh Broderick MD [address] [place] [address] Ophthalmology 07/15/23 documented as of this encounter
[2025-01-04 00:42] LABS: Troponin-I High Sensitivity < 2.7 ng/L (<3.5-17.0)
--- OUTSIDE RECORDS SUMMARY | 2025-01-04 00:42 | XMS_ITS | Encounter Summary ---
Author Organization [facility] Address [address] [place] [address] Care Team Providers Care Retouching Operator Name Role Phone Miguel A Mcclendon MD Primary Care Provider [phone] Dharmesh Armas MD Unavailable +[phone] Gifty Huizar PhD Unavailable [phone] Pcp, No Primary Care Provider Unavailabl Tiki Velasco Primary Care Provider + [phone] Dharmesh Broderick MD Unavailable [phone] Jenae Thomas MD Primary Care Provider + [phone] Diego Schulz MD Unavailable [phone] Ravi Mills MD Unavailable [phone] Reason for Visit * Reason Onset Date Comments Medication Refill 08/14/2019 Encounter Details Date Type Department Care Team (Late st Contact Info) Description 08/14/2019 Refill [facility] [address] [place] [phone] Stanley Stern, KAYLENE 399 [facility] [address] [place] [id number] Diabetes mellitus type 2 in obese (HCC) [...] uncontrolled documented in this encounter Care Teams Retouching Operator Relationship Specialty Start Date End Date Miguel A Mcclendon MD PCP - General Internal Medicine 09/11/18 09/03/21 Dharmesh Armas MD [address] [place] [address] PCP - [place] Medicare Attributed 02/01/20 09/01/21 Pcp, No PCP - General General Medicine 09/04/21 10/06/21 Tiki Barry MBBS [address] [place] [address] PCP - General Internal Medicine 10/07/21 03/29/24 Jenae Thomas MD 132 [place] [address] PCP - General Internal Medicine 03/30/24 Diego Schulz MD 132 [place] [address] PCP - [employer] Medicare Attributed 10/03/23 Ravi Mills MD [address] [address] PCP - Resident - Supervising Attending Internal Medicine 06/05/24 Gifty Huizar, PhD [address] [address] [address] Clinical Psychologist Psychology 10/13/20 Dharmesh Broderick MD [address] [place] [address] Ophthalmology 07/15/23 documented as of this encounter
--- OUTSIDE RECORDS SUMMARY | 2025-01-04 00:42 | XMS_ITS | Encounter Summary ---
Author Organization [facility] Address [address] [place] [address] Care Team Providers Care Tool And Die Machinist Name Role Phone Miguel A Mcclendon MD Primary Care Provider [phone] Denise Leal MD Unavailable [phone] Dharmesh Armas MD Unavailable [phone] Gifty Huizar PhD Unavailable [phone] Pcp, No Primary Care Provider Unavailabl Tiki Velasco Primary Care Provider + [phone] Dharmesh Broderick MD Unavailable [phone] Jenae Thomas MD Primary Care Provider + [phone] Diego Schulz MD Unavailable [phone] Ravi Mills MD Unavailable [phone] Reason for Visit * Reason Onset Date Comments Medication Refill 01/27/2019 Encounter Details Date Type Department Care Team (Late st Contact Info) Description 01/27/2019 Refill [facility] [address] [place] [address] Stanley Stern, KAYLENE 399 [facility] 200 [place] [address] Diabetes mellitus type 2 in obese (HCC) [...] uncontrolled documented in this encounter Care Teams Tool And Die Machinist Relationship Specialty Start Date End Date Miguel A Mcclendon MD PCP - General Internal Medicine 09/11/18 09/03/21 Denise Leal MD [address] [place] [address] PCP - MSSP Attributed 04/02/19 07/02/19 Dharmesh Armas MD [address] [place], [place] [id number] PCP - [place] Medicare Attributed 02/01/20 09/01/21 Pcp, No PCP - General General Medicine 09/04/21 10/06/21 Tiki aBrry MBBS 132 [place] [address] PCP - General Internal Medicine 10/07/21 03/29/24 Jenae Thomas MD 132 [place] [address] PCP - General Internal Medicine 03/30/24 Diego Schulz MD 132 [place] [address] PCP - [employer] Medicare Attributed 10/03/23 Ravi Mills MD [address] [address] PCP - Resident - Supervising Attending Internal Medicine 06/05/24 Gifty Huizar, PhD [address] [place] [address] [address] Clinical Psychologist Psychology 10/13/20 Dharmesh Broderick MD [address] [place] [address] Ophthalmology 07/15/23 documented as of this encounter
--- OUTSIDE RECORDS SUMMARY | 2025-01-04 00:42 | XMS_ITS | Encounter Summary ---
Author Organization [facility] Address [address] [place] [address] Care Team Providers Care Concrete Pump Operator Name Role Phone Gifty Huizar PhD Unavailable [phone] Tiki Barry Primary Care Provider + [phone] Dharmesh Broderick MD Unavailable [phone] Jenae Thomas MD Primary Care Provider + [phone] Diego Schulz MD Unavailable [phone] Ravi Mills MD Unavailable [phone] Reason for Visit * Reason Onset Date Comments Medication Refill 02/02/2023 Encounter Details Date Type Department Care Team (Late st Contact Info) Description 02/02/2023 Refill [facility] Medical Weight Loss [address] 201 [place] [address] Andrew Martínez MD [address] [place] [address] [address] [place] [address] Class 3 severe obesity due to excess [...] documented in this encounter Care Teams Concrete Pump Operator Relationship Specialty Start Date End Date Tiki Barry MBBS [address] [place] [address] PCP - General Internal Medicine 10/07/21 03/29/24 Jenae Thomas MD [address] [place] [address] PCP - General Internal Medicine 03/30/24 Diego Schulz MD [address] [place] [address] PCP - [employer] Medicare Attributed 10/03/23 Ravi Mills MD [address] [place] [address] PCP - Resident - Supervising Attending Internal Medicine 06/05/24 Gifty Huizar, PhD [address] [place] [address] [address] Clinical Psychologist Psychology 10/13/20 Dharmesh Broderick MD [address] [place] [address] Ophthalmology 07/15/23 documented as of this encounter
--- OUTSIDE RECORDS SUMMARY | 2025-01-04 00:42 | XMS_ITS | Encounter Summary ---
Author Organization [facility] Address [address] [place] [address] Care Team Providers Care Human Resources Admin Name Role Phone Gifty Huizar PhD Unavailable [phone] Tiki Barry Primary Care Provider + [phone] Dharmesh Broderick MD Unavailable [phone] Jenae Thomas MD Primary Care Provider + 72-0200 Diego Schulz MD Unavailable [phone] Ravi Mills MD Unavailable [phone] Encounter Details Date Type Department Care Team (Late st Contact Info) Description 02/09/2022 Telephone [facility] Medical Oncology in [place] [address] [place] [phone] Warner Chowdhury, [address] [facility] [address] [place] [address] Social History Tobacco Use Types Packs/Day Years [...] on filedocumented in this encounter Care Teams Human Resources Admin Relationship Specialty Start Date End Date Tiki Barry MBBS [address] [place] [address] PCP - General Internal Medicine 10/07/21 03/29/24 Jenae Thomas MD [address] [place] [address] PCP - General Internal Medicine 03/30/24 Diego Schulz MD [address] [place] [address] PCP - [employer] Medicare Attributed 10/03/23 Ravi Mills MD [address] [address] PCP - Resident - Supervising Attending Internal Medicine 06/05/24 Gifty Huizar, PhD [address] [place] [address] [address] Clinical Psychologist Psychology 10/13/20 Dharmesh Broderick MD [address] [place] [address] Ophthalmology 07/15/23 documented as of this encounter
--- OUTSIDE RECORDS SUMMARY | 2025-01-04 00:42 | XMS_ITS | Encounter Summary ---
Author Organization [facility] Address [address] [place] [address] Care Team Providers Care Supervisor Electronics Assembly Name Role Phone Gifty Huizar PhD Unavailable [phone] Tiki Barry Primary Care Provider + [phone] Dharmesh Broderick MD Unavailable [phone] Jenae Thomas MD Primary Care Provider + [phone] Diego Schulz MD Unavailable [phone] Ravi Mills MD Unavailable Reason for Visit * Reason Onset Date Comments Medication Refill 02/06/2022 Encounter Details Date Type Department Care Team (Late st Contact Info) Description 02/06/2022 Refill [facility] [address] [address] Paulette Webb ProviderMD [address] [place] [address] Candidiasis; Morbid obesity with BMI of [...] (HCC) documented in this encounter Care Teams Supervisor Electronics Assembly Relationship Specialty Start Date End Date Tiki Barry MBBS [address] [place] [address] PCP - General Internal Medicine 10/07/21 03/29/24 Jenae Thomas MD [address] [place] [address] PCP - General Internal Medicine 03/30/24 Diego Schulz MD [address] [place] [address] PCP - [employer] Medicare Attributed 10/03/23 Ravi Mills MD [address] [place] [address] PCP - Resident - Supervising Attending Internal Medicine 06/05/24 Gifty Huizar, PhD [address] [address] Clinical Psychologist Psychology 10/13/20 Dharmesh Broderick MD [address] [place] [address] Ophthalmology 07/15/23 documented as of this encounter
--- OUTSIDE RECORDS SUMMARY | 2025-01-04 00:42 | XMS_ITS | Encounter Summary ---
Author Organization [facility] Address [address] [place] [address] Care Team Providers Care Book Cleaner Name Role Phone Gifty Huizar PhD Unavailable [phone] Tiki Barry Primary Care Provider +[phone] Dharmesh Broderick MD Unavailable [phone] Jenae Thomas MD Primary Care Provider +[phone] Diego Schulz MD Unavailable [phone] Ravi Mills MD Unavailable [phone] Reason for Visit * Reason Onset Date Comments Medication Refill 02/06/2022 Encounter Details Date Type Department Care Team (Late st Contact Info) Description 02/06/2022 Refill [facility] [address] [address] Deshawn Kinsey, DO 132 [place] [address] Acute saddle pulmonary embolism without acute cor [...] (HCC) documented in this encounter Care Teams Book Cleaner Relationship Specialty Start Date End Date Tiki Barry MBBS 132 [place] [address] PCP - General Internal Medicine 10/07/21 03/29/24 Jenae Thomas MD [address] [place] [address] PCP - General Internal Medicine 03/30/24 Diego Schulz MD [address] [place] [address] PCP - [employer] Medicare Attributed 10/03/23 Ravi Mills MD [address] [place] [address] PCP - Resident - Supervising Attending Internal Medicine 06/05/24 Gifty Huizar, PhD [address] [address] Clinical Psychologist Psychology 10/13/20 Dharmesh Broderick MD 79 [place] [address] Ophthalmology 07/15/23 documented as of this encounter
--- OUTSIDE RECORDS SUMMARY | 2025-01-04 00:42 | XMS_ITS | Encounter Summary ---
Author Organization [facility] Address [address] [place] [address] Care Team Providers Care Radiology Technician Name Role Phone Miguel A Mcclendon MD Primary Care Provider [phone] Denise Leal MD Unavailable [phone] Dharmesh Armas MD Unavailable [phone] Gifty Huizar PhD Unavailable [phone] Pcp, No Primary Care Provider Unavailabl Tiki Velasco Primary Care Provider + [phone] Dharmesh Broderick MD Unavailable [phone] Jenae Thomas MD Primary Care Provider + 72-0200 Diego Schulz MD Unavailable [phone] Ravi Mills MD Unavailable [phone] Reason for Visit * Reason Onset Date Comments Medication Refill 06/17/2019 Encounter Details Date Type Department Care Team (Late st Contact Info) Description 06/17/2019 Refill [facility] [address] [place] [address] Denise Leal MD [address] [place] [address] Diabetes mellitus type 2 in obese (HCC) [...] Encounter - Dee Fraga RN - 06/20/2019 11:10 AM EDT [...] uncontrolled documented in this encounter Care Teams Radiology Technician Relationship Specialty Start Date End Date Miguel A Mcclendon MD PCP - General Internal Medicine 09/11/18 09/03/21 Denise Leal MD [address] [place] [address] PCP - MSSP Attributed 04/02/19 07/02/19 Dharmesh Armas MD [address] [place] [address] PCP - [place] Medicare Attributed 02/01/20 09/01/21 Pcp, No PCP - General General Medicine 09/04/21 10/06/21 Tiki Barry MBBS 132 [place] [address] PCP - General Internal Medicine 10/07/21 03/29/24 Jenae Thomas MD [address] [place] [address] PCP - General Internal Medicine 03/30/24 Diego Schulz MD [address] [place] [address] PCP - [employer] Medicare Attributed 10/03/23 Ravi Mills MD [address] [place] [address] PCP - Resident - Supervising Attending Internal Medicine 06/05/24 Gifty Huizar, PhD [address] [address] Clinical Psychologist Psychology 10/13/20 Dharmesh Broderick MD 79 [place] [address] Ophthalmology 07/15/23 documented as of this encounter
--- OUTSIDE RECORDS SUMMARY | 2025-01-04 00:42 | XMS_ITS | Encounter Summary ---
Author Organization [facility] Address [address] [place] [address] Care Team Providers Care Janitor Name Role Phone Gifty Huizar PhD Unavailable [phone] Dharmesh Broderick MD Unavailable [phone] Jenae Thomas MD Primary Care Provider [phone] Diego Schulz MD Unavailable [phone] Ravi Mills MD Unavailable [phone] Reason for Visit * Reason Comments Appointment Encounter Details Date Type Department Care Team ([facility] st Contact Info) Description 05/02/2024 Telephone [facility] [address] [place] [address] Gifty Cabezas MD [address] [place] [phone] Appointment Social History Tobacco Use Types Packs/Day [...] slept in a intermediate (including now)? No 02/28/2023 Sex and Gender [...] on filedocumented in this encounter Care Teams Janitor Relationship Specialty Start Date End Date Jenae Thmoas MD [address] [place] [address] PCP - General Internal Medicine 03/30/24 Diego Schulz MD 132 [place] [address] PCP - [employer] Medicare Attributed 10/03/23 Ravi Mills MD [address] [address] PCP - Resident - Supervising Attending Internal Medicine 06/05/24 Gifty Huizar, PhD [address] [address] Clinical Psychologist Psychology 10/13/20 Dharmesh Broderick MD [address] [place] [address] Ophthalmology 07/15/23 documented as of this encounter
--- OUTSIDE RECORDS SUMMARY | 2025-01-04 00:42 | XMS_ITS | Encounter Summary ---
Author Organization [facility] Address [address] [place] [address] Care Team Providers Care Cnc Lathe Machine Operator Name Role Phone Miguel A Mcclendon MD Primary Care Provider [phone] Dharmesh Armas MD Unavailable [phone] Gifty Huizar PhD Unavailable [phone] Pcp, No Primary Care Provider Unavailabl Tiki Velasco Primary Care Provider + [phone] Dharmesh Broderick MD Unavailable Jenae Thomas MD Primary Care Provider + [phone] Diego Schulz MD Unavailable [phone] Ravi Mills MD Unavailable [phone] Reason for Visit * Reason Comments Medication Refill Encounter Details Date Type Department Care Team (Late st Contact Info) Description 02/08/2020 Refill [facility] [address] [place] [phone] Stanley Stern, KAYLENE 399 [facility] [address] [place] [phone] Diabetes mellitus type 2 in obese (HCC) [...] uncontrolled documented in this encounter Care Teams Cnc Lathe Machine Operator Relationship Specialty Start Date End Date Miguel A Mcclendno MD PCP - General Internal Medicine 09/11/18 09/03/21 Dharmesh Armas MD [address] [place] [address] PCP - [place] Medicare Attributed 02/01/20 09/01/21 Pcp, No PCP - General General Medicine 09/04/21 10/06/21 Tiki Barry MBBS [address] [place] [address] PCP - General Internal Medicine 10/07/21 03/29/24 Jenae Thomas MD [address] [place] [address] PCP - General Internal Medicine 03/30/24 Diego Schulz MD [address] [place] [address] PCP - [employer] Medicare Attributed 10/03/23 Ravi Mills MD [address] [address] PCP - Resident - Supervising Attending Internal Medicine 06/05/24 Gifty Huizar, PhD 200 [place] [address] [address] Clinical Psychologist Psychology 10/13/20 Dharmesh Broderick MD 79 [place] [address] Ophthalmology 07/15/23 documented as of this encounter
--- OUTSIDE RECORDS SUMMARY | 2025-01-04 00:42 | XMS_ITS | Encounter Summary ---
Author Organization [facility] Address [address] [place] [address] Care Team Providers Care Tractor Engine Assembler Name Role Phone Gifty Huizar PhD Unavailable [phone] Tiki Barry Primary Care Provider [phone] Dharmesh Broderick MD Unavailable [phone] Jenae Thomas MD Primary Care Provider + [phone] Diego Schulz MD Unavailable [phone] Ravi Mills MD Unavailable [phone] Encounter Details Date Type Department Care Team (Late st Contact Info) Description 03/23/2024 Telephone [facility] 132 [facility] [address] [place] [address] Provider, MD [place] [address] [place] [address] Social History Tobacco Use Types Packs/Day Years [...] place to sleep or slept in a chcf (including now)? No 02/28/2023 Sex and Gender [...] on filedocumented in this encounter Care Teams Tractor Engine Assembler Relationship Specialty Start Date End Date Tiki Barry MBBS [address] [place] [address] PCP - General Internal Medicine 10/07/21 03/29/24 Jenae Thomas MD 132 [place] [address] PCP - General Internal Medicine 03/30/24 Diego Schulz MD 132 [place] [address] PCP - [employer] Medicare Attributed 10/03/23 Ravi Mills MD [address] [address] PCP - Resident - Supervising Attending Internal Medicine 06/05/24 Gifty Huizar, PhD [address] [place] [place] [address] [phone] Clinical Psychologist Psychology 10/13/20 Dharmesh Broderick MD [address] [place] [address] Ophthalmology 07/15/23 documented as of this encounter
--- OUTSIDE RECORDS SUMMARY | 2025-01-04 00:42 | XMS_ITS | Encounter Summary ---
Author Organization [facility] Address [address] [place] [address] Care Team Providers Care Distributing Clerk Name Role Phone Gifty Huizar PhD Unavailable [phone] Tiki Barry Primary Care Provider + [phone] Dharmesh Broderick MD Unavailable [phone] Jenae Thomas MD Primary Care Provider + [phone] Diego Schulz MD Unavailable [phone] Ravi Mills MD Unavailable [phone] Reason for Visit * Reason Onset Date Comments Medication Refill 01/19/2023 Encounter Details Date Type Department Care Team (Late st Contact Info) Description 01/19/2023 Refill [facility] Medical Weight Loss [address] [place] [address] Andrew Martínez MD [address] [place] [address] 203 [place] [address] Class 3 severe obesity due to excess [...] uncontrolled documented in this encounter Care Teams Distributing Clerk Relationship Specialty Start Date End Date Tiki Barry MBBS [address] [place] [address] PCP - General Internal Medicine 10/07/21 03/29/24 Jenae Thomas MD [address] [place] [address] PCP - General Internal Medicine 03/30/24 Diego Schulz MD [address] [place] [address] PCP - [employer] Medicare Attributed 10/03/23 Ravi Mills MD [address] [place] [address] PCP - Resident - Supervising Attending Internal Medicine 06/05/24 Gifty Huizar, PhD [address] [address] Clinical Psychologist Psychology 10/13/20 Dharmesh Broderick MD [address] [place] [address] Ophthalmology 07/15/23 documented as of this encounter
--- OUTSIDE RECORDS SUMMARY | 2025-01-04 00:42 | XMS_ITS | Encounter Summary ---
Author Organization [facility] Address [address] [place] [address] Care Team Providers Care Metal Tube Cutter Name Role Phone Miguel A Mcclendon MD Primary Care Provider [phone] Dharmesh Armas MD Unavailable [phone] Gifty Huizar PhD Unavailable [phone] Pcp, No Primary Care Provider Unavailabl Tiki Velasco Primary Care Provider + [phone] Dharmesh Broderick MD Unavailable [phone] Jenae Thomas MD Primary Care Provider + [phone] Diego Schulz MD Unavailable [phone] Ravi Mills MD Unavailable [phone] Reason for Visit * Reason Onset Date Comments Medication Refill 02/18/2021 Encounter Details Date Type Department Care Team (Late st Contact Info) Description 02/18/2021 Refill [facility] Medical [facility] Medical Weight Loss [place] [address] [place] [address] Stanley Stern APRN 399 [facility] 200 [place] [address] Morbid obesity with BMI of 70 and [...] uncontrolled documented in this encounter Care Teams Metal Tube Cutter Relationship Specialty Start Date End Date Miguel A Mcclendon MD PCP - General Internal Medicine 09/11/18 09/03/21 Dharmesh Armas MD [address] [place] [address] PCP - [place] Medicare Attributed 02/01/20 09/01/21 Pcp, No PCP - General General Medicine 09/04/21 10/06/21 Tiki Barry MBBS [address] [place] [address] PCP - General Internal Medicine 10/07/21 03/29/24 Jenae Thomas MD [address] [place] [address] PCP - General Internal Medicine 03/30/24 Diego Schulz MD 132 [place] [address] PCP - [employer] Medicare Attributed 10/03/23 Ravi Mills MD [address] [address] PCP - Resident - Supervising Attending Internal Medicine 06/05/24 Gifty Huizar, PhD [address] [place] [address] [address] Clinical Psychologist Psychology 10/13/20 Dharmesh Broderick MD 79 [place] [address] Ophthalmology 07/15/23 documented as of this encounter
--- OUTSIDE RECORDS SUMMARY | 2025-01-04 00:42 | XMS_ITS | Encounter Summary ---
Author Organization [facility] Address [address] [place] [address] Care Team Providers Care Security Operations Center Analyst Name Role Phone Gifty Huizar PhD Unavailable [phone] Tiki Barry Primary Care Provider + [phone] Dharmesh Broderick MD Unavailable [phone] Jenae Thomas MD Primary Care Provider + [phone] Diego Schulz MD Unavailable [phone] Ravi Mills MD Unavailable [phone] Reason for Visit * Reason Onset Date Comments Medication Refill 11/29/2022 Encounter Details Date Type Department Care Team (Late st Contact Info) Description 11/29/2022 Refill [facility] [address] [place] [phone] Andrew Martínez MD 455 [facility] 203 [place] [address] Class 3 severe obesity due to excess [...] uncontrolled documented in this encounter Care Teams Security Operations Center Analyst Relationship Specialty Start Date End Date Tiki Barry MBBS [address] [place] [address] PCP - General Internal Medicine 10/07/21 03/29/24 Jenae Thomas MD [address] [place] [address] PCP - General Internal Medicine 03/30/24 Diego Schluz MD [address] [place] [address] PCP - [employer] Medicare Attributed 10/03/23 Ravi Mills MD [address] [place] [address] PCP - Resident - Supervising Attending Internal Medicine 06/05/24 Gifty Huizar, PhD [address] [address] Clinical Psychologist Psychology 10/13/20 Dharmesh Broderick MD [address] [place] [address] Ophthalmology 07/15/23 documented as of this encounter
--- OUTSIDE RECORDS SUMMARY | 2025-01-04 00:42 | XMS_ITS | Encounter Summary ---
Author Organization [facility] Address [address] [place] [address] Care Team Providers Care Food Service Team Member Name Role Phone Gifty Huizar PhD Unavailable [phone] Tiki Barry Primary Care Provider + [phone] Dharmesh Broderick MD Unavailable [phone] Jenae Thomas MD Primary Care Provider + 72-0200 Diego Schulz MD Unavailable [phone] Ravi Mills MD Unavailable [phone] Reason for Visit * Reason Comments Appointment Left msg to call at the Clinic to make appt with Ophtomology Encounter Details Date Type Department Care Team (Late st Contact Info) Description 03/24/2022 Telephone [facility] Specialty Clinics 79 [facility] 5th [place] [address] Alfreda Martinez MA 80 [place] [address] Appointment (Left msg to call [...] on filedocumented in this encounter Care Teams Food Service Team Member Relationship Specialty Start Date End Date Tiki Barry MBBS 132 [place] [address] PCP - General Internal Medicine 10/07/21 03/29/24 Jenae Thomas MD 132 [place] [address] PCP - General Internal Medicine 03/30/24 Diego Schulz MD [address] [place] [address] PCP - [employer] Medicare Attributed 10/03/23 Ravi Mills MD [address] [address] PCP - Resident - Supervising Attending Internal Medicine 06/05/24 Gifty Huizar, PhD [address] [address] Clinical Psychologist Psychology 10/13/20 Dharmesh Broderick MD 79 [place] [address] Ophthalmology 07/15/23 documented as of this encounter
--- OUTSIDE RECORDS SUMMARY | 2025-01-04 00:42 | XMS_ITS | Encounter Summary ---
Author Organization [facility] Address [address] [place] [address] Care Team Providers Care Mechanical Striper Name Role Phone Gifty Huizar PhD Unavailable [phone] Tiki Barry Primary Care Provider +[phone] Dharmesh Broderick MD Unavailable [phone] Jenae Thomas MD Primary Care Provider +[phone] Diego Schulz MD Unavailable [phone] Ravi Mills MD Unavailable [phone] Reason for Visit * Reason Onset Date Comments Medication Refill 01/14/2023 Encounter Details Date Type Department Care Team (Late st Contact Info) Description 01/14/2023 Refill LTAC[facility] [address] [place] [phone] Ivanna Juan MD [address] [place] [address] Uncontrolled type 2 diabetes mellitus with hyperglycemia [...] (HCC) documented in this encounter Care Teams Mechanical Striper Relationship Specialty Start Date End Date Tiki Barry MBBS 132 [place] [address] PCP - General Internal Medicine 10/07/21 03/29/24 Jenae Thomas MD 132 [place] [address] PCP - General Internal Medicine 03/30/24 Diego Schulz MD [address] [place] [address] PCP - [employer] Medicare Attributed 10/03/23 Ravi Mills MD [address] [address] PCP - Resident - Supervising Attending Internal Medicine 06/05/24 Gifty Huizar, PhD 200 [facility] 2nd [place] [address] Clinical Psychologist Psychology 10/13/20 Dharmesh Broderick MD 79 [place] [address] Ophthalmology 07/15/23 documented as of this encounter
--- OUTSIDE RECORDS SUMMARY | 2025-01-04 00:42 | XMS_ITS | Encounter Summary ---
Author Organization [facility] Address [address] [place] [address] Care Team Providers Care Endoscopy Rn Name Role Phone Gifty Huizar PhD Unavailable [phone] Tiki Barry Primary Care Provider + [phone] Dharmesh Broderick MD Unavailable [phone] Jenae Thomas MD Primary Care Provider + [phone] Diego Schulz MD Unavailable [phone] Ravi Mills MD Unavailable [phone] Reason for Visit * Reason Onset Date Comments Medication Refill 05/06/2023 Encounter Details Date Type Department Care Team (Late st Contact Info) Description 05/06/2023 Refill [facility] [address] [place] [address] Andrew Martínez MD 455 [facility] 203 [place] [address] Diabetes mellitus type 2 in obese (HCC) [...] uncontrolled documented in this encounter Care Teams Endoscopy Rn Relationship Specialty Start Date End Date Tiki Barry MBBS 132 [place] [address] PCP - General Internal Medicine 10/07/21 03/29/24 Jenae Thomas MD [address] [place] [address] PCP - General Internal Medicine 03/30/24 Diego Schulz MD [address] [place] [address] PCP - [employer] Medicare Attributed 10/03/23 Ravi Mills MD [address] [place] [address] PCP - Resident - Supervising Attending Internal Medicine 06/05/24 Gifty Huizar, PhD [address] [address] Clinical Psychologist Psychology 10/13/20 Dharmesh Broderick MD 79 [place] [address] Ophthalmology 07/15/23 documented as of this encounter
--- OUTSIDE RECORDS SUMMARY | 2025-01-04 00:42 | XMS_ITS | Encounter Summary ---
Author Organization [facility] Address [address] [place] [address] Care Team Providers Care Baffle Mounter Name Role Phone Gifty Huizar PhD Unavailable [phone] Tiki Barry Primary Care Provider + [phone] Dharmesh Broderick MD Unavailable [phone] Jenae Thomas MD Primary Care Provider +[phone] [phone] Diego Schulz MD Unavailable [phone] Ravi Mills MD Unavailable [phone] Reason for Visit * Reason Onset Date Comments Medication Refill 12/13/2021 Encounter Details Date Type Department Care Team (Late st Contact Info) Description 12/13/2021 Refill [facility] [address] [place] [phone] Ravi Mills MD [address] [place] [address] Acute saddle pulmonary embolism without acute cor [...] (HCC) documented in this encounter Care Teams Baffle Mounter Relationship Specialty Start Date End Date Tiki Barry MBBS 132 [place] [address] PCP - General Internal Medicine 10/07/21 03/29/24 Jenae Thomas MD [address] [place] [address] PCP - General Internal Medicine 03/30/24 Diego Schulz MD [address] [place] [address] PCP - [employer] Medicare Attributed 10/03/23 Ravi Mills MD [address] [place] [address] PCP - Resident - Supervising Attending Internal Medicine 06/05/24 Gifty Huizar, PhD [address] [address] Clinical Psychologist Psychology 10/13/20 Dharmesh Broderick MD 79 [place] [address] Ophthalmology 07/15/23 documented as of this encounter
--- OUTSIDE RECORDS SUMMARY | 2025-01-04 00:42 | XMS_ITS | Encounter Summary ---
Author Organization [facility] Address [address] [place] [address] Care Team Providers Care Assessment Rn Name Role Phone Gifty Huizar PhD Unavailable [phone] Tiki Barry Primary Care Provider + [phone] Dharmesh Brodercik MD Unavailable [phone] Jenae Thomas MD Primary Care Provider + 72-0200 Diego Schulz MD Unavailable [phone] Ravi Mills MD Unavailable [phone] Encounter Details Date Type Department Care Team (Late st Contact Info) Description 02/11/2022 Scanned Document [facility] [address] [place] [address] [place] [phone] Mathew Parekh MD [address] [place] [address] [place] [address] Social History Tobacco Use Types Packs/Day Years [...] on filedocumented in this encounter Care Teams Assessment Rn Relationship Specialty Start Date End Date Tiki Barry MBBS 132 [place] [address] PCP - General Internal Medicine 10/07/21 03/29/24 Jenae Thomas MD 132 [place] [address] PCP - General Internal Medicine 03/30/24 Diego Schulz MD [address] [place] [address] PCP - [employer] Medicare Attributed 10/03/23 Ravi Mills MD [address] [address] PCP - Resident - Supervising Attending Internal Medicine 06/05/24 Gifty Huizar, PhD 200 [facility] 2nd [place] [address] Clinical Psychologist Psychology 10/13/20 Dharmesh Broderick MD 79 [place] [address] Ophthalmology 07/15/23 documented as of this encounter
--- OUTSIDE RECORDS SUMMARY | 2025-01-04 00:42 | XMS_ITS | Encounter Summary ---
Author Organization [facility] Address [address] [place] [address] Care Team Providers Care Certified Nurse Aide Name Role Phone Gifty Huizar PhD Unavailable [phone] Tiki Barry Primary Care Provider + [phone] Dharmesh Broderick MD Unavailable [phone] Jenae Thomas MD Primary Care Provider + [phone] Diego Schulz MD Unavailable [phone] Ravi Mills MD Unavailable [phone] Reason for Visit * Reason Comments Medication Refill Encounter Details Date Type Department Care Team (Late st Contact Info) Description 03/11/2023 Refill [facility] [address] [place] [address] [place] [phone] Mathew Parekh MD [address] [place] [address] [place] [address] Upper abdominal pain; Bilious vomiting with nausea; [...] place to sleep or slept in a half-way (including now)? No 02/28/2023 Sex and Gender [...] type documented in this encounter Care Teams Certified Nurse Aide Relationship Specialty Start Date End Date Tiki Barry MBBS [address] [place] [address] PCP - General Internal Medicine 10/07/21 03/29/24 Jenae Thomas MD 132 [place] [address] PCP - General Internal Medicine 03/30/24 Diego Schulz MD 132 [place] [address] PCP - [employer] Medicare Attributed 10/03/23 Ravi Mills MD [address] [address] PCP - Resident - Supervising Attending Internal Medicine 06/05/24 Gifty Huizar, PhD 200 [facility] [place] [facility], [address] [place] [phone] Clinical Psychologist Psychology 10/13/20 Dharmesh Broderick MD 79 [place] [address] Ophthalmology 07/15/23 documented as of this encounter
--- OUTSIDE RECORDS SUMMARY | 2025-01-04 00:42 | XMS_ITS | Encounter Summary ---
Author Organization [facility] Address [address] [place] [address] Care Team Providers Care Shop Coordinator Name Role Phone Miguel A Mcclendon MD Primary Care Provider [phone] Dharmesh Armas MD Unavailable [phone] Gifty Huizar PhD Unavailable [phone] Pcp, No Primary Care Provider Unavailabl Tiki Velasco Primary Care Provider + [phone] Dharmesh Broderick MD Unavailable Jenae Thomas MD Primary Care Provider + [phone] Diego Schulz MD Unavailable [phone] Ravi Mills MD Unavailable [phone] Reason for Visit * Reason Onset Date Comments Medication Refill 01/01/2021 Encounter Details Date Type Department Care Team (Late st Contact Info) Description 01/01/2021 Refill [facility] Medical [facility] [place] [address] [place] [address] Stanley Stern APRN 399 [facility] 200 [place] [address] Morbid obesity with BMI of 70 and [...] uncontrolled documented in this encounter Care Teams Shop Coordinator Relationship Specialty Start Date End Date Miguel A Mcclendon MD PCP - General Internal Medicine 09/11/18 09/03/21 Dharmesh Armas MD [address] [place] [address] PCP - [place] Medicare Attributed 02/01/20 09/01/21 Pcp, No PCP - General General Medicine 09/04/21 10/06/21 Tiki Barry MBBS [address] [place] [address] PCP - General Internal Medicine 10/07/21 03/29/24 Jenae Thomas MD 132 [place] [address] PCP - General Internal Medicine 03/30/24 Diego Schulz MD 132 [place] [address] PCP - A[employer] Medicare Attributed 10/03/23 Ravi Mills MD [address] [place] [address] [address] PCP - Resident - Supervising Attending Internal Medicine 06/05/24 Gifty Huizar, PhD 200 [facility], 2nd [place], [place] [phone] Clinical Psychologist Psychology 10/13/20 Dharmesh Broderick MD [address] [place] [address] Ophthalmology 07/15/23 documented as of this encounter
--- OUTSIDE RECORDS SUMMARY | 2025-01-04 00:42 | XMS_ITS | Encounter Summary ---
Author Organization [facility] Address [address] [place] [address] Care Team Providers Care Dry Box Tender Name Role Phone Miguel A Mcclendon MD Primary Care Provider [phone] Denise Leal MD Unavailable [phone] Dharmesh Armas MD Unavailable [phone] Gifty Huizar PhD Unavailable [phone] Pcp, No Primary Care Provider Unavailabl Tiki Velasco Primary Care Provider + [phone] Dharmesh Broderick MD Unavailable [phone] Jenae Thomas MD Primary Care Provider + [phone] Diego Schulz MD Unavailable [phone] Ravi Mills MD Unavailable [phone] Reason for Visit * Reason Onset Date Comments Medication Refill 11/23/2018 Encounter Details Date Type Department Care Team (Late st Contact Info) Description 11/23/2018 Refill [facility] [address] [place] [address] Stanley Stern, KAYLENE 399 [facility] 200 [place] [address] Diabetes mellitus type 2 in obese (HCC) [...] uncontrolled documented in this encounter Care Teams Dry Box Tender Relationship Specialty Start Date End Date Miguel A Mcclendon MD PCP - General Internal Medicine 09/11/18 09/03/21 Denise Leal MD [address] [place] [address] PCP - MSSP Attributed 04/02/19 07/02/19 Dharmesh Armas MD [address] [place] [address] PCP - [place] Medicare Attributed 02/01/20 09/01/21 Pcp, No PCP - General General Medicine 09/04/21 10/06/21 Tiki Barry MBBS [address] [place] [address] PCP - General Internal Medicine 10/07/21 03/29/24 Jenae Thomas MD 132 [place] [address] PCP - General Internal Medicine 03/30/24 Diego Schulz MD 132 [place] [address] PCP - [employer] Medicare Attributed 10/03/23 Ravi Mills MD [address] [address] PCP - Resident - Supervising Attending Internal Medicine 06/05/24 Gifty Huizar, PhD 200 [place] [facility], [address] [place] [phone] Clinical Psychologist Psychology 10/13/20 Dharmesh Broderick MD 79 [place] [address] Ophthalmology 07/15/23 documented as of this encounter
--- OUTSIDE RECORDS SUMMARY | 2025-01-04 00:42 | XMS_ITS | Encounter Summary ---
Author Organization [facility] Address [address] [place] [address] Care Team Providers Care Director University Name Role Phone Miguel A Mcclendon MD Primary Care Provider [phone] Dharmesh Armas MD Unavailable [phone] Gifty Huizar PhD Unavailable [phone] Pcp, No Primary Care Provider Unavailabl Tiki Velasco Primary Care Provider + [phone] Dharmesh Broderick MD Unavailable [phone] Jenae Thomas MD Primary Care Provider + [phone] Diego Schulz MD Unavailable [phone] Ravi Mills MD Unavailable [phone] Reason for Visit * Reason Onset Date Comments Medication Refill 01/19/2020 Encounter Details Date Type Department Care Team (Late st Contact Info) Description 01/19/2020 Refill [facility] [address] [place] [address] Denise Leal MD [address] [place] [address] Body mass index (bmi) 70 or greater, [...] adult documented in this encounter Care Teams Director University Relationship Specialty Start Date End Date Miguel A Mcclendon MD PCP - General Internal Medicine 09/11/18 09/03/21 Dharmesh Armas MD [address] [place] [address] PCP - [place] Medicare Attributed 02/01/20 09/01/21 Pcp, No PCP - General General Medicine 09/04/21 10/06/21 Tiki Barry MBBS [address] [place] [address] PCP - General Internal Medicine 10/07/21 03/29/24 Jenae Thomas MD [address] [place] [address] PCP - General Internal Medicine 03/30/24 Diego Schulz MD [address] [place] [address] PCP - Aet[employer] Medicare Attributed 10/03/23 Ravi Mills MD [address] [address] PCP - Resident - Supervising Attending Internal Medicine 06/05/24 Gifty Huizar, PhD [address] [place] [address] [address] Clinical Psychologist Psychology 10/13/20 Dharmesh Broderick MD 79 [place] [address] Ophthalmology 07/15/23 documented as of this encounter
--- OUTSIDE RECORDS SUMMARY | 2025-01-04 00:42 | XMS_ITS | Encounter Summary ---
Author Organization [facility] Address [address] [place] [address] Care Team Providers Care Social Service Liaison Name Role Phone Miguel A Mcclendon MD Primary Care Provider [phone] Denise Leal MD Unavailable [phone] Dharmesh Armas MD Unavailable [phone] Gifty Huizar PhD Unavailable [phone] Pcp, No Primary Care Provider Unavailabl Tiki Velasco Primary Care Provider + [phone] Dharmesh Broderick MD Unavailable [phone] Jenae Thomas MD Primary Care Provider + [phone] Diego Schulz MD Unavailable [phone] Ravi Mills MD Unavailable [phone] Reason for Visit * Reason Onset Date Comments Medication Refill 01/29/2019 Encounter Details Date Type Department Care Team (Late st Contact Info) Description 01/29/2019 Refill [facility] [address] [place] [address] Stanley Stern, KAYLENE 399 [facility] 200 [place] [address] Diabetes mellitus type 2 in obese (HCC) [...] uncontrolled documented in this encounter Care Teams Social Service Liaison Relationship Specialty Start Date End Date Miguel A Mcclendon MD PCP - General Internal Medicine 09/11/18 09/03/21 Denise Leal MD [address] [place] [address] PCP - MSSP Attributed 04/02/19 07/02/19 Dharmesh Armas MD [address] [place], [place] [phone] PCP - [place] Medicare Attributed 02/01/20 09/01/21 Pcp, No PCP - General General Medicine 09/04/21 10/06/21 Tiki Barry MBBS 132 [place] [address] PCP - General Internal Medicine 10/07/21 03/29/24 Jenae Thomas MD 132 [place] [address] PCP - General Internal Medicine 03/30/24 Diego Schulz MD 132 [place] [address] PCP - A[employer]na Medicare Attributed 10/03/23 Ravi Mills MD [address] [address] PCP - Resident - Supervising Attending Internal Medicine 06/05/24 Gifty Huizar, PhD [address] [place] [address] [address] Clinical Psychologist Psychology 10/13/20 Dharmesh Broderick MD 79 [place] [address] Ophthalmology 07/15/23 documented as of this encounter
--- OUTSIDE RECORDS SUMMARY | 2025-01-04 00:42 | XMS_ITS | Encounter Summary ---
Author Organization [facility] Address [address] [place] [address] Care Team Providers Care Sales Operations Analyst Name Role Phone Miguel A Mcclendon MD Primary Care Provider [phone] Dharmesh Armas MD Unavailable [phone] Gifty Huizar PhD Unavailable [phone] Pcp, No Primary Care Provider Unavailabl Tiki Velasco Primary Care Provider + [phone] Dharmesh Broderick MD Unavailable [phone] Jenae Thomas MD Primary Care Provider + [phone] Diego Schulz MD Unavailable [phone] Ravi Mills MD Unavailable [phone] Reason for Visit * Reason Onset Date Comments Medication Refill 08/24/2019 Encounter Details Date Type Department Care Team (Late st Contact Info) Description 08/24/2019 Refill [facility] [address] [place] [address] Denise Leal MD [address] [place] [address] Body mass index (bmi) 70 or greater, [...] documented in this encounter Care Teams Sales Operations Analyst Relationship Specialty Start Date End Date Miguel A Mcclendon MD PCP - General Internal Medicine 09/11/18 09/03/21 Dharmesh Armas MD [address] [place] [address] PCP - [place] Medicare Attributed 02/01/20 09/01/21 Pcp, No PCP - General General Medicine 09/04/21 10/06/21 Tiki Barry MBBS 132 [place] [address] PCP - General Internal Medicine 10/07/21 03/29/24 Jenae Thomas MD [address] [place] [address] PCP - General Internal Medicine 03/30/24 Diego Schulz MD [address] [place] [address] PCP - [employer] Medicare Attributed 10/03/23 Ravi Mills MD [address] [address] PCP - Resident - Supervising Attending Internal Medicine 06/05/24 Gifty Huizar, PhD [address] [address] Clinical Psychologist Psychology 10/13/20 Dharmesh Broderick MD 79 [place] [address] Ophthalmology 07/15/23 documented as of this encounter
--- OUTSIDE RECORDS SUMMARY | 2025-01-04 00:42 | XMS_ITS | Encounter Summary ---
Author Organization [facility] Address [address] [place] [address] Care Team Providers Care Gasket Supervisor Name Role Phone Gifty Huizar PhD Unavailable [phone] Tiki Barry Primary Care Provider [phone] Dharmesh Broderick MD Unavailable [phone] Jenae Thomas MD Primary Care Provider +[phone] Diego Schulz MD Unavailable [phone] Ravi Mills MD Unavailable Reason for Visit * Reason Onset Date Comments Medication Refill 02/02/2023 Encounter Details Date Type Department Care Team (Late st Contact Info) Description 02/02/2023 Refill [facility] [address] [place] [phone] Ivanna Juan MD [address] [place] [address] Uncontrolled type 2 diabetes mellitus with hyperglycemia [...] (HCC) documented in this encounter Care Teams Gasket Supervisor Relationship Specialty Start Date End Date Tiki Barry MBBS 132 [place] [address] PCP - General Internal Medicine 10/07/21 03/29/24 Jenae Thomas MD 132 [place] [address] PCP - General Internal Medicine 03/30/24 Diego Schulz MD [address] [place] [address] PCP - [employer] Medicare Attributed 10/03/23 Ravi Mills MD [address] [address] PCP - Resident - Supervising Attending Internal Medicine 06/05/24 Gifty Huizar, PhD 200 [facility] [address] [place] [address] Clinical Psychologist Psychology 10/13/20 Dharmesh Broderick MD 79 [place] [address] Ophthalmology 07/15/23 documented as of this encounter
--- OUTSIDE RECORDS SUMMARY | 2025-01-04 00:42 | XMS_ITS | Encounter Summary ---
Author Organization [facility] Address [address] [place] [address] Care Team Providers Care Cross Cut Saw Operator Name Role Phone Gifty Huizar PhD Unavailable [phone] Tiki Baryr Primary Care Provider + [phone] Dharmesh Broderick MD Unavailable [phone] Jenae Thomas MD Primary Care Provider + [phone] Diego Schulz MD Unavailable [phone] Ravi Mills MD Unavailable Reason for Visit * Reason Onset Date Comments Medication Refill 04/13/2023 Encounter Details Date Type Department Care Team (Late st Contact Info) Description 04/13/2023 Refill [facility] [address] 200 [place] [address] Andrew Martínez MD 455 [facility] 203 [place] [address] Diabetes mellitus type 2 in obese (HCC) [...] slept in a fpc (including now)? No 02/28/2023 Sex and Gender [...] uncontrolled documented in this encounter Care Teams Cross Cut Saw Operator Relationship Specialty Start Date End Date Tiki Barry MBBS 132 [place] [address] PCP - General Internal Medicine 10/07/21 03/29/24 Jenae Thomas MD [address] [place] [address] PCP - General Internal Medicine 03/30/24 Diego Schulz MD [address] [place] [address] PCP - [employer] Medicare Attributed 10/03/23 Ravi Mills MD [address] [place] [address] PCP - Resident - Supervising Attending Internal Medicine 06/05/24 Gifty Huizar, PhD [address] [address] Clinical Psychologist Psychology 10/13/20 Dharmesh Broderick MD 79 [place] [address] Ophthalmology 07/15/23 documented as of this encounter
--- OUTSIDE RECORDS SUMMARY | 2025-01-04 00:42 | XMS_ITS | Encounter Summary ---
Author Organization [facility] Address [address] [place] [address] Care Team Providers Care Computer Hardware Technician Name Role Phone Miguel A Mcclendon MD Primary Care Provider [phone] Dharmesh Armas MD Unavailable [phone] Gifty Huizar PhD Unavailable [phone] Pcp, No Primary Care Provider Unavailabl Tiki Velasco Primary Care Provider + [phone] Dharmesh Broderick MD Unavailable [phone] Jenae Thomas MD Primary Care Provider + [phone] Diego Schulz MD Unavailable [phone] Ravi Mills MD Unavailable [phone] Reason for Visit * Reason Onset Date Comments Medication Refill 09/05/2019 Encounter Details Date Type Department Care Team (Late st Contact Info) Description 09/05/2019 Refill [facility] [address] [place] [address] Denise Leal MD [address] [place] [address] Body mass index (bmi) 70 or greater, [...] adult documented in this encounter Care Teams Computer Hardware Technician Relationship Specialty Start Date End Date Miguel A Mcclendon MD PCP - General Internal Medicine 09/11/18 09/03/21 Dharmesh Armas MD [address] [place] [address] PCP - [place] Medicare Attributed 02/01/20 09/01/21 Pcp, No PCP - General General Medicine 09/04/21 10/06/21 Tiki Barry MBBS [address] [place] [address] PCP - General Internal Medicine 10/07/21 03/29/24 Jenae Thomas MD [address] [place] [address] PCP - General Internal Medicine 03/30/24 Diego Schulz MD [address] [place] [address] PCP - [employer] Medicare Attributed 10/03/23 Ravi Mills MD [address] [address] PCP - Resident - Supervising Attending Internal Medicine 06/05/24 Gifty Huizar, PhD [address] [place] [address] Clinical Psychologist Psychology 10/13/20 Dharmesh Broderick MD [address] [place] [address] Ophthalmology 07/15/23 documented as of this encounter
--- OUTSIDE RECORDS SUMMARY | 2025-01-04 00:42 | XMS_ITS | Encounter Summary ---
Author Organization [facility] Address [address] [place] [address] Care Team Providers Care Lead Manufacturing Technician Name Role Phone Miguel A Mcclendon MD Primary Care Provider [phone] Dharmesh Armas MD Unavailable [phone] Gifty Huizar PhD Unavailable [phone] Pcp, No Primary Care Provider Unavailabl Tiki Velasco Primary Care Provider + [phone] Dharmesh Broderick MD Unavailable [phone] Jenae Thomas MD Primary Care Provider + [phone] Diego Schulz MD Unavailable [phone] Ravi Mills MD Unavailable [phone] Reason for Visit * Reason Onset Date Comments Medication Refill 08/18/2019 Encounter Details Date Type Department Care Team (Late st Contact Info) Description 08/18/2019 Refill [facility] [address] [place] [address] Denise Leal MD [address] [place] [address] Body mass index (bmi) 70 or greater, [...] adult documented in this encounter Care Teams Lead Manufacturing Technician Relationship Specialty Start Date End Date Miguel A Mcclendon MD PCP - General Internal Medicine 09/11/18 09/03/21 Dharmesh Armas MD [address] [place] [address] PCP - [place] Medicare Attributed 02/01/20 09/01/21 Pcp, No PCP - General General Medicine 09/04/21 10/06/21 Tiki Barry MBBS [address] [place] [address] PCP - General Internal Medicine 10/07/21 03/29/24 Jenae Thomas MD [address] [place] [address] PCP - General Internal Medicine 03/30/24 Diego Schulz MD [address] [place] [address] PCP - [employer] Medicare Attributed 10/03/23 Ravi Mills MD [address] [address] PCP - Resident - Supervising Attending Internal Medicine 06/05/24 Gifty Huizar, PhD [address] [address] Clinical Psychologist Psychology 10/13/20 Dharmesh Broderick MD [address] [place] [address] Ophthalmology 07/15/23 documented as of this encounter
--- OUTSIDE RECORDS SUMMARY | 2025-01-04 00:42 | XMS_ITS | Encounter Summary ---
Author Organization [facility] Address [address] [place] [address] Care Team Providers Care Extension Work Director Name Role Phone Miguel A Mcclendon MD Primary Care Provider [phone] Dharmesh Armas MD Unavailable [phone] Gifty Huizar PhD Unavailable [phone] Pcp, No Primary Care Provider Unavailabl Tiki Velasco Primary Care Provider + [phone] Dharmesh Broderick MD Unavailable [phone] Jenae Thomas MD Primary Care Provider + [phone] Diego Schulz MD Unavailable [phone] Ravi Mills MD Unavailable [phone] Reason for Visit * Reason Onset Date Comments Medication Refill 08/21/2019 Encounter Details Date Type Department Care Team (Late st Contact Info) Description 08/21/2019 Refill [facility] [address] [place] [address] Denise Leal MD [address] [place] [address] Body mass index (bmi) 70 or greater, [...] adult documented in this encounter Care Teams Extension Work Director Relationship Specialty Start Date End Date Miguel A Mcclendon MD PCP - General Internal Medicine 09/11/18 09/03/21 Dharmesh Armas MD [address] [place] [address] PCP - [place] Medicare Attributed 02/01/20 09/01/21 Pcp, No PCP - General General Medicine 09/04/21 10/06/21 Tiki Barry MBBS [address] [place] [address] PCP - General Internal Medicine 10/07/21 03/29/24 Jenae Thomas MD [address] [place] [address] PCP - General Internal Medicine 03/30/24 Diego Schulz MD [address] [place] [address] PCP - [employer] Medicare Attributed 10/03/23 Ravi Mills MD [address] [address] PCP - Resident - Supervising Attending Internal Medicine 06/05/24 Gifty Huizar, PhD [address] [place] [address] [address] Clinical Psychologist Psychology 10/13/20 Dharmesh Broderick MD [address] [place] [address] Ophthalmology 07/15/23 documented as of this encounter
--- OUTSIDE RECORDS SUMMARY | 2025-01-04 00:42 | XMS_ITS | Encounter Summary ---
Author Organization [facility] Address [address] [place] [address] Care Team Providers Care Cone Cleaner Name Role Phone Miguel A Mcclendon MD Primary Care Provider [phone] Dharmesh Armas MD Unavailable [phone] Gifty Huizar PhD Unavailable [phone] Pcp, No Primary Care Provider Unavailabl Tiki Velasco Primary Care Provider + [phone] Dharmesh Broderick MD Unavailable [phone] Jenae Thomas MD Primary Care Provider + [phone] Diego Schulz MD Unavailable [phone] Ravi Mills MD Unavailable [phone] Reason for Visit * Reason Comments Medication Refill Encounter Details Date Type Department Care Team (Late st Contact Info) Description 08/14/2019 Refill [facility] [address] [place] [address] Denise Leal MD [address] [place] [address] Body mass index (bmi) 70 or greater, [...] adult documented in this encounter Care Teams Cone Cleaner Relationship Specialty Start Date End Date Miguel A Mcclendon MD PCP - General Internal Medicine 09/11/18 09/03/21 Dharmesh Armas MD [address] [place] [address] PCP - [place] Medicare Attributed 02/01/20 09/01/21 Pcp, No PCP - General General Medicine 09/04/21 10/06/21 Tiki Barry MBBS [address] [place] [address] PCP - General Internal Medicine 10/07/21 03/29/24 Jenae Thomas MD [address] [place] [address] PCP - General Internal Medicine 03/30/24 Diego Schulz MD [address] [place] [address] PCP - [employer] Medicare Attributed 10/03/23 Ravi Mills MD [address] [address] PCP - Resident - Supervising Attending Internal Medicine 06/05/24 Gifty Huizar, PhD [address] [place] [address] [address] Clinical Psychologist Psychology 10/13/20 Dharmesh Broderick MD [address] [place] [address] Ophthalmology 07/15/23 documented as of this encounter
--- OUTSIDE RECORDS SUMMARY | 2025-01-04 00:43 | XMS_ITS | Encounter Summary ---
Author Organization [facility] Address [address] [place] [address] Care Team Providers Care Research Worker Kitchen Name Role Phone Gifty Huziar PhD Unavailable [phone] Dharmesh Broderick MD Unavailable [phone] Jenae Thomas MD Primary Care Provider [phone] Diego Schulz MD Unavailable [phone] Ravi Mills MD Unavailable [phone] Encounter Details Date Type Department Care Team (Late st Contact Info) Description 12/12/2024 Telephone [facility] [address] [place] [phone] Jenae Thomas MD [address] [place] [address] Social History Tobacco Use Types Packs/Day Years Used Date Smoking Tobacco: Former Cigarettes Q uit: 10/2021 Passive Smoke Exposure: Past Smokeless Tobacco: Never Alcohol Use Standard Drinks/Week Comments Not Currently 0 (1 standard drink = 0.6 oz pur e alcohol) [facility] Utilities Answer Date Recorded In the [...] place to sleep or slept in a mcc (including now)? No 07/13/2024 Sex and Gender Information Value Date Recorded Sex Assigned at Female 02/25/2023 1:53 AM EDT Gender Identity Female 02/25/2023 1:53 AM EDT Sexual Orientation Heterosexual (straight) 02/25 1:53 AM EDT documented as of this encounter Miscellaneous Notes * Telephone Encounter - Olga Lidia Nelson RN - 12/31/2024 9:37 AM EDT No answer and VM still full. APC nurse resource conservation manager (Nicole Peter RN) and APC Director (Juliette Vasquez RN) aware if issues contacting patient. * Telephone Encounter - Olga Lidia Nelson RN - 12/28/2024 1:56 PM EDT No answer and VM still full. * Telephone Encounter - Olga Lidia Nelson RN - 12/27/2024 9:50 AM EDT No answer and VM still full. * Telephone Encounter - Olga Lidia Nelson RN - 12/26/2024 11:05 AM EDT No answer and VM still full. * Telephone Encounter - Olga Lidia Nelson RN - 12/24/2024 1:31 PM EDT Per request of Dr. Thomas, called patient to inform her that MD has denied Dexcom refill, as we havebeen unable to reach her. However, no answer and VM full. * Telephone Encounter - Olga Lidia Nelson RN - 12/24/2024 10:34 AM EDT No answer and no VM left. * Telephone Encounter - Olga Lidia Nelson RN - 12/19/2024 11:26 AM EDT No answer and no VM left. * Telephone Encounter - Olga Lidia Nelson RN - 12/18/2024 11:38 AM EDT No answer and no VM left. * Telephone Encounter - Olga Lidia Nelson RN - 12/13/2024 2:27 PM EDT Per request of Nicole Small RN / APC Nurse Borough Coordinator, discussed noncompliance with Dr. Mills, as well as, attempts to make contact with patient. Dr. Mills is requesting APC Borough Coordinator reach out to Risk Management before dismissing patient from practice. Nicole Peter verbalized understanding and agreed to contact Risk Management. * Telephone Encounter - Olga Lidia Nelson RN - 12/13/2024 9:32 AM EDT Another attempt to reach patient and her Mom (3 lines), however, no answer and no option for VM. * Telephone Encounter - Olga Lidia Nelson RN - 12/13/2024 9:30 AM EDT Late Entry: On 12/12/24, called both patient and her Mom, however, no answer on all 3 lines and no option for VM. * Telephone Encounter - Olga Lidia Nelson RN - 12/12/2024 3:48 PM EDT Patient was a No Show for 12/11/24 PCP appt. Has not been seen at [facility] since 09/18/24, for INR and 09/27/24, for CGM. Wellness check by [place] [employer] done on 11/21/24. Neighbors told police that patient moved to [place]. Certified letter sent to [place] address on 11/28/24, requesting patient call [facility].However, no response. This RN to discuss future plan with Dr. Mills and Dr. Thomas. documented in this encounter Plan of Treatment Not on file documented as of this encounter Visit Diagnoses Not on filedocumented in this encounter Care Teams Research Worker Kitchen Relationship Specialty Start Date End Date Jenae Thomas MD [address] [place] [address] PCP - General Internal Medicine 03/30/24 Diego Schulz MD [address] [place] [address] PCP - [employer] Medicare Attributed 10/03/23 Ravi Mills MD [address] [address] PCP - Resident - Supervising Attending Internal Medicine 06/05/24 Gifty Huizar, PhD [address] [place] [facility], [address] [place] [address] Clinical Psychologist Psychology 10/13/20 Dharmesh Broderick MD [address] [place] [address] Ophthalmology 07/15/23 documented as of this encounter
--- OUTSIDE RECORDS SUMMARY | 2025-01-04 00:43 | XMS_ITS | Encounter Summary ---
Author Organization [facility] Address [address] [place] [address] Care Team Providers Care Category Specialist Name Role Phone Gifty Huizar PhD Unavailable [phone] Dharmesh Broderick MD Unavailable [phone] Jenae Thomas MD Primary Care Provider [phone] Diego Schulz MD Unavailable [phone] Ravi Mills MD Unavailable [phone] Reason for Visit * Reason Comments Refills Scrubbing Encounter Details Date Type Department Care Team ([facility] st Contact Info) Description 12/22/2024 Telephone [facility] [address] [place] [phone] Provider, MD [place] [address] [place] [address] Refills Scrubbing Social History Tobacco Use Types Packs/Day Years Used Date Smoking Tobacco: Former Cigarettes Q uit: 10/2021 Passive Smoke Exposure: Past Smokeless Tobacco: Never Alcohol Use Standard Drinks/Week Comments Not Currently 0 (1 standard drink = 0.6 oz pur e alcohol) [facility] Utilities Answer Date Recorded In the past 12 months has [employer] electric, gas, oil, or water company threatened [...] place to sleep or slept in a group home (including now)? No 07/13/2024 Sex and Gender Information Value Date Recorded Sex Assigned at Female 02/25/2023 1:53 AM EDT Gender Identity Female 02/25/2023 1:53 AM EDT Sexual Orientation Heterosexual (straight) 02/25 1:53 AM EDT documented as of this encounter Miscellaneous Notes * Telephone Encounter - An Bazan - 12/24/2024 10:14 AM EDT Refill request for Dexcom G7 sensors sent to [facility] documented in this encounter Plan of Treatment Not on file documented as of this encounter Visit Diagnoses Not on filedocumented in this encounter Care Teams Category Specialist Relationship Specialty Start Date End Date Jenae Thomas MD [address] [place] [address] PCP - General Internal Medicine 03/30/24 Diego Schulz MD [address] [place] [address] PCP - [employer] Medicare Attributed 10/03/23 Ravi Mills MD [address] [place] [address] PCP - Resident - Supervising Attending Internal Medicine 06/05/24 Gifty Huizar, PhD [address] [place] [address] [phone] Clinical Psychologist Psychology 10/13/20 Dharmesh Broderick MD [address] [place] [address] Ophthalmology 07/15/23 documented as of this encounter
--- OUTSIDE RECORDS SUMMARY | 2025-01-04 00:43 | XMS_ITS | Clinical Summary ---
Author Organization Formerly [facility] Address [address] [place] [address] Care Team Providers Care Thread Singer Name Role Phone Gifty Huizar PhD Unavailable [phone] Dharmesh Broderick MD Unavailable [phone] Jenae Thomas MD Primary Care Provider [phone] Diego Schulz MD Unavailable [phone] Ravi Mills MD Unavailable [phone] Allergies Active Allergy Reactions Criticality Noted Date Comments Aspirin Swelling Medium 11/19/2016 Medications Medication Sig Dispensed Refills Start Date End Date Status Lancets Misc. (Accu-Chek FastClix Lancet) KitIndications:Type 2 diabetes mellitus with hyperosmolarity without coma, without long-term current use of insulin ([facility]) USE WITH FASTCLIX LANCETS TO TEST BLOOD SUGAR 3 TIMES A DAY 1 kit 3 Active insulin glargine (LANtus/SEMGLEE SOLOSTAR) 100 units/mL prefilled pen injectionIndication s:Type 2 diabetes mellitus with hyperosmolarity without coma, without long-term current use of insulin ([facility]) Inject 5 Units under the skin daily. 15 mL 1 4 Active glucose blood test stripIndications:Ty pe 2 diabetes mellitus with hyperosmolarity without coma, without long-term current use of insulin ([facility]) OneTouch-Check blood sugars twice daily (once before breakfast and once for symptoms of hypo/hyperglycem ia). Lifetime use. E11.9. 100 test strip 11 4 Active Lancets (C$ cMoneytouch ultrasoft) lancetsIndications: Type 2 diabetes mellitus with hyperosmolarity without coma, without long-term current use of insulin ([facility]) OneTouch-Check blood sugars twice daily (once before breakfast and once for symptoms of hypo/hyperglycem ia). Lifetime use. E11.9 100 lancet(s) 11 4 Active Blood Glucose Monitoring Suppl (OneTouch Verio) w/Device KitIndications:Type 2 diabetes mellitus with hyperosmolarity without coma, without long-term current use of insulin ([facility]) Check blood sugars twice daily. Lifetime use. E11.9 1 kit 4 Active Continuous Glucose Room Maid (Dexcom G7 Room Maid) DeviceIndications:D iabetes mellitus due to underlying condition with hyperosmolarity without coma, without long-term current use of insulin ([facility]) Utilize to measure and track blood sugars, continuous use. Lifetime need. E11.65, Z79.4 1 each 4 Active semaglutide (OZEMPIC) (2 mg/dose) 8 mg/3 mL prefilled pen injectionIndication s:Morbid obesity with BMI of 70 and over, adult ([facility]),Uncontrolled type 2 diabetes mellitus with hyperglycemia ([facility]) Inject 2 mg under the skin once a week. 3 mL 3 4 Active Insulin Pen Needle 32G X 4 MM MiscIndications:Typ e 2 diabetes mellitus with obesity ([facility]) For Ozempic 2mg once a week, Lantus 16 units subcutaneous daily Lifetime use E 11.9, E 66.01 100 pen needle 11 4 Active albuterol (PROVENTIL HFA; VENTOLIN HFA) 108 (90 Base) MCG/ACT inhalerIndications: COVID-19 Inhale 2 puffs 4 times daily (every 6 hours) as needed for wheezing or shortness of breath. 1 each 3 4 Active warfarin (COUMADIN) 5 MG tabletIndications:A cute saddle pulmonary embolism, unspecified whether acute cor pulmonale present ([facility]) Take 1 tablet (5 mg total) by mouth daily at the same time. (total 9 mg) 30 tablet 3 5 Active Alcohol Swabs 70 % PadsIndications:Acu te deep vein thrombosis (DVT) of left lower extremity, unspecified vein (HCC) Use with Lantus 16 units at night, Ozempic one a week, check blood sugars 6 times a day Lifetime use E 11.9 200 Pad(s) 11 5 Active warfarin (COUMADIN) 2 MG tabletIndications:A cute saddle pulmonary embolism without acute cor pulmonale (HCC) TAKE 2 TABLET BY MOUTH DAILY AT THE SAME TIME. TAKE WITH 5MG FOR A TOTAL OF 9 MG TOTAL. 180 tablet 3 5 Active Continuous Glucose Sensor (Dexcom G7 Sensor) MiscIndications:Arminda betes mellitus due to underlying condition with hyperosmolarity without coma, without long-term current use of insulin ([facility]) Utilize to measure and track blood sugars, continuous use. Lifetime need. E11.65, Z79.4 3 each 1 5 Active metFORMIN (GLUCOPHAGE) 500 MG tabletIndications:T ype 2 diabetes mellitus with hyperosmolarity without coma, without long-term current use of insulin ([facility]) TAKE 1 TABLET BY MOUTH 2 TIMES A DAY WITH BREAKFAST AND DINNER 180 tablet 5 Active metFORMIN (GLUCOPHAGE) 500 MG tabletIndications:T ype 2 diabetes mellitus with hyperosmolarity without coma, without long-term current use of insulin ([facility]) Take 1 tablet (500 mg total) by mouth 2 (two) times a day with breakfast and dinner. 180 tablet 3 4 025 Discontinued Active Problems Patient Care Coordination No te Formatting of this note migh t be different from the original. [facility]@Home, / [place] for transportation (01/2022--01/2023) Problem Noted Date Diagnosed Date Type 2 diabetes mellitus with obesity 12/11/2024 Vitamin D deficiency 09/14/2023 09/14/2023 Body mass index (BMI) of 70 or greater in adult 09/14/2023 09/14/2023 Counseling for HPV (human papillomavirus) vaccin ation 08/18/2023 Overview (08/18/2023): 08/18/23 - Desires dose 1 at next visit. Will need 3 dose series. [facility] Assessment & Plan (08/18/2023 4:58 PM [...] avoiding harsh/scented soaps in/around the genital area. [facility] Assessment & Plan (08/18/2023 5:02 PM [...] not currently sexually active. No current contraception. [facility] Assessment & Plan (08/18/2023 4:58 PM [...] Encounters Date Type Department Care Team Description 12/24/2024 [facility] [address] [phone] Jenae Thomas MD Diabetes mellitus due to underlying condition with hyperosmolarity without coma, without long-term current use of insulin ([facility]) 12/22/2024 [facility] [address] [address] Gumaro Jimenez MD Refills Scrubbing 12/20/2024 [facility] [address] [phone] Earline Seaman MA BSC MANAGEMENT; Advice Only (LVM TO CALL THE CLINIC TO SCHEDULE APPT WITH A PROVIDER THAT PERFORMS BSC OR PRIMARY CARE DOCTOR) 12/12/2024 [facility] [address] [phone] Jenae Thomas MD 12/12/2024 [facility] [address] [phone] Ravi Mills MD Type 2 diabetes mellitus with hyperosmolarity without coma, without long-term current use of insulin (HCC) 11/23/2024 Refill [facility] [address] [phone] Jenae Thomas MD Diabetes mellitus due to underlying condition with hyperosmolarity without coma, without long-term current use of insulin (HCC) 11/23/2024 Telephone [facility] [address] [place] [phone] Gumaro Jimenez MD Refills Scrubbing 10/26/2024 Orders Only [facility] [address] [place] [address], [place] [phone] Pat Benites MD Acute saddle pulmonary embolism without acute cor pulmonale (HCC) 10/25/2024 Refill [facility] [address] [place] [phone] Jenae Thomas MD Acute saddle pulmonary embolism without acute cor pulmonale (HCC) 10/25/2024 Orders Only [facility] [address] [place] [address], [place] [phone] Chef Randy Abel MD Acute saddle pulmonary embolism without acute cor pulmonale (HCC); Acute saddle pulmonary embolism, unspecified whether acute cor pulmonale present (HCC); Acute deep vein thrombosis (DVT) of left lower extremity, unspecified vein (HCC) 10/24/2024 Refill [facility] [address] [place] [address], [place] [phone] Jenae Thomas MD Acute saddle pulmonary embolism without acute cor pulmonale (HCC); Acute saddle pulmonary embolism, unspecified whether acute cor pulmonale present (HCC); Acute deep vein thrombosis (DVT) of left lower extremity, unspecified vein (HCC) 10/11/2024 Telephone [facility] [address] [place] [address], [place] [phone] Jenae Thomas MD from Last 3 Months Immunizations Name Administration Dates Next Due Covid-19 MRNA Vaccine - [employer] 12+ (Purple Cap) 11/17/2021,10/28/2021 Influenza Inactivated/Split Preservative [...] drink = 0.6 oz pur e alcohol) [facility] Utilities Answer Date Recorded In the past 12 months has e [employer], gas, oil, or water [employer] threatened to shut off services in your [...] 09/10/2024 8:15 AM EST Plan of Treatment Health Maintenance Due Date Last Done Comments Ophthalmology Exam 2002 Annual Wellness Visit 2010 Physical 2010 Hepatitis B Vaccines (1 of 3 - 19+ 3-dose series) 2011 COVID-19 Vaccine ( season) 2024 11/17/2021, 10/28/2021 Microalbumin/Creatinine Ratio Urine [...] Years) Completed 09/13/2023 HIV Screening Completed 11/19/2023, 04/2023, 09/28/2022, Additional history exists Influenza Vaccine Completed 08/23/2024, , 12/08/2021, Additional history exists HPV Vaccines Aged Out No longer eligi ble based on patient's age to complete this topic Procedures Procedure Name Priority Date/Time Associated Diagnosis Comments COMPREHENSIVE METABOLIC PANEL STAT 08/14/2024 12:20 PM EST Lightheaded HEMOGLOBIN A1C WITH ESTIMATED AVERAGE GLUCOSE Routine 07/31/2024 10:10 AM EDT Uncontrolled type 2 diabetes mellitus with hyperglycemia (HCC) LIPID PANEL WITH NONHDL Routine 07/13/2024 12:54 PM EDT Type 2 diabetes mellitus without complication, with long-term current use of insulin (HCC) MICROALBUMIN, CREATININE, URINE, RANDOM Routine 01/03/2024 2:25 PM EDT Type 2 diabetes mellitus with hyperosmolarity without coma, without long-term current use of insulin (HCC) HIV 1/2 AG/AB CMIA REFLEX TO CONFIRMATION STAT 11/19/2023 12:43 AM EST PAP/CONSTRUCTION RECRUITER CYTOLOGY Routine 08/31/2023 10:5 1 AM EST Cervical cancer screening HEPATITIS PANEL, ACUTE Routine 06/09/2023 10:55 AM EDT Need for hepatitis C screening test from Last 3 Months or Most Recently Relevant to Health Maintenance Results * (ABNORMAL) Comprehensive Metabolic Panel (08/14/2024 12:20 PM EST) Glucose 110(H) 65 - 99 mg/dL 08/14/2024 2:31 PM [facility] Comment:Fasting: <100 mg/dL, Non-Fasting: <200 mg/dL (ADA 2004) Blood Urea Nitrogen (BUN) 13 8 - 21 mg/dL 08/14/2024 2:31 PM [facility] Creatinine 0.8 0.4 - 1.1 mg/dL 08/14/2024 2:31 PM [facility] eGFR >90 >59 08/14/2024 2:31 PM [facility] Comment:CKD-EPI (2020) in mL /min/1.73 sq meters. Sodium 139 136 - 145 mmol/L 08/14/2024 2:31 PM [facility] Potassium 4.0 3.4 - 5.3 mmol/L 08/14/2024 2:31 PM [facility] Chloride 102 98 - 107 mmol/L 08/14/2024 2:31 PM [facility] CO2 22 22 - 33 mmol/L 08/14/2024 2:31 PM [facility] Calcium 9.9 8.7 - 10.5 mg/dL 08/14/2024 2:31 PM [facility] Alkaline Phosphatase 59 32 - 122 U/L 08/14/2024 2:31 PM [facility] Aspartate Aminotrans (AST) 21 10 - 50 U/L 08/14/2024 2:31 PM [facility] Alanine Aminotrans (ALT) 20 10 - 50 U/L 08/14/2024 2:31 PM [facility] Bilirubin, Total 0.6 0.2 - 1.0 mg/dL 08/14/2024 2:31 PM [facility] Protein, Total 8.3 6.3 - 8.3 g/dL 08/14/2024 2:31 PM [facility] Albumin 4.0 3.5 - 5.0 g/dL 08/14/2024 2:31 PM [facility] BUN/Creatinine Ratio 16 10.0 - 25.0 Ratio 08/14/2024 2:31 PM [facility] Globulin 4.3(H) 1.5 - 3.9 g/dL 08/14/2024 2:31 PM [facility] Albumin/Globulin Ratio 0.9(L) 1.0 - 3.0 Ratio 08/14/2024 2:31 PM [facility] Anion Gap 15 7 - 17 08/14/2024 2:31 PM [facility] Blood (Plasma/Serum) 08/14/2024 12:20 PM EST 08/14/2024 1:55 PM EST Ravi Mills MD LAB BLOOD ORDERABLES Performing Organization Address City/[facility]/[place] [address], [place] [address] * (ABNORMAL) Hemoglobin A1c with Estimated Average Glucose (07/31/2024 10:10 AM EDT) Hemoglobin A1C 6.0(H) <5.7 % 07/31/2024 2:40 PM EDT [facility] Comment: A1c% ? Interpretation 5.7 - 6.0 ?Increase risk of diabetes 6.1 - 6.4 ?Higher risk of diabetes > or = 6.5 ?? Consistent with diabetes Diabetes Care, 33(Supp 1):S1-S61, 2009 Estimated Average Glucose 126 mg/dL 07/31/2024 2:40 PM EDT [facility] Blood Blood specimen / Unknown 07/31/2024 10:10 AM EDT 07/31/2024 12:38 PM EDT Ravi Mills MD [place] [address], [place] [address] * Lipid panel (07/13/2024 12:54 PM EDT) Cholesterol, Total 171 <200 mg/dL 2023 8:05 PM EDT [facility] Cholesterol, HDL 53 >39 mg/dL 07/13/20 24 8:05 PM T [facility] Cholesterol/HDL Ratio 3.2 0.0 - 5.0 Ratio 07/13/2024 8:05 PM T [facility] Comment: Relative Risk ? Ratio - Male ? Ratio - Female ?0.5 ?3.4 ?3.3 ?1.0 ?5.0 ?4.4 ?2.0 ?9.6 ?7.1 ?3.0 ? 23.4 ? 11.0 Non HDL Cholesterol 118 <160 mg/dL 07/13/2024 8:05 PM [facility] Triglycerides 118 <150 mg/dL 07/13/2024 8:05 PM [facility] Estimated LDL 94 <130 mg/dL 07/13/2024 8:05 PM [facility] Comment: NCEP Guidelines: ?< 100 mg/dL ??Optimal 100 - 129 mg/dL ??Near Optimal/Above Optimal 130 - 159 mg/dL ??Borderline High 160 - 189 mg/dL ??High ??>/= 190 mg/dL ??Very High Blood (Plasma/Serum) 07/13/2024 12:54 PM EDT 07/13/2024 7:33 PM EDT Desi Rios MD LAB BLOOD ORD ERABLES Performing Organization Address [facility]/State/[place] [address], [place] [address] * (ABNORMAL) Microalbumin, Creatinine, Urine, Random (01/03/2024 2:25 PM EDT) Pathologist [facility] Microalbumin, Urine, Random 48(H) <30 mg/L 01/03/2024 8:45 PM EDT [facility] Creatinine, Urine, Random 410 mg/dL 01/03/2024 8:45 PM EDT [facility] Microalbumin/Cr eatinine Ratio 11.7 mg/g Creat 01/03/2024 8:45 PM EDT [facility] Urine Urine specimen / Unknown 01/03/2024 2:25 PM EDT 01/03/2024 7:59 PM EDT Ravi Mills MD URINE ORDERABLES Performing Organization Address City/[facility] Co de Phone Number [address] [address], [address] [address] * HIV 1/2 Ag/Ab CMIA Reflex to Confirmation (11/19/2023 12:43 AM EST) Pathologist [facility] HIV 1/2 Ag/Ab CMIA Nonreactive Nonreactive 11/21/2023 1:08 PM EST [facility] Comment: Results show no [...] AM EST Kelli BENTLEY LAB BLOOD ORDERABLES [facility] [address] [place] [address], * Hepatitis Panel, Acute (06/09/2023 10:55 AM EDT) Pathologist [facility] Hepatitis A Antibody IgM Nonreactive Nonreactive S/CO 06/10/2023 9:48 AM EDT [facility] Hepatitis B Core Antibody IgM Nonreactive Nonreactive 06/10/2023 9:48 AM EDT [facility] Hepatitis B Surface Ag Screen Nonreactive Nonreactive 06/10/2023 9:48 AM EDT [facility] Hepatitis C Antibody 0.11 0.00 - 0.79 S/CO ratio 06/10/2023 9:48 AM EDT [facility] Hepatitis C Antibody Interpretation Nonreactive Nonreactive 06/10/2023 9:48 AM EDT [facility] Hepatitis Interpretation: Results inconsistent with acute Hepatitis A, B or C Virus infection. 06/10/2023 9:48 AM EDT [facility] Blood specimen (specimen) Serum specimen / Unknown 06/09/2023 10:55 AM EDT 06/09/2023 12:12 PM EDT Ravi Mills MD LAB BLOOD ORDERABLES HOSPITAL LAB See Below [facility] [address] [place] [address] from Last 3 Months or Most Recently [...] Agents on File Name Relationship Healthcare Agent Lyn Delgado Parent 4. Next of Kin ( Spouse, Adult Child, Parent, Adult Sibling, Grandparent) Vince Bradley Parent 4. Next of Kin ( Spouse, Adult Child, Parent, Adult Sibling, Grandparent) Care Teams Thread Singer Relationship Specialty Start Date End Date Jenae Thomas MD [address] [phone] PCP - General Internal Medicine 03/30/24 Diego Schulz MD [address] [place] [address] PCP - [employer] Attributed 10/03/23 Ravi Mills MD [address] [place] [id number] PCP - Resident - Supervising Attending Internal Medicine 06/05/24 Gifty Huizar, PhD [address] [address] Clinical Psychologist Psychology 10/13/20 Dharmesh Broderick MD [address] [place] [address] Ophthalmology 07/15/23
[2025-01-04 00:53] LABS: Influenza A PCR NEGATIVE (Negative); Influenza B PCR NEGATIVE (Negative); Resp Syncy Virus RNA Qual PCR NEGATIVE (Negative); SARS COV2 PCR INHOUSE NEGATIVE (Negative)
[2025-01-04 01:03] VITALS: BP 132/83; PULSE 75; RESP 14; O2SAT 98
[2025-01-04 01:03] LABS: INTERNATIONAL NORM RATIO 1.8 (0.9-1.1); Prothrombin Time 21.4 SEC (10.9-12.4)
[2025-01-04 01:06] LABS: Partial Thromboplastin Time 36.2 SEC (26.0-36.8)
[2025-01-04 01:09] LABS: D Dimer High Sensitivity < 150 NG/ML
[2025-01-04] MEDS: ondansetron HCL 4 MG/2 ML VIAL IVPUSH (01:16)
[2025-01-04] MEDS: Morphine Sulfate 4 MG/ML CARTRIDGE IVPUSH (01:16)
[2025-01-04] MEDS: 0.9 % Sodium Chloride 1,000 ML 999 ML IV (01:17)
[2025-01-04] MEDS: LORazepam 2 MG/ML VIAL 1 MG IVPUSH (01:39)
[2025-01-04 01:42] VITALS: BP 133/79; PULSE 77; RESP 14; TEMP 37.3; O2SAT 98
[2025-01-04] MEDS: Calcium Carbonate 750 MG TAB.CHEW 1500 MG PO (02:24)
--- NOTE | 2025-01-04 02:25 | PC.NURSE ---
pt states anxiety improved
[2025-01-04 02:26] VITALS: BP 133/79; PULSE 81; RESP 14; TEMP 36.8; O2SAT 98
== END 2025-01-04 02:45 | disposition home or self-care (01) ==
PROVIDERS: Emergency Provider Emergency Medicine Emergency Medical Services
DX: B34.9 Viral infection, unspecified (principal); R07.89 Other chest pain; M94.0 Chondrocostal junction syndrome [Tietze]; R11.2 Nausea with vomiting, unspecified; R05.9 Cough, unspecified; Z03.818 Encounter for observation for suspected exposure to other biological agents ruled out; Z79.01 Long term (current) use of anticoagulants; Z86.711 Personal history of pulmonary embolism; Z79.899 Other long term (current) drug therapy
CPT/HCPCS: 0241U; 36415; 71045; 80053; 83690; 83735; 84484; 85025; 85379; 85610; 85730; 93005; 96361; 96374; 96375; 99284; 99285; J2060; J2270; J2405

== ENCOUNTER → 2025-01-03 23:53 | Outpatient (BNV) | payer MEDICARE, MEDICAID, SELFPAY | PROVIDERS: Emergency Provider Emergency Medicine Emergency Medical Services; Visit Provider Internal Medicine | DX: R94.31 Abnormal electrocardiogram [ECG] [EKG] (principal); R07.9 Chest pain, unspecified | CPT/HCPCS: 93010 ==

== ENCOUNTER → 2025-01-04 01:03 | Outpatient (BNV) | payer MEDICARE, MEDICAID, SELFPAY | PROVIDERS: Emergency Provider Emergency Medicine Emergency Medical Services; Visit Provider Radiology Neuroradiology | DX: J98.11 Atelectasis (principal) | CPT/HCPCS: 71045 ==